=== PATIENT | male | born 1950 | race American Indian/Alaskan Native ===

== ENCOUNTER 2016-05-23 21:15 | Inpatient (IN) | payer MEDICARE ==
[2016-05-23] MEDS ORDERED: CARDIZEM IV ONE ×3 (22:00→23:15)
[2016-05-23] MEDS ORDERED: CARDIZEM ONE (22:37)
[2016-05-23] MEDS ORDERED: NACL 0.9% 1000 ML 1,000 ML IV ONE (22:42)
--- NOTE | 2016-05-23 22:45 | Emergency Department Report ---
ED General Adult HPI - General Chief complaint: Weakness Stated complaint: HIGH BLOOD SUGAR Time Seen by Provider: 05/23/16 22:39 Source: patient, EMS Mode of arrival: Stretcher Limitations: No Limitations - History of Present Illness Initial comments: 66-year-old male with history of hypertension, diabetes presented today because generalized weakness. Patient states that he has been having cold-like symptoms with some congestion and cough for the last 3 days. He has been very sleepy all day and has not been taking his medications since he got sick. Patient had an EKG here which was concerning for A. fib with RVR which appears to be of new onset this patient does not have any known history of it. - Related Data Allergies Allergy/AdvReac Type Severity Reaction Status Date / Time No Known Allergies Allergy Verified 05/23/16 22:42 ED Review of Systems ROS: Stated complaint: HIGH BLOOD SUGAR Other details as noted in HPI Comment: All other systems reviewed and negative Constitutional: denies: chills, fever Respiratory: cough Cardiovascular: denies: chest pain Gastrointestinal: denies: abdominal pain, vomiting Genitourinary: denies: dysuria Skin: denies: rash Psychiatric: denies: anxiety ED Past Medical Hx - Past Medical History Hx Hypertension: Yes Hx Diabetes: Yes - Social History Smoking Status: Never Smoker Substance Use Type: None ED Physical Exam - General Limitations: No Limitations General appearance: alert, other (appears confused, is answering questions slowly) - Head Head exam: Present: atraumatic - Eye Eye exam: Present: normal appearance - ENT ENT exam: Present: normal exam - Neck Neck exam: Present: normal inspection - Respiratory Respiratory exam: Present: normal lung sounds bilaterally. Absent: respiratory distress - Cardiovascular Cardiovascular Exam: Present: tachycardia, irregular rhythm - GI/Abdominal GI/Abdominal exam: Present: soft. Absent: distended, tenderness, guarding - Neurological Exam Neurological exam: Present: other (also commands but appears confused) - Psychiatric Psychiatric exam: Present: normal affect ED Course Vital Signs 05/23/16 05/23/16 05/23/16 22:17 22:46 22:47 Temperature 97.5 F L Pulse Rate 148 H 145 H 162 H Respiratory 22 14 Rate Blood Pressure 192/141 192/112 O2 Sat by Pulse 99 99 Oximetry 05/23/16 05/23/16 05/23/16 23:00 23:15 23:16 Temperature Pulse Rate 116 H 164 H 107 H Respiratory 10 L 15 Rate Blood Pressure 167/102 211/113 O2 Sat by Pulse 98 100 Oximetry 05/23/16 05/23/16 05/24/16 23:30 23:46 00:00 Temperature Pulse Rate 146 H 133 H 148 H Respiratory 13 19 Rate Blood Pressure 211/113 161/92 167/62 O2 Sat by Pulse 99 100 Oximetry 05/24/16 05/24/16 00:52 00:53 Temperature Pulse Rate 138 H Respiratory 24 Rate Blood Pressure O2 Sat by Pulse 99 Oximetry - Reevaluation(s) Reevaluation #1: 05/23/16 23:03 Reassessed at this time, patient had significant improvement in heart rate, now down to 100-110. Has nearly finished the first liter bolus of normal saline. Given that he has no prior CHF and that he also severely hyperglycemic will give him another liter normal saline. Reevaluation #2: 05/24/16 00:00 Patient received 3 boluses of 10 mg of IV Cardizem and is still in the 150s heart rate. Second liter of normal saline is continuing. Awaiting lab results. Due to the patient being resistant to the Cardizem. We will start a drip. Get the patient started coughing and family. Will treat the patient empirically for community acquired pneumonia given that his white count has come back elevated and he would meet surge criteria with a source, lactate is also ordered. 05/24/16 00:03 Reevaluation #3: 05/24/16 01:11 Labs show hyperglycemia, elevated anion gap, elevated ketones suggesting that the patient is in DKA. Insulin drip ordered. Labs also show a elevated troponin, this may be just due to stress/atrial fibrillation with RVR, however did order a dose of aspirin for the patient. Reevaluation #4: 05/24/16 01:59 His heart rate appears to be stabilizing at this time, is at a rate of around 110 ED Medical Decision Making - Lab Data Result diagrams: 05/23/16 23:10 05/24/16 01:28 - Medical Decision Making IV, labs, cxr, ekg ekg shows a fib with rvr Patient has new onset A. fib with RVR. He was also hyperglycemic to the 500s at home. We will look for signs of DKA. IV fluids including a 1 L normal saline bolus started, patient placed on the monitor, ordering 10 mg of IV Cardizem given that the patient may be very sensitive to it since he has not used calcium channel blockers in the past. CXR unremarkable for acute disease process Critical Care Time: Yes Critical care time in (mins) excluding proc time.: 30 Critical care attestation.: If time is entered above; I have spent that time in minutes in the direct care of this critically ill patient, excluding procedure time. ED Disposition Clinical Impression: Atrial fibrillation with rapid ventricular response DKA (diabetic ketoacidoses) Qualifiers: Diabetes mellitus type: other specified (including CAITLIN) Diabetes mellitus complication detail: without coma Qualified Code(s): E13.10 - Other specified diabetes mellitus with ketoacidosis without coma Disposition: OP ADMITTED IP TO THIS HOSP Is pt being admited?: Yes Condition: Critical Instructions: Diabetic Ketoacidosis (ED) Referrals: PRIMARY CARE, [Primary Care Provider] - 3-5 Days Time of Disposition: 02:04 (transitioned care to the hospitalist)
[2016-05-23] MEDS ORDERED: CARDIZEM/D5W 100MG/100ML 100 ML IV ONE (23:11)
[2016-05-23 23:39] LABS: Basophils % (Auto) 0.2 % (0.0-1.8); Eosinophils % (Auto) 0.2 % (0.0-4.3); Hematocrit 44.3 % (35.5-45.6); Hemoglobin 14.4 gm/dl (11.8-15.2); Mean Corpuscular HGB Conc 33 % (32-34); Mean Corpuscular Hemoglobin 29 pg (28-32); Mean Corpuscular Volume 90 fl (84-94); Platelet Count 372 K/mm3 (140-440); Red Cell Distribution Width 12.2 % (13.2-15.2); White Blood Count 12.4 K/mm3 (4.5-11.0)
[2016-05-24] MEDS ORDERED: ROCEPHIN/NS 1 GM/50 ML 50 ML IV ONE (00:01)
[2016-05-24] MEDS ORDERED: ZITHROMAX 500 MG in NACL 0.9% 250ML 250 ML IV ONE (00:01)
[2016-05-24 00:11] LABS: Bilirubin,Urine NEG (Negative); Blood,Urine MOD (Negative); Ketones,Urine 20 mg/dL (Negative); Leukocyte Esterase,Urine NEG (Negative); Nitrite,Urine NEG (Negative); RBC,Urine < 1.0 /HPF (0.0-6.0); Urobilinogen,Urine < 2.0 mg/dL (<2.0)
[2016-05-24 00:48] LABS: B-Hydroxybutyrate 42.4 mg/dL (0.2-2.8); BUN/Creatinine Ratio 24.44; Calcium 8.4 mg/dL (8.4-10.2); Chloride 85.7 mmol/L (98-107); Potassium 5.1 mmol/L (3.6-5.0)
[2016-05-24] MEDS ORDERED: NACL 0.9% 1000 ML 1,000 ML IV ONE ×2 (00:55→01:07)
[2016-05-24] MEDS ORDERED: D50W (25GM) IV PRN ×2 (00:58→04:33)
[2016-05-24] MEDS ORDERED: BABY ASPIRIN PO ONE (01:01)
[2016-05-24 01:47] LABS: Magnesium 2.7 mg/dL (1.7-2.3); Phosphorous 3.6 mg/dL (2.5-4.5)
[2016-05-24 01:48] LABS: BUN/Creatinine Ratio 24.44; Calcium 7.8 mg/dL (8.4-10.2); Chloride 84.9 mmol/L (98-107); Potassium 5.3 mmol/L (3.6-5.0)
[2016-05-24 01:48] LABS: ISTAT Base Excess -9; ISTAT HCO3 15.1; ISTAT PCO2 21.1 (35-45); ISTAT PH 7.464 (7.35-7.45); ISTAT PO2 90 (80-105); ISTAT SO2 98; ISTAT TCO2 16
[2016-05-24] MEDS: NovoLIN R 100 UNITS in NACL 0.9% 99 ML IV SCH ×5 (01:49→22:05)
--- NOTE | 2016-05-24 03:05 | History and Physical Report ---
[id number] of hypertension, diabetes was brought to the emergency room because his blood sugar has been elevated at home. Patient lives state that she had the flu, a few days later the patient started having flulike symptoms, body aches, feeling ill. He has not eaten in 2 days, did not take any medications. Today was lethargic so he came to the emergency room for further evaluation. The emergency room he was found to be in A. fib new onset. History is per the , review of system is very difficult to obtain PAST SURGICAL HISTORY: None SOCIAL HISTORY: Denies alcohol, tobacco, drugs FAMILY HISTORY: Diabetes Medications and Allergies Allergies Allergy/AdvReac Type Severity Reaction Status Date / Time No Known Allergies Allergy Verified 05/23/16 22:42 Active Meds: Active Medications Dextrose (D50w (25gm)) 0 ml IV ONCE PRN PRN Reason: Hypoglycemia Diltiazem HCl (Cardizem/D5w 100mg/100ml) 100 mls @ 5 mls/hr IV TITR RASHEEDA; 5 MG/ HR PRN Reason: Protocol Last Titration: 05/24/16 02:34 Dose: 25 mg/hr Insulin Human Regular 100 (units/ Sodium Chloride) 100 mls @ 1 mls/hr IV TITR RASHEEDA; 1 UNITS/HR PRN Reason: Protocol Last Titration: 05/24/16 02:32 Dose: 7 units/hr Exam - Physical Exam Narrative exam: Gen. appearance: Patient lying in bed, no apparent distress HEENT: Normocephalic, atraumatic, pupils equally round and reactive to light, extraocular movement intact, and no sclericterus,. No JVD or thyromegaly or nodule,neck supple, no carotid bruit ,mucous membranes dry, no exudate or erythema Heart: S1, S2, regular rate and rhythm Lungs: Clear to auscultation bilaterally, breathing comfortable Abdomen: Positive bowel sounds, nontender, nondistended, no organomegaly Extremity: No edema, cyanosis, clubbing Skin: No rash, nodules, warm, dry Neuro: Lethargic - Constitutional Vitals: Temp Pulse Resp BP Pulse Ox 97.5 F L 111 H 15 155/92 100 05/23/16 22:17 05/24/16 02:30 05/24/16 02:30 05/24/16 02:30 05/24/16 02:30 Results - Labs CBC & Chem 7: 05/23/16 23:10 05/24/16 19:49 Labs: Abnormal lab results 05/23/16 05/23/16 05/23/16 Range/Units 22:46 23:10 23:10 WBC 12.4 H (4.5-11.0) K/mm3 RDW 12.2 L (13.2-15.2) % Lymph % (Auto) 10.9 L (13.4-35.0) % [place] % (Auto) 7.7 H (0.0-7.3) % [place] # 1.0 H (0.0-0.8) K/mm3 Seg Neutrophils % 81.0 H (40.0-70.0) % Seg Neutrophils # 10.0 H (1.8-7.7) K/mm3 POC ABG pH (7.35-7.45) POC ABG pCO2 (35-45) Sodium 129 L (137-145) mmol/L Potassium 5.1 H (3.6-5.0) mmol/L Chloride 85.7 L (98-107) mmol/L Carbon Dioxide 16 L (22-30) mmol/L BUN 66 H (9-20) mg/dL Creatinine 2.7 H (0.8-1.5) mg/dL Glucose 569 H* (75-100) mg/dL POC Glucose 494 H (70-105) Lactic Acid (0.7-2.0) mmol/L Calcium (8.4-10.2) mg/dL Magnesium (1.7-2.3) mg/dL Troponin T 0.105 H* (0.00-0.029) ng/mL Triglycerides 236 H (2-149) mg/dL HDL Cholesterol 26 L (40-59) mg/dL Ketones 42.4 H (0.2-2.8) mg/dL 05/24/16 05/24/16 05/24/16 Range/Units 01:28 01:28 01:32 WBC (4.5-11.0) K/mm3 RDW (13.2-15.2) % Lymph % (Auto) (13.4-35.0) % [place] % (Auto) (0.0-7.3) % [place] # (0.0-0.8) K/mm3 Seg Neutrophils % (40.0-70.0) % Seg Neutrophils # (1.8-7.7) K/mm3 POC ABG pH 7.464 H (7.35-7.45) POC ABG pCO2 21.1 L (35-45) Sodium 129 L (137-145) mmol/L Potassium 5.3 H (3.6-5.0) mmol/L Chloride 84.9 L (98-107) mmol/L Carbon Dioxide 18 L (22-30) mmol/L BUN 66 H (9-20) mg/dL Creatinine 2.7 H (0.8-1.5) mg/dL Glucose 554 H* (75-100) mg/dL POC Glucose (70-105) Lactic Acid (0.7-2.0) mmol/L Calcium 7.8 L (8.4-10.2) mg/dL Magnesium 2.7 H (1.7-2.3) mg/dL Troponin T (0.00-0.029) ng/mL Triglycerides (2-149) mg/dL HDL Cholesterol (40-59) mg/dL Ketones (0.2-2.8) mg/dL 05/24/16 05/24/16 Range/Units Unknown Unknown WBC (4.5-11.0) K/mm3 RDW (13.2-15.2) % Lymph % (Auto) (13.4-35.0) % [place] % (Auto) (0.0-7.3) % [place] # (0.0-0.8) K/mm3 Seg Neutrophils % (40.0-70.0) % Seg Neutrophils # (1.8-7.7) K/mm3 POC ABG pH (7.35-7.45) POC ABG pCO2 (35-45) Sodium (137-145) mmol/L Potassium (3.6-5.0) mmol/L Chloride (98-107) mmol/L Carbon Dioxide (22-30) mmol/L BUN (9-20) mg/dL Creatinine (0.8-1.5) mg/dL Glucose (75-100) mg/dL POC Glucose (70-105) Lactic Acid 3.1 H* (0.7-2.0) mmol/L Calcium (8.4-10.2) mg/dL Magnesium (1.7-2.3) mg/dL Troponin T 0.096 H (0.00-0.029) ng/mL Triglycerides (2-149) mg/dL HDL Cholesterol (40-59) mg/dL Ketones (0.2-2.8) mg/dL - Imaging and Cardiology EKG: image reviewed (afib, 120) Chest x-ray: image reviewed Assessment and Plan DKA New-onset A. fib RVR Low-grade temperature epistaxis secondary to flulike symptoms Acute renal failure Hypertension Admits medicine Start IV fluids, insulin drip, monitor fingersticks and serial chemistry Continue Cardizem drip, check cardiac enzymes, TSH, consult cardiology Consult critical care, monitor kidney function Start aspirin, full dose Lovenox Start emperic antibiotics, blood cultures
[2016-05-24] MEDS ORDERED: NACL 0.9% 1000 ML 500 ML IV ONE (04:14)
[2016-05-24] MEDS ORDERED: CARDIZEM/D5W 100MG/100ML 100 ML IV ONE (04:17)
[2016-05-24] MEDS ORDERED: TYLENOL ONE (04:19)
[2016-05-24] MEDS ORDERED: TYLENOL PO ONE (04:29)
[2016-05-24] MEDS ORDERED: DULCOLAX PR PRN (04:33)
[2016-05-24] MEDS ORDERED: MILK OF MAGNESIA PO PRN (04:33)
[2016-05-24] MEDS ORDERED: ALUM-MAG HYDROX-SIMETH 200-200-20MG/5ML PO PRN (04:33)
[2016-05-24] MEDS ORDERED: TYLENOL PO PRN (04:33)
[2016-05-24] MEDS ORDERED: CARDIZEM IV ONE (04:58)
[2016-05-24] MEDS ORDERED: NACL 0.9% 1000 ML 1,000 ML IV SCH (05:00)
[2016-05-24 05:13] LABS: BUN/Creatinine Ratio 22.3; Calcium 7.9 mg/dL (8.4-10.2); Chloride 93.4 mmol/L (98-107)
[2016-05-24] MEDS: CARDIZEM/D5W 100MG/100ML 100 ML IV SCH ×7 (05:14→21:05)
[2016-05-24] MEDS: D5W/0.45% NACL/KCL 20 MEQ 1,000 ML IV SCH ×3 (05:24→18:54)
[2016-05-24 06:44] LABS: BUN/Creatinine Ratio 23.2; Calcium 8.2 mg/dL (8.4-10.2); Chloride 98.7 mmol/L (98-107); Magnesium 2.5 mg/dL (1.7-2.3); Phosphorous 1.6 mg/dL (2.5-4.5); Potassium 3.4 mmol/L (3.6-5.0)
[2016-05-24] MEDS: LOVENOX SUB-Q SCH ×2 (07:14→17:29)
[2016-05-24 08:41] LABS: BUN/Creatinine Ratio 23.33; Calcium 8.3 mg/dL (8.4-10.2); Chloride 95.6 mmol/L (98-107); Potassium 4.1 mmol/L (3.6-5.0)
--- NOTE | 2016-05-24 09:24 | XRay Report ---
Single view chest: History: Cough. Findings: Normal cardiomediastinal silhouette. Trachea is midline. No consolidation, pneumothorax or pleural effusion. Impression: No acute lung changes.
--- NOTE | 2016-05-24 09:24 | Consultation ---
History of Present Illness - Reason for Consult Consult date: 05/24/16 DKA, ICU care, Afib with RVR Requesting physician: SIVA LATIF - History of Present Illness 66 y/o male with known diabetes presents with elevated blood sugar and found to be in DKA. Also during that time was found to be in afib with RVR which this is a new diagnosis for him. Was started on a dilt drip as well as insulin drip and transferred to the ICU. Patient is awake and alert. No complaints. REmains in afib with uncontrolled rate. Last AG was 20 when calculated. Past History Past Medical History: diabetes, hypertension Medications and Allergies Allergies Allergy/AdvReac Type Severity Reaction Status Date / Time No Known Allergies Allergy Verified 05/23/16 22:42 Active Meds: Active Medications Acetaminophen (Tylenol) 650 mg PO Q6H PRN PRN Reason: Pain Al Hydrox/Mg Hydrox/Simethicone (Alum-Mag Hydrox-Simeth [id number]/5ml) 30 ml PO Q4H PRN PRN Reason: Indigestion Aspirin (Aspirin) 325 mg PO QDAY RASHEEDA Bisacodyl (Dulcolax) 10 mg RI QDAY PRN PRN Reason: constipation unrelieved by MOM Dextrose (D50w (25gm)) 0 ml IV ONCE PRN PRN Reason: Hypoglycemia Enoxaparin Sodium (Lovenox) 100 mg SUB-Q Q12H RASHEEDA Last Admin: 05/24/16 07:14 Dose: 100 mg Diltiazem HCl (Cardizem/D5w 100mg/100ml) 100 mls @ 5 mls/hr IV TITR RASHEEDA; 5 MG/ HR PRN Reason: Protocol Last Admin: 05/24/16 08:51 Dose: 20 mls/hr Sodium Chloride (Nacl 0.9% 1000 Ml) 1,000 mls @ 150 mls/hr IV DIRECT RASHEEDA Insulin Human Regular 100 (units/ Sodium Chloride) 100 mls @ 1 mls/hr IV TITR RASHEEDA; 1 UNITS/HR PRN Reason: Protocol Last Admin: 05/24/16 09:15 Dose: 2 mls/hr Potassium Chloride/Dextrose/Sod Cl (D5w/0.45% Nacl/Kcl 20 Meq) 1,000 mls @ 125 mls/hr IV DIRECT RASHEEDA Last Admin: 05/24/16 05:24 Dose: 125 mls/hr Ceftriaxone Sodium (Rocephin/Ns 1 Gm/50 Ml) 50 mls @ 100 mls/hr IV Q24H [facility] Influenza Virus Vaccine Quadrival (Fluarix Quad [id number](36 Mos+)) 60 mcg IM .ONCE ONE Stop: 05/24/16 12:01 Magnesium Hydroxide (Milk Of Magnesia) 30 ml PO Q4H PRN PRN Reason: Constipation Review of Systems All systems: negative Exam - Constitutional Vitals: Temp Pulse Resp BP Pulse Ox 97.8 F 112 H 11 L 148/94 99 05/24/16 08:00 05/24/16 09:00 05/24/16 09:00 05/24/16 09:00 05/24/16 09:00 General appearance: Present: no acute distress, well-nourished - EENT Eyes: Present: PERRL, EOM intact ENT: hearing intact, clear oral mucosa - Neck Neck: Present: supple, normal ROM - Respiratory Respiratory effort: normal Respiratory: bilateral: CTA - Cardiovascular Rhythm: irregularly irregular (and tachycardic) - Extremities Extremities: no ischemia, pulses intact, No edema - Abdominal General gastrointestinal: Present: soft, non-tender, normal bowel sounds Male genitourinary: Present: deferred - Rectal Rectal Exam: deferred Results - Labs CBC & Chem 7: 05/23/16 23:10 05/24/16 07:58 Labs: Abnormal lab results 05/24/16 05/24/16 05/24/16 Range/Units 03:49 03:49 04:56 Sodium 135 L (137-145) mmol/L Potassium (3.6-5.0) mmol/L Chloride 93.4 L (98-107) mmol/L Carbon Dioxide 20 L (22-30) mmol/L BUN 58 H (9-20) mg/dL Creatinine 2.6 H (0.8-1.5) mg/dL Glucose 348 H (75-100) mg/dL POC Glucose 206 H (70-105) Lactic Acid (0.7-2.0) mmol/L Calcium 7.9 L (8.4-10.2) mg/dL Phosphorus (2.5-4.5) mg/dL Magnesium (1.7-2.3) mg/dL Total Creatine Kinase (55-170) units/L CK-MB (CK-2) (0.0-4.0) ng/mL Troponin T 0.107 H* (0.00-0.029) ng/mL 05/24/16 05/24/16 05/24/16 Range/Units 05:48 06:05 07:38 Sodium (137-145) mmol/L Potassium 3.4 L (3.6-5.0) mmol/L Chloride (98-107) mmol/L Carbon Dioxide 20 L (22-30) mmol/L BUN 58 H (9-20) mg/dL Creatinine 2.5 H (0.8-1.5) mg/dL Glucose 151 H (75-100) mg/dL POC Glucose 151 H 120 H (70-105) Lactic Acid (0.7-2.0) mmol/L Calcium 8.2 L (8.4-10.2) mg/dL Phosphorus 1.6 L D (2.5-4.5) mg/dL Magnesium 2.5 H (1.7-2.3) mg/dL Total Creatine Kinase 664 H (55-170) units/L CK-MB (CK-2) 5.0 H (0.0-4.0) ng/mL Troponin T 0.122 H* (0.00-0.029) ng/mL 05/24/16 05/24/16 05/24/16 Range/Units 07:58 08:07 08:55 Sodium 135 L (137-145) mmol/L Potassium (3.6-5.0) mmol/L Chloride 95.6 L (98-107) mmol/L Carbon Dioxide 20 L (22-30) mmol/L BUN 56 H (9-20) mg/dL Creatinine 2.4 H (0.8-1.5) mg/dL Glucose 106 H (75-100) mg/dL POC Glucose 118 H 142 H (70-105) Lactic Acid (0.7-2.0) mmol/L Calcium 8.3 L (8.4-10.2) mg/dL Phosphorus (2.5-4.5) mg/dL Magnesium (1.7-2.3) mg/dL Total Creatine Kinase (55-170) units/L CK-MB (CK-2) (0.0-4.0) ng/mL Troponin T (0.00-0.029) ng/mL 05/24/16 05/24/16 Range/Units Unknown Unknown Sodium (137-145) mmol/L Potassium (3.6-5.0) mmol/L Chloride (98-107) mmol/L Carbon Dioxide (22-30) mmol/L BUN (9-20) mg/dL Creatinine (0.8-1.5) mg/dL Glucose (75-100) mg/dL POC Glucose (70-105) Lactic Acid 3.1 H* (0.7-2.0) mmol/L Calcium (8.4-10.2) mg/dL Phosphorus (2.5-4.5) mg/dL Magnesium (1.7-2.3) mg/dL Total Creatine Kinase (55-170) units/L CK-MB (CK-2) (0.0-4.0) ng/mL Troponin T 0.096 H (0.00-0.029) ng/mL Assessment and Plan 66 y/o male with afib with RVR, DKA and uncontrolled hypertension 1. Titrate dilt drip to control heart rate and BP, goal HR should be less than 100 2. Continue insulin drip until anion gap closes. When blood sugar is less than 250 change to D5 and replace K as needed 3. Continue q6hour BMP's 4. Follow up cardiology recs, especially in regards to anticoagulation CCT 31 minutes.
[2016-05-24] MEDS: ASPIRIN PO SCH (09:30)
[2016-05-24] MEDS ORDERED: FLUARIX QUAD 2016-2017(36 MOS+) IM ONE (12:00)
[2016-05-24 12:54] LABS: Creatine Kinase MB 5.3 ng/mL (0.0-4.0)
--- NOTE | 2016-05-24 13:22 | Event Note ---
Date: 05/24/16 Afib with rapid ventricular response Diabetes HTN will follow note dictated Thank you Dr CHICO Rothman
[2016-05-24 20:24] LABS: Calcium 7.9 mg/dL (8.4-10.2); Chloride 98.6 mmol/L (98-107); Potassium 3.8 mmol/L (3.6-5.0)
[2016-05-24] MEDS ORDERED: ROCEPHIN/NS 1 GM/50 ML 50 ML IV SCH (22:00)
--- NOTE | 2016-05-24 23:10 | Consultation ---
REASON FOR EVALUATION: Atrial fibrillation. HISTORY OF PRESENT ILLNESS: This 66-year-old gentleman is known to have a longstanding history of hypertension, diabetes, and hyperlipidemia. The patient was brought to the Emergency Room because of elevated blood sugar, which was noted at home. The patient did not have any chest pain. No significant difficulty in breathing or palpitation. However, he was noted to have atrial fibrillation with rapid ventricular response. According to the family, it is not clear how long he had atrial fibrillation. The patient has no previous myocardial infarction or congestive heart failure. He had cholecystectomy done in the past. SOCIAL HISTORY: The patient is a nonsmoker and nonalcoholic. REVIEW OF SYSTEMS: GASTROINTESTINAL: No abdominal pain, nausea, or vomiting. HEAD, EYES, EARS, NOSE, AND THROAT: No symptoms. ENDOCRINE: Known to have diabetes. GENITOURINARY: No symptoms. CENTRAL NERVOUS SYSTEM: No symptoms. The patient claims he had cholecystectomy in the past. PHYSICAL EXAMINATION: GENERAL: Adult male, well built, well nourished, in no acute distress. HEAD, EARS, EARS, NOSE, AND THROAT: Unremarkable. NECK: Supple. No thyromegaly. Both carotids are palpable and equal. Neck veins are flat. CHEST: Symmetrical. LUNGS: Clear. HEART: S1, S2 are heard well. Rhythm is irregular. ABDOMEN: Soft. EXTREMITIES: No calf tenderness. No significant edema is present. DIAGNOSTIC STUDIES: EKG: Atrial fibrillation with rapid ventricular response, nonspecific ST-T changes. LABORATORY DATA: WBC 12.4, hemoglobin 14.4, and hematocrit 44.3. Blood gases, pH 7.464, pO2 of 90, pCO2 of 21. Total cholesterol 193, LDL 120, HDL 26. IMPRESSION: 1. Atrial fibrillation with rapid ventricular response. 2. Hypertension. 3. Diabetes. 4. Hyperlipidemia. The patient is seen for cardiac evaluation. Current medications are reviewed. He is currently on Cardizem drip. We will obtain echocardiogram for further cardiac evaluation. He may need an ischemic workup also in the near future once the diabetes has improved. The patient will be followed closely along with you. Thank you for allowing me to participate in the care of this pleasant gentleman. JOB# [id number] KB/NTS
[2016-05-25 01:44] LABS: BUN/Creatinine Ratio 17.5; Calcium 7.7 mg/dL (8.4-10.2); Chloride 97.9 mmol/L (98-107); Potassium 3.5 mmol/L (3.6-5.0)
[2016-05-25 04:22] LABS: Basophils % (Auto) 0.4 % (0.0-1.8); Eosinophils % (Auto) 2.2 % (0.0-4.3); Hematocrit 37.4 % (35.5-45.6); Hemoglobin 12.6 gm/dl (11.8-15.2); Mean Corpuscular HGB Conc 34 % (32-34); Mean Corpuscular Hemoglobin 30 pg (28-32); Mean Corpuscular Volume 87 fl (84-94); Platelet Count 349 K/mm3 (140-440); Red Blood Count 4.27 M/mm3 (3.65-5.03); Red Cell Distribution Width 12.2 % (13.2-15.2)
[2016-05-25 04:39] LABS: BUN/Creatinine Ratio 16.5; Calcium 7.6 mg/dL (8.4-10.2); Chloride 98.8 mmol/L (98-107); Potassium 3.4 mmol/L (3.6-5.0)
--- NOTE | 2016-05-25 08:57 | Progress Note ---
Assessment and Plan Afib with rapid ventricular response initiate PO cardizem 60mg Q6H and wean cardizem gtt to maintain HR < 100 d/c lovenox and initiate eliquis Echo 05/2016: EF 60-65% NSTEMI type II troponin elevation likely due to renal failure consider ischemic evaluation once stable-->may be done as an OP DKA Acute renal failure Hypertension Hyperlipidemia Will initiate PO cardizem and wean cardizem gtt to maintain HR < 100. D/c lovenox and initiate Eliquis. The patient has been seen in conjunction with Dr. Rothman who agrees with the assessment and plan of care. Subjective Date of service: 05/25/16 Principal diagnosis: afib with RVR Interval history: The patient is resting comfortably in bed. No new complaints. Fluctuating between SR with PACs and atrial fibrillation on the monitor. Objective Last Vital Signs Temp 97.7 F 05/25/16 08:00 Pulse 82 05/25/16 00:00 Resp 16 05/25/16 00:00 BP 174/83 05/25/16 00:00 Pulse Ox 97 05/25/16 07:46 - Physical Examination General: No Apparent Distress HEENT: Positive: Normocephaly, Mucus Membranes Moist Neck: Positive: neck supple, trachea midline Cardiac: Positive: Reg Rate and Rhythm, S1/S2 Lungs: Positive: clear to auscultation Neuro: Positive: Grossly Intact Abdomen: Positive: Soft, Active Bowel Sounds. Negative: Tender Skin: Positive: Clear. Negative: Rash Musculoskeletal: Normal Range of Motion Extremities: Present: normal. Absent: edema - Labs and Meds Cardiac Enzymes 05/24/16 Range/Units 12:00 CK-MB (CK-2) 5.3 H (0.0-4.0) ng/mL CBC 05/25/16 Range/Units 03:53 WBC 9.0 (4.5-11.0) K/mm3 RBC 4.27 (3.65-5.03) M/mm3 Hgb 12.6 (11.8-15.2) gm/dl Hct 37.4 D (35.5-45.6) % Plt Count 349 (140-440) K/mm3 Lymph # 2.1 (1.2-5.4) K/mm3 [place] # 0.8 (0.0-0.8) K/mm3 Eos # 0.2 (0.0-0.4) K/mm3 Baso # 0.0 (0.0-0.1) K/mm3 Comprehensive Metabolic Panel 05/24/16 05/25/16 05/25/16 Range/Units 19:49 01:08 03:53 Sodium 134 L 135 L 134 L (137-145) mmol/L Potassium 3.8 3.5 L 3.4 L (3.6-5.0) mmol/L Chloride 98.6 97.9 L 98.8 (98-107) mmol/L Carbon Dioxide 23 22 22 (22-30) mmol/L BUN 42 H 35 H 33 H (9-20) mg/dL Creatinine 2.1 H 2.0 H 2.0 H (0.8-1.5) mg/dL Glucose 134 H 198 H 140 H (75-100) mg/dL Calcium 7.9 L 7.7 L 7.6 L (8.4-10.2) mg/dL - Imaging and Cardiology EKG: image reviewed (afib, 120) Echo: report reviewed (05/2016: EF 60-65%, abnormal diastolic function) - Telemetry EKG Rhythm: Atrial Fibrillation
--- NOTE | 2016-05-25 09:44 | Echocardiography Report ---
Transthoracic Echocardiogram Indication: NEW A FIB BP: 159/74 Conclusions *Global left ventriclar systolic function appears hyperdynamic. *The estimated ejection fraction is 60-65%. *Abnormal left ventricular diastolic function is observed. *The left atrium is normal in size with no visual thrombus identified. *The aortic valve is trileaflet. The leaflets are thin with normal excursion. There is no aortic stenosis or regurgitation present. *There is trace of mitral regurgitation. *There is mild tricuspid regurgitation. *The right ventricular systolic pressure is estimated to be 15-20 mmHg. *There is mild pulmonic regurgitation. Findings Procedure Info: The study quality is fair. Left Ventricle: The left ventricular chamber size is normal. Mild concentric left ventricular hypertrophy is observed. Global left ventriclar systolic function appears hyperdynamic. The estimated ejection fraction is 60-65%. Abnormal left ventricular diastolic function is observed. The left ventricular diastolic filling pattern is consistent with pseudonormalization. Left Atrium: The left atrium is normal in size with no visual thrombus identified. The left atrial chamber size is normal. Right Ventricle: The right ventricular chamber size and systolic function are within normal limits. No ventricular septal defect is visualized. Right Atrium: The right atrium appears normal. No atrial septal defect is visualized. Aortic Valve: The aortic valve is trileaflet. The leaflets are thin with normal excursion. There is no aortic stenosis or regurgitation present. The aortic valve is trileaflet. Mitral Valve: The mitral valve leaflets appear normal. There is trace of mitral regurgitation. Tricuspid Valve: There is mild tricuspid regurgitation. The right ventricular systolic pressure is estimated to be 15-20 mmHg. Pulmonic Valve: The pulmonic valve appears normal in structure and function. There is mild pulmonic regurgitation. Pericardium: There is no pericardial effusion. Venous: The inferior vena cava appears normal. Measurements Chambers MM Name Value Normal Range Ao root diameter (MM) 3.6 cm (2 - 3.7) LA dimension (AP) MM 2.9 cm (1.9 - 4) LA:Ao ratio (MM) 0.81 ratio - AV cusp separation (MM) 2 cm (1.5 - 2.6) Chambers 2D Name Value Normal Range RVIDd (AP) 2D 3.54 cm (0.9 - 2.6) IVSd (2D) 0.84 cm (0.6 - 1.1) LVPWd (2D) 0.88 cm (0.6 - 1.1) IVS:LVPW ratio (2D) 0.96 ratio - LVIDd (2D) 4.13 cm (3.7 - 5.6) LVIDs (2D) 2.23 cm (2 - 3.8) LV FS (Teichholz) (2D) 46 % - LV FS (cube) (2D) 46 % - EF Teichholz (2D) 77.7 % - Ao root diameter (2D) 2.1 cm (2 - 3.7) LA dimension (AP) 2D 3.6 cm (1.9 - 4) LA:Ao ratio (2D) 1.71 ratio - Volumes/Mass Name Value Normal Range LA ESV SP 4CH (MOD) 58 ml - LA ESV SP 2CH (MOD) 84 ml - LA ESV BP (MOD) 72 ml - LA ESV BP (MOD) index 32.6 ml/m2 - Diastolic/Systolic Function Name Value Normal Range MV E-wave Vmax 0.81 m/sec - MV deceleration time 209 msec - MV A-wave Vmax 0.89 m/sec - MV E:A ratio 0.9 ratio - LV septal e' Vmax 0.05 m/sec - LV lateral e' Vmax 0.1 m/sec - LV E:e' septal ratio 16.9 ratio - LV E:e' lateral ratio 8.5 ratio - Aortic Valve Name Value Normal Range AV Vmax 1.18 m/sec - AV peak gradient 6 mmHg - LVOT diameter 2.2 cm - LVOT Vmax 1.27 m/sec - LVOT peak gradient 6 mmHg - SOL (continuity Vmax) 4.09 cm2 - Tricuspid Valve Name Value Normal Range TV E-wave Vmax 0.34 m/sec - TR Vmax 1.95 m/sec - TR peak gradient 15 mmHg - Pulmonic Valve/Qp:Qs Name Value Normal Range PV Vmax 1.67 m/sec - PV peak gradient 11 mmHg - DE end-diastolic Vmax 0.92 m/sec - PV acceleration time 117 msec -
[2016-05-25] MEDS ORDERED: LOVENOX SUB-Q SCH (10:00)
[2016-05-25] MEDS: ASPIRIN PO SCH (10:56)
--- NOTE | 2016-05-25 11:08 | Progress Note ---
Assessment and Plan Atrial fib with fast ventricular response. Currently improved. Non STEMI DKA Hypertension Recommendations Follow cardiovascular recommendations and if okay to switch over to by mouth Cardizem. Code initiated on oral feeding but her nurse is my he still has some choking problems. I recommended therapy evaluation before progress in diet. Will need to hold on long-acting insulin due to the above and continue sliding scale. I'm initiated on long-acting insulin once oral feeding is back to normal Critical care time was 31 minutes Subjective Date of service: 05/25/16 Principal diagnosis: afib with RVR Interval history: No chest pain or respiratory complaints noted Objective Vital Signs - 12hr 05/24/16 05/25/16 05/25/16 23:30 00:00 05:10 Temperature 98.2 F Pulse Rate 79 82 Respiratory 16 16 Rate Blood Pressure 147/83 174/83 O2 Sat by Pulse 98 99 Oximetry 05/25/16 05/25/16 07:46 08:00 Temperature 97.7 F Pulse Rate Respiratory Rate Blood Pressure O2 Sat by Pulse 97 Oximetry Constitutional: no acute distress Eyes: non-icteric ENT: oropharynx moist Neck: supple Ascultation: Bilateral: clear Cardiovascular: irregular rhythm, other (NO murmur) Integumentary: normal Extremities: no cyanosis, no cyanosis, no cyanosis Neurologic: normal mental status, non-focal exam CBC and BMP: 05/25/16 03:53 05/25/16 03:53 ABG, PT/INR, D-dimer: ABG POC ABG pH 7.464 (7.35-7.45) H 05/24/16 01:32 POC ABG pCO2 21.1 (35-45) L 05/24/16 01:32 POC ABG pO2 90 (80-105) 05/24/16 01:32 POC ABG HCO3 15.1 05/24/16 01:32 POC ABG Total CO2 16 05/24/16 01:32 POC ABG O2 Sat 98 05/24/16 01:32 Abnormal lab findings: Abnormal Labs 05/24/16 05/24/16 05/24/16 03:42 03:49 03:49 RDW S[place] % (Auto) Sodium 135 L Potassium Chloride 93.4 L Carbon Dioxide 20 L BUN 58 H Creatinine 2.6 H Glucose 348 H POC Glucose 389 H Lactic Acid Calcium 7.9 L Phosphorus Magnesium Total Creatine Kinase CK-MB (CK-2) Troponin T 0.107 H* 05/24/16 05/24/16 05/24/16 04:56 05:48 06:05 RDW [place] % (Auto) Sodium Potassium 3.4 L Chloride Carbon Dioxide 20 L BUN 58 H Creatinine 2.5 H Glucose 151 H POC Glucose 206 H 151 H Lactic Acid Calcium 8.2 L Phosphorus 1.6 L D Magnesium 2.5 H Total Creatine Kinase 664 H CK-MB (CK-2) 5.0 H Troponin T 0.122 H* 05/24/16 05/24/16 05/24/16 07:38 07:58 08:07 RDW [place] % (Auto) Sodium 135 L Potassium Chloride 95.6 L Carbon Dioxide 20 L BUN 56 H Creatinine 2.4 H Glucose 106 H POC Glucose 120 H 118 H Lactic Acid Calcium 8.3 L Phosphorus Magnesium Total Creatine Kinase CK-MB (CK-2) Troponin T 05/24/16 05/24/16 05/24/16 08:55 10:11 11:07 RDW [place] % (Auto) Sodium Potassium Chloride Carbon Dioxide BUN Creatinine Glucose POC Glucose 142 H 168 H 168 H Lactic Acid Calcium Phosphorus Magnesium Total Creatine Kinase CK-MB (CK-2) Troponin T 05/24/16 05/24/16 05/24/16 11:46 12:00 13:10 RDW [place] % (Auto) Sodium Potassium Chloride Carbon Dioxide BUN Creatinine Glucose POC Glucose 153 H 145 H Lactic Acid Calcium Phosphorus Magnesium Total Creatine Kinase 589 H CK-MB (CK-2) 5.3 H Troponin T 0.124 H* 05/24/16 05/24/16 05/24/16 14:16 15:04 15:53 RDW [place] % (Auto) Sodium Potassium Chloride Carbon Dioxide BUN Creatinine Glucose POC Glucose 162 H 156 H 164 H Lactic Acid Calcium Phosphorus Magnesium Total Creatine Kinase CK-MB (CK-2) Troponin T 05/24/16 05/24/16 05/24/16 17:10 17:57 19:47 RDW [place] % (Auto) Sodium Potassium Chloride Carbon Dioxide BUN Creatinine Glucose POC Glucose 160 H 147 H 145 H Lactic Acid Calcium Phosphorus Magnesium Total Creatine Kinase CK-MB (CK-2) Troponin T 05/24/16 05/24/16 05/24/16 19:49 21:03 21:52 RDW [place] % (Auto) Sodium 134 L Potassium Chloride Carbon Dioxide BUN 42 H Creatinine 2.1 H Glucose 134 H POC Glucose 139 H 130 H Lactic Acid Calcium 7.9 L Phosphorus Magnesium Total Creatine Kinase CK-MB (CK-2) Troponin T 05/24/16 05/24/16 05/25/16 Unknown Unknown 00:52 RDW [place] % (Auto) Sodium Potassium Chloride Carbon Dioxide BUN Creatinine Glucose POC Glucose 179 H Lactic Acid 3.1 H* Calcium Phosphorus Magnesium Total Creatine Kinase CK-MB (CK-2) Troponin T 0.096 H 05/25/16 05/25/16 05/25/16 01:08 01:14 03:14 RDW [place] % (Auto) Sodium 135 L Potassium 3.5 L Chloride 97.9 L Carbon Dioxide BUN 35 H Creatinine 2.0 H Glucose 198 H POC Glucose 176 H 163 H Lactic Acid Calcium 7.7 L Phosphorus Magnesium Total Creatine Kinase CK-MB (CK-2) Troponin T 05/25/16 05/25/16 03:53 03:53 RDW 12.2 L [place] % (Auto) 9.1 H Sodium 134 L Potassium 3.4 L Chloride Carbon Dioxide BUN 33 H Creatinine 2.0 H Glucose 140 H POC Glucose Lactic Acid Calcium 7.6 L Phosphorus Magnesium Total Creatine Kinase CK-MB (CK-2) Troponin T
--- NOTE | 2016-05-25 11:13 | Admit Criteria Form ---
Admission Criteria Documentation: DIABETES Clinical Indications for Admission to Inpatient Care (Place 'X' for any and all applicable criteria): Admission is indicated by presence of ALL (if I & II) or ANY ONE (if III or IV) of the following (1)(2)(3)(4): [X]I. Diabetes is uncontrolled as indicated by ANY ONE of the following: [X ]a) Diabetic ketoacidosis as indicated by ALL of the following (8): [X)i) Hyperglycemia (eg, plasma glucose greater than 200 mg/ dL (11.1 mmol/L)) [ ]ii) Acidosis (eg, arterial pH less than 7.30, serum bicarbonate level less than 15 mEq/L (mmol/L)) [X]iii) Moderate ketonuria or ketonemia [ ]b) Hyperglycemic hyperosmolar state as indicated by ALL of the following(9)(10): [ ]i) Neurologic dysfunction (eg, stupor, coma, hemiparesis , seizure)(13) [ ]ii) Plasma glucose greater than 600 mg/dL (33.3 mmol/L) [ ]iii) Serum osmolality greater than 320 mOsm/kg (mmol/kg) [X]c) Severe signs or symptoms secondary to hyperglycemia indicated by ANY ONE of the following: [ ]i) Altered mental status(10) [ ]ii) Significant hypovolemia or dehydration [ ]iii) Intractable nausea or vomiting [ ]iv) Unexplained fever or severe infection [X]v) Severe electrolyte abnormality (eg, hypokalemia, hyperkalemia, hypernatremia) []II. Management at other levels of care (Also use Diabetes: Observation Care as appropriate) is not feasible because of ANY ONE of the following: []a) Condition was not adequately corrected with treatment at other levels of care. [ ]b) Treatment at other levels of care is not appropriate because of condition severity (eg, hyperosmolar coma). [X]III. Contraindications and/or Inappropriate clinical situations for Observational Care in patients with Diabetes, when ANY ONE of the following is required: [X]a) Patient require specific diagnostic workup or therapeutic intervention 22 [ ]b) Patient with abnormal vital signs or altered mental status 23 [ ]IV. General contraindications and/or Inappropriate clinical situations for Observational Care in patients with Diabetes, when ANY ONE of the following is required: [ ]a) Prediction of prolongation of LOS based on ANY ONE of the following may be considered as a contraindication for observational care 2, 3, 4, 5, 6, 7, 8, 9, 10, 11 [ ]i) Age > 65 yrs. [ ]ii) Patient arriving by ambulance [ ]iii) Patient with high acuity [ ]iv) Patient requiring vital sign monitoring [ ]v) Patient on IV medication [ ]b) Systolic blood pressures 180mmHg 3,12 [ ]c) Patient with altered mental status including delirium and other alteration of consciousness, (3) [ ]d) Patient whose discharge disposition will be to a halfway home or rehabilitation home should not be managed in Emergency Department Observation Unit. CMS rule requires 3 days hospital stay before such placement.3,13 [ ]e) Patient with failure to thrive due to broad array of etiologies 3,16,17 [ ]f) Inability to ambulate 3,14 Extended stay beyond goal length of stay may be needed for(3)(20): [ ]a) Treatment of precipitating causes [ ]b) Development of hypoglycemia [ ]c) Complications of treatment [ ]d) Complications of decompensated diabetes (eg, acute gastric dilatation, persistent metabolic or neurologic derangement) [ ]e) Active Comorbidities [ ]f) Older patients( 65 years or older) The original [employer] content created by [employer] has been revised. The portions of the content which have been revised are identified through the use of italic text or in bold,and [facility] has neither reviewed nor approved the modified material. All other unmodified content is copyright [employer]. Please see references footnoted in the original [employer] edition 2016 Admission Criteria Met: Yes
--- NOTE | 2016-05-25 11:30 | Progress Note ---
Assessment and Plan Assessment and plan: 1. DKA - on insulin drip, IV fluids and electrolytes placement protocol; this morning amnion gap closed; will transition to subcutaneous insulin, sliding scale for now; hold them acting insulin as he is NPO, pending swallow evaluation 2. A. fib with RVR - on Cardizem drip and anticoagulated with Lovenox treatment dose; cardiology plans to switch him to a Cardizem po; switched anticoagulation to Eliquis. ECHO showing LV function hyperdynamic, EF 60-65%, abnormal diastolic function. TSH within normal limits 3. NSTEMI - will need ischemic evaluation; cardiology will decide if it will be performed while hospitalized or in outpatient 4. SIRS - no evidence of infection; will discontinue antibiotics 5. Hypertension - NPO now, so will give hydralazine IV when necessary 6. Hyperlipidemia - check lipid profile and start statin when able to take by mouth 7. DVT prophylaxis - anticoagulated with Lovenox treatment dose, switch to Eliquis today History Interval history: feeling better this morning, mental status improved, no specific complaints awainting swallow evsc Hospitalist Physical - Constitutional Vitals: Temp Pulse Resp BP Pulse Ox 97.7 F 82 16 174/83 97 05/25/16 08:00 05/25/16 00:00 05/25/16 00:00 05/25/16 00:00 05/25/16 07:46 General appearance: Present: no acute distress, well-nourished - EENT Eyes: Present: PERRL, EOM intact. Absent: scleral icterus, conjunctival injection - Neck Neck: Present: supple, normal ROM. Absent: masses or JVD - Respiratory Respiratory effort: normal Respiratory: bilateral: diminished, negative: rales, rhonchi, wheezing - Cardiovascular Rhythm: irregularly irregular Heart Sounds: Present: S1 & S2. Absent: systolic murmur - Extremities Extremities: no ischemia - Abdominal General gastrointestinal: soft, non-tender, non-distended, normal bowel sounds - Integumentary Integumentary: Present: warm, dry. Absent: jaundice, rash - Psychiatric Psychiatric: cooperative, other (slightly confused) - Neurologic Neurologic: CNII-XII intact, no focal deficits Results - Labs CBC & Chem 7: 05/25/16 03:53 05/25/16 03:53 Labs: Laboratory Last Values WBC 9.0 K/mm3 (4.5-11.0) 05/25/16 03:53 RBC 4.27 M/mm3 (3.65-5.03) 05/25/16 03:53 Hgb 12.6 gm/dl (11.8-15.2) 05/25/16 03:53 Hct 37.4 % (35.5-45.6) D 05/25/16 03:53 MCV 87 fl (84-94) D 05/25/16 03:53 MCH 30 pg (28-32) 05/25/16 03:53 MCHC 34 % (32-34) 05/25/16 03:53 RDW 12.2 % (13.2-15.2) L 05/25/16 03:53 Plt Count 349 K/mm3 (140-440) 05/25/16 03:53 Lymph % (Auto) 23.4 % (13.4-35.0) 05/25/16 03:53 Hubbard % (Auto) 9.1 % (0.0-7.3) H 05/25/16 03:53 Eos % (Auto) 2.2 % (0.0-4.3) 05/25/16 03:53 Baso % (Auto) 0.4 % (0.0-1.8) 05/25/16 03:53 Lymph # 2.1 K/mm3 (1.2-5.4) 05/25/16 03:53 Hubbard # 0.8 K/mm3 (0.0-0.8) 05/25/16 03:53 Eos # 0.2 K/mm3 (0.0-0.4) 05/25/16 03:53 Baso # 0.0 K/mm3 (0.0-0.1) 05/25/16 03:53 Seg Neutrophils % 64.9 % (40.0-70.0) 05/25/16 03:53 Seg Neutrophils # 5.8 K/mm3 (1.8-7.7) 05/25/16 03:53 POC ABG pH 7.464 (7.35-7.45) H 05/24/16 01:32 POC ABG pCO2 21.1 (35-45) L 05/24/16 01:32 POC ABG pO2 90 (80-105) 05/24/16 01:32 POC ABG HCO3 15.1 05/24/16 01:32 POC ABG Total CO2 16 05/24/16 01:32 POC ABG O2 Sat 98 05/24/16 01:32 POC ABG Base Excess -9 05/24/16 01:32 VBG pH 7.347 (7.320-7.420) 05/23/16 23:10 FiO2 21 % 05/24/16 01:32 Sodium 134 mmol/L (137-145) L 05/25/16 03:53 Potassium 3.4 mmol/L (3.6-5.0) L 05/25/16 03:53 Chloride 98.8 mmol/L (98-107) 05/25/16 03:53 Carbon Dioxide 22 mmol/L (22-30) 05/25/16 03:53 Anion Gap 17 mmol/L 05/25/16 03:53 BUN 33 mg/dL (9-20) H 05/25/16 03:53 Creatinine 2.0 mg/dL (0.8-1.5) H 05/25/16 03:53 Estimated GFR 40 ml/min 05/25/16 03:53 BUN/Creatinine Ratio 16.50 % 05/25/16 03:53 Glucose 140 mg/dL (75-100) H 05/25/16 03:53 POC Glucose 163 (70-105) H 05/25/16 03:14 Lactic Acid 3.1 mmol/L (0.7-2.0) H* 05/24/16 Unknown Calcium 7.6 mg/dL (8.4-10.2) L 05/25/16 03:53 Phosphorus 1.6 mg/dL (2.5-4.5) L D 05/24/16 05:48 Magnesium 2.5 mg/dL (1.7-2.3) H 05/24/16 05:48 Total Creatine Kinase 589 units/L (55-170) H 05/24/16 12:00 CK-MB (CK-2) 5.3 ng/mL (0.0-4.0) H 05/24/16 12:00 CK-MB (CK-2) Rel Index 0.8 (0-4) 05/24/16 12:00 Troponin T 0.096 ng/mL (0.00-0.029) H 05/24/16 Unknown Triglycerides 236 mg/dL (2-149) H 05/23/16 23:10 Cholesterol 193 mg/dL (50-199) 05/23/16 23:10 LDL Cholesterol Direct 120 mg/dL (50-130) 05/23/16 23:10 HDL Cholesterol 26 mg/dL (40-59) L 05/23/16 23:10 Cholesterol/HDL Ratio 7.42 % 05/23/16 23:10 TSH 0.505 mlU/mL (0.270-4.200) 05/24/16 05:48 Urine Color Yellow (Yellow) 05/23/16 Unknown Urine Turbidity Clear (Clear) 05/23/16 Unknown Urine pH 5.0 (5.0-7.0) 05/23/16 Unknown Ur Specific [place] 1.020 (1.003-1.030) 05/23/16 Unknown Urine Protein 100 mg/dl mg/dL (Negative) 05/23/16 Unknown Urine Glucose (UA) >=500 mg/dL (Negative) 05/23/16 Unknown Urine Ketones 20 mg/dL (Negative) 05/23/16 Unknown Urine Blood Mod (Negative) 05/23/16 Unknown Urine Nitrite Neg (Negative) 05/23/16 Unknown Urine Bilirubin Neg (Negative) 05/23/16 Unknown Urine Urobilinogen < 2.0 mg/dL (<2.0) 05/23/16 Unknown Ur Leukocyte Esterase Neg (Negative) 05/23/16 Unknown Urine WBC (Auto) 1.0 /HPF (0.0-6.0) 05/23/16 Unknown Urine RBC (Auto) < 1.0 /HPF (0.0-6.0) 05/23/16 Unknown U Epithel Cells (Auto) < 1.0 /HPF (0-13.0) 05/23/16 Unknown Ketones 42.4 mg/dL (0.2-2.8) H 05/23/16 23:10 - Imaging and Cardiology Chest x-ray: image reviewed (no acute process) Imaging and Cardiology: ECHO - EF 60-65; abnormal diast function
[2016-05-25] MEDS: CARDIZEM PO SCH ×3 (12:56→23:26)
[2016-05-25] MEDS ORDERED: NOVOLOG SUB-Q SCH (13:00)
[2016-05-25] MEDS: CARDIZEM/D5W 100MG/100ML 100 ML IV SCH (14:01)
[2016-05-25] MEDS: ELIQUIS PO SCH ×2 (14:16→22:35)
[2016-05-25] MEDS ORDERED: K-DUR PO ONE (15:00)
[2016-05-25] MEDS: NOVOLOG SUB-Q SCH ×2 (18:26→22:34)
[2016-05-26] MEDS: APRESOLINE IV PRN (04:02)
[2016-05-26] MEDS: CARDIZEM PO SCH ×3 (06:10→17:40)
[2016-05-26 06:19] LABS: BUN/Creatinine Ratio 14.7; Calcium 8.2 mg/dL (8.4-10.2); Chloride 100.4 mmol/L (98-107)
[2016-05-26] MEDS ORDERED: CARDIZEM/D5W 100MG/100ML 100 ML IV SCH (08:00)
[2016-05-26] MEDS: NOVOLOG SUB-Q SCH ×4 (08:00→21:34)
--- NOTE | 2016-05-26 09:23 | Progress Note ---
Assessment and Plan Afib with rapid ventricular response continue PO cardizem continue Eliquis 5mg BID add metoprolol 50mg BID for better rate control Echo 05/2016: EF 60-65% NSTEMI type II troponin elevation likely due to renal failure consider ischemic evaluation once stable-->may be done as an OP DKA-->resolved Acute renal failure Hypertension Hyperlipidemia Will add metoprolol 50mg BID for better rate control. Continue close monitoring of HR and BP. The patient has been seen in conjunction with Dr. Rothman who agrees with the assessment and plan of care. Subjective Date of service: 05/26/16 Principal diagnosis: afib with RVR Interval history: The patient is resting comfortably in bed. No new complaints. Fluctuating between atrial fibrillation and NSR on the monitor. Objective Last Vital Signs Temp 98 F 05/26/16 08:00 Pulse 130 H 05/26/16 08:00 Resp 10 L 05/26/16 08:00 BP 159/88 05/26/16 08:00 Pulse Ox 98 05/26/16 08:00 - Physical Examination General: No Apparent Distress HEENT: Positive: Normocephaly, Mucus Membranes Moist Neck: Positive: neck supple, trachea midline Cardiac: Positive: irregularly irregular, S1/S2 Lungs: Positive: clear to auscultation Neuro: Positive: Grossly Intact Abdomen: Positive: Soft, Active Bowel Sounds. Negative: Tender Skin: Positive: Clear. Negative: Rash Musculoskeletal: Normal Range of Motion Extremities: Present: normal. Absent: edema - Labs and Meds Comprehensive Metabolic Panel 05/26/16 Range/Units 05:53 Sodium 134 L (137-145) mmol/L Potassium 4.0 (3.6-5.0) mmol/L Chloride 100.4 (98-107) mmol/L Carbon Dioxide 20 L (22-30) mmol/L BUN 25 H (9-20) mg/dL Creatinine 1.7 H (0.8-1.5) mg/dL Glucose 222 H (75-100) mg/dL Calcium 8.2 L (8.4-10.2) mg/dL - Imaging and Cardiology EKG: image reviewed (afib, 120) Echo: report reviewed (05/2016: EF 60-65%, abnormal diastolic function) - Telemetry EKG Rhythm: Atrial Fibrillation
--- NOTE | 2016-05-26 09:40 | Progress Note ---
Assessment and Plan Atrial fib with fast ventricular response. Non STEMI DKA. Eating. Still some BS adjustment Hypertension Recommendations Cardio f/u Monitor BS, continue diet,long acting insulin switch Could be transferred out, once all the above is done Critical care time was 31 minutes Subjective Date of service: 05/26/16 Principal diagnosis: afib with RVR Interval history: Again no chest pain or respiratory complaints noted. AF/FVR again noted, started on Cardizem last night Objective Vital Signs - 12hr 05/25/16 05/25/16 05/25/16 21:48 21:52 21:56 Temperature Pulse Rate Pulse Rate [ From Monitor] Pulse Rate [ Left Dorsalis Pedis] Pulse Rate [ Left Radial] Pulse Rate [ Right Dorsalis Pedis] Pulse Rate [ Right Radial] Respiratory Rate Blood Pressure 134/92 134/92 134/92 O2 Sat by Pulse 100 100 98 Oximetry 05/25/16 05/25/16 05/25/16 22:00 23:00 23:06 Temperature Pulse Rate 101 H 103 H Pulse Rate [ From Monitor] Pulse Rate [ Left Dorsalis Pedis] Pulse Rate [ Left Radial] Pulse Rate [ Right Dorsalis Pedis] Pulse Rate [ Right Radial] Respiratory 24 18 Rate Blood Pressure 134/92 149/92 147/82 O2 Sat by Pulse 99 96 98 Oximetry 05/25/16 05/25/16 05/26/16 23:26 23:38 00:00 Temperature Pulse Rate 87 101 H 100 H Pulse Rate [ From Monitor] Pulse Rate [ 89 Left Dorsalis Pedis] Pulse Rate [ Left Radial] Pulse Rate [ 89 Right Dorsalis Pedis] Pulse Rate [ 89 Right Radial] Respiratory 17 18 Rate Blood Pressure 145/76 152/90 152/90 O2 Sat by Pulse 99 98 Oximetry 05/26/16 05/26/16 05/26/16 00:28 00:30 00:32 Temperature Pulse Rate 113 H 105 H 111 H Pulse Rate [ From Monitor] Pulse Rate [ Left Dorsalis Pedis] Pulse Rate [ Left Radial] Pulse Rate [ Right Dorsalis Pedis] Pulse Rate [ Right Radial] Respiratory 17 16 15 Rate Blood Pressure 148/99 148/99 148/99 O2 Sat by Pulse 96 98 Oximetry 05/26/16 05/26/16 05/26/16 00:57 01:00 01:14 Temperature 98.8 F Pulse Rate 89 124 H Pulse Rate [ From Monitor] Pulse Rate [ Left Dorsalis Pedis] Pulse Rate [ Left Radial] Pulse Rate [ Right Dorsalis Pedis] Pulse Rate [ Right Radial] Respiratory 20 19 Rate Blood Pressure 148/99 147/105 O2 Sat by Pulse 97 99 Oximetry 05/26/16 05/26/16 05/26/16 02:00 02:34 03:00 Temperature Pulse Rate 102 H 113 H 110 H Pulse Rate [ 89 From Monitor] Pulse Rate [ 89 Left Dorsalis Pedis] Pulse Rate [ 89 Left Radial] Pulse Rate [ 89 Right Dorsalis Pedis] Pulse Rate [ 89 Right Radial] Respiratory 18 21 18 Rate Blood Pressure 158/114 150/132 150/132 O2 Sat by Pulse 98 97 96 Oximetry 05/26/16 05/26/16 05/26/16 03:06 03:08 04:00 Temperature Pulse Rate 92 H 99 H 125 H Pulse Rate [ 123 H From Monitor] Pulse Rate [ 123 H Left Dorsalis Pedis] Pulse Rate [ 123 H Left Radial] Pulse Rate [ 123 H Right Dorsalis Pedis] Pulse Rate [ 123 H Right Radial] Respiratory 20 22 23 Rate Blood Pressure 150/132 150/132 184/92 O2 Sat by Pulse 98 98 97 Oximetry 05/26/16 05/26/16 05/26/16 04:02 04:16 04:38 Temperature 98.8 F Pulse Rate 126 H 140 H Pulse Rate [ From Monitor] Pulse Rate [ Left Dorsalis Pedis] Pulse Rate [ Left Radial] Pulse Rate [ Right Dorsalis Pedis] Pulse Rate [ Right Radial] Respiratory 20 Rate Blood Pressure 184/92 146/104 O2 Sat by Pulse 96 Oximetry 05/26/16 05/26/16 05/26/16 04:46 05:00 05:35 Temperature Pulse Rate 141 H 179 H 124 H Pulse Rate [ From Monitor] Pulse Rate [ Left Dorsalis Pedis] Pulse Rate [ Left Radial] Pulse Rate [ Right Dorsalis Pedis] Pulse Rate [ Right Radial] Respiratory 19 16 14 Rate Blood Pressure 146/104 146/104 141/96 O2 Sat by Pulse 98 97 98 Oximetry 05/26/16 05/26/16 05/26/16 05:52 05:58 06:00 Temperature Pulse Rate 149 H 121 H Pulse Rate [ From Monitor] Pulse Rate [ 134 H Left Dorsalis Pedis] Pulse Rate [ 132 H Left Radial] Pulse Rate [ 134 H Right Dorsalis Pedis] Pulse Rate [ Right Radial] Respiratory 26 H 19 Rate Blood Pressure 140/102 140/102 O2 Sat by Pulse 96 100 98 Oximetry 05/26/16 05/26/16 05/26/16 06:02 06:10 07:00 Temperature Pulse Rate 156 H 89 121 H Pulse Rate [ From Monitor] Pulse Rate [ Left Dorsalis Pedis] Pulse Rate [ Left Radial] Pulse Rate [ Right Dorsalis Pedis] Pulse Rate [ Right Radial] Respiratory 17 16 Rate Blood Pressure 141/96 159/86 130/71 O2 Sat by Pulse 98 97 Oximetry 05/26/16 05/26/16 07:51 08:00 Temperature 98 F Pulse Rate 130 H Pulse Rate [ From Monitor] Pulse Rate [ Left Dorsalis Pedis] Pulse Rate [ Left Radial] Pulse Rate [ Right Dorsalis Pedis] Pulse Rate [ Right Radial] Respiratory 10 L Rate Blood Pressure 159/88 O2 Sat by Pulse 95 98 Oximetry Constitutional: no acute distress, alert, other (mildly confused) Eyes: non-icteric ENT: oropharynx moist Neck: supple Ascultation: Bilateral: clear Cardiovascular: irregular rhythm, other (NO murmur) Integumentary: normal Extremities: no cyanosis, no cyanosis, no cyanosis Neurologic: normal mental status, non-focal exam, pupils equal and round, CN II- XII normal CBC and BMP: 05/25/16 03:53 05/26/16 05:53 ABG, PT/INR, D-dimer: ABG POC ABG pH 7.464 (7.35-7.45) H 05/24/16 01:32 POC ABG pCO2 21.1 (35-45) L 05/24/16 01:32 POC ABG pO2 90 (80-105) 05/24/16 01:32 POC ABG HCO3 15.1 05/24/16 01:32 POC ABG Total CO2 16 05/24/16 01:32 POC ABG O2 Sat 98 05/24/16 01:32 Abnormal lab findings: Abnormal Labs 05/24/16 05/24/16 05/24/16 03:42 03:49 03:49 RDW [place] % (Auto) Sodium 135 L Potassium Chloride 93.4 L Carbon Dioxide 20 L BUN 58 H Creatinine 2.6 H Glucose 348 H POC Glucose 389 H Lactic Acid Calcium 7.9 L Phosphorus Magnesium Total Creatine Kinase CK-MB (CK-2) Troponin T 0.107 H* 05/24/16 05/24/16 05/24/16 04:56 05:48 06:05 RDW [place] % (Auto) Sodium Potassium 3.4 L Chloride Carbon Dioxide 20 L BUN 58 H Creatinine 2.5 H Glucose 151 H POC Glucose 206 H 151 H Lactic Acid Calcium 8.2 L Phosphorus 1.6 L D Magnesium 2.5 H Total Creatine Kinase 664 H CK-MB (CK-2) 5.0 H Troponin T 0.122 H* 05/24/16 05/24/16 05/24/16 07:38 07:58 08:07 RDW [place] % (Auto) Sodium 135 L Potassium Chloride 95.6 L Carbon Dioxide 20 L BUN 56 H Creatinine 2.4 H Glucose 106 H POC Glucose 120 H 118 H Lactic Acid Calcium 8.3 L Phosphorus Magnesium Total Creatine Kinase CK-MB (CK-2) Troponin T 05/24/16 05/24/16 05/24/16 08:55 10:11 11:07 RDW [place] % (Auto) Sodium Potassium Chloride Carbon Dioxide BUN Creatinine Glucose POC Glucose 142 H 168 H 168 H Lactic Acid Calcium Phosphorus Magnesium Total Creatine Kinase CK-MB (CK-2) Troponin T 05/24/16 05/24/16 05/24/16 11:46 12:00 13:10 RDW [place] % (Auto) Sodium Potassium Chloride Carbon Dioxide BUN Creatinine Glucose POC Glucose 153 H 145 H Lactic Acid Calcium Phosphorus Magnesium Total Creatine Kinase 589 H CK-MB (CK-2) 5.3 H Troponin T 0.124 H* 05/24/16 05/24/16 05/24/16 14:16 15:04 15:53 RDW [place] % (Auto) Sodium Potassium Chloride Carbon Dioxide BUN Creatinine Glucose POC Glucose 162 H 156 H 164 H Lactic Acid Calcium Phosphorus Magnesium Total Creatine Kinase CK-MB (CK-2) Troponin T 05/24/16 05/24/16 05/24/16 17:10 17:57 19:47 RDW [place] % (Auto) Sodium Potassium Chloride Carbon Dioxide BUN Creatinine Glucose POC Glucose 160 H 147 H 145 H Lactic Acid Calcium Phosphorus Magnesium Total Creatine Kinase CK-MB (CK-2) Troponin T 05/24/16 05/24/16 05/24/16 19:49 21:03 21:52 RDW [place] % (Auto) Sodium 134 L Potassium Chloride Carbon Dioxide BUN 42 H Creatinine 2.1 H Glucose 134 H POC Glucose 139 H 130 H Lactic Acid Calcium 7.9 L Phosphorus Magnesium Total Creatine Kinase CK-MB (CK-2) Troponin T 05/24/16 05/24/16 05/25/16 Unknown Unknown 00:52 RDW [place] % (Auto) Sodium Potassium Chloride Carbon Dioxide BUN Creatinine Glucose POC Glucose 179 H Lactic Acid 3.1 H* Calcium Phosphorus Magnesium Total Creatine Kinase CK-MB (CK-2) Troponin T 0.096 H 05/25/16 05/25/16 05/25/16 01:08 01:14 03:14 RDW [place] % (Auto) Sodium 135 L Potassium 3.5 L Chloride 97.9 L Carbon Dioxide BUN 35 H Creatinine 2.0 H Glucose 198 H POC Glucose 176 H 163 H Lactic Acid Calcium 7.7 L Phosphorus Magnesium Total Creatine Kinase CK-MB (CK-2) Troponin T 05/25/16 05/25/16 05/25/16 03:53 03:53 08:14 RDW 12.2 L [place] % (Auto) 9.1 H Sodium 134 L Potassium 3.4 L Chloride Carbon Dioxide BUN 33 H Creatinine 2.0 H Glucose 140 H POC Glucose 49 L Lactic Acid Calcium 7.6 L Phosphorus Magnesium Total Creatine Kinase CK-MB (CK-2) Troponin T 05/25/16 05/25/16 05/25/16 09:57 11:37 15:42 RDW [place] % (Auto) Sodium Potassium Chloride Carbon Dioxide BUN Creatinine Glucose POC Glucose 149 H 196 H 242 H Lactic Acid Calcium Phosphorus Magnesium Total Creatine Kinase CK-MB (CK-2) Troponin T 05/25/16 05/26/16 21:48 05:53 RDW [place] % (Auto) Sodium 134 L Potassium Chloride Carbon Dioxide 20 L BUN 25 H Creatinine 1.7 H Glucose 222 H POC Glucose 339 H Lactic Acid Calcium 8.2 L Phosphorus Magnesium Total Creatine Kinase CK-MB (CK-2) Troponin T
[2016-05-26] MEDS: ASPIRIN PO SCH (10:36)
[2016-05-26] MEDS: ELIQUIS PO SCH ×2 (10:37→21:36)
[2016-05-26] MEDS: LOPRESSOR PO SCH ×2 (12:04→21:36)
--- NOTE | 2016-05-26 17:57 | Progress Note ---
[id number] gap closed; transitioned to subcutaneous insulin, sliding scale for now - started on diet, also placed on 70/30 A. fib with RVR - off Cardizem drip and anticoagulated with eliquis treatment dose; - cardiology started on Cardizem po and metoprolol - ECHO showing LV function hyperdynamic, EF 60-65%, abnormal diastolic function. - TSH within normal limits NSTEMI - will need ischemic evaluation; - cardiology will decide if it will be performed while hospitalized or in outpatient SIRS - no evidence of infection; off antibiotics Hypertension -hydralazine IV when necessary - well controlled with cardizem and metoprolol Hyperlipidemia - start on statin DVT prophylaxis - anticoagulated with Eliquis History Interval history: Patient seen and examined. Medical records and medication list reviewed. No acute event overnight noted by the RN. Patient denies any chest pain or difficulty breathing. c/o generalized weakness. Patient is tolerating diet. HR better controlled after starting on metoprolol. transfer to floor today. Discussed plan of care at bedside with patient and family. Hospitalist Physical - Physical exam Narrative exam: GENERAL: elderly ill appearing AAM lying on bed appeared to be in no discomfort. HEENT: Normocephalic. Atraumatic. No conjunctival congestion or icterus. Patient has moist mucous membranes. NECK: Supple. Trachea midline. CHEST/LUNGS: Clear to auscultated bilaterally, breathing nonlabored. No wheezes crackles or rhonchi. HEART/CARDIOVASCULAR: irRegular in rate and rhythm. S1 and S2 positive. ABDOMEN: Abdomen is soft, nontender. Patient has normal bowel sounds. SKIN: There is no rash. Warm and dry. NEURO: No focal motor deficit. Follows command. MUSCULOSKELETAL: No joint effusion or tenderness. EXTRIMITY: No edema, no cyanosis or clubbing. PSYCH: Cooperative. - Constitutional Vitals: Temp Pulse Resp BP Pulse Ox 97.8 F 100 H 21 198/96 96 05/26/16 16:00 05/26/16 17:40 05/26/16 17:00 05/26/16 17:40 05/26/16 16:00 General appearance: Present: no acute distress, well-nourished Results - Labs CBC & Chem 7: 05/25/16 03:53 05/27/16 09:50 Labs: Laboratory Last Values WBC 9.0 K/mm3 (4.5-11.0) 05/25/16 03:53 RBC 4.27 M/mm3 (3.65-5.03) 05/25/16 03:53 Hgb 12.6 gm/dl (11.8-15.2) 05/25/16 03:53 Hct 37.4 % (35.5-45.6) D 05/25/16 03:53 MCV 87 fl (84-94) D 05/25/16 03:53 MCH 30 pg (28-32) 05/25/16 03:53 MCHC 34 % (32-34) 05/25/16 03:53 RDW 12.2 % (13.2-15.2) L 05/25/16 03:53 Plt Count 349 K/mm3 (140-440) 05/25/16 03:53 Lymph % (Auto) 23.4 % (13.4-35.0) 05/25/16 03:53 [place] % (Auto) 9.1 % (0.0-7.3) H 05/25/16 03:53 Eos % (Auto) 2.2 % (0.0-4.3) 05/25/16 03:53 Baso % (Auto) 0.4 % (0.0-1.8) 05/25/16 03:53 Lymph # 2.1 K/mm3 (1.2-5.4) 05/25/16 03:53 [place] # 0.8 K/mm3 (0.0-0.8) 05/25/16 03:53 Eos # 0.2 K/mm3 (0.0-0.4) 05/25/16 03:53 Baso # 0.0 K/mm3 (0.0-0.1) 05/25/16 03:53 Seg Neutrophils % 64.9 % (40.0-70.0) 05/25/16 03:53 Seg Neutrophils # 5.8 K/mm3 (1.8-7.7) 05/25/16 03:53 POC ABG pH 7.464 (7.35-7.45) H 05/24/16 01:32 POC ABG pCO2 21.1 (35-45) L 05/24/16 01:32 POC ABG pO2 90 (80-105) 05/24/16 01:32 POC ABG HCO3 15.1 05/24/16 01:32 POC ABG Total CO2 16 05/24/16 01:32 POC ABG O2 Sat 98 05/24/16 01:32 POC ABG Base Excess -9 05/24/16 01:32 VBG pH 7.347 (7.320-7.420) 05/23/16 23:10 FiO2 21 % 05/24/16 01:32 Sodium 134 mmol/L (137-145) L 05/26/16 05:53 Potassium 4.0 mmol/L (3.6-5.0) 05/26/16 05:53 Chloride 100.4 mmol/L (98-107) 05/26/16 05:53 Carbon Dioxide 20 mmol/L (22-30) L 05/26/16 05:53 Anion Gap 18 mmol/L 05/26/16 05:53 BUN 25 mg/dL (9-20) H 05/26/16 05:53 Creatinine 1.7 mg/dL (0.8-1.5) H 05/26/16 05:53 Estimated GFR 49 ml/min 05/26/16 05:53 BUN/Creatinine Ratio 14.70 % 05/26/16 05:53 Glucose 222 mg/dL (75-100) H 05/26/16 05:53 POC Glucose 339 (70-105) H 05/25/16 21:48 Lactic Acid 3.1 mmol/L (0.7-2.0) H* 05/24/16 Unknown Calcium 8.2 mg/dL (8.4-10.2) L 05/26/16 05:53 Phosphorus 1.6 mg/dL (2.5-4.5) L D 05/24/16 05:48 Magnesium 2.5 mg/dL (1.7-2.3) H 05/24/16 05:48 Total Creatine Kinase 589 units/L (55-170) H 05/24/16 12:00 CK-MB (CK-2) 5.3 ng/mL (0.0-4.0) H 05/24/16 12:00 CK-MB (CK-2) Rel Index 0.8 (0-4) 05/24/16 12:00 Troponin T 0.096 ng/mL (0.00-0.029) H 05/24/16 Unknown Triglycerides 236 mg/dL (2-149) H 05/23/16 23:10 Cholesterol 193 mg/dL (50-199) 05/23/16 23:10 LDL Cholesterol Direct 120 mg/dL (50-130) 05/23/16 23:10 HDL Cholesterol 26 mg/dL (40-59) L 05/23/16 23:10 Cholesterol/HDL Ratio 7.42 % 05/23/16 23:10 TSH 0.505 mlU/mL (0.270-4.200) 05/24/16 05:48 Urine Color Yellow (Yellow) 05/23/16 Unknown Urine Turbidity Clear (Clear) 05/23/16 Unknown Urine pH 5.0 (5.0-7.0) 05/23/16 Unknown Ur Specific [place] 1.020 (1.003-1.030) 05/23/16 Unknown Urine Protein 100 mg/dl mg/dL (Negative) 05/23/16 Unknown Urine Glucose (UA) >=500 mg/dL (Negative) 05/23/16 Unknown Urine Ketones 20 mg/dL (Negative) 05/23/16 Unknown Urine Blood Mod (Negative) 05/23/16 Unknown Urine Nitrite Neg (Negative) 05/23/16 Unknown Urine Bilirubin Neg (Negative) 05/23/16 Unknown Urine Urobilinogen < 2.0 mg/dL (<2.0) 05/23/16 Unknown Ur Leukocyte Esterase Neg (Negative) 05/23/16 Unknown Urine WBC (Auto) 1.0 /HPF (0.0-6.0) 05/23/16 Unknown Urine RBC (Auto) < 1.0 /HPF (0.0-6.0) 05/23/16 Unknown U Epithel Cells (Auto) < 1.0 /HPF (0-13.0) 05/23/16 Unknown Ketones 42.4 mg/dL (0.2-2.8) H 05/23/16 23:10
[2016-05-27] MEDS: CARDIZEM PO SCH ×3 (00:29→11:05)
[2016-05-27] MEDS: NOVOLOG SUB-Q SCH ×4 (08:00→23:12)
[2016-05-27 10:42] LABS: BUN/Creatinine Ratio 15.88; Calcium 8.3 mg/dL (8.4-10.2); Chloride 100.9 mmol/L (98-107); Potassium 4.5 mmol/L (3.6-5.0)
[2016-05-27] MEDS: ASPIRIN PO SCH (11:05)
[2016-05-27] MEDS ORDERED: LOPRESSOR PO SCH (11:07)
--- NOTE | 2016-05-27 11:07 | Progress Note ---
Assessment and Plan Atrial fib with fast ventricular response. Clinically controlled Non STEMI DKA. Eating. Blood sugar be monitored by IMS Hypertension Recommendations Cardio f/u Monitor BS, continue diet,long acting insulin switch Incentive spirometry and encouraged to be out of bed as tolerated We will sign off from follow-up as needed Subjective Date of service: 05/27/16 Principal diagnosis: afib with RVR non-STEMI: DKA Interval history: Reports no chest complaints at this time. No chest pain cough or shortness of breath reported. Had breakfast this morning Objective Vital Signs - 12hr 05/27/16 05/27/16 05/27/16 01:05 05:39 07:49 Temperature 97.8 F 98.4 F 97.7 F Pulse Rate Pulse Rate [ 74 75 Right Dorsalis Pedis] Pulse Rate [ 74 Right Radial] Respiratory 18 63 H 18 Rate Blood Pressure 136/78 142/99 [Left Arm] Blood Pressure 201/80 [Right Arm] O2 Sat by Pulse 100 97 99 Oximetry 05/27/16 05/27/16 08:50 10:00 Temperature Pulse Rate 79 Pulse Rate [ Right Dorsalis Pedis] Pulse Rate [ Right Radial] Respiratory Rate Blood Pressure [Left Arm] Blood Pressure [Right Arm] O2 Sat by Pulse 98 Oximetry Constitutional: no acute distress, alert, other (mildly confused) Eyes: non-icteric ENT: oropharynx moist Neck: supple Ascultation: Bilateral: clear Cardiovascular: irregular rhythm, other (NO murmur) Integumentary: normal Extremities: no cyanosis, no cyanosis, no cyanosis Neurologic: normal mental status, non-focal exam, pupils equal and round, CN II- XII normal CBC and BMP: 05/25/16 03:53 05/27/16 09:50 ABG, PT/INR, D-dimer: ABG POC ABG pH 7.464 (7.35-7.45) H 05/24/16 01:32 POC ABG pCO2 21.1 (35-45) L 05/24/16 01:32 POC ABG pO2 90 (80-105) 05/24/16 01:32 POC ABG HCO3 15.1 05/24/16 01:32 POC ABG Total CO2 16 05/24/16 01:32 POC ABG O2 Sat 98 05/24/16 01:32 Abnormal lab findings: Abnormal Labs 05/24/16 05/24/16 05/24/16 03:42 03:49 03:49 RDW [place] % (Auto) Sodium 135 L Potassium Chloride 93.4 L Carbon Dioxide 20 L BUN 58 H Creatinine 2.6 H Glucose 348 H POC Glucose 389 H Lactic Acid Calcium 7.9 L Phosphorus Magnesium Total Creatine Kinase CK-MB (CK-2) Troponin T 0.107 H* 05/24/16 05/24/16 05/24/16 04:56 05:48 06:05 RDW [place] % (Auto) Sodium Potassium 3.4 L Chloride Carbon Dioxide 20 L BUN 58 H Creatinine 2.5 H Glucose 151 H POC Glucose 206 H 151 H Lactic Acid Calcium 8.2 L Phosphorus 1.6 L D Magnesium 2.5 H Total Creatine Kinase 664 H CK-MB (CK-2) 5.0 H Troponin T 0.122 H* 05/24/16 05/24/16 05/24/16 07:38 07:58 08:07 RDW [place] % (Auto) Sodium 135 L Potassium Chloride 95.6 L Carbon Dioxide 20 L BUN 56 H Creatinine 2.4 H Glucose 106 H POC Glucose 120 H 118 H Lactic Acid Calcium 8.3 L Phosphorus Magnesium Total Creatine Kinase CK-MB (CK-2) Troponin T 05/24/16 05/24/16 05/24/16 08:55 10:11 11:07 RDW [place] % (Auto) Sodium Potassium Chloride Carbon Dioxide BUN Creatinine Glucose POC Glucose 142 H 168 H 168 H Lactic Acid Calcium Phosphorus Magnesium Total Creatine Kinase CK-MB (CK-2) Troponin T 05/24/16 05/24/16 05/24/16 11:46 12:00 13:10 RDW [place] % (Auto) Sodium Potassium Chloride Carbon Dioxide BUN Creatinine Glucose POC Glucose 153 H 145 H Lactic Acid Calcium Phosphorus Magnesium Total Creatine Kinase 589 H CK-MB (CK-2) 5.3 H Troponin T 0.124 H* 05/24/16 05/24/16 05/24/16 14:16 15:04 15:53 RDW [place] % (Auto) Sodium Potassium Chloride Carbon Dioxide BUN Creatinine Glucose POC Glucose 162 H 156 H 164 H Lactic Acid Calcium Phosphorus Magnesium Total Creatine Kinase CK-MB (CK-2) Troponin T 05/24/16 05/24/16 05/24/16 17:10 17:57 19:47 RDW [place] % (Auto) Sodium Potassium Chloride Carbon Dioxide BUN Creatinine Glucose POC Glucose 160 H 147 H 145 H Lactic Acid Calcium Phosphorus Magnesium Total Creatine Kinase CK-MB (CK-2) Troponin T 05/24/16 05/24/16 05/24/16 19:49 21:03 21:52 RDW [place] % (Auto) Sodium 134 L Potassium Chloride Carbon Dioxide BUN 42 H Creatinine 2.1 H Glucose 134 H POC Glucose 139 H 130 H Lactic Acid Calcium 7.9 L Phosphorus Magnesium Total Creatine Kinase CK-MB (CK-2) Troponin T 05/24/16 05/24/16 05/25/16 Unknown Unknown 00:52 RDW [place] % (Auto) Sodium Potassium Chloride Carbon Dioxide BUN Creatinine Glucose POC Glucose 179 H Lactic Acid 3.1 H* Calcium Phosphorus Magnesium Total Creatine Kinase CK-MB (CK-2) Troponin T 0.096 H 05/25/16 05/25/16 05/25/16 01:08 01:14 03:14 RDW [place] % (Auto) Sodium 135 L Potassium 3.5 L Chloride 97.9 L Carbon Dioxide BUN 35 H Creatinine 2.0 H Glucose 198 H POC Glucose 176 H 163 H Lactic Acid Calcium 7.7 L Phosphorus Magnesium Total Creatine Kinase CK-MB (CK-2) Troponin T 05/25/16 05/25/16 05/25/16 03:53 03:53 08:14 RDW 12.2 L [place] % (Auto) 9.1 H Sodium 134 L Potassium 3.4 L Chloride Carbon Dioxide BUN 33 H Creatinine 2.0 H Glucose 140 H POC Glucose 49 L Lactic Acid Calcium 7.6 L Phosphorus Magnesium Total Creatine Kinase CK-MB (CK-2) Troponin T 05/25/16 05/25/16 05/25/16 09:57 11:37 15:42 RDW [place] % (Auto) Sodium Potassium Chloride Carbon Dioxide BUN Creatinine Glucose POC Glucose 149 H 196 H 242 H Lactic Acid Calcium Phosphorus Magnesium Total Creatine Kinase CK-MB (CK-2) Troponin T 05/25/16 05/26/16 05/26/16 21:48 05:53 07:56 RDW [place] % (Auto) Sodium 134 L Potassium Chloride Carbon Dioxide 20 L BUN 25 H Creatinine 1.7 H Glucose 222 H POC Glucose 339 H 247 H Lactic Acid Calcium 8.2 L Phosphorus Magnesium Total Creatine Kinase CK-MB (CK-2) Troponin T 05/26/16 05/26/16 05/26/16 11:31 15:52 21:22 RDW [place] % (Auto) Sodium Potassium Chloride Carbon Dioxide BUN Creatinine Glucose POC Glucose 331 H 186 H 172 H Lactic Acid Calcium Phosphorus Magnesium Total Creatine Kinase CK-MB (CK-2) Troponin T 05/27/16 09:50 RDW [place] % (Auto) Sodium 133 L Potassium Chloride Carbon Dioxide 19 L BUN 27 H Creatinine 1.7 H Glucose 257 H POC Glucose Lactic Acid Calcium 8.3 L Phosphorus Magnesium Total Creatine Kinase CK-MB (CK-2) Troponin T
--- NOTE | 2016-05-27 11:08 | Progress Note ---
Assessment and Plan Afib with rapid ventricular response-->currently sinus rhythm continue PO cardizem-->will change to cardizem CD 240mg daily continue metoprolol, Eliquis 5mg BID Echo 05/2016: EF 60-65% NSTEMI type II troponin elevation likely due to renal failure consider ischemic evaluation once stable-->may be done as an OP DKA-->resolved Acute renal failure Hypertension BP elevated increase metoprolol to 100mg BID Hyperlipidemia The patient has been seen in conjunction with Dr. Rothman who agrees with the assessment and plan of care. Subjective Date of service: 05/27/16 Principal diagnosis: afib with RVR Interval history: The patient is resting comfortably in bed. No new complaints. Sinus rhythm with PACs on the monitor. Objective Last Vital Signs Temp 97.7 F 05/27/16 07:49 Pulse 79 05/27/16 08:50 Resp 18 05/27/16 07:49 BP 201/80 05/27/16 07:49 Pulse Ox 98 05/27/16 10:00 - Physical Examination General: No Apparent Distress HEENT: Positive: Normocephaly, Mucus Membranes Moist Neck: Positive: neck supple, trachea midline Cardiac: Positive: Reg Rate and Rhythm, S1/S2 Lungs: Positive: clear to auscultation Neuro: Positive: Grossly Intact Abdomen: Positive: Soft, Active Bowel Sounds. Negative: Tender Skin: Positive: Clear. Negative: Rash Musculoskeletal: Normal Range of Motion Extremities: Present: normal. Absent: edema - Labs and Meds Comprehensive Metabolic Panel 05/27/16 Range/Units 09:50 Sodium 133 L (137-145) mmol/L Potassium 4.5 (3.6-5.0) mmol/L Chloride 100.9 (98-107) mmol/L Carbon Dioxide 19 L (22-30) mmol/L BUN 27 H (9-20) mg/dL Creatinine 1.7 H (0.8-1.5) mg/dL Glucose 257 H (75-100) mg/dL Calcium 8.3 L (8.4-10.2) mg/dL - Imaging and Cardiology EKG: image reviewed (afib, 120) Echo: report reviewed (05/2016: EF 60-65%, abnormal diastolic function) - Telemetry EKG Rhythm: Sinus Rhythm
[2016-05-27] MEDS: LOPRESSOR PO SCH ×3 (11:14→23:12)
[2016-05-27] MEDS: APRESOLINE IV PRN (11:35)
[2016-05-27] MEDS: ELIQUIS PO SCH ×2 (12:33→23:11)
[2016-05-27] MEDS: CARDIZEM CD PO SCH (12:38)
--- NOTE | 2016-05-27 17:29 | Progress Note ---
Assessment and Plan Assessment and plan: DKA - off insulin drip, cont IV fluids and electrolytes placement protocol; - amnion gap closed; transitioned to subcutaneous insulin, - started on diet, cont on 70/30 and sliding scale insulin coverage A. fib with RVR - off Cardizem drip and anticoagulated with eliquis treatment dose; - cardiology started on Cardizem po and metoprolol - ECHO showing LV function hyperdynamic, EF 60-65%, abnormal diastolic function. - TSH within normal limits NSTEMI - will need ischemic evaluation out patient; SIRS - no evidence of infection; off antibiotics Hypertension -hydralazine IV when necessary - well controlled with cardizem and metoprolol Hyperlipidemia - started on statin DVT prophylaxis - anticoagulated with Eliquis disposition: home with likely HH when BG better controlled History Interval history: Patient seen and examined. Medical records and medication list reviewed. No acute event overnight noted by the RN. Patient denies any chest pain or difficulty breathing. c/o generalized weakness. Patient is tolerating diet. HR better controlled after starting on metoprolol. Waiting PT eval Discussed plan of care at bedside with patient and family. Hospitalist Physical - Physical exam Narrative exam: GENERAL: elderly ill appearing AAM lying on bed appeared to be in no discomfort. HEENT: Normocephalic. Atraumatic. No conjunctival congestion or icterus. Patient has moist mucous membranes. NECK: Supple. Trachea midline. CHEST/LUNGS: Clear to auscultated bilaterally, breathing nonlabored. No wheezes crackles or rhonchi. HEART/CARDIOVASCULAR: irRegular in rate and rhythm. S1 and S2 positive. ABDOMEN: Abdomen is soft, nontender. Patient has normal bowel sounds. SKIN: There is no rash. Warm and dry. NEURO: No focal motor deficit. Follows command. MUSCULOSKELETAL: No joint effusion or tenderness. EXTRIMITY: No edema, no cyanosis or clubbing. PSYCH: Cooperative. - Constitutional Vitals: Temp Pulse Resp BP Pulse Ox 98.0 F 69 18 118/64 100 05/27/16 15:39 05/27/16 15:39 05/27/16 15:39 05/27/16 15:39 05/27/16 15:39 General appearance: Present: no acute distress, well-nourished Results - Labs CBC & Chem 7: 05/25/16 03:53 05/27/16 09:50 Labs: Laboratory Last Values WBC 9.0 K/mm3 (4.5-11.0) 05/25/16 03:53 RBC 4.27 M/mm3 (3.65-5.03) 05/25/16 03:53 Hgb 12.6 gm/dl (11.8-15.2) 05/25/16 03:53 Hct 37.4 % (35.5-45.6) D 05/25/16 03:53 MCV 87 fl (84-94) D 05/25/16 03:53 MCH 30 pg (28-32) 05/25/16 03:53 MCHC 34 % (32-34) 05/25/16 03:53 RDW 12.2 % (13.2-15.2) L 05/25/16 03:53 Plt Count 349 K/mm3 (140-440) 05/25/16 03:53 Lymph % (Auto) 23.4 % (13.4-35.0) 05/25/16 03:53 [place] % (Auto) 9.1 % (0.0-7.3) H 05/25/16 03:53 Eos % (Auto) 2.2 % (0.0-4.3) 05/25/16 03:53 Baso % (Auto) 0.4 % (0.0-1.8) 05/25/16 03:53 Lymph # 2.1 K/mm3 (1.2-5.4) 05/25/16 03:53 [place] # 0.8 K/mm3 (0.0-0.8) 05/25/16 03:53 Eos # 0.2 K/mm3 (0.0-0.4) 05/25/16 03:53 Baso # 0.0 K/mm3 (0.0-0.1) 05/25/16 03:53 Seg Neutrophils % 64.9 % (40.0-70.0) 05/25/16 03:53 Seg Neutrophils # 5.8 K/mm3 (1.8-7.7) 05/25/16 03:53 POC ABG pH 7.464 (7.35-7.45) H 05/24/16 01:32 POC ABG pCO2 21.1 (35-45) L 05/24/16 01:32 POC ABG pO2 90 (80-105) 05/24/16 01:32 POC ABG HCO3 15.1 05/24/16 01:32 POC ABG Total CO2 16 05/24/16 01:32 POC ABG O2 Sat 98 05/24/16 01:32 POC ABG Base Excess -9 05/24/16 01:32 VBG pH 7.347 (7.320-7.420) 05/23/16 23:10 FiO2 21 % 05/24/16 01:32 Sodium 133 mmol/L (137-145) L 05/27/16 09:50 Potassium 4.5 mmol/L (3.6-5.0) 05/27/16 09:50 Chloride 100.9 mmol/L (98-107) 05/27/16 09:50 Carbon Dioxide 19 mmol/L (22-30) L 05/27/16 09:50 Anion Gap 18 mmol/L 05/27/16 09:50 BUN 27 mg/dL (9-20) H 05/27/16 09:50 Creatinine 1.7 mg/dL (0.8-1.5) H 05/27/16 09:50 Estimated GFR 49 ml/min 05/27/16 09:50 BUN/Creatinine Ratio 15.88 % 05/27/16 09:50 Glucose 257 mg/dL (75-100) H 05/27/16 09:50 POC Glucose 172 (70-105) H 05/26/16 21:22 Lactic Acid 3.1 mmol/L (0.7-2.0) H* 05/24/16 Unknown Calcium 8.3 mg/dL (8.4-10.2) L 05/27/16 09:50 Phosphorus 1.6 mg/dL (2.5-4.5) L D 05/24/16 05:48 Magnesium 2.5 mg/dL (1.7-2.3) H 05/24/16 05:48 Total Creatine Kinase 589 units/L (55-170) H 05/24/16 12:00 CK-MB (CK-2) 5.3 ng/mL (0.0-4.0) H 05/24/16 12:00 CK-MB (CK-2) Rel Index 0.8 (0-4) 05/24/16 12:00 Troponin T 0.096 ng/mL (0.00-0.029) H 05/24/16 Unknown Triglycerides 236 mg/dL (2-149) H 05/23/16 23:10 Cholesterol 193 mg/dL (50-199) 05/23/16 23:10 LDL Cholesterol Direct 120 mg/dL (50-130) 05/23/16 23:10 HDL Cholesterol 26 mg/dL (40-59) L 05/23/16 23:10 Cholesterol/HDL Ratio 7.42 % 05/23/16 23:10 TSH 0.505 mlU/mL (0.270-4.200) 05/24/16 05:48 Urine Color Yellow (Yellow) 05/23/16 Unknown Urine Turbidity Clear (Clear) 05/23/16 Unknown Urine pH 5.0 (5.0-7.0) 05/23/16 Unknown Ur Specific [place] 1.020 (1.003-1.030) 05/23/16 Unknown Urine Protein 100 mg/dl mg/dL (Negative) 05/23/16 Unknown Urine Glucose (UA) >=500 mg/dL (Negative) 05/23/16 Unknown Urine Ketones 20 mg/dL (Negative) 05/23/16 Unknown Urine Blood Mod (Negative) 05/23/16 Unknown Urine Nitrite Neg (Negative) 05/23/16 Unknown Urine Bilirubin Neg (Negative) 05/23/16 Unknown Urine Urobilinogen < 2.0 mg/dL (<2.0) 05/23/16 Unknown Ur Leukocyte Esterase Neg (Negative) 05/23/16 Unknown Urine WBC (Auto) 1.0 /HPF (0.0-6.0) 05/23/16 Unknown Urine RBC (Auto) < 1.0 /HPF (0.0-6.0) 05/23/16 Unknown U Epithel Cells (Auto) < 1.0 /HPF (0-13.0) 05/23/16 Unknown Ketones 42.4 mg/dL (0.2-2.8) H 05/23/16 23:10
[2016-05-28] MEDS: NOVOLOG SUB-Q SCH ×4 (09:17→21:12)
[2016-05-28] MEDS: ASPIRIN PO SCH (11:32)
[2016-05-28] MEDS: ELIQUIS PO SCH ×2 (11:32→21:11)
[2016-05-28] MEDS: CARDIZEM CD PO SCH (11:33)
[2016-05-28] MEDS: LOPRESSOR PO SCH ×2 (11:33→21:11)
--- NOTE | 2016-05-28 12:23 | Progress Note ---
Assessment and Plan Afib with rapid ventricular response-->currently sinus rhythm continue PO cardizem CD 240mg daily continue metoprolol, Eliquis 5mg BID Echo 05/2016: EF 60-65% NSTEMI type II troponin elevation likely due to renal failure consider stress test--> this may be done as an OP DKA-->resolved Acute renal failure Hypertension BP elevated increase metoprolol to 100mg BID Hyperlipidemia Stable cardiac status. Continue current management. Stress test may be performed as an outpatient. Follow up in the office with Dr. Rothman in 2 weeks. The patient has been seen in conjunction with Dr. Rothman who agrees with the assessment and plan of care. Subjective Date of service: 05/28/16 Principal diagnosis: afib with RVR Interval history: The patient is resting comfortably in bed. No new complaints. Sinus rhythm with PACs on the monitor. Objective Last Vital Signs Temp 98.2 F 05/28/16 11:42 Pulse 14 L 05/28/16 11:42 Resp 14 05/28/16 11:42 BP 138/74 05/28/16 11:42 Pulse Ox 99 05/28/16 11:42 - Physical Examination General: No Apparent Distress HEENT: Positive: Normocephaly, Mucus Membranes Moist Neck: Positive: neck supple, trachea midline Cardiac: Positive: Reg Rate and Rhythm, S1/S2 Lungs: Positive: clear to auscultation Neuro: Positive: Grossly Intact Abdomen: Positive: Soft, Active Bowel Sounds. Negative: Tender Skin: Positive: Clear. Negative: Rash Musculoskeletal: Normal Range of Motion Extremities: Present: normal. Absent: edema - Imaging and Cardiology EKG: image reviewed (afib, 120) Echo: report reviewed (05/2016: EF 60-65%, abnormal diastolic function) - Telemetry EKG Rhythm: Sinus Rhythm
--- NOTE | 2016-05-28 16:38 | Progress Note ---
Assessment and Plan Assessment and plan: DKA - off insulin drip, cont IV fluids and electrolytes placement protocol; - amnion gap closed; transitioned to subcutaneous insulin, - started on diet, cont on 70/30 and sliding scale insulin coverage - increase dose of insulin today A. fib with RVR - off Cardizem drip and anticoagulated with eliquis treatment dose; - cardiology started on Cardizem po and metoprolol - ECHO showing LV function hyperdynamic, EF 60-65%, abnormal diastolic function. - TSH within normal limits NSTEMI - will need ischemic evaluation out patient; SIRS - no evidence of infection; off antibiotics Hypertension -hydralazine IV when necessary - well controlled with cardizem and metoprolol Hyperlipidemia - started on statin BRIELLE - likely due to vasomotor nephropathy/ATN, - cont to monitor renal function, BMP today DVT prophylaxis - anticoagulated with Eliquis disposition: home with likely HH when BG better controlled and renal function improved History Interval history: Patient seen and examined. Medical records and medication list reviewed. No acute event overnight noted by the RN. Patient denies any chest pain or difficulty breathing. c/o generalized weakness. Patient is tolerating diet. HR better controlled after starting on metoprolol. tolerated PT, BG >350s today Discussed plan of care at bedside with patient and family. Hospitalist Physical - Physical exam Narrative exam: GENERAL: elderly ill appearing AAM lying on bed appeared to be in no discomfort. HEENT: Normocephalic. Atraumatic. No conjunctival congestion or icterus. Patient has moist mucous membranes. NECK: Supple. Trachea midline. CHEST/LUNGS: Clear to auscultated bilaterally, breathing nonlabored. No wheezes crackles or rhonchi. HEART/CARDIOVASCULAR: irRegular in rate and rhythm. S1 and S2 positive. ABDOMEN: Abdomen is soft, nontender. Patient has normal bowel sounds. SKIN: There is no rash. Warm and dry. NEURO: No focal motor deficit. Follows command. MUSCULOSKELETAL: No joint effusion or tenderness. EXTRIMITY: No edema, no cyanosis or clubbing. PSYCH: Cooperative. - Constitutional Vitals: Temp Pulse Resp BP Pulse Ox 98.2 F 14 L 14 138/74 99 05/28/16 11:42 05/28/16 11:42 05/28/16 11:42 05/28/16 11:42 05/28/16 11:42 General appearance: Present: no acute distress, well-nourished Results - Labs CBC & Chem 7: 05/25/16 03:53 05/28/16 21:29 Labs: Laboratory Last Values WBC 9.0 K/mm3 (4.5-11.0) 05/25/16 03:53 RBC 4.27 M/mm3 (3.65-5.03) 05/25/16 03:53 Hgb 12.6 gm/dl (11.8-15.2) 05/25/16 03:53 Hct 37.4 % (35.5-45.6) D 05/25/16 03:53 MCV 87 fl (84-94) D 05/25/16 03:53 MCH 30 pg (28-32) 05/25/16 03:53 MCHC 34 % (32-34) 05/25/16 03:53 RDW 12.2 % (13.2-15.2) L 05/25/16 03:53 Plt Count 349 K/mm3 (140-440) 05/25/16 03:53 Lymph % (Auto) 23.4 % (13.4-35.0) 05/25/16 03:53 [place] % (Auto) 9.1 % (0.0-7.3) H 05/25/16 03:53 Eos % (Auto) 2.2 % (0.0-4.3) 05/25/16 03:53 Baso % (Auto) 0.4 % (0.0-1.8) 05/25/16 03:53 Lymph # 2.1 K/mm3 (1.2-5.4) 05/25/16 03:53 [place] # 0.8 K/mm3 (0.0-0.8) 05/25/16 03:53 Eos # 0.2 K/mm3 (0.0-0.4) 05/25/16 03:53 Baso # 0.0 K/mm3 (0.0-0.1) 05/25/16 03:53 Seg Neutrophils % 64.9 % (40.0-70.0) 05/25/16 03:53 Seg Neutrophils # 5.8 K/mm3 (1.8-7.7) 05/25/16 03:53 POC ABG pH 7.464 (7.35-7.45) H 05/24/16 01:32 POC ABG pCO2 21.1 (35-45) L 05/24/16 01:32 POC ABG pO2 90 (80-105) 05/24/16 01:32 POC ABG HCO3 15.1 05/24/16 01:32 POC ABG Total CO2 16 05/24/16 01:32 POC ABG O2 Sat 98 05/24/16 01:32 POC ABG Base Excess -9 05/24/16 01:32 VBG pH 7.347 (7.320-7.420) 05/23/16 23:10 FiO2 21 % 05/24/16 01:32 Sodium 133 mmol/L (137-145) L 05/27/16 09:50 Potassium 4.5 mmol/L (3.6-5.0) 05/27/16 09:50 Chloride 100.9 mmol/L (98-107) 05/27/16 09:50 Carbon Dioxide 19 mmol/L (22-30) L 05/27/16 09:50 Anion Gap 18 mmol/L 05/27/16 09:50 BUN 27 mg/dL (9-20) H 05/27/16 09:50 Creatinine 1.7 mg/dL (0.8-1.5) H 05/27/16 09:50 Estimated GFR 49 ml/min 05/27/16 09:50 BUN/Creatinine Ratio 15.88 % 05/27/16 09:50 Glucose 257 mg/dL (75-100) H 05/27/16 09:50 POC Glucose 336 (70-105) H 05/28/16 11:45 Lactic Acid 3.1 mmol/L (0.7-2.0) H* 05/24/16 Unknown Calcium 8.3 mg/dL (8.4-10.2) L 05/27/16 09:50 Phosphorus 1.6 mg/dL (2.5-4.5) L D 05/24/16 05:48 Magnesium 2.5 mg/dL (1.7-2.3) H 05/24/16 05:48 Total Creatine Kinase 589 units/L (55-170) H 05/24/16 12:00 CK-MB (CK-2) 5.3 ng/mL (0.0-4.0) H 05/24/16 12:00 CK-MB (CK-2) Rel Index 0.8 (0-4) 05/24/16 12:00 Troponin T 0.096 ng/mL (0.00-0.029) H 05/24/16 Unknown Triglycerides 236 mg/dL (2-149) H 05/23/16 23:10 Cholesterol 193 mg/dL (50-199) 05/23/16 23:10 LDL Cholesterol Direct 120 mg/dL (50-130) 05/23/16 23:10 HDL Cholesterol 26 mg/dL (40-59) L 05/23/16 23:10 Cholesterol/HDL Ratio 7.42 % 05/23/16 23:10 TSH 0.505 mlU/mL (0.270-4.200) 05/24/16 05:48 Urine Color Yellow (Yellow) 05/23/16 Unknown Urine Turbidity Clear (Clear) 05/23/16 Unknown Urine pH 5.0 (5.0-7.0) 05/23/16 Unknown Ur Specific [place] 1.020 (1.003-1.030) 05/23/16 Unknown Urine Protein 100 mg/dl mg/dL (Negative) 05/23/16 Unknown Urine Glucose (UA) >=500 mg/dL (Negative) 05/23/16 Unknown Urine Ketones 20 mg/dL (Negative) 05/23/16 Unknown Urine Blood Mod (Negative) 05/23/16 Unknown Urine Nitrite Neg (Negative) 05/23/16 Unknown Urine Bilirubin Neg (Negative) 05/23/16 Unknown Urine Urobilinogen < 2.0 mg/dL (<2.0) 05/23/16 Unknown Ur Leukocyte Esterase Neg (Negative) 05/23/16 Unknown Urine WBC (Auto) 1.0 /HPF (0.0-6.0) 05/23/16 Unknown Urine RBC (Auto) < 1.0 /HPF (0.0-6.0) 05/23/16 Unknown U Epithel Cells (Auto) < 1.0 /HPF (0-13.0) 05/23/16 Unknown Ketones 42.4 mg/dL (0.2-2.8) H 05/23/16 23:10
[2016-05-28 22:08] LABS: BUN/Creatinine Ratio 16.47; Calcium 8.3 mg/dL (8.4-10.2); Chloride 100.7 mmol/L (98-107); Potassium 4.5 mmol/L (3.6-5.0)
[2016-05-29] MEDS: ASPIRIN PO SCH (09:39)
[2016-05-29] MEDS: CARDIZEM CD PO SCH (09:40)
[2016-05-29] MEDS: LOPRESSOR PO SCH (09:40)
[2016-05-29] MEDS: ELIQUIS PO SCH (09:40)
[2016-05-29] MEDS: NOVOLOG SUB-Q SCH ×2 (09:41→14:50)
--- NOTE | 2016-05-29 10:35 | Progress Note ---
Assessment and Plan Afib with rapid ventricular response-->currently sinus rhythm continue PO cardizem CD 240mg daily continue metoprolol, Eliquis 5mg BID Echo 05/2016: EF 60-65% NSTEMI type II troponin elevation likely due to renal failure consider stress test--> this may be done as an OP DKA-->resolved Acute renal failure Hypertension BP elevated, add norvasc 5mg daily continue cardizem, metoprolol Hyperlipidemia Will add norvasc 5mg daily for better BP control. Stable cardiac status. Stress test may be performed as an outpatient. Follow up in the office with Dr. Rothman in 2 weeks. The patient has been seen in conjunction with Dr. Rothman who agrees with the assessment and plan of care. Subjective Date of service: 05/29/16 Principal diagnosis: afib with RVR Interval history: The patient is resting comfortably in bed. No new complaints. Sinus rhythm with PACs on the monitor. Objective Last Vital Signs Temp 97.8 F 05/29/16 08:43 Pulse 67 05/29/16 08:43 Resp 20 05/29/16 08:43 BP 185/82 05/29/16 08:43 Pulse Ox 95 05/29/16 08:43 - Physical Examination General: No Apparent Distress HEENT: Positive: Normocephaly, Mucus Membranes Moist Neck: Positive: neck supple, trachea midline Cardiac: Positive: Reg Rate and Rhythm, S1/S2 Lungs: Positive: clear to auscultation Neuro: Positive: Grossly Intact Abdomen: Positive: Soft, Active Bowel Sounds. Negative: Tender Skin: Positive: Clear. Negative: Rash Musculoskeletal: Normal Range of Motion Extremities: Present: normal. Absent: edema - Labs and Meds Comprehensive Metabolic Panel 05/28/16 Range/Units 21:29 Sodium 135 L (137-145) mmol/L Potassium 4.5 (3.6-5.0) mmol/L Chloride 100.7 (98-107) mmol/L Carbon Dioxide 19 L (22-30) mmol/L BUN 28 H (9-20) mg/dL Creatinine 1.7 H (0.8-1.5) mg/dL Glucose 110 H (75-100) mg/dL Calcium 8.3 L (8.4-10.2) mg/dL - Imaging and Cardiology EKG: image reviewed (afib, 120) Echo: report reviewed (05/2016: EF 60-65%, abnormal diastolic function) - Telemetry EKG Rhythm: Sinus Rhythm
[2016-05-29] MEDS ORDERED: NORVASC PO SCH (11:00)
[2016-05-29 12:58] VITALS: BP 149/71
[2016-05-29 13:10] LABS: BUN/Creatinine Ratio 17.5; Calcium 8.4 mg/dL (8.4-10.2); Chloride 97.4 mmol/L (98-107); Potassium 4.9 mmol/L (3.6-5.0)
--- NOTE | 2016-05-29 13:51 | Discharge Summary ---
Providers - Providers Date of Admission: 05/24/16 02:56 Date of discharge: 05/29/16 Attending physician: ANA VEGA 05/24/16 05:30 Consult to Physician [CONS] Routine Consulting Provider: TANG HOUSTON Reason For Exam: new afib Notified:: audio visual secretary pl call 05/27/16 10:00 Physical Therapy Evaluation and Treat [CONS] Routine Comment: Reason For Exam: placement Primary care physician: CANDY POLISHER Hospitalization Condition: Critical Hospital course: HPI: 66-year-old man history of hypertension, diabetes was brought to the emergency room because his blood sugar has been elevated at home. Patient stated that she had the flu, a few days later the patient started having flulike symptoms, body aches, feeling ill. He was not eating for 2 days, did not take any medications. He progressively became lethargic so he came to the emergency room for further evaluation. In The emergency room he was found to be in A. fib new onset. His BG was 569, Na 129, K 5.1 and creatinine 2.7. Discharge Diagnosis and management per problem: DKA - was placed on ICU with insulin drip, IV fluids and electrolytes placement protocol; - amnion gap closed then transitioned to subcutaneous insulin, transferred to floor - started on ADA diet, cont on 70/30 insulin coverage A. fib with RVR - placed on Cardizem drip then weaned off and anticoagulated with eliquis treatment dose; - cardiology started on Cardizem po and metoprolol - ECHO showing LV function hyperdynamic, EF 60-65%, abnormal diastolic function. - TSH within normal limits Elevated troponine/NSTEMI type 2 - will need ischemic evaluation/Stress test out patient; - CE was elebated on admission likely due to BRIELLE and atrial fibrillation - CE remained stable, 2d echo showed preserved EF SIRS - no evidence of infection; rulled out - placed on antibiotics on admission then stopped Hypertension -was on hydralazine IV when necessary - well controlled with cardizem, norvasc and metoprolol now Hyperlipidemia - started on statin BRIELLE - likely due to vasomotor nephropathy/ATN, - Renal function improved with IV fluid - repeat BMP in one week Hyponatremia - likley due to hyperglycemia, improved with insulin and iv fluid Hyperkalemia - liklely due to DKA, resolved with hydration and insulin DVT prophylaxis - anticoagulated with Eliquis Disposition: DC/TX HOME UNDER HOME HEALTH Time spent for discharge: 39 minutes Core Measure Documentation - Palliative Care Palliative Care/ Comfort Measures: Not Applicable - Core Measures Any of the following diagnoses?: none Exam - Physical Exam Narrative exam: GENERAL: elderly ill appearing AAM lying on bed appeared to be in no discomfort. HEENT: Normocephalic. Atraumatic. No conjunctival congestion or icterus. Patient has moist mucous membranes. NECK: Supple. Trachea midline. CHEST/LUNGS: Clear to auscultated bilaterally, breathing nonlabored. No wheezes crackles or rhonchi. HEART/CARDIOVASCULAR: irRegular in rate and rhythm. S1 and S2 positive. ABDOMEN: Abdomen is soft, nontender. Patient has normal bowel sounds. SKIN: There is no rash. Warm and dry. NEURO: No focal motor deficit. Follows command. MUSCULOSKELETAL: No joint effusion or tenderness. EXTRIMITY: No edema, no cyanosis or clubbing. PSYCH: Cooperative. - Constitutional Vitals: Temp Pulse Resp BP Pulse Ox 97.3 F L 60 21 149/71 95 05/29/16 12:57 05/29/16 12:57 05/29/16 12:57 05/29/16 12:57 05/29/16 12:57 Plan Activity: advance as tolerated, fall precautions Weight Bearing Status: Weight Bear as Tolerated Diet: diabetic Follow up with: PRIMARY CARE, [Primary Care Provider] - 3-5 Days Prescriptions: AtorvaSTATin [Lipitor] 40 mg PO QHS #30 tablet Diltiazem Cd [Cardizem CD] 240 mg PO QDAY #30 capsule Apixaban [Eliquis] 5 mg PO Q12HR #60 tablet Metoprolol [Lopressor TAB] 100 mg PO BID #60 tablet amLODIPine [Norvasc] 5 mg PO QDAY #30 tablet Pending Studies f/u with Dr Rothman in two weeks, out patient stress test.
== END 2016-05-29 15:43 | disposition home health service (06) | DRG 280 ==
LOC: ED 21:15 → CC1 05-24 02:56 → 4A 05-26 22:42
PROVIDERS: ADMIT Internal Medicine; ATTEND Internal Medicine
DX: I21.4 Non-ST elevation (NSTEMI) myocardial infarction (principal); E13.10 Other specified diabetes mellitus with ketoacidosis without coma; N17.0 Acute kidney failure with tubular necrosis; R65.10 Systemic inflammatory response syndrome (SIRS) of non-infectious origin without acute organ dysfunction; E87.1 Hypo-osmolality and hyponatremia; I48.91 Unspecified atrial fibrillation; I10 Essential (primary) hypertension; R04.0 Epistaxis; E78.5 Hyperlipidemia, unspecified
CPT/HCPCS: 36415; 71010; 80048; 80061; 81001; 82010; 82140; 82550; 82553; 82803; 82805; 82962; 83735; 84100; 84443; 84484; 84600; 85025; 87040; 87400; 90471; 90686; 93005; 93010; 93306; 96365; 96367; 96375; 96376; G0008; G8978-GP; G8979-GP; G8980-GP; J0360; J0456; J0696; J1650; J1815; J7030; J7050

== ENCOUNTER 2016-07-17 08:06 | Outpatient (CLI) | payer MEDICARE ==
--- NOTE | 2016-07-20 07:39 | Vascular Lab Report ---
RENAL ARTERY DUPLEX EXAM: REASON FOR EXAM: Hypertension. NOTE: Visualization is technically limited due to bowel gas. COMMENTS ON THE AORTA: The aorta is patent. Normal flow velocities are observed. No aneurysmal dilatation is noted. Mild atherosclerotic change is identified. The celiac artery is patent with elevated flow velocity. The superior mesenteric artery is patent with elevated flow velocity. COMMENTS ON THE RIGHT KIDNEY: The kidney measures 12.19 centimeters in greatest dimension. No obvious parenchymal abnormalities are noted. The renal artery is patent. Maximum systolic velocity is 121 cm/sec. This finding is consistent with less than 60% diameter reduction. Renal aortic index is 1.8. This finding is consistent with less than 60% diameter reduction. Overall findings are consistent with less than 60% diameter reduction in the renal artery. COMMENTS ON THE LEFT KIDNEY: The kidney measures 12.93 centimeters in greatest dimension. No obvious parenchymal abnormalities are noted. The renal artery is patent. Maximum systolic velocity is 70 cm/sec. This finding is consistent with less than 60% diameter reduction. Renal aortic index is one. This finding is consistent with less than 60% diameter reduction. Overall findings are consistent with less than 60% diameter reduction in the renal artery. IMPRESSION: RIGHT KIDNEY: Less than 60% diameter reduction in the renal artery. LEFT KIDNEY: Less than 60% diameter reduction in the renal artery. 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 Clinical correlation recommended
== END 2016-07-17 08:07 | disposition home or self-care (01) ==
LOC: VAS 08:06
PROVIDERS: ATTEND Internal Medicine Cardiovascular Disease
DX: I10 Essential (primary) hypertension (principal)
CPT/HCPCS: 93975

== ENCOUNTER 2016-08-24 14:51 | Outpatient (CLI) | payer MEDICARE ==
[2016-08-24 15:19] LABS: Bilirubin,Urine NEG (Negative); Blood,Urine SM (Negative); Ketones,Urine NEG (Negative); Leukocyte Esterase,Urine NEG (Negative); Nitrite,Urine NEG (Negative); RBC,Urine < 1.0 /HPF (0.0-6.0); Urobilinogen,Urine < 2.0 mg/dL (<2.0)
[2016-08-24 15:29] LABS: BUN/Creatinine Ratio 13.15; Calcium 9.5 mg/dL (8.4-10.2); Chloride 102.1 mmol/L (98-107); Phosphorous 4.4 mg/dL (2.5-4.5); Potassium 5.3 mmol/L (3.6-5.0); Uric Acid 5.6 mg/dL (3.5-7.6)
== END 2016-08-24 14:52 | disposition home or self-care (01) ==
LOC: LAB 14:51
PROVIDERS: ATTEND Internal Medicine Nephrology
DX: I12.9 Hypertensive chronic kidney disease with stage 1 through stage 4 chronic kidney disease, or unspecified chronic kidney disease (principal); N18.2 Chronic kidney disease, stage 2 (mild); E08.29 Diabetes mellitus due to underlying condition with other diabetic kidney complication; D64.9 Anemia, unspecified; N13.30 Unspecified hydronephrosis; R80.9 Proteinuria, unspecified; R60.9 Edema, unspecified
CPT/HCPCS: 36415; 80048; 81001; 82040; 83930; 84100; 84550

== ENCOUNTER 2016-08-24 15:59 | Inpatient (IN) | payer MEDICARE ==
--- NOTE | 2016-08-24 16:37 | Emergency Department Report ---
Entered by CESAR MURO, acting as scribe for YANDEL MERIDA PA. Chief Complaint: Medical Clearance Stated Complaint: MD REFERRED/BLOOD Time Seen by Provider: 08/24/16 16:27 - HPI History of Present Illness: Patient presents to the ED c/o abnormal labs that began today. He went to outpatient labs, then was told to come here by his PCP. Denies swelling in extremities. Denies any pain. Denies SOB and chest pain. PMHx of diabetes and HTN. - ROS Review of Systems: All system are negative unless stated in HPI above. - Exam Vital Signs: Vital Signs 08/24/16 16:11 Temperature 97.4 F L Pulse Rate 59 L Respiratory 18 Rate Blood Pressure 165/82 O2 Sat by Pulse 100 Oximetry Physical Exam: General: well nourished, well developed, nontoxic in appearance, in no acute distress Respiratory: clear lung sounds bilaterally Cardiovascular: S1/S2 regular rate and rhythm. No murmur. MSE screening note: Focused history and physical exam performed. Due to findings the following was ordered: ED Medical Decision Making - Medical Decision Making Medical decision making: Patient seen by provider in triage area. Appropriate protocol activated and patient to main ED to be seen by physician. ED Disposition for MSE Condition: Stable This documentation as recorded by the scribe,CESAR MURO,accurately reflects the service I personally performed and the decisions made by me,YANDEL MERIDA PA.
[2016-08-24 17:31] LABS: Basophils % (Auto) 1.4 % (0.0-1.8); Hematocrit 29.9 % (35.5-45.6); Hemoglobin 10.1 gm/dl (11.8-15.2); Mean Corpuscular HGB Conc 34 % (32-34); Mean Corpuscular Hemoglobin 31 pg (28-32); Mean Corpuscular Volume 91 fl (84-94); Platelet Count 279 K/mm3 (140-440); Red Blood Count 3.29 M/mm3 (3.65-5.03); Red Cell Distribution Width 12.6 % (13.2-15.2); White Blood Count 5.6 K/mm3 (4.5-11.0)
--- NOTE | 2016-08-24 20:15 | Emergency Department Report ---
ED General Adult HPI - General Chief complaint: Medical Clearance Stated complaint: MD REFERRED/BLOOD Time Seen by Provider: 08/24/16 16:29 Source: patient, RN notes reviewed, old records reviewed Mode of arrival: Ambulatory Limitations: No Limitations - History of Present Illness Initial comments: This is a 66-year-old male. He is previously unknown to me. Past medical history includes diabetes, atrial fibrillation, echocardiogram recently demonstrated normal ejection fraction, currently on systemic anticoagulation ( eliquis), hypertension, high cholesterol, renal insufficiency Nephrology: Dr. Price The patient has no complaints at this time. He is sent to the ER by his coordinator of evaluation for abnormal laboratory studies. The patient specifically denies headache, neck pain, chest pain, abdominal pain and shortness of breath. He denies hematemesis and bright red blood per rectum. He denies irritative obstructive urinary symptoms. He reports that if he was instructed to return to the ER for further evaluation and management, he would not of present. -: unknown Improves with: none Worsens with: none Associated Symptoms: denies other symptoms - Related Data Home Medications Medication Instructions Recorded Confirmed Last Taken Allopurinol [Zyloprim] 100 mg PO QDAY 08/24/16 08/24/16 08/24/16 AtorvaSTATin [Lipitor] 20 mg PO QHS 08/24/16 08/24/16 08/24/16 Clonidine HCl [Catapres] 0.3 mg PO TID 08/24/16 08/24/16 08/24/16 Insulin NPL/Insulin Lispro 20 units SQ QAM 08/24/16 08/24/16 08/24/16 [HumaLOG Mix 75-25 Kwikpen] Insulin NPL/Insulin Lispro 20 units SQ QPM 08/24/16 08/24/16 Unknown [HumaLOG Mix 75-25 Kwikpen] Nebivolol HCl [Bystolic] 10 mg PO QDAY 08/24/16 08/24/16 08/24/16 amLODIPine [Norvasc] 10 mg PO QDAY 08/24/16 08/24/16 08/24/16 Previous Rx's Medication Instructions Recorded Last Taken Type Apixaban [Eliquis] 5 mg PO Q12HR #60 tablet 05/29/16 08/24/16 Rx Allergies Allergy/AdvReac Type Severity Reaction Status Date / Time No Known Allergies Allergy Verified 05/23/16 22:42 ED Review of Systems ROS: Stated complaint: MD REFERRED/BLOOD Other details as noted in HPI Comment: All other systems reviewed and negative Constitutional: denies: fever Eyes: denies: vision change Respiratory: denies: SOB with exertion Cardiovascular: denies: chest pain Gastrointestinal: denies: abdominal pain, nausea, diarrhea Genitourinary: denies: urgency, dysuria Musculoskeletal: denies: back pain, joint swelling, arthralgia Skin: denies: lesions Neurological: denies: weakness Psychiatric: denies: anxiety ED Past Medical Hx - Past Medical History Hx Hypertension: Yes Hx Diabetes: Yes Hx HIV: No - Social History Smoking Status: Never Smoker Substance Use Type: None - Medications Home Medications: Home Medications Medication Instructions Recorded Confirmed Last Taken Type Apixaban [Eliquis] 5 mg PO Q12HR #60 tablet 05/29/16 08/24/16 08/24/16 Rx Allopurinol [Zyloprim] 100 mg PO QDAY 08/24/16 08/24/16 08/24/16 History AtorvaSTATin [Lipitor] 20 mg PO QHS 08/24/16 08/24/16 08/24/16 History Clonidine HCl [Catapres] 0.3 mg PO TID 08/24/16 08/24/16 08/24/16 History Insulin NPL/Insulin Lispro 20 units SQ QAM 08/24/16 08/24/16 08/24/16 History [HumaLOG Mix 75-25 Kwikpen] Insulin NPL/Insulin Lispro 20 units SQ QPM 08/24/16 08/24/16 Unknown History [HumaLOG Mix 75-25 Kwikpen] Nebivolol HCl [Bystolic] 10 mg PO QDAY 08/24/16 08/24/16 08/24/16 History amLODIPine [Norvasc] 10 mg PO QDAY 08/24/16 08/24/16 08/24/16 History ED Physical Exam - General Limitations: No Limitations General appearance: alert, in no apparent distress - Head Head exam: Present: atraumatic, normocephalic - Eye Eye exam: Present: normal appearance, PERRL, EOMI. Absent: nystagmus - ENT ENT exam: Present: normal exam, normal orophraynx, mucous membranes moist, normal external ear exam - Neck Neck exam: Present: normal inspection, full ROM. Absent: tenderness, meningismus - Respiratory Respiratory exam: Present: normal lung sounds bilaterally. Absent: respiratory distress, wheezes, rales, rhonchi, stridor, chest wall tenderness, accessory muscle use, decreased breath sounds - Cardiovascular Cardiovascular Exam: Present: normal rhythm, bradycardia, normal heart sounds. Absent: systolic murmur, diastolic murmur, rubs, gallop - GI/Abdominal GI/Abdominal exam: Present: soft, normal bowel sounds. Absent: distended, tenderness, guarding, rebound, rigid, pulsatile mass - Rectal Rectal exam: Present: normal inspection, normal rectal tone, heme (-) stool - Extremities Exam Extremities exam: Present: normal inspection, full ROM, normal capillary refill. Absent: tenderness, pedal edema, joint swelling, calf tenderness - Back Exam Back exam: Present: normal inspection, full ROM. Absent: tenderness, CVA tenderness (R), CVA tenderness (L), muscle spasm, paraspinal tenderness, vertebral tenderness - Neurological Exam Neurological exam: Present: alert, oriented X3, normal gait, other (Extraocular movements intact. Tongue midline. No facial droop. Facial sensation intact to light touch in the V1, V2, V3 distribution bilaterally. 5 and 5 strength in 4 extremities.. Sensation is intact to light touch in 4 extremities.). Absent : motor sensory deficit - Psychiatric Psychiatric exam: Present: normal affect, normal mood - Skin Skin exam: Present: warm, dry, intact, normal color. Absent: rash ED Course Vital Signs 08/24/16 08/24/16 08/24/16 16:11 18:38 18:41 Temperature 97.4 F L Pulse Rate 59 L 58 L 85 Respiratory 18 14 22 Rate Blood Pressure 165/82 172/101 Blood Pressure [Left] O2 Sat by Pulse 100 100 100 Oximetry 08/24/16 08/24/16 08/24/16 18:44 18:51 19:00 Temperature Pulse Rate 62 115 H Respiratory 20 19 17 Rate Blood Pressure 172/80 164/78 Blood Pressure 172/101 [Left] O2 Sat by Pulse 100 100 99 Oximetry 08/24/16 08/24/16 08/24/16 19:11 19:21 19:31 Temperature Pulse Rate 63 58 L Respiratory 21 15 Rate Blood Pressure 164/78 163/76 159/71 Blood Pressure [Left] O2 Sat by Pulse 100 100 99 Oximetry 08/24/16 08/24/16 08/24/16 19:41 19:51 20:00 Temperature Pulse Rate 62 62 58 L Respiratory 19 21 25 H Rate Blood Pressure 159/71 163/74 163/74 Blood Pressure [Left] O2 Sat by Pulse 100 99 98 Oximetry 08/24/16 08/24/16 08/24/16 20:11 20:21 20:31 Temperature Pulse Rate 60 58 L 65 Respiratory 22 18 18 Rate Blood Pressure 163/74 163/74 158/73 Blood Pressure [Left] O2 Sat by Pulse 100 100 98 Oximetry 08/24/16 08/24/16 08/24/16 20:41 20:51 21:01 Temperature Pulse Rate 66 60 64 Respiratory 18 20 23 Rate Blood Pressure 158/73 163/74 163/74 Blood Pressure [Left] O2 Sat by Pulse 100 99 99 Oximetry 08/24/16 08/24/16 21:11 21:21 Temperature Pulse Rate 61 71 Respiratory 26 H 15 Rate Blood Pressure 163/74 163/74 Blood Pressure [Left] O2 Sat by Pulse 95 97 Oximetry - Reevaluation(s) Reevaluation #1: 08/24/16 21:34 Differential diagnosis: Subacute anemia, acute on chronic renal insufficiency, laboratory error, general medical evaluation, electrolyte derangement Assessment and plan: 66-year-old male with asymptomatic acute on chronic renal failure. Also has a symptomatic anemia. He is guaiac negative. He reports negative colonoscopy over 10 years ago, but admits that he does need another screening colonoscopy. Case is discussed with nephrology, Dr. Rodriguez. He will follow as a consult. Patient most likely has a component of vasomotor nephropathy, with possible superimposed medication induced renal insufficiency. We will withhold nephrotoxic agents in the ER. He will be given IV fluids. Recent echocardiogram is appreciated. He will be treated medically for hyperkalemia. The case is discussed with the Hospital physician, Dr. Leggett, who accepts the patient to her service. ED Medical Decision Making - Lab Data Result diagrams: 08/26/16 16:25 08/26/16 16:20 Vital Signs 08/24/16 08/24/16 08/24/16 16:11 18:38 18:41 Temperature 97.4 F L Pulse Rate 59 L 58 L 85 Respiratory 18 14 22 Rate Blood Pressure 165/82 172/101 Blood Pressure [Left] O2 Sat by Pulse 100 100 100 Oximetry 08/24/16 08/24/16 08/24/16 18:44 18:51 19:00 Temperature Pulse Rate 62 115 H Respiratory 20 19 17 Rate Blood Pressure 172/80 164/78 Blood Pressure 172/101 [Left] O2 Sat by Pulse 100 100 99 Oximetry 08/24/16 08/24/16 08/24/16 19:11 19:21 19:31 Temperature Pulse Rate 63 58 L Respiratory 21 15 Rate Blood Pressure 164/78 163/76 159/71 Blood Pressure [Left] O2 Sat by Pulse 100 100 99 Oximetry 08/24/16 08/24/16 08/24/16 19:41 19:51 20:00 Temperature Pulse Rate 62 62 58 L Respiratory 19 21 25 H Rate Blood Pressure 159/71 163/74 163/74 Blood Pressure [Left] O2 Sat by Pulse 100 99 98 Oximetry 08/24/16 08/24/16 08/24/16 20:11 20:21 20:31 Temperature Pulse Rate 60 58 L 65 Respiratory 22 18 18 Rate Blood Pressure 163/74 163/74 158/73 Blood Pressure [Left] O2 Sat by Pulse 100 100 98 Oximetry 08/24/16 08/24/16 08/24/16 20:41 20:51 21:01 Temperature Pulse Rate 66 60 64 Respiratory 18 20 23 Rate Blood Pressure 158/73 163/74 163/74 Blood Pressure [Left] O2 Sat by Pulse 100 99 99 Oximetry 08/24/16 08/24/16 21:11 21:21 Temperature Pulse Rate 61 71 Respiratory 26 H 15 Rate Blood Pressure 163/74 163/74 Blood Pressure [Left] O2 Sat by Pulse 95 97 Oximetry Labs 08/24/16 08/24/16 08/24/16 17:08 19:31 19:31 WBC 5.6 RBC 3.29 L Hgb 10.1 L Hct 29.9 L MCV 91 MCH 31 MCHC 34 RDW 12.6 L Plt Count 279 Lymph % (Auto) 25.6 Chase % (Auto) 11.5 H Eos % (Auto) 6.0 H Baso % (Auto) 1.4 Lymph # 1.4 Chase # 0.6 Eos # 0.3 Baso # 0.1 Seg Neutrophils % 55.5 Seg Neutrophils # 3.1 PT INR VBG pH 7.267 L Sodium 135 L Potassium 5.8 H Chloride 103.0 Carbon Dioxide 19 L Anion Gap 19 BUN 73 H Creatinine 5.4 H Estimated GFR 13 BUN/Creatinine Ratio 13.51 Glucose 188 H Calcium 9.2 Total Bilirubin 0.3 AST 24 ALT 15 Alkaline Phosphatase 74 Total Protein 7.5 Albumin 3.7 L Albumin/Globulin Ratio 1.0 08/24/16 20:59 WBC RBC Hgb Hct MCV MCH MCHC RDW Plt Count Lymph % (Auto) Chase % (Auto) Eos % (Auto) Baso % (Auto) Lymph # Chase # Eos # Baso # Seg Neutrophils % Seg Neutrophils # PT 14.8 INR 1.17 H VBG pH Sodium Potassium Chloride Carbon Dioxide Anion Gap BUN Creatinine Estimated GFR BUN/Creatinine Ratio Glucose Calcium Total Bilirubin AST ALT Alkaline Phosphatase Total Protein Albumin Albumin/Globulin Ratio - EKG Data 08/24/16 21:35 Sinus bradycardia, 57 beats per minute, normal intervals, normal axis, not consistent with STEMI, nonspecific changes have taken place with compared to prior EKG. Critical care attestation.: If time is entered above; I have spent that time in minutes in the direct care of this critically ill patient, excluding procedure time. ED Disposition Clinical Impression: Acute renal failure, Hyperkalemia, Anemia Disposition: OP ADMITTED IP TO THIS HOSP Is pt being admited?: Yes Condition: Good
[2016-08-24 20:30] LABS: Albumin 3.7 g/dL (3.9-5); BUN/Creatinine Ratio 13.51; Bilirubin,Total 0.3 mg/dL (0.1-1.2); Calcium 9.2 mg/dL (8.4-10.2); Potassium 5.8 mmol/L (3.6-5.0); Total Protein 7.5 g/dL (6.3-8.2)
[2016-08-24] MEDS ORDERED: PROVENTIL IH ONE (20:34)
[2016-08-24] MEDS ORDERED: NACL 0.9% 1000 ML 2,000 ML IV ONE (20:34)
[2016-08-24] MEDS ORDERED: KIONEX PO ONE (20:34)
[2016-08-24] MEDS ORDERED: SODIUM BICARBONATE IV ONE ×2 (20:34→21:00)
[2016-08-24] MEDS ORDERED: D50W (25GM) IV ONE (20:34)
--- NOTE | 2016-08-24 20:53 | Admit Criteria Form ---
Admission Criteria Documentation: RENAL FAILURE, ACUTE Clinical Indications for Admission to Inpatient Care ( Place 'X' for any and all applicable criteria): Admission is indicated for ALL (if I & II) or III of the following [A](2)(3)(4)( 5)(6)(7): [ ]I. Acute renal failure as indicated by ANY ONE of the following: [ ]a) A 3-fold rise in serum creatinine from baseline [ ]b) Serum creatinine greater than 4 mg/dL (354 micromoles/L) with an acute rise greater than 0.5 mg/dL (44.2 micromoles/L) [ ]c) Reduction of more than 75% in estimated glomerular filtration rate from baseline [ ]d) Estimated glomerular filtration rate less than 35 mL/min/1.73m2 (0.59mL/sec/1.73m2)in a child up to 18 years of age [ ]e) Anuria indicated by ALL of the following: [ ]i) Adequate volume status [ ]ii) Cessation of urine output indicated by ANY ONE of the following: [ ]1) Urine output less than 0.3 mL/kg/hr for 24 hours [ ]2) Anuria (urine output less than 0.1 mL/kg/ hr) for 12 hours [ ] II. Renal failure cannot be managed in an outpatient setting or observational care setting as indicating by ANY ONE of the following: [ ]a) Altered mental status that is severe or persistent [ ]b) Volume overload or Respiratory distress (eg, clinically significant pulmonary edema) that is severe or persistent [ ]c) Cardiac arrhythmias of immediate concern [ ]d) Hemodynamic instability [ ]e) Clinically significant electrolyte abnormality that requires inpatient care (eg, hyperkalemia with severe ECG findings)[B] [ ]f) Clinically significant metabolic abnormality (eg, acidosis) that is severe or persistent [ ]g) Acute treatment of renal failure (eg, renal replacement therapy) not feasible or appropriate in observational care setting [ ]h) Clinical situation too unstable or uncertain (eg, inadequate urine output, ongoing decline in renal function, etiology unclear) [ ]i) Necessary support and caregiver ability to comply with outpatient treatment cannot be arranged in observation care timeframe (eg, within 24 hours) [ ]j) Other significant finding or clinical condition judged not to be within scope of observation care [ X]III.General contraindications and/or Inappropriate clinical situations for Observational Care in patients with Acute Renal Failure, when ANY ONE of the following is required: [ X]a) Prediction of prolongation of LOS based on ANY ONE of the following may be considered as a contraindication for observational care 2, 3, 4, 5, 6, 7, 8 , 9, 10, 11 [X ]i) Age > 65 yrs. [ ]ii) Patient arriving by ambulance [ ]iii) Patient with high acuity [ ]iv) Patient requiring vital sign monitoring [ ]v) Patient on IV medication [ ]b) Systolic blood pressures 180mmHg 3,12 [ ]c) Patient with altered mental status including delirium and other alteration of consciousness, (3) [ ]d) Patient whose discharge disposition will be to a detention home or rehabilitation home should not be managed in Emergency Department Observation Unit. CMS rule requires 3 days hospital stay before such placement.3,13 [ ]e) Patient with failure to thrive due to broad array of etiologies 3, 16,17 [ ]f) Inability to ambulate 3,14 Extended stay beyond goal length of stay may be needed for(13) [ ]a) Continuing uremic complications [ ]b) Care for comorbidities [ ]c) acute renal failure [ ]d) Need for dialysis The original [employer] content created by [employer] has been revised. The portions of the content which have been revised are identified through the use of italic text or in bold, and [facility] [employer] has neither reviewed nor approved the modified material. All other unmodified content is copyright [facility] [employer]. Please see references footnoted in the original [employer] edition 2016 Admission Criteria Met: Yes
[2016-08-24 21:20] LABS: INR 1.17 (0.87-1.13)
[2016-08-24] MEDS ORDERED: ZOFRAN IV PRN (22:51)
[2016-08-24] MEDS ORDERED: D50W (25GM) IV PRN ×2 (22:51→22:54)
[2016-08-24] MEDS ORDERED: TYLENOL PO PRN (22:51)
[2016-08-24] MEDS ORDERED: DULCOLAX PR PRN (22:51)
--- NOTE | 2016-08-24 22:51 | History and Physical Report ---
History of Present Illness Date of examination: 08/24/16 Date of admission: 08/24/16 22:23 History of present illness: 66-year-old man history of hypertension, diabetes, A. fib, chronic kidney disease was sent to the emergency room by his radiology nurse for abnormal blood work. She denies any complaints, denies NSAID use Patient denies chest pain, palpitation, shortness of breath, cough, abdominal pain, hematochezia, dysuria, frequency, focal weakness, dysarthria, fever chills , polydipsia polyuria, hot or cold intolerance, easy bruisability, or rash or bleeding from mucosal membrane, rhinorrhea, epistaxis, earache, tinnitus, blurry vision, eye discharge, anxiety, depression. Other review of systems negative PAST SURGICAL HISTORY: None SOCIAL HISTORY: Denies alcohol, tobacco, drugs FAMILY HISTORY: Hypertension Medications and Allergies Allergies Allergy/AdvReac Type Severity Reaction Status Date / Time No Known Allergies Allergy Verified 05/23/16 22:42 Home Medications Medication Instructions Recorded Confirmed Last Taken Type Apixaban [Eliquis] 5 mg PO Q12HR #60 tablet 05/29/16 08/24/16 08/24/16 Rx Allopurinol [Zyloprim] 100 mg PO QDAY 08/24/16 08/24/16 08/24/16 History AtorvaSTATin [Lipitor] 20 mg PO QHS 08/24/16 08/24/16 08/24/16 History Clonidine HCl [Catapres] 0.3 mg PO TID 08/24/16 08/24/16 08/24/16 History Insulin NPL/Insulin Lispro 20 units SQ QAM 08/24/16 08/24/16 08/24/16 History [HumaLOG Mix 75-25 Kwikpen] Insulin NPL/Insulin Lispro 20 units SQ QPM 08/24/16 08/24/16 Unknown History [HumaLOG Mix 75-25 Kwikpen] Nebivolol HCl [Bystolic] 10 mg PO QDAY 08/24/16 08/24/16 08/24/16 History amLODIPine [Norvasc] 10 mg PO QDAY 08/24/16 08/24/16 08/24/16 History Active Meds: Active Medications Allopurinol (Zyloprim) 100 mg PO QDAY RASHEEDA Amlodipine Besylate (Norvasc) 10 mg PO QDAY RASHEEDA Apixaban (Eliquis) 5 mg PO Q12HR RASHEEDA PRN Reason: Protocol Atorvastatin Calcium (Lipitor) 20 mg PO QHS [facility] Exam - Physical Exam Narrative exam: Gen. appearance: Patient lying in bed, no apparent distress HEENT: Normocephalic, atraumatic, pupils equally round and reactive to light, extraocular movement intact, and no sclericterus,. No JVD or thyromegaly or nodule,neck supple, no carotid bruit ,mucous membranes moist, no exudate or erythema Heart: S1, S2, regular rate and rhythm Lungs: Clear to auscultation bilaterally, breathing comfortable Abdomen: Positive bowel sounds, nontender, nondistended, no organomegaly Extremity: No edema, cyanosis, clubbing Skin: No rash, nodules, warm, dry Neuro: Oriented 3, cranial nerves II-12 intact, speech is fluent, motor and sensory intact - Constitutional Vitals: Temp Pulse Resp BP Pulse Ox 97.4 F L 71 15 158/73 97 08/24/16 16:11 08/24/16 21:21 08/24/16 21:21 08/24/16 22:51 08/24/16 21:21 Results - Labs CBC & Chem 7: 08/24/16 17:08 08/24/16 19:31 Assessment and Plan Acute on CRF Hyperkalemia Hypertension Diabetes type 2 A. fib Admit to medicine Start IV fluid, status post cocktail for hyperkalemia Check ultrasound of the kidney, consult renal Check fingersticks initiate insulin sliding scale Continue appropriate outpatient medications, including eliquis
[2016-08-24] MEDS ORDERED: NACL 0.9% 1000 ML 1,000 ML IV SCH (23:00)
[2016-08-25 05:49] LABS: Basophils % (Auto) 0.9 % (0.0-1.8); Eosinophils % (Auto) 2.3 % (0.0-4.3); Hematocrit 25.9 % (35.5-45.6); Hemoglobin 8.8 gm/dl (11.8-15.2); Mean Corpuscular HGB Conc 34 % (32-34); Mean Corpuscular Hemoglobin 31 pg (28-32); Mean Corpuscular Volume 90 fl (84-94); Platelet Count 236 K/mm3 (140-440); Red Blood Count 2.87 M/mm3 (3.65-5.03); Red Cell Distribution Width 12.3 % (13.2-15.2)
[2016-08-25 06:01] LABS: BUN/Creatinine Ratio 12.35; Calcium 8.6 mg/dL (8.4-10.2); Chloride 106.4 mmol/L (98-107); Potassium 4.6 mmol/L (3.6-5.0)
[2016-08-25] MEDS: NOVOLOG SUB-Q SCH ×4 (07:00→21:24)
--- NOTE | 2016-08-25 08:41 | Ultrasound Report ---
ULTRASOUND RENAL BILATERAL HISTORY: Acute renal failure. TECHNIQUE: transabdominal ultrasound with color Doppler interrogation. FINDINGS: The right kidney measures 12.0 x 4.8 x 5.5cm. Right renal cortex: 1.8cm. The left kidney measures 11.2 x 5.3 x 6.4cm. Left renal cortex: 2.1cm. The kidneys are normal size, contour and position. There is marked increased renal parenchymal echotexture bilaterally. A 1.5 cm cyst is noted in the inferior left kidney. There is no evidence for nephrolithiasis, mass, hydronephrosis or perinephric fluid. Images through the bladder are within normal limits IMPRESSION: Echogenic kidneys consistent with severe renal parenchymal disease or acute renal failure. 1.5 cm left renal cyst.
--- NOTE | 2016-08-25 09:36 | Consultation ---
History of Present Illness - History of Present Illness Thank you for the consultation Acute kidney injury the patient does have history of underlying chronic kidney disease patient's baseline creatinine has been around 1.7 remotely his creatinine clearance is around 70-75 cc/m Etiology of his renal failure appears to be unclear at this time patient will benefit from IV hydration and correction of metabolic acidosis Patient claims that he has not taken any form of nonsteroidal drugs nor he has been exposed to any radiocontrast study he does not have any difficulty voiding and has been drinking sufficient amount of fluid. No history of any skin rash hematuria Metabolic acidosis requires correction follow-up to keep her bicarbonate from 20 -24 No acute or emergent indication for renal replacement therapy at this time monitor renal function will obtain labs Mild hyponatremia admission sodium 135 Mild hyperkalemia potassium 5.8 to follow Anemia and chronic kidney disease admission hemoglobin 10.1 Patient has been poorly compliant in the past however History of multiple comorbidities including diabetes, hypertension, atrial fibrillation, hyperlipidemia, gout hyperuricemia We'll continue to follow and make recommendations from renal standpoint Patient may require kidney biopsy Medications and Allergies Allergies Allergy/AdvReac Type Severity Reaction Status Date / Time No Known Allergies Allergy Verified 05/23/16 22:42 Home Medications Medication Instructions Recorded Confirmed Last Taken Type Apixaban [Eliquis] 5 mg PO Q12HR #60 tablet 05/29/16 08/24/16 08/24/16 Rx Allopurinol [Zyloprim] 100 mg PO QDAY 08/24/16 08/24/16 08/24/16 History AtorvaSTATin [Lipitor] 20 mg PO QHS 08/24/16 08/24/16 08/24/16 History Clonidine HCl [Catapres] 0.3 mg PO TID 08/24/16 08/24/16 08/24/16 History Insulin NPL/Insulin Lispro 20 units SQ QAM 08/24/16 08/24/16 08/24/16 History [HumaLOG Mix 75-25 Kwikpen] Insulin NPL/Insulin Lispro 20 units SQ QPM 08/24/16 08/24/16 Unknown History [HumaLOG Mix 75-25 Kwikpen] Nebivolol HCl [Bystolic] 10 mg PO QDAY 08/24/16 08/24/16 08/24/16 History amLODIPine [Norvasc] 10 mg PO QDAY 08/24/16 08/24/1608/24/17 History Active Meds: Active Medications Acetaminophen (Tylenol) 650 mg PO Q4H PRN PRN Reason: Pain MILD(1-3)/Fever >100.5/CHOU Allopurinol (Zyloprim) 100 mg PO QDAY RASHEEDA Amlodipine Besylate (Norvasc) 10 mg PO QDAY RASHEEDA Apixaban (Eliquis) 5 mg PO Q12HR RASHEEDA PRN Reason: Protocol Atorvastatin Calcium (Lipitor) 20 mg PO QHS RASHEEDA Bisacodyl (Dulcolax) 10 mg SC QDAY PRN PRN Reason: Constipation unrelieved by MOM Clonidine HCl (Catapres) 0.2 mg PO TID RASHEEDA Clonidine HCl (Catapres) 0.1 mg PO TID RASHEEDA Dextrose (D50w (25gm)) 50 ml IV PRN PRN PRN Reason: Hypoglycemia Sodium Chloride (Nacl 0.9% 1000 Ml) 1,000 mls @ 100 mls/hr IV DIRECT RASHEEDA Last Admin: 08/25/16 06:16 Dose: 100 mls/hr Insulin Aspart (Novolog) 0 units SUB-Q ACHS RASHEEDA PRN Reason: Protocol Insulin Human Isoph/Insulin Regular (Novolin 70/30) 20 unit SUB-Q QAM@0800 RASHEEDA Insulin Human Isoph/Insulin Regular (Novolin 70/30) 25 unit SUB-Q QPM RASHEEDA Ondansetron HCl (Zofran) 4 mg IV Q8H PRN PRN Reason: N/V unrelieved by Reglan Exam - Vital Signs Vital signs: Vital Signs Temp Pulse Resp BP Pulse Ox 97.4 F L 59 L 18 165/82 100 08/24/16 16:11 08/24/16 16:11 08/24/16 16:11 08/24/16 16:11 08/24/16 16:11 Results - Lab Results 08/25/16 04:47 08/25/16 04:47 Most recent lab results Calcium 8.6 mg/dL (8.4-10.2) 08/25/16 04:47
[2016-08-25] MEDS ORDERED: INSULIN LISPRO SQ SCH ×2 (10:00→18:00)
[2016-08-25] MEDS ORDERED: INSULIN NPL SQ SCH ×2 (10:00→18:00)
[2016-08-25] MEDS: NORVASC PO SCH (11:25)
[2016-08-25] MEDS: ZYLOPRIM PO SCH (11:26)
[2016-08-25] MEDS: ELIQUIS PO SCH ×2 (11:26→21:23)
[2016-08-25] MEDS: NACL 0.45% 1000 ML 1,000 ML with SODIUM BICARBONATE 75 MEQ IV SCH ×2 (11:49→21:21)
[2016-08-25] MEDS: CATAPRES PO SCH ×8 (13:48→21:23)
--- NOTE | 2016-08-25 23:15 | Progress Note ---
Assessment and Plan Assessment and plan: 1. Hyperkalemia Potassium 5.8 on admission Medically treated Resolved, 4.6 today Continue to monitor 2. Acute on chronic renal failure Followed by Dr. Price and baseline creatinine 1.7 On admission 5.1 Nephrology following and additional workup in progress On bicarbonate drip 3. Anemia Likely anemia of chronic kidney disease Monitor H&H 4. A fib Rate controlled on amlodipine and anticoagulated with ELIQUIS 5. HTN BP controlled on amlodipine and clonidine 6. DM On insulin 70/30 Accu-Cheks and SSI to adjust regimen if needed 7. Hyperlipidemia Lipitor 8. DVT prophylaxis Anticoagulated with Eliquis History Interval history: no specific complaints Hospitalist Physical - Constitutional Vitals: Temp Pulse Resp BP Pulse Ox 98.9 F 71 18 152/73 96 08/25/16 19:54 08/25/16 22:26 08/25/16 20:23 08/25/16 21:23 08/25/16 20:29 General appearance: Present: no acute distress, well-nourished - EENT Eyes: Present: PERRL, EOM intact. Absent: scleral icterus, conjunctival injection - Neck Neck: Present: supple, normal ROM. Absent: masses or JVD - Respiratory Respiratory: bilateral: CTA, negative: rhonchi, wheezing - Cardiovascular Rhythm: irregularly irregular Heart Sounds: Present: S1 & S2. Absent: systolic murmur - Extremities Extremities: no ischemia - Abdominal General gastrointestinal: soft, non-tender, non-distended, normal bowel sounds - Psychiatric Psychiatric: cooperative - Neurologic Neurologic: CNII-XII intact, no focal deficits Results - Labs CBC & Chem 7: 09/01/16 04:51 09/01/16 04:51 Labs: Laboratory Last Values WBC 7.0 K/mm3 (4.5-11.0) 08/25/16 04:47 RBC 2.87 M/mm3 (3.65-5.03) L 08/25/16 04:47 Hgb 8.8 gm/dl (11.8-15.2) L 08/25/16 04:47 Hct 25.9 % (35.5-45.6) L 08/25/16 04:47 MCV 90 fl (84-94) 08/25/16 04:47 MCH 31 pg (28-32) 08/25/16 04:47 MCHC 34 % (32-34) 08/25/16 04:47 RDW 12.3 % (13.2-15.2) L 08/25/16 04:47 Plt Count 236 K/mm3 (140-440) 08/25/16 04:47 Lymph % (Auto) 15.0 % (13.4-35.0) 08/25/16 04:47 [place] % (Auto) 7.4 % (0.0-7.3) H 08/25/16 04:47 Eos % (Auto) 2.3 % (0.0-4.3) 08/25/16 04:47 Baso % (Auto) 0.9 % (0.0-1.8) 08/25/16 04:47 Lymph # 1.1 K/mm3 (1.2-5.4) L 08/25/16 04:47 [place] # 0.5 K/mm3 (0.0-0.8) 08/25/16 04:47 Eos # 0.2 K/mm3 (0.0-0.4) 08/25/16 04:47 Baso # 0.1 K/mm3 (0.0-0.1) 08/25/16 04:47 Seg Neutrophils % 74.4 % (40.0-70.0) H 08/25/16 04:47 Seg Neutrophils # 5.2 K/mm3 (1.8-7.7) 08/25/16 04:47 PT 14.8 Sec. (12.2-14.9) 08/24/16 20:59 INR 1.17 (0.87-1.13) H 08/24/16 20:59 VBG pH 7.267 (7.320-7.420) L 08/24/16 19:31 Sodium 143 mmol/L (137-145) D 08/25/16 04:47 Potassium 4.6 mmol/L (3.6-5.0) D 08/25/16 04:47 Chloride 106.4 mmol/L (98-107) 08/25/16 04:47 Carbon Dioxide 20 mmol/L (22-30) L 08/25/16 04:47 Anion Gap 21 mmol/L 08/25/16 04:47 BUN 63 mg/dL (9-20) H 08/25/16 04:47 Creatinine 5.1 mg/dL (0.8-1.5) H 08/25/16 04:47 Estimated GFR 14 ml/min 08/25/16 04:47 BUN/Creatinine Ratio 12.35 % 08/25/16 04:47 Glucose 148 mg/dL (75-100) H 08/25/16 04:47 POC Glucose 189 (70-105) H 08/25/16 20:14 Osmolality 322 Mosm/kg 08/25/16 13:14 Uric Acid 5.2 mg/dL (3.5-7.6) 08/25/16 13:14 Calcium 8.6 mg/dL (8.4-10.2) 08/25/16 04:47 Total Bilirubin 0.3 mg/dL (0.1-1.2) 08/24/16 19:31 AST 24 units/L (5-40) 08/24/16 19:31 ALT 15 units/L (7-56) 08/24/16 19:31 Alkaline Phosphatase 74 units/L (35-129) 08/24/16 19:31 Total Protein 7.5 g/dL (6.3-8.2) 08/24/16 19:31 Albumin 3.7 g/dL (3.9-5) L 08/24/16 19:31 Albumin/Globulin Ratio 1.0 % 08/24/16 19:31
[2016-08-26] MEDS: NACL 0.45% 1000 ML 1,000 ML with SODIUM BICARBONATE 75 MEQ IV SCH (06:15)
[2016-08-26] MEDS: CATAPRES PO SCH ×6 (08:14→22:01)
[2016-08-26] MEDS: NORVASC PO SCH (10:32)
[2016-08-26] MEDS: ELIQUIS PO SCH ×2 (10:33→22:01)
[2016-08-26] MEDS: ZYLOPRIM PO SCH (10:33)
[2016-08-26] MEDS: NOVOLOG SUB-Q SCH ×4 (12:41→22:02)
--- NOTE | 2016-08-26 15:31 | Progress Note ---
Assessment and Plan Acute renal failure in a patient who, has been admitted with a significantly elevated creatinine, patient is clinically doing well denies any complaints of nausea vomiting or metallic taste No acute or emergent indication for renal replacement therapy Patient was advised to increase his oral intake of fluids Metabolic acidosis patient will need to continue the bicarbonate containing fluid Diabetes appears to be stable at this time Patient serum below 202 revealed the higher side Urinalysis obtained August 24 does not show any evidence of fall hematuria but he does have some proteinuria We'll continue to follow and make recommendation from renal standpoint maintain hydration needs daily labs Subjective Interval history: Patient was seen today for follow-up no labs have been done currently tolerating IV fluid well patient is making plenty of urine but intake output has not been monitored adequately Denies any complaints of chest pain pressure or shortness of breath no nausea vomiting diarrhea General appearance: appears stated age,Alert awake oriented EENT: mucous membranes moist Neck: no JVD Respiratory: Present: Clear to Ascultation Cardiology: regular, S1S2 normal no S3-S4 Gastrointestinal: normal nontender abdomen skin: dry no peripheral edema Neurologic: alert and awake follows commands Objective - Vital Signs Vital signs: Vital Signs - 12hr 08/26/16 08/26/16 08/26/16 05:49 07:50 08:14 Temperature 98.6 F 97.8 F Pulse Rate 66 Pulse Rate [ 74 66 Right Radial] Respiratory 20 18 Rate Blood Pressure 166/77 Blood Pressure 164/90 166/77 [Left Arm] O2 Sat by Pulse 93 96 Oximetry 08/26/16 08/26/16 08/26/16 08:15 08:28 10:32 Temperature Pulse Rate 66 78 Pulse Rate [ Right Radial] Respiratory Rate Blood Pressure 166/77 167/73 Blood Pressure [Left Arm] O2 Sat by Pulse 96 Oximetry 08/26/16 08/26/16 12:00 13:14 Temperature 97.8 F Pulse Rate 59 L Pulse Rate [ 59 L Right Radial] Respiratory 18 Rate Blood Pressure 172/81 Blood Pressure 172/81 [Left Arm] O2 Sat by Pulse 96 Oximetry - Lab 08/26/16 16:25 08/26/16 16:20 Most recent lab results Calcium 8.6 mg/dL (8.4-10.2) 08/25/16 04:47
[2016-08-26 16:51] LABS: Basophils % (Auto) 1.1 % (0.0-1.8); Eosinophils % (Auto) 6.3 % (0.0-4.3); Hematocrit 24.8 % (35.5-45.6); Hemoglobin 8.3 gm/dl (11.8-15.2); Mean Corpuscular HGB Conc 34 % (32-34); Mean Corpuscular Hemoglobin 30 pg (28-32); Mean Corpuscular Volume 91 fl (84-94); Platelet Count 205 K/mm3 (140-440); Red Blood Count 2.74 M/mm3 (3.65-5.03); Red Cell Distribution Width 12.5 % (13.2-15.2); White Blood Count 5.1 K/mm3 (4.5-11.0)
[2016-08-26 17:13] LABS: BUN/Creatinine Ratio 10.63; Chloride 102.9 mmol/L (98-107); Potassium 3.8 mmol/L (3.6-5.0)
--- NOTE | 2016-08-26 18:06 | Progress Note ---
Assessment and Plan Assessment and plan: 1. Hyperkalemia Due to acute renal failure Medically treated Resolved 2. Acute on chronic renal failure Followed by Dr. Price and baseline creatinine 1.7, on admission 5.1 Nephrology following and additional workup in progress Continue bicarbonate drip 3. Anemia Likely anemia of chronic kidney disease Monitor H&H 4. A fib Rate controlled on amlodipine and anticoagulated with ELIQUIS 5. HTN BP controlled on amlodipine and clonidine 6. DM On insulin 70/30 Accu-Cheks and SSI to adjust regimen if needed 7. Hyperlipidemia Lipitor 8. DVT prophylaxis Anticoagulated with Eliquis History Interval history: doing well, no complaints Hospitalist Physical - Constitutional Vitals: Temp Pulse Resp BP Pulse Ox 97.3 F L 64 18 163/72 98 08/26/16 16:00 08/26/16 16:00 08/26/16 16:00 08/26/16 16:00 08/26/16 16:00 General appearance: Present: no acute distress, well-nourished - EENT Eyes: Present: PERRL, EOM intact. Absent: scleral icterus, conjunctival injection - Neck Neck: Present: normal ROM. Absent: enlarged thyroid, masses or JVD - Respiratory Respiratory effort: normal Respiratory: bilateral: CTA, negative: rhonchi, wheezing - Cardiovascular Rhythm: irregularly irregular Heart Sounds: Present: S1 & S2. Absent: systolic murmur - Extremities Extremities: no ischemia - Abdominal General gastrointestinal: soft, non-tender, non-distended, normal bowel sounds - Neurologic Neurologic: CNII-XII intact, no focal deficits Results - Labs CBC & Chem 7: 09/01/16 04:51 09/01/16 04:51 Labs: Laboratory Last Values WBC 5.1 K/mm3 (4.5-11.0) 08/26/16 16:25 RBC 2.74 M/mm3 (3.65-5.03) L 08/26/16 16:25 Hgb 8.3 gm/dl (11.8-15.2) L 08/26/16 16:25 Hct 24.8 % (35.5-45.6) L 08/26/16 16:25 MCV 91 fl (84-94) 08/26/16 16:25 MCH 30 pg (28-32) 08/26/16 16:25 MCHC 34 % (32-34) 08/26/16 16:25 RDW 12.5 % (13.2-15.2) L 08/26/16 16:25 Plt Count 205 K/mm3 (140-440) 08/26/16 16:25 Lymph % (Auto) 25.1 % (13.4-35.0) 08/26/16 16:25 [place] % (Auto) 13.2 % (0.0-7.3) H 08/26/16 16:25 Eos % (Auto) 6.3 % (0.0-4.3) H 08/26/16 16:25 Baso % (Auto) 1.1 % (0.0-1.8) 08/26/16 16:25 Lymph # 1.3 K/mm3 (1.2-5.4) 08/26/16 16:25 [place] # 0.7 K/mm3 (0.0-0.8) 08/26/16 16:25 Eos # 0.3 K/mm3 (0.0-0.4) 08/26/16 16:25 Baso # 0.1 K/mm3 (0.0-0.1) 08/26/16 16:25 Seg Neutrophils % 54.3 % (40.0-70.0) 08/26/16 16:25 Seg Neutrophils # 2.8 K/mm3 (1.8-7.7) 08/26/16 16:25 PT 14.8 Sec. (12.2-14.9) 08/24/16 20:59 INR 1.17 (0.87-1.13) H 08/24/16 20:59 VBG pH 7.267 (7.320-7.420) L 08/24/16 19:31 Sodium 141 mmol/L (137-145) 08/26/16 16:20 Potassium 3.8 mmol/L (3.6-5.0) 08/26/16 16:20 Chloride 102.9 mmol/L (98-107) 08/26/16 16:20 Carbon Dioxide 24 mmol/L (22-30) 08/26/16 16:20 Anion Gap 18 mmol/L 08/26/16 16:20 BUN 50 mg/dL (9-20) H 08/26/16 16:20 Creatinine 4.7 mg/dL (0.8-1.5) H 08/26/16 16:20 Estimated GFR 15 ml/min 08/26/16 16:20 BUN/Creatinine Ratio 10.63 % 08/26/16 16:20 Glucose 66 mg/dL (75-100) L 08/26/16 16:20 POC Glucose 189 (70-105) H 08/25/16 20:14 Osmolality 322 Mosm/kg 08/25/16 13:14 Uric Acid 5.2 mg/dL (3.5-7.6) 08/25/16 13:14 Calcium 8.0 mg/dL (8.4-10.2) L 08/26/16 16:20 Total Bilirubin 0.3 mg/dL (0.1-1.2) 08/24/16 19:31 AST 24 units/L (5-40) 08/24/16 19:31 ALT 15 units/L (7-56) 08/24/16 19:31 Alkaline Phosphatase 74 units/L (35-129) 08/24/16 19:31 Total Protein 7.5 g/dL (6.3-8.2) 08/24/16 19:31 Albumin 3.7 g/dL (3.9-5) L 08/24/16 19:31 Albumin/Globulin Ratio 1.0 % 08/24/16 19:31
[2016-08-26] MEDS: SODIUM BICARBONATE 75 MEQ in NACL 0.45% 1000 ML 1,000 ML IV SCH (18:11)
[2016-08-27] MEDS: SODIUM BICARBONATE 75 MEQ in NACL 0.45% 1000 ML 1,000 ML IV SCH ×2 (06:12→21:37)
[2016-08-27] MEDS: NOVOLOG SUB-Q SCH ×4 (07:30→22:11)
--- NOTE | 2016-08-27 09:13 | Progress Note ---
Assessment and Plan Acute kidney injury, patient's renal function appears to be improving slowly Continue to maintain hydration he is making significant amount of urine His urinalysis was not exciting At this time since his kidney function is improving he does not require any biopsy He does not need any form of CLAUDETTE inhibitor as angiotensin receptor geovany or nonsteroidal drug Overall he seems to be improving slowly Continue to maintain hydration monitor renal function and follow up Subjective Interval history: Patient was seen today for follow-up Patient denies any complaints of chest pain pressure or shortness of breath No complaints of any nausea vomiting Events of 24 hours vitals labs intake output medications were reviewed Objective Vitals reviewed HEENT: No pallor or icterus Neck: Supple no thyromegaly nodular mass or JVD Chest: Clear to auscultation no crackles rales or wheezes Cardiovascular: Regular rate and rhythm S1 and S2 normal no S3-S4 Abdomen: Soft nontender no voluntary guarding rigidity rebound or renal bruit Extremity no edema dry skin. Pulses palpable Neurological: Alert awake follows commands Dermatologic; dry skin Psych: Alert awake appropriate Objective - Vital Signs Vital signs: Vital Signs - 12hr 08/26/16 08/27/16 08/27/16 22:01 00:20 00:54 Temperature 98.1 F Pulse Rate 65 61 Pulse Rate [ 62 Right Radial] Respiratory 20 Rate Blood Pressure 165/87 Blood Pressure [Left Arm] O2 Sat by Pulse 97 Oximetry 08/27/16 04:20 Temperature 98.4 F Pulse Rate Pulse Rate [ 68 Right Radial] Respiratory 18 Rate Blood Pressure Blood Pressure 179/84 [Left Arm] O2 Sat by Pulse 98 Oximetry - Lab 08/26/16 16:25 08/26/16 16:20 Most recent lab results Calcium 8.0 mg/dL (8.4-10.2) L 08/26/16 16:20
[2016-08-27] MEDS ORDERED: PROCRIT SUB-Q NR (09:39)
[2016-08-27] MEDS: NORVASC PO SCH (09:44)
[2016-08-27] MEDS: CATAPRES PO SCH ×6 (09:46→21:36)
[2016-08-27] MEDS: ZYLOPRIM PO SCH (09:46)
[2016-08-27] MEDS: ELIQUIS PO SCH ×2 (09:46→21:36)
--- NOTE | 2016-08-27 19:14 | Progress Note ---
Assessment and Plan Assessment and plan: 1. Hyperkalemia Due to acute renal failure Medically treated Resolved 2. Acute on chronic renal failure Followed by Dr. Price and baseline creatinine 1.7, on admission 5.1 Nephrology following and additional workup in progress Continue bicarbonate drip Cr slowly trending down 3. Anemia Likely anemia of chronic kidney disease Monitor H&H 4. A fib Rate controlled on amlodipine and anticoagulated with ELIQUIS 5. HTN BP controlled on amlodipine and clonidine 6. DM On insulin 70/30 Accu-Cheks and SSI to adjust regimen if needed 7. Hyperlipidemia Lipitor 8. DVT prophylaxis Anticoagulated with Eliquis History Interval history: doing well, no complaints Hospitalist Physical - Constitutional Vitals: Temp Pulse Resp BP Pulse Ox 97.3 F L 60 18 148/68 100 08/27/16 16:15 08/27/16 16:15 08/27/16 16:15 08/27/16 16:15 08/27/16 16:15 General appearance: Present: no acute distress - Neck Neck: Present: supple, normal ROM. Absent: enlarged thyroid, masses or JVD - Respiratory Respiratory effort: normal Respiratory: bilateral: CTA, negative: rhonchi, wheezing - Cardiovascular Rhythm: regular Heart Sounds: Present: S1 & S2. Absent: systolic murmur - Extremities Extremities: no ischemia - Abdominal General gastrointestinal: soft, non-tender, non-distended, normal bowel sounds - Psychiatric Psychiatric: appropriate mood/affect, intact judgment & insight, cooperative - Neurologic Neurologic: CNII-XII intact, no focal deficits Results - Labs CBC & Chem 7: 09/01/16 04:51 09/01/16 04:51 Labs: Laboratory Last Values WBC 5.1 K/mm3 (4.5-11.0) 08/26/16 16:25 RBC 2.74 M/mm3 (3.65-5.03) L 08/26/16 16:25 Hgb 8.3 gm/dl (11.8-15.2) L 08/26/16 16:25 Hct 24.8 % (35.5-45.6) L 08/26/16 16:25 MCV 91 fl (84-94) 08/26/16 16:25 MCH 30 pg (28-32) 08/26/16 16:25 MCHC 34 % (32-34) 08/26/16 16:25 RDW 12.5 % (13.2-15.2) L 08/26/16 16:25 Plt Count 205 K/mm3 (140-440) 08/26/16 16:25 Lymph % (Auto) 25.1 % (13.4-35.0) 08/26/16 16:25 [place] % (Auto) 13.2 % (0.0-7.3) H 08/26/16 16:25 Eos % (Auto) 6.3 % (0.0-4.3) H 08/26/16 16:25 Baso % (Auto) 1.1 % (0.0-1.8) 08/26/16 16:25 Lymph # 1.3 K/mm3 (1.2-5.4) 08/26/16 16:25 [place] # 0.7 K/mm3 (0.0-0.8) 08/26/16 16:25 Eos # 0.3 K/mm3 (0.0-0.4) 08/26/16 16:25 Baso # 0.1 K/mm3 (0.0-0.1) 08/26/16 16:25 Seg Neutrophils % 54.3 % (40.0-70.0) 08/26/16 16:25 Seg Neutrophils # 2.8 K/mm3 (1.8-7.7) 08/26/16 16:25 PT 14.8 Sec. (12.2-14.9) 08/24/16 20:59 INR 1.17 (0.87-1.13) H 08/24/16 20:59 VBG pH 7.267 (7.320-7.420) L 08/24/16 19:31 Sodium 141 mmol/L (137-145) 08/26/16 16:20 Potassium 3.8 mmol/L (3.6-5.0) 08/26/16 16:20 Chloride 102.9 mmol/L (98-107) 08/26/16 16:20 Carbon Dioxide 24 mmol/L (22-30) 08/26/16 16:20 Anion Gap 18 mmol/L 08/26/16 16:20 BUN 50 mg/dL (9-20) H 08/26/16 16:20 Creatinine 4.7 mg/dL (0.8-1.5) H 08/26/16 16:20 Estimated GFR 15 ml/min 08/26/16 16:20 BUN/Creatinine Ratio 10.63 % 08/26/16 16:20 Glucose 66 mg/dL (75-100) L 08/26/16 16:20 POC Glucose 132 (70-105) H 08/27/16 17:16 Osmolality 322 Mosm/kg 08/25/16 13:14 Uric Acid 5.2 mg/dL (3.5-7.6) 08/25/16 13:14 Calcium 8.0 mg/dL (8.4-10.2) L 08/26/16 16:20 Total Bilirubin 0.3 mg/dL (0.1-1.2) 08/24/16 19:31 AST 24 units/L (5-40) 08/24/16 19:31 ALT 15 units/L (7-56) 08/24/16 19:31 Alkaline Phosphatase 74 units/L (35-129) 08/24/16 19:31 Total Protein 7.5 g/dL (6.3-8.2) 08/24/16 19:31 Albumin 3.7 g/dL (3.9-5) L 08/24/16 19:31 Albumin/Globulin Ratio 1.0 % 08/24/16 19:31
[2016-08-28 06:27] LABS: BUN/Creatinine Ratio 10.68; Calcium 7.6 mg/dL (8.4-10.2); Chloride 99.4 mmol/L (98-107); Potassium 3.9 mmol/L (3.6-5.0)
--- NOTE | 2016-08-28 10:37 | Progress Note ---
Assessment and Plan Acute kidney injury, patient's renal function appears to be improving slowly creatinine trending down UA unremarkable , no biopsy needed out pt cr is 1.7 cr cl 75 in 2016 Follow up on pending labs D/C when creatinine is under 2.5 He does not need any form of CLAUDETTE inhibitor as angiotensin receptor geovany or nonsteroidal drug Overall he seems to be improving slowly Continue to maintain hydration monitor renal function and follow up Subjective Interval history: Patient was seen today , no acute complains no chest pain tolerating IVF , no SOB No nausea vomiting Events of 24 hour noted labs meds vitals reviewed OBJECTIVE : General : NAD alert awake follows comands HEENT: mucous membranes moist Neck: no JVD Respiratory: Present: Clear to Ascultation Cardiology: regular, S1S2 normal Gastrointestinal: normal (soft nontender abdomen) DERM: dry skin minimal edema Neurologic: alert and oriented x3 Objective - Vital Signs Vital signs: Vital Signs - 12hr 08/28/16 08/28/16 08/28/16 00:00 00:55 04:00 Temperature 98.4 F 98.2 F Pulse Rate 59 L Pulse Rate [ 61 101 H Right Radial] Respiratory 20 20 Rate Blood Pressure 156/71 122/60 [Left Arm] Blood Pressure [Right Arm] O2 Sat by Pulse 97 98 Oximetry 08/28/16 09:02 Temperature 98.1 F Pulse Rate Pulse Rate [ 65 Right Radial] Respiratory 18 Rate Blood Pressure [Left Arm] Blood Pressure 170/77 [Right Arm] O2 Sat by Pulse 97 Oximetry - Lab 08/26/16 16:25 08/28/16 04:35 Most recent lab results Calcium 7.6 mg/dL (8.4-10.2) L 08/28/16 04:35
[2016-08-28] MEDS: ZYLOPRIM PO SCH (11:11)
[2016-08-28] MEDS: CATAPRES PO SCH ×6 (11:11→22:41)
[2016-08-28] MEDS: NORVASC PO SCH (11:11)
[2016-08-28] MEDS: ELIQUIS PO SCH ×2 (11:12→22:41)
[2016-08-28] MEDS: NOVOLOG SUB-Q SCH ×4 (11:13→22:00)
[2016-08-28 12:45] LABS: Bilirubin,Urine NEG (Negative); Blood,Urine SM (Negative); Ketones,Urine NEG (Negative); Leukocyte Esterase,Urine NEG (Negative); Nitrite,Urine NEG (Negative); Urobilinogen,Urine < 2.0 mg/dL (<2.0)
[2016-08-28 12:50] LABS: WBC,Urine < 1.0 /HPF (0.0-6.0)
--- NOTE | 2016-08-28 17:35 | Progress Note ---
Assessment and Plan Assessment and plan: 1. Hyperkalemia Due to acute renal failure Medically treated Resolved 2. Acute on chronic renal failure Followed by Dr. Price and baseline creatinine 1.7, on admission 5.1 Nephrology following and additional workup in progress Continue bicarbonate drip Cr slowly trending down, in 4 range Nephrology recommended to be discharged when Cr<2.5 3. Anemia Likely anemia of chronic kidney disease Monitor H&H 4. A fib Rate controlled on amlodipine and anticoagulated with ELIQUIS 5. HTN BP controlled on amlodipine and clonidine 6. DM On insulin 70/30 Accu-Cheks and SSI to adjust regimen if needed 7. Hyperlipidemia Lipitor 8. DVT prophylaxis Anticoagulated with Eliquis History Interval history: doing well, no complaints Hospitalist Physical - Constitutional Vitals: Temp Pulse Resp BP Pulse Ox 98.2 F 72 18 161/72 99 08/28/16 16:29 08/28/16 16:29 08/28/16 16:29 08/28/16 16:29 08/28/16 16:29 General appearance: Present: no acute distress, well-nourished - EENT Eyes: Present: PERRL, EOM intact. Absent: scleral icterus, conjunctival injection - Neck Neck: Present: supple, normal ROM. Absent: masses or JVD - Respiratory Respiratory effort: normal Respiratory: bilateral: CTA, negative: rhonchi, wheezing - Cardiovascular Rhythm: irregularly irregular Heart Sounds: Present: S1 & S2. Absent: systolic murmur - Extremities Extremities: no ischemia - Abdominal General gastrointestinal: soft, non-tender, non-distended, normal bowel sounds - Psychiatric Psychiatric: cooperative - Neurologic Neurologic: CNII-XII intact, no focal deficits Results - Labs CBC & Chem 7: 09/01/16 04:51 09/01/16 04:51 Labs: Laboratory Last Values WBC 5.1 K/mm3 (4.5-11.0) 08/26/16 16:25 RBC 2.74 M/mm3 (3.65-5.03) L 08/26/16 16:25 Hgb 8.3 gm/dl (11.8-15.2) L 08/26/16 16:25 Hct 24.8 % (35.5-45.6) L 08/26/16 16:25 MCV 91 fl (84-94) 08/26/16 16:25 MCH 30 pg (28-32) 08/26/16 16:25 MCHC 34 % (32-34) 08/26/16 16:25 RDW 12.5 % (13.2-15.2) L 08/26/16 16:25 Plt Count 205 K/mm3 (140-440) 08/26/16 16:25 Lymph % (Auto) 25.1 % (13.4-35.0) 08/26/16 16:25 [place] % (Auto) 13.2 % (0.0-7.3) H 08/26/16 16:25 Eos % (Auto) 6.3 % (0.0-4.3) H 08/26/16 16:25 Baso % (Auto) 1.1 % (0.0-1.8) 08/26/16 16:25 Lymph # 1.3 K/mm3 (1.2-5.4) 08/26/16 16:25 [place] # 0.7 K/mm3 (0.0-0.8) 08/26/16 16:25 Eos # 0.3 K/mm3 (0.0-0.4) 08/26/16 16:25 Baso # 0.1 K/mm3 (0.0-0.1) 08/26/16 16:25 Seg Neutrophils % 54.3 % (40.0-70.0) 08/26/16 16:25 Seg Neutrophils # 2.8 K/mm3 (1.8-7.7) 08/26/16 16:25 PT 14.8 Sec. (12.2-14.9) 08/24/16 20:59 INR 1.17 (0.87-1.13) H 08/24/16 20:59 VBG pH 7.267 (7.320-7.420) L 08/24/16 19:31 Sodium 139 mmol/L (137-145) 08/28/16 04:35 Potassium 3.9 mmol/L (3.6-5.0) 08/28/16 04:35 Chloride 99.4 mmol/L (98-107) 08/28/16 04:35 Carbon Dioxide 27 mmol/L (22-30) 08/28/16 04:35 Anion Gap 17 mmol/L 08/28/16 04:35 BUN 47 mg/dL (9-20) H 08/28/16 04:35 Creatinine 4.4 mg/dL (0.8-1.5) H 08/28/16 04:35 Estimated GFR 16 ml/min 08/28/16 04:35 BUN/Creatinine Ratio 10.68 % 08/28/16 04:35 Glucose 47 mg/dL (75-100) L 08/28/16 04:35 POC Glucose 333 (70-105) H 08/28/16 15:25 Osmolality 322 Mosm/kg 08/25/16 13:14 Uric Acid 5.2 mg/dL (3.5-7.6) 08/25/16 13:14 Calcium 7.6 mg/dL (8.4-10.2) L 08/28/16 04:35 Total Bilirubin 0.3 mg/dL (0.1-1.2) 08/24/16 19:31 AST 24 units/L (5-40) 08/24/16 19:31 ALT 15 units/L (7-56) 08/24/16 19:31 Alkaline Phosphatase 74 units/L (35-129) 08/24/16 19:31 Total Protein 7.5 g/dL (6.3-8.2) 08/24/16 19:31 Albumin 3.7 g/dL (3.9-5) L 08/24/16 19:31 Albumin/Globulin Ratio 1.0 % 08/24/16 19:31 Urine Color Colorless (Yellow) 08/25/16 09:35 Urine Turbidity Clear (Clear) 08/25/16 09:35 Urine pH 8.0 (5.0-7.0) H 08/25/16 09:35 Ur Specific [place] 1.004 (1.003-1.030) 08/25/16 09:35 Urine Protein 30 mg/dl mg/dL (Negative) 08/25/16 09:35 Urine Glucose (UA) 50 mg/dL (Negative) 08/25/16 09:35 Urine Ketones Neg mg/dL (Negative) 08/25/16 09:35 Urine Blood Sm (Negative) 08/25/16 09:35 Urine Nitrite Neg (Negative) 08/25/16 09:35 Urine Bilirubin Neg (Negative) 08/25/16 09:35 Urine Urobilinogen < 2.0 mg/dL (<2.0) 08/25/16 09:35 Ur Leukocyte Esterase Neg (Negative) 08/25/16 09:35 Urine WBC (Auto) < 1.0 /HPF (0.0-6.0) 08/25/16 09:35 Urine RBC (Auto) 3.0 /HPF (0.0-6.0) 08/25/16 09:35 Urine Creatinine 22.9 mg/dL (0.1-20.0) H 08/25/16 09:35 Urine Sodium 66 mEq/L 08/25/16 09:35 Urine Total Protein 27 mg/dL (5-11.8) H 08/25/16 09:35
[2016-08-28] MEDS: SODIUM BICARBONATE 75 MEQ in NACL 0.45% 1000 ML 1,000 ML IV SCH (22:53)
[2016-08-28 23:33] LABS: B-Hydroxybutyrate 0.2 mmol/L (0.2 - 0.28)
[2016-08-29 04:16] LABS: Albumin 3.8 g/dL (3.8-4.8); Gamma Globulin 1.6 g/dL (0.8-1.7)
[2016-08-29 05:56] LABS: Basophils % (Auto) 0.6 % (0.0-1.8); Eosinophils % (Auto) 1.9 % (0.0-4.3); Hematocrit 27.7 % (35.5-45.6); Hemoglobin 9.5 gm/dl (11.8-15.2); Mean Corpuscular HGB Conc 34 % (32-34); Mean Corpuscular Hemoglobin 31 pg (28-32); Mean Corpuscular Volume 91 fl (84-94); Platelet Count 222 K/mm3 (140-440); Red Blood Count 3.03 M/mm3 (3.65-5.03); Red Cell Distribution Width 12.6 % (13.2-15.2); White Blood Count 6.8 K/mm3 (4.5-11.0)
[2016-08-29 06:08] LABS: BUN/Creatinine Ratio 9.76; Calcium 7.9 mg/dL (8.4-10.2)
[2016-08-29 06:09] LABS: Chloride 99.5 mmol/L (98-107); Potassium 4.6 mmol/L (3.6-5.0)
[2016-08-29] MEDS: NOVOLOG SUB-Q SCH ×4 (07:30→22:24)
[2016-08-29] MEDS: ZYLOPRIM PO SCH (09:32)
[2016-08-29] MEDS: CATAPRES PO SCH ×6 (09:32→22:11)
[2016-08-29] MEDS: ELIQUIS PO SCH ×2 (09:33→22:11)
[2016-08-29] MEDS: NORVASC PO SCH (09:33)
[2016-08-29] MEDS: SODIUM BICARBONATE 75 MEQ in NACL 0.45% 1000 ML 1,000 ML IV SCH (12:45)
--- NOTE | 2016-08-29 15:04 | Progress Note ---
Assessment and Plan Assessment: * Nonoliguric BRIELLE secondary to prerenal azotemia in setting of ARB on chronic kidney disease * Hyperkalemia - resolved * Hypertension * Type II DM * Atrial fibrillation Plan: * Renal function is gradually improving * Continue IVF for hydration - will change to NS and decrease rate to 75ml/hour - patient is eating/drinking well * Continue antiHTN medications * Tight glycemic control * Strict I/O * Avoid nephrotoxic agents * Check AM labs Subjective Date of service: 08/29/16 Interval history: Patient has no complaints. Denies nausea/vomiting/SOB. Objective - Vital Signs Vital signs: Vital Signs - 12hr 08/29/16 08/29/16 08/29/16 04:57 08:35 09:32 Temperature 98.9 F 98.5 F Pulse Rate 69 Pulse Rate [ 18 L 69 Right Radial] Respiratory 18 16 Rate Blood Pressure 177/97 Blood Pressure 80/54 177/97 [Right Arm] O2 Sat by Pulse 90 97 Oximetry 08/29/16 08/29/16 08/29/16 09:33 12:14 12:24 Temperature 98.3 F 98.2 F Pulse Rate 69 Pulse Rate [ 98 H 65 Right Radial] Respiratory 18 18 Rate Blood Pressure 177/97 Blood Pressure 141/73 169/80 [Right Arm] O2 Sat by Pulse 99 97 Oximetry 08/29/16 14:42 Temperature Pulse Rate 65 Pulse Rate [ Right Radial] Respiratory Rate Blood Pressure 169/80 Blood Pressure [Right Arm] O2 Sat by Pulse Oximetry - General Appearance General appearance: well-developed, well-nourished EENT: ATNC Respiratory: Present: Clear to Ascultation Cardiology: regular, S1S2 Gastrointestinal: normal Neurologic: no asterixis Musculoskeletal: other (no edema) Psychiatric: mood/affect appropriate, cooperative - Lab 08/29/16 04:00 08/29/16 04:00 Most recent lab results Calcium 7.9 mg/dL (8.4-10.2) L 08/29/16 04:00 Urine Creatinine 22.9 mg/dL (0.1-20.0) H 08/25/16 09:35 Urine Sodium 66 mEq/L 08/25/16 09:35 Urine Total Protein 27 mg/dL (5-11.8) H 08/25/16 09:35
--- NOTE | 2016-08-29 17:44 | Progress Note ---
Assessment and Plan Assessment and plan: 1. Hyperkalemia Due to acute renal failure Medically treated Resolved 2. Acute on chronic renal failure Followed by Dr. Price and baseline creatinine 1.7, on admission 5.1 Nephrology following and additional workup in progress Bicarbonate drip initially, now switched to NS Cr plateau at 4 3. Anemia Likely anemia of chronic kidney disease Monitor H&H 4. A fib Rate controlled on amlodipine and anticoagulated with ELIQUIS 5. HTN BP controlled on amlodipine and clonidine 6. DM On insulin 70/30 Accu-Cheks and SSI to adjust regimen if needed 7. Hyperlipidemia Lipitor 8. DVT prophylaxis Anticoagulated with Eliquis History Interval history: doing well, no complaints Hospitalist Physical - Constitutional Vitals: Temp Pulse Resp BP Pulse Ox 98.0 F 61 14 135/69 99 08/29/16 16:57 08/29/16 16:57 08/29/16 16:57 08/29/16 16:57 08/29/16 16:57 General appearance: Present: no acute distress, well-nourished - Neck Neck: Present: supple, normal ROM. Absent: masses or JVD - Respiratory Respiratory effort: normal Respiratory: bilateral: CTA, negative: rhonchi, wheezing - Cardiovascular Rhythm: irregularly irregular Heart Sounds: Present: S1 & S2. Absent: systolic murmur - Extremities Extremities: no ischemia - Abdominal General gastrointestinal: soft, non-tender, non-distended, normal bowel sounds - Neurologic Neurologic: CNII-XII intact, no focal deficits Results - Labs CBC & Chem 7: 09/01/16 04:51 09/01/16 04:51 Labs: Laboratory Last Values WBC 6.8 K/mm3 (4.5-11.0) 08/29/16 04:00 RBC 3.03 M/mm3 (3.65-5.03) L 08/29/16 04:00 Hgb 9.5 gm/dl (11.8-15.2) L 08/29/16 04:00 Hct 27.7 % (35.5-45.6) L 08/29/16 04:00 MCV 91 fl (84-94) 08/29/16 04:00 MCH 31 pg (28-32) 08/29/16 04:00 MCHC 34 % (32-34) 08/29/16 04:00 RDW 12.6 % (13.2-15.2) L 08/29/16 04:00 Plt Count 222 K/mm3 (140-440) 08/29/16 04:00 Lymph % (Auto) 12.0 % (13.4-35.0) L 08/29/16 04:00 [place] % (Auto) 8.9 % (0.0-7.3) H 08/29/16 04:00 Eos % (Auto) 1.9 % (0.0-4.3) 08/29/16 04:00 Baso % (Auto) 0.6 % (0.0-1.8) 08/29/16 04:00 Lymph # 0.8 K/mm3 (1.2-5.4) L 08/29/16 04:00 [place] # 0.6 K/mm3 (0.0-0.8) 08/29/16 04:00 Eos # 0.1 K/mm3 (0.0-0.4) 08/29/16 04:00 Baso # 0.0 K/mm3 (0.0-0.1) 08/29/16 04:00 Seg Neutrophils % 76.6 % (40.0-70.0) H 08/29/16 04:00 Seg Neutrophils # 5.2 K/mm3 (1.8-7.7) 08/29/16 04:00 PT 14.8 Sec. (12.2-14.9) 08/24/16 20:59 INR 1.17 (0.87-1.13) H 08/24/16 20:59 VBG pH 7.267 (7.320-7.420) L 08/24/16 19:31 Sodium 138 mmol/L (137-145) 08/29/16 04:00 Potassium 4.6 mmol/L (3.6-5.0) 08/29/16 04:00 Chloride 99.5 mmol/L (98-107) 08/29/16 04:00 Carbon Dioxide 25 mmol/L (22-30) 08/29/16 04:00 Anion Gap 18 mmol/L 08/29/16 04:00 BUN 41 mg/dL (9-20) H 08/29/16 04:00 Creatinine 4.2 mg/dL (0.8-1.5) H 08/29/16 04:00 Estimated GFR 17 ml/min 08/29/16 04:00 BUN/Creatinine Ratio 9.76 % 08/29/16 04:00 Glucose 67 mg/dL (75-100) L 08/29/16 04:00 POC Glucose 101 (70-105) 08/29/16 16:24 Osmolality 322 Mosm/kg 08/25/16 13:14 Uric Acid 5.2 mg/dL (3.5-7.6) 08/25/16 13:14 Calcium 7.9 mg/dL (8.4-10.2) L 08/29/16 04:00 Total Bilirubin 0.3 mg/dL (0.1-1.2) 08/24/16 19:31 AST 24 units/L (5-40) 08/24/16 19:31 ALT 15 units/L (7-56) 08/24/16 19:31 Alkaline Phosphatase 74 units/L (35-129) 08/24/16 19:31 Serum Total Protein 7.3 g/dL (6.1-8.1) 08/25/16 13:14 Total Protein 7.5 g/dL (6.3-8.2) 08/24/16 19:31 Albumin 3.8 g/dL (3.8-4.8) 08/25/16 13:14 Albumin/Globulin Ratio 1.0 % 08/24/16 19:31 Hfaft-4-Kqncjyeuf 0.3 g/dL (0.2-0.3) 08/25/16 13:14 [place]-4-Rmenjynie 0.7 g/dL (0.5-0.9) 08/25/16 13:14 Beta Globulins 0.4 g/dL (0.2-0.5) 08/25/16 13:14 Gamma Globulins 1.6 g/dL (0.8-1.7) 08/25/16 13:14 Abnorm Protein Band 1 see below 08/25/16 13:14 PEP Interpretation see below 08/25/16 13:14 Urine Color Colorless (Yellow) 08/25/16 09:35 Urine Turbidity Clear (Clear) 08/25/16 09:35 Urine pH 8.0 (5.0-7.0) H 08/25/16 09:35 Ur Specific [place] 1.004 (1.003-1.030) 08/25/16 09:35 Urine Protein 30 mg/dl mg/dL (Negative) 08/25/16 09:35 Urine Glucose (UA) 50 mg/dL (Negative) 08/25/16 09:35 Urine Ketones Neg mg/dL (Negative) 08/25/16 09:35 Urine Blood Sm (Negative) 08/25/16 09:35 Urine Nitrite Neg (Negative) 08/25/16 09:35 Urine Bilirubin Neg (Negative) 08/25/16 09:35 Urine Urobilinogen < 2.0 mg/dL (<2.0) 08/25/16 09:35 Ur Leukocyte Esterase Neg (Negative) 08/25/16 09:35 Urine WBC (Auto) < 1.0 /HPF (0.0-6.0) 08/25/16 09:35 Urine RBC (Auto) 3.0 /HPF (0.0-6.0) 08/25/16 09:35 Urine Creatinine 22.9 mg/dL (0.1-20.0) H 08/25/16 09:35 Urine Sodium 66 mEq/L 08/25/16 09:35 Urine Total Protein 27 mg/dL (5-11.8) H 08/25/16 09:35
[2016-08-30] MEDS: NACL 0.9% 1000 ML 1,000 ML IV SCH ×3 (00:16→22:36)
[2016-08-30] MEDS: NOVOLOG SUB-Q SCH ×4 (07:30→23:43)
[2016-08-30 07:56] LABS: Eosinophils % (Auto) 5.4 % (0.0-4.3); Hematocrit 27.3 % (35.5-45.6); Hemoglobin 9.4 gm/dl (11.8-15.2); Mean Corpuscular HGB Conc 34 % (32-34); Mean Corpuscular Hemoglobin 31 pg (28-32); Mean Corpuscular Volume 90 fl (84-94); Platelet Count 251 K/mm3 (140-440); Red Blood Count 3.04 M/mm3 (3.65-5.03); Red Cell Distribution Width 12.7 % (13.2-15.2); White Blood Count 6.3 K/mm3 (4.5-11.0)
[2016-08-30 07:58] LABS: BUN/Creatinine Ratio 9.76; Calcium 8.3 mg/dL (8.4-10.2); Chloride 99.7 mmol/L (98-107); Potassium 4.1 mmol/L (3.6-5.0)
[2016-08-30] MEDS: ZYLOPRIM PO SCH (11:20)
[2016-08-30] MEDS: ELIQUIS PO SCH ×2 (11:20→22:37)
[2016-08-30] MEDS: NORVASC PO SCH (11:20)
[2016-08-30] MEDS: CATAPRES PO SCH ×6 (11:20→22:36)
--- NOTE | 2016-08-30 13:52 | Progress Note ---
Assessment and Plan Assessment: * Nonoliguric BRIELLE secondary to prerenal azotemia in setting of ARB on chronic kidney disease * Hyperkalemia - resolved * Hypertension * Type II DM * Atrial fibrillation Plan: * Renal function is stable - SCr plateaued * Continue IVF for hydration -NS 75ml/hour - patient is eating/drinking well * Continue antiHTN medications * Tight glycemic control * Strict I/O * Avoid nephrotoxic agents * Check AM labs Subjective Date of service: 08/30/16 Interval history: Patient has no complaints. Objective - Vital Signs Vital signs: Vital Signs - 12hr 08/30/16 08/30/16 08/30/16 04:25 10:17 12:32 Temperature 98.6 F 98.2 F 98.0 F Pulse Rate [ 67 Left Radial] Pulse Rate [ 62 66 Right Radial] Respiratory 20 14 16 Rate Blood Pressure 185/86 [Left Arm] Blood Pressure 159/77 187/86 [Right Arm] O2 Sat by Pulse 98 98 97 Oximetry - General Appearance General appearance: well-developed, well-nourished EENT: ATNC Respiratory: Present: Clear to Ascultation Cardiology: regular, S1S2 Gastrointestinal: normal, no tenderness, no distended Integumentary: no rash Musculoskeletal: other (no edema) Psychiatric: mood/affect appropriate, cooperative - Lab 08/30/16 06:57 08/30/16 06:57 Most recent lab results Calcium 8.3 mg/dL (8.4-10.2) L 08/30/16 06:57 Urine Creatinine 22.9 mg/dL (0.1-20.0) H 08/25/16 09:35 Urine Sodium 66 mEq/L 08/25/16 09:35 Urine Total Protein 27 mg/dL (5-11.8) H 08/25/16 09:35
--- NOTE | 2016-08-30 18:51 | Progress Note ---
Assessment and Plan Assessment and plan: 1. Hyperkalemia Due to acute renal failure Medically treated Resolved 2. Acute on chronic renal failure Followed by Dr. Price and baseline creatinine 1.7, on admission 5.1 Nephrology following and additional workup in progress Bicarbonate drip initially, now switched to NS Cr plateau at 4 3. Anemia Likely anemia of chronic kidney disease Monitor H&H 4. A fib Rate controlled on amlodipine and anticoagulated with ELIQUIS 5. HTN BP controlled on amlodipine and clonidine 6. DM On insulin 70/30 Accu-Cheks and SSI to adjust regimen if needed 7. Hyperlipidemia Lipitor 8. DVT prophylaxis Anticoagulated with Eliquis History Interval history: doing well, no complaints Hospitalist Physical - Constitutional Vitals: Temp Pulse Resp BP Pulse Ox 98.3 F 65 16 174/78 97 08/30/16 17:18 08/30/16 17:18 08/30/16 17:18 08/30/16 17:18 08/30/16 17:18 General appearance: Present: no acute distress, well-nourished - Neck Neck: Present: supple. Absent: enlarged thyroid, masses or JVD - Respiratory Respiratory effort: normal Respiratory: bilateral: CTA, negative: rhonchi, wheezing - Cardiovascular Rhythm: irregularly irregular Heart Sounds: Present: S1 & S2. Absent: systolic murmur - Extremities Extremities: no ischemia - Abdominal General gastrointestinal: soft, non-tender, non-distended, normal bowel sounds - Psychiatric Psychiatric: cooperative - Neurologic Neurologic: CNII-XII intact, no focal deficits Results - Labs CBC & Chem 7: 09/01/16 04:51 09/01/16 04:51 Labs: Laboratory Last Values WBC 6.3 K/mm3 (4.5-11.0) 08/30/16 06:57 RBC 3.04 M/mm3 (3.65-5.03) L 08/30/16 06:57 Hgb 9.4 gm/dl (11.8-15.2) L 08/30/16 06:57 Hct 27.3 % (35.5-45.6) L 08/30/16 06:57 MCV 90 fl (84-94) 08/30/16 06:57 MCH 31 pg (28-32) 08/30/16 06:57 MCHC 34 % (32-34) 08/30/16 06:57 RDW 12.7 % (13.2-15.2) L 08/30/16 06:57 Plt Count 251 K/mm3 (140-440) 08/30/16 06:57 Lymph % (Auto) 26.2 % (13.4-35.0) 08/30/16 06:57 [place] % (Auto) 9.9 % (0.0-7.3) H 08/30/16 06:57 Eos % (Auto) 5.4 % (0.0-4.3) H 08/30/16 06:57 Baso % (Auto) 1.0 % (0.0-1.8) 08/30/16 06:57 Lymph # 1.7 K/mm3 (1.2-5.4) 08/30/16 06:57 [place] # 0.6 K/mm3 (0.0-0.8) 08/30/16 06:57 Eos # 0.3 K/mm3 (0.0-0.4) 08/30/16 06:57 Baso # 0.1 K/mm3 (0.0-0.1) 08/30/16 06:57 Seg Neutrophils % 57.5 % (40.0-70.0) 08/30/16 06:57 Seg Neutrophils # 3.6 K/mm3 (1.8-7.7) 08/30/16 06:57 PT 14.8 Sec. (12.2-14.9) 08/24/16 20:59 INR 1.17 (0.87-1.13) H 08/24/16 20:59 VBG pH 7.267 (7.320-7.420) L 08/24/16 19:31 Sodium 139 mmol/L (137-145) 08/30/16 06:57 Potassium 4.1 mmol/L (3.6-5.0) 08/30/16 06:57 Chloride 99.7 mmol/L (98-107) 08/30/16 06:57 Carbon Dioxide 26 mmol/L (22-30) 08/30/16 06:57 Anion Gap 17 mmol/L 08/30/16 06:57 BUN 42 mg/dL (9-20) H 08/30/16 06:57 Creatinine 4.3 mg/dL (0.8-1.5) H 08/30/16 06:57 Estimated GFR 17 ml/min 08/30/16 06:57 BUN/Creatinine Ratio 9.76 % 08/30/16 06:57 Glucose 52 mg/dL (75-100) L 08/30/16 06:57 POC Glucose 148 (70-105) H 08/30/16 15:37 Osmolality 322 Mosm/kg 08/25/16 13:14 Uric Acid 5.2 mg/dL (3.5-7.6) 08/25/16 13:14 Calcium 8.3 mg/dL (8.4-10.2) L 08/30/16 06:57 Total Bilirubin 0.3 mg/dL (0.1-1.2) 08/24/16 19:31 AST 24 units/L (5-40) 08/24/16 19:31 ALT 15 units/L (7-56) 08/24/16 19:31 Alkaline Phosphatase 74 units/L (35-129) 08/24/16 19:31 Serum Total Protein 7.3 g/dL (6.1-8.1) 08/25/16 13:14 Total Protein 7.5 g/dL (6.3-8.2) 08/24/16 19:31 Albumin 3.8 g/dL (3.8-4.8) 08/25/16 13:14 Albumin/Globulin Ratio 1.0 % 08/24/16 19:31 Mohzq-5-Kliulvzud 0.3 g/dL (0.2-0.3) 08/25/16 13:14 Tkqxh-6-Stgnvkxwo 0.7 g/dL (0.5-0.9) 08/25/16 13:14 Beta Globulins 0.4 g/dL (0.2-0.5) 08/25/16 13:14 Gamma Globulins 1.6 g/dL (0.8-1.7) 08/25/16 13:14 Abnorm Protein Band 1 see below 08/25/16 13:14 PEP Interpretation see below 08/25/16 13:14 Urine Color Colorless (Yellow) 08/25/16 09:35 Urine Turbidity Clear (Clear) 08/25/16 09:35 Urine pH 8.0 (5.0-7.0) H 08/25/16 09:35 Ur Specific [place] 1.004 (1.003-1.030) 08/25/16 09:35 Urine Protein 30 mg/dl mg/dL (Negative) 08/25/16 09:35 Urine Glucose (UA) 50 mg/dL (Negative) 08/25/16 09:35 Urine Ketones Neg mg/dL (Negative) 08/25/16 09:35 Urine Blood Sm (Negative) 08/25/16 09:35 Urine Nitrite Neg (Negative) 08/25/16 09:35 Urine Bilirubin Neg (Negative) 08/25/16 09:35 Urine Urobilinogen < 2.0 mg/dL (<2.0) 08/25/16 09:35 Ur Leukocyte Esterase Neg (Negative) 08/25/16 09:35 Urine WBC (Auto) < 1.0 /HPF (0.0-6.0) 08/25/16 09:35 Urine RBC (Auto) 3.0 /HPF (0.0-6.0) 08/25/16 09:35 Urine Creatinine 22.9 mg/dL (0.1-20.0) H 08/25/16 09:35 Urine Sodium 66 mEq/L 08/25/16 09:35 Urine Total Protein 27 mg/dL (5-11.8) H 08/25/16 09:35
[2016-08-31 06:31] LABS: Basophils % (Auto) 0.7 % (0.0-1.8); Hematocrit 27.8 % (35.5-45.6); Hemoglobin 9.3 gm/dl (11.8-15.2); Mean Corpuscular HGB Conc 33 % (32-34); Mean Corpuscular Hemoglobin 30 pg (28-32); Mean Corpuscular Volume 90 fl (84-94); Platelet Count 272 K/mm3 (140-440); Red Blood Count 3.08 M/mm3 (3.65-5.03); Red Cell Distribution Width 12.8 % (13.2-15.2); White Blood Count 6.6 K/mm3 (4.5-11.0)
[2016-08-31 06:51] LABS: BUN/Creatinine Ratio 9.28; Calcium 8.5 mg/dL (8.4-10.2); Chloride 102.9 mmol/L (98-107); Potassium 4.7 mmol/L (3.6-5.0)
--- NOTE | 2016-08-31 08:28 | Query- Renal Failure ---
Deamesha Fraser____Omid Date:___08/31/16 Low Voltage Electrician/CDS:___Ladarius Sarmiento Phone#:__[phone] Exercise your independent professional judgment when responding to query. Questions asked do not imply a particular answer is desired or expected. We greatly appreciate your clarification on this issue. Clinical Documentation States: 66 year old female was admitted on 08/24/16. The hospitalist progress note (08/30/16) states " Assessment and plan: Acute on chronic renal failure " The nephrology progress note states (08/30/16) states " Assessment: Nonoliguric BRIELLE secondary to prerenal azotemia in setting of ARB on chronic kidney disease, Hyperkalemia - resolved, Hypertension, Type II DM, Atrial fibrillation Plan: Renal function is stable - SCr plateaued, Continue IVF for hydration -NS 75ml/hour - patient is eating/drinking well, Continue antiHTN medications Tight glycemic control, Strict I/O, Avoid nephrotoxic agents, Check AM labs " Clinical Findings Show: 08/24/16 08/31/16 Creatinine: 5.4 4.2 Please clarify if you mean: Acute Renal Failure with or due to: [ ] Tubular Necrosis [ ] Medullary Necrosis [ ] Vasomotor Nephropathy [ ] Shock Kidney [ ] Tubular Nephrosis [ ] Renal Tubular Stasis [ ] Cortical Necrosis [x ] Acute Renal Failure (unspecified) [ ] Lower Tubular Nephrosis [ ] Other: [ ] Not Applicable Present on Admission: [ x] Yes (Y) [ ] Clinically undeterminable (W) [ ] No (N) Please also document response in your Progress Notes and/or Discharge Summary and indicate if the condition was present on admission. CATHERINE
--- NOTE | 2016-08-31 10:01 | Progress Note ---
Assessment and Plan Assessment: * Nonoliguric BRIELLE secondary to prerenal azotemia in setting of ARB on chronic kidney disease--bl cr 1.6 * Hyperkalemia - resolved * Hypertension * Type II DM * Atrial fibrillation Plan: * Renal function is stable - SCr plateaued * Continue IVF for hydration -NS 75ml/hour - patient is eating/drinking well * Continue antiHTN medications * Tight glycemic control * Strict I/O * Avoid nephrotoxic agents * Check AM labs Subjective Date of service: 08/31/16 Principal diagnosis: brielle Interval history: resting well in bed today Objective - Exam Narrative Exam: General appearance: well-developed, well-nourished EENT: ATNC Respiratory: Present: Clear to Ascultation Cardiology: regular, S1S2 Gastrointestinal: normal, no tenderness, no distended Integumentary: no rash Musculoskeletal: other (no edema) Psychiatric: mood/affect appropriate, cooperative - Vital Signs Vital signs: Vital Signs - 12hr 08/30/16 08/31/16 08/31/16 22:36 01:15 05:30 Temperature 97.9 F 97.7 F Pulse Rate [ 87 73 Right Radial] Respiratory 20 20 Rate Blood Pressure 150/72 Blood Pressure 150/67 168/75 [Right Arm] O2 Sat by Pulse 93 96 Oximetry 08/31/16 09:48 Temperature 98.4 F Pulse Rate [ 66 Right Radial] Respiratory 18 Rate Blood Pressure Blood Pressure 188/86 [Right Arm] O2 Sat by Pulse 99 Oximetry - Lab 08/31/16 04:58 08/31/16 04:58 Most recent lab results Calcium 8.5 mg/dL (8.4-10.2) 08/31/16 04:58 Urine Creatinine 22.9 mg/dL (0.1-20.0) H 08/25/16 09:35 Urine Sodium 66 mEq/L 08/25/16 09:35 Urine Total Protein 27 mg/dL (5-11.8) H 08/25/16 09:35
[2016-08-31] MEDS: CATAPRES PO SCH ×6 (11:01→22:58)
[2016-08-31] MEDS: ELIQUIS PO SCH ×2 (11:01→22:58)
[2016-08-31] MEDS: NORVASC PO SCH (11:02)
[2016-08-31] MEDS: ZYLOPRIM PO SCH (11:03)
[2016-08-31] MEDS: NOVOLOG SUB-Q SCH ×4 (11:03→22:59)
--- NOTE | 2016-08-31 19:34 | Progress Note ---
Assessment and Plan Assessment and plan: 1. Hyperkalemia Due to acute renal failure Medically treated Resolved 2. Acute on chronic renal failure Followed by Dr. Price and baseline creatinine 1.7, on admission 5.1 Nephrology following and additional workup in progress Bicarbonate drip initially, then switched to NS, now d/c Cr plateau at 4 3. Anemia Likely anemia of chronic kidney disease Monitor H&H 4. A fib Rate controlled on amlodipine and anticoagulated with ELIQUIS 5. HTN BP controlled on amlodipine and clonidine 6. DM On insulin 70/30 Accu-Cheks and SSI to adjust regimen if needed 7. Hyperlipidemia Lipitor 8. 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 Absent: enlarged thyroid, masses or JVD - Respiratory Respiratory effort: normal Respiratory: bilateral: CTA, negative: rhonchi, wheezing - Cardiovascular Rhythm: irregularly irregular Heart Sounds: Present: S1 & S2. Absent: systolic murmur - Extremities Extremities: no ischemia - Abdominal General gastrointestinal: soft, non-tender, non-distended, normal bowel sounds - Neurologic Neurologic: CNII-XII intact, no focal deficits Results - Labs CBC & Chem 7: 09/01/16 04:51 09/01/16 04:51 Labs: Laboratory Last Values WBC 6.6 K/mm3 (4.5-11.0) 08/31/16 04:58 RBC 3.08 M/mm3 (3.65-5.03) L 08/31/16 04:58 Hgb 9.3 gm/dl (11.8-15.2) L 08/31/16 04:58 Hct 27.8 % (35.5-45.6) L 08/31/16 04:58 MCV 90 fl (84-94) 08/31/16 04:58 MCH 30 pg (28-32) 08/31/16 04:58 MCHC 33 % (32-34) 08/31/16 04:58 RDW 12.8 % (13.2-15.2) L 08/31/16 04:58 Plt Count 272 K/mm3 (140-440) 08/31/16 04:58 Lymph % (Auto) 13.3 % (13.4-35.0) L 08/31/16 04:58 [place] % (Auto) 8.1 % (0.0-7.3) H 08/31/16 04:58 Eos % (Auto) 3.0 % (0.0-4.3) 08/31/16 04:58 Baso % (Auto) 0.7 % (0.0-1.8) 08/31/16 04:58 Lymph # 0.9 K/mm3 (1.2-5.4) L 08/31/16 04:58 [place] # 0.5 K/mm3 (0.0-0.8) 08/31/16 04:58 Eos # 0.2 K/mm3 (0.0-0.4) 08/31/16 04:58 Baso # 0.0 K/mm3 (0.0-0.1) 08/31/16 04:58 Seg Neutrophils % 74.9 % (40.0-70.0) H 08/31/16 04:58 Seg Neutrophils # 4.9 K/mm3 (1.8-7.7) 08/31/16 04:58 PT 14.8 Sec. (12.2-14.9) 08/24/16 20:59 INR 1.17 (0.87-1.13) H 08/24/16 20:59 VBG pH 7.267 (7.320-7.420) L 08/24/16 19:31 Sodium 142 mmol/L (137-145) 08/31/16 04:58 Potassium 4.7 mmol/L (3.6-5.0) 08/31/16 04:58 Chloride 102.9 mmol/L (98-107) 08/31/16 04:58 Carbon Dioxide 25 mmol/L (22-30) 08/31/16 04:58 Anion Gap 19 mmol/L 08/31/16 04:58 BUN 39 mg/dL (9-20) H 08/31/16 04:58 Creatinine 4.2 mg/dL (0.8-1.5) H 08/31/16 04:58 Estimated GFR 17 ml/min 08/31/16 04:58 BUN/Creatinine Ratio 9.28 % 08/31/16 04:58 Glucose 41 mg/dL (75-100) L 08/31/16 04:58 POC Glucose 194 (70-105) H 08/31/16 11:35 Osmolality 322 Mosm/kg 08/25/16 13:14 Uric Acid 5.2 mg/dL (3.5-7.6) 08/25/16 13:14 Calcium 8.5 mg/dL (8.4-10.2) 08/31/16 04:58 Total Bilirubin 0.3 mg/dL (0.1-1.2) 08/24/16 19:31 AST 24 units/L (5-40) 08/24/16 19:31 ALT 15 units/L (7-56) 08/24/16 19:31 Alkaline Phosphatase 74 units/L (35-129) 08/24/16 19:31 Serum Total Protein 7.3 g/dL (6.1-8.1) 08/25/16 13:14 Total Protein 7.5 g/dL (6.3-8.2) 08/24/16 19:31 Albumin 3.8 g/dL (3.8-4.8) 08/25/16 13:14 Albumin/Globulin Ratio 1.0 % 08/24/16 19:31 Iqigr-5-Godglylug 0.3 g/dL (0.2-0.3) 08/25/16 13:14 Qhuxc-0-Zhpobcces 0.7 g/dL (0.5-0.9) 08/25/16 13:14 Beta Globulins 0.4 g/dL (0.2-0.5) 08/25/16 13:14 Gamma Globulins 1.6 g/dL (0.8-1.7) 08/25/16 13:14 Abnorm Protein Band 1 see below 08/25/16 13:14 PEP Interpretation see below 08/25/16 13:14 Urine Color Colorless (Yellow) 08/25/16 09:35 Urine Turbidity Clear (Clear) 08/25/16 09:35 Urine pH 8.0 (5.0-7.0) H 08/25/16 09:35 Ur Specific [place] 1.004 (1.003-1.030) 08/25/16 09:35 Urine Protein 30 mg/dl mg/dL (Negative) 08/25/16 09:35 Urine Glucose (UA) 50 mg/dL (Negative) 08/25/16 09:35 Urine Ketones Neg mg/dL (Negative) 08/25/16 09:35 Urine Blood Sm (Negative) 08/25/16 09:35 Urine Nitrite Neg (Negative) 08/25/16 09:35 Urine Bilirubin Neg (Negative) 08/25/16 09:35 Urine Urobilinogen < 2.0 mg/dL (<2.0) 08/25/16 09:35 Ur Leukocyte Esterase Neg (Negative) 08/25/16 09:35 Urine WBC (Auto) < 1.0 /HPF (0.0-6.0) 08/25/16 09:35 Urine RBC (Auto) 3.0 /HPF (0.0-6.0) 08/25/16 09:35 Urine Creatinine 22.9 mg/dL (0.1-20.0) H 08/25/16 09:35 Urine Sodium 66 mEq/L 08/25/16 09:35 Urine Total Protein 27 mg/dL (5-11.8) H 08/25/16 09:35
[2016-09-01] MEDS: NACL 0.9% 1000 ML 1,000 ML IV SCH (02:07)
[2016-09-01 05:41] LABS: Eosinophils % (Auto) 4.9 % (0.0-4.3); Hematocrit 24.5 % (35.5-45.6); Hemoglobin 8.2 gm/dl (11.8-15.2); Mean Corpuscular HGB Conc 34 % (32-34); Mean Corpuscular Hemoglobin 31 pg (28-32); Mean Corpuscular Volume 91 fl (84-94); Platelet Count 256 K/mm3 (140-440); Red Cell Distribution Width 12.8 % (13.2-15.2)
[2016-09-01 05:59] LABS: BUN/Creatinine Ratio 10.24; Calcium 8.3 mg/dL (8.4-10.2); Chloride 104.3 mmol/L (98-107); Potassium 4.7 mmol/L (3.6-5.0)
[2016-09-01] MEDS: NOVOLOG SUB-Q SCH (07:47)
[2016-09-01 08:51] VITALS: BP 186/88
--- NOTE | 2016-09-01 09:15 | Progress Note ---
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 for 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 at 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 * Continue IVF for hydration -NS 75ml/hour - patient is eating/drinking well * Continue antiHTN medications * Tight glycemic control * Strict I/O * Avoid nephrotoxic agents * dc home off eliquis, taking for afib, folllow up office one week, will need renal biopsy once off eliquis at least 5 days, can arrange as outpatient Subjective Date of service: 09/01/16 Principal diagnosis: brielle Interval history: resting well in bed today Objective - Exam Narrative Exam: General appearance: well-developed, well-nourished EENT: ATNC Respiratory: Present: Clear to Ascultation Cardiology: regular, S1S2 Gastrointestinal: normal, no tenderness, no distended Integumentary: no rash Musculoskeletal: other (no edema) Psychiatric: mood/affect appropriate, cooperative - Vital Signs Vital signs: Vital Signs - 12hr 08/31/16 09/01/16 09/01/16 22:00 00:00 04:00 Temperature 97.9 F 98.3 F Pulse Rate 70 Pulse Rate [ 74 68 Right Radial] Respiratory 18 18 Rate Blood Pressure 170/75 167/79 [Right Arm] O2 Sat by Pulse 98 98 Oximetry 09/01/16 08:50 Temperature 98.7 F Pulse Rate Pulse Rate [ 65 Right Radial] Respiratory 20 Rate Blood Pressure 186/88 [Right Arm] O2 Sat by Pulse 97 Oximetry - Lab 09/01/16 04:51 09/01/16 04:51 Most recent lab results Calcium 8.3 mg/dL (8.4-10.2) L 09/01/16 04:51 Urine Creatinine 22.9 mg/dL (0.1-20.0) H 08/25/16 09:35 Urine Sodium 66 mEq/L 08/25/16 09:35 Urine Total Protein 27 mg/dL (5-11.8) H 08/25/16 09:35
[2016-09-01] MEDS: CATAPRES PO SCH ×2 (09:23)
[2016-09-01] MEDS: ZYLOPRIM PO SCH (09:23)
[2016-09-01] MEDS: NORVASC PO SCH (09:23)
[2016-09-01] MEDS: ELIQUIS PO SCH (09:24)
[2016-09-01] MEDS ORDERED: ELIQUIS PO SCH (10:00)
--- NOTE | 2016-09-01 10:20 | Discharge Summary ---
Providers - Providers Date of Admission: 08/24/16 22:23 Date of discharge: 09/01/16 Attending physician: DANIKA SMITH Consults: Nephrology Primary care physician: BELLA PINEDA MD Hospitalization Reason for admission: abnormal labs Condition: Good Pertinent studies: Renal ultrasound Hospital course: Patient is a 66 years old -Citizen Of [place] male with A. fib anticoagulated with Eliquis, hypertension, diabetes, monitoring kidney disease with baseline creatinine 1.7 was sent to the hospital by his brilliandeer looper after found to have acute renal failure/hyperkalemia developed very quickly with no obvious cause. Additional workup did not reveal etiology. Creatinine plateaued at 4. 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 Discharge diagnoses: 1. Hyperkalemia 2. Acute on chronic renal failure 3. Anemia 4. A fib 5. HTN 6. DM 7. Hyperlipidemia Disposition: DISCHARGED TO HOME OR SELFCARE Time spent for discharge: 35 minutes Core Measure Documentation - Palliative Care Palliative Care/ Comfort Measures: Not Applicable - Core Measures Any of the following diagnoses?: none Exam - Physical Exam Narrative exam: Patient seen and examined: - Constitutional Vitals: Temp Pulse Resp BP Pulse Ox 98.7 F 65 20 186/88 97 09/01/16 08:50 09/01/16 08:50 09/01/16 08:50 09/01/16 08:50 09/01/16 08:50 General appearance: Present: no acute distress, well-nourished - EENT Eyes: Present: PERRL, EOM intact. Absent: scleral icterus, conjunctival injection - Neck Neck: Present: supple, normal ROM. Absent: masses or JVD - Respiratory Respiratory effort: normal Respiratory: bilateral: CTA, negative: rales, rhonchi - Cardiovascular Rhythm: regular Heart Sounds: Present: S1 & S2. Absent: systolic murmur - Extremities Extremities: no ischemia - Abdominal General gastrointestinal: Present: soft, non-tender, non-distended, normal bowel sounds - Integumentary Integumentary: Present: warm, dry. Absent: jaundice, rash - Psychiatric Psychiatric: cooperative - Neurologic Neurologic: CNII-XII intact, no focal deficits Plan Activity: advance as tolerated Diet: low cholesterol, low salt, renal Follow up with: PRIMARY CARE, [Primary Care Provider] - 3-5 Days YOMI YE MD [Staff Physician] - 7 Days Prescriptions: AtorvaSTATin [Lipitor] 20 mg PO QHS #30 tablet Allopurinol [Zyloprim] 100 mg PO QDAY #30 tablet amLODIPine [Norvasc] 10 mg PO QDAY #60 tablet Apixaban [Eliquis] 2.5 mg PO Q12HR #60 tablet Clonidine HCl [Catapres] 0.3 mg PO TID #90 tablet
--- NOTE | 2016-09-01 23:41 | Consultation ---
TIME OF SERVICE: 9:30 in the morning. REQUESTING PHYSICIAN: Ce Anne MD REASON FOR CONSULTATION: Management of acute renal failure in the patient with known history of chronic kidney disease. HISTORY OF PRESENT ILLNESS: The patient is a pleasant 66-year-old [place] Citizen male who is currently established in our clinic for his chronic kidney disease. The patient's baseline creatinine is normally is around 1.7. Recently, the patient has labs done, where creatinine was noted to be around in mid 5 range. The patient denies having any history of nausea, vomiting, diarrhea, not taking any form of nonsteroidal drugs. He is currently taking all his medicines as prescribed, along with Eliquis. No recent history of having any back pain, hematuria, fever or chills, otherwise. He has no difficulty voiding. He does make urine. PAST MEDICAL HISTORY: Significant for multiple medical problems including, 1. Borderline hypertension. 2. Diabetes. 3. Atrial fibrillation. 4. Gout. 5. Hyperuricemia. CURRENT ALLERGIES: None. HOME MEDICATIONS: Eliquis, Relafen, Lipitor, Catapres, lispro, Bystolic, and Norvasc. SOCIAL HISTORY: The patient denies any history of alcohol, drug or tobacco use. FAMILY HISTORY: Positive for hypertension. REVIEW OF SYSTEMS: Positive for nausea, vomiting, diarrhea, no skin rash. No back pain or bone pain. No difficulty voiding. Complete review of systems are obtained, pertinent positives mentioned above. Other review of systems negative. PHYSICAL EXAMINATION: GENERAL: The patient is a pleasant 66-year-old -[place] Citizen male, who is lying comfortably in bed, does not appear in acute distress. VITALS: Reviewed from this admission. HEENT: Normocephalic and atraumatic skull. Extraocular movements intact. Oral mucosa appears to be moist. NECK: Supple without thyroid enlargement or JVD. CHEST: Essentially clear to auscultation anteriorly and posteriorly. HEART: Regular rate. S1, S2 heard. No S3, S4. ABDOMEN: Soft, nontender. No voluntary guarding, rebound, organomegaly or no masses. EXTREMITIES: The patient does not have any edema. Dry skin. Peripheral pulses palpable. LABS AND X-RAYS: Today shows BUN 63, creatinine 5.1, sodium 143, potassium 4.6, chloride 103, bicarbonate 30. White cell count 7.0, hemoglobin 8.8, hematocrit 25.9, platelet count 236,000. ASSESSMENT AND PLAN: 1. Acute kidney injury in the patient with underlying history of chronic kidney disease with a baseline creatinine of 1.7. BUN is around 70-75. . 2. We will need lab work as well as ultrasonogram. If renal function fails to respond, then he will possibly need a kidney biopsy. At this time, there is no indication for renal replacement therapy. 3. Metabolic acidosis we will follow, requires correction. 4. Mild hyponatremia to follow. 5. Mild hyperkalemia, currently better. 6. Anemia of chronic kidney disease upon admission hemoglobin of 10.1, to be monitored, erythropoietin. Plan of care discussed with the patient. All questions were answered. At this time, the patient will require a comprehensive lab testing. No acute indication for renal replacement therapy, possibly biopsy if the renal function does not improve. If does, we will continue the conservative care, avoid any form of nonsteroidal drugs and anti-inflammatory medications as well as angiotensin-converting enzyme, angiotensin receptor geovany, and diuretics. Remotely possibility of atheroembolic disease given the patient on Eliquis, there is a possibility too, rule out other causes such as paraproteinemia, though unlikely. We will continue to follow and make recommendations from renal standpoint. JOB# [id number] NATALIE/LATISHA
[2016-09-02 18:13] LABS: Myeloperoxidase Antibody <1.0 AI (<1.0)
== END 2016-09-01 12:37 | disposition home or self-care (01) | DRG 683 ==
LOC: ED 15:59 → 4A 22:23
PROVIDERS: ADMIT Internal Medicine; ATTEND Internal Medicine
DX: N17.9 Acute kidney failure, unspecified (principal); E87.2 Acidosis; E87.1 Hypo-osmolality and hyponatremia; E87.5 Hyperkalemia; I12.9 Hypertensive chronic kidney disease with stage 1 through stage 4 chronic kidney disease, or unspecified chronic kidney disease; E11.22 Type 2 diabetes mellitus with diabetic chronic kidney disease; N18.9 Chronic kidney disease, unspecified; I48.91 Unspecified atrial fibrillation; D64.9 Anemia, unspecified; E78.5 Hyperlipidemia, unspecified; Z79.4 Long term (current) use of insulin; Z82.49 Family history of ischemic heart disease and other diseases of the circulatory system
CPT/HCPCS: 36415; 76770; 80048; 80053; 81001; 82010; 82040; 82271; 82570; 82805; 82962; 83930; 84100; 84156; 84165; 84166; 84300; 84550; 85025; 85610; 86021; 86038; 86160; 93005; 93010; 96374; 96375; A9270-GY; J0885; J1815; J7030

== ENCOUNTER 2016-09-03 09:54 | Outpatient (CLI) | payer MEDICARE ==
[2016-09-03 10:34] LABS: Albumin 3.8 g/dL (3.9-5); BUN/Creatinine Ratio 10.21; Calcium 9.2 mg/dL (8.4-10.2); Chloride 100.2 mmol/L (98-107); Phosphorous 4.2 mg/dL (2.5-4.5); Potassium 4.7 mmol/L (3.6-5.0)
== END 2016-09-03 09:55 | disposition home or self-care (01) ==
LOC: LAB 09:54
PROVIDERS: ATTEND Internal Medicine Nephrology
DX: I12.9 Hypertensive chronic kidney disease with stage 1 through stage 4 chronic kidney disease, or unspecified chronic kidney disease (principal); N18.2 Chronic kidney disease, stage 2 (mild); R94.4 Abnormal results of kidney function studies; R60.9 Edema, unspecified; R80.9 Proteinuria, unspecified
CPT/HCPCS: 36415; 80048; 82040; 84100

== ENCOUNTER 2016-09-07 07:27 | Inpatient (IN) | payer MEDICARE ==
[2016-09-07 08:44] LABS: Hematocrit 28.5 % (35.5-45.6); Hemoglobin 9.7 gm/dl (11.8-15.2); Mean Corpuscular HGB Conc 34 % (32-34); Mean Corpuscular Hemoglobin 31 pg (28-32); Mean Corpuscular Volume 91 fl (84-94); Platelet Count 301 K/mm3 (140-440); Red Blood Count 3.13 M/mm3 (3.65-5.03); Red Cell Distribution Width 14.2 % (13.2-15.2); White Blood Count 5.5 K/mm3 (4.5-11.0)
[2016-09-07 09:11] LABS: INR 1.06 (0.87-1.13)
[2016-09-07 09:12] LABS: Partial Thromboplastin Time 35.6 Sec. (24.2-36.6)
[2016-09-07] MEDS ORDERED: VERSED IV ONE ×2 (10:48→11:04)
[2016-09-07] MEDS ORDERED: SUBLIMAZE ONE (10:49)
[2016-09-07] MEDS ORDERED: SUBLIMAZE IV ONE (11:04)
--- NOTE | 2016-09-07 12:04 | Cat Scan Report ---
CT BIOPSY RENAL RIGHT HISTORY: Abnormal kidney function DESCRIPTION OF PROCEDURE: Informed consent was obtained. Sterile technique was utilized. Conscious sedation was accomplished with Versed and fentanyl. The patient was sedated for 20 minutes. Intraobserver time of 20 minutes. Independent cardiorespiratory monitoring by RN. Using CT guidance, a 17-gauge introducer needle was advanced to the inferior pole of the right kidney. 2 separate 18-gauge core biopsies were obtained. No complications. IMPRESSION: Successful CT-guided biopsy of the inferior pole of the right kidney.
[2016-09-07] MEDS ORDERED: ZOFRAN IV PRN (15:06)
[2016-09-07] MEDS ORDERED: TYLENOL PO PRN (15:06)
[2016-09-07] MEDS ORDERED: D50W (25GM) IV PRN (15:08)
--- NOTE | 2016-09-07 15:28 | History and Physical Report ---
History of Present Illness Date of admission: 09/07/16 15:01 Chief complaint: my kidneys are messed up History of present illness: 66 YO Male with HTN, DM, Acute on Chronic Renal Failure presents for renal biopsy. Pt directly admitted aat the request of Dr. Zapien. Pt denies fever, chills, CP, Palpitations, NVD, productive cough, recent ill contacts. Pt denies pain. Pt resting comfortably in bed. Past History Past Medical History: diabetes, hypertension Past Surgical History: Other (renal biopsy) Social history: . denies: smoking, alcohol abuse, prescription drug abuse Family history: diabetes, hypertension Medications and Allergies Allergies Allergy/AdvReac Type Severity Reaction Status Date / Time No Known Allergies Allergy Verified 05/23/16 22:42 Home Medications Medication Instructions Recorded Confirmed Last Taken Type Insulin NPL/Insulin Lispro 20 units SQ QAM 08/24/16 09/07/16 09/06/16 History [HumaLOG Mix 75-25 Kwikpen] Insulin NPL/Insulin Lispro 20 units SQ QPM 08/24/16 09/07/16 09/06/16 History [HumaLOG Mix 75-25 Kwikpen] Allopurinol [Zyloprim] 100 mg PO QDAY #30 tablet 09/01/16 09/07/16 09/06/16 Rx Apixaban [Eliquis] 2.5 mg PO Q12HR #60 tablet 09/01/16 09/07/16 09/01/16 Rx AtorvaSTATin [Lipitor] 20 mg PO QHS #30 tablet 09/01/16 09/07/16 09/06/16 Rx Clonidine HCl [Catapres] 0.3 mg PO TID #90 tablet 09/01/16 09/07/16 09/06/16 Rx Nebivolol HCl [Bystolic] 10 mg PO QDAY 09/07/16 09/07/16 09/06/16 History amLODIPine [Norvasc] 10 mg PO BID 09/07/16 09/07/16 09/06/16 History Active Meds: Active Medications Acetaminophen (Tylenol) 650 mg PO Q4H PRN PRN Reason: Pain MILD(1-3)/Fever >100.5/CHOU Albuterol/Ipratropium (Duoneb 0.5 Mg-3 Mg/3 Ml Soln) 1 ampul IH Q6HRT [facility] Allopurinol (Zyloprim) 100 mg PO QDAY [facility] Amlodipine Besylate (Norvasc) 10 mg PO BID [facility] Atorvastatin Calcium (Lipitor) 20 mg PO QHS [facility] Clonidine HCl (Catapres) 0.3 mg PO TID [facility] Dextrose (D50w (25gm)) 50 ml IV PRN PRN PRN Reason: Hypoglycemia Sodium Chloride (Nacl 0.45% 1000 Ml) 1,000 mls @ 42 mls/hr IV DIRECT [facility] Insulin Aspart (Novolog) 0 units SUB-Q ACHS [facility] PRN Reason: Protocol Metoprolol Succinate (Toprol Xl) 100 mg PO QDAY [facility] Miscellaneous Medication (Clonidine Hcl [Catapres]) 0.3 mg PO TID [facility] Miscellaneous Medication (Insulin Npl/Insulin Lispro [Humalog Mix 75-25 Kwikpen] ) 20 units SQ QAM [facility] Miscellaneous Medication (Insulin Npl/Insulin Lispro [Humalog Mix 75-25 Kwikpen] ) 20 units SQ QPM [facility] Miscellaneous Medication (Nebivolol Hcl [Bystolic]) 10 mg PO QDAY [facility] Ondansetron HCl (Zofran) 4 mg IV Q8H PRN PRN Reason: N/V unrelieved by Berenice Review of Systems All systems: negative Constitutional: other (biopsy) Exam - Constitutional Vitals: Temp Pulse Resp BP Pulse Ox 98.2 F 71 16 164/68 99 09/07/16 11:42 09/07/16 15:00 09/07/16 15:00 09/07/16 15:00 09/07/16 15:00 General appearance: Present: no acute distress, well-nourished - EENT Eyes: Present: PERRL ENT: hearing intact, clear oral mucosa - Neck Neck: Present: supple, normal ROM - Respiratory Respiratory effort: normal Respiratory: bilateral: CTA - Cardiovascular Heart Sounds: Present: S1 & S2. Absent: rub, click - Extremities Extremities: pulses symmetrical, No edema Peripheral Pulses: within normal limits - Abdominal General gastrointestinal: Present: soft, non-tender, non-distended, normal bowel sounds Male genitourinary: Present: normal - Integumentary Integumentary: Present: clear, warm, dry - Musculoskeletal Musculoskeletal: gait normal, strength equal bilaterally - Psychiatric Psychiatric: appropriate mood/affect, intact judgment & insight - Neurologic Neurologic: CNII-XII intact, moves all extremities Results - Labs CBC & Chem 7: 09/07/16 08:30 Labs: Abnormal lab results 09/07/16 Range/Units 08:30 RBC 3.13 L (3.65-5.03) M/mm3 Hgb 9.7 L (11.8-15.2) gm/dl Hct 28.5 L (35.5-45.6) % Assessment and Plan - Patient Problems (1) Diabetes Current Visit: Yes Status: Acute Qualifiers: Diabetes mellitus type: type 1 Diabetes mellitus complication status: with hyperglycemia Diabetes mellitus complication detail: D Diabetic retinopathy severity: D Proliferative retinopathy type: P Diabetes mellitus macular edema: D Diabetes mellitus usp insulin use: D Laterality: L Chronic kidney disease stage: C Qualified Code(s): E10.65 - Type 1 diabetes mellitus with hyperglycemia Plan to address problem: ADA diet, insulin, accu check (2) Acute renal failure Current Visit: No Status: Acute Qualifiers: Acute renal failure type: A Plan to address problem: IVF, supportive care, monitor uop q shift (3) Anemia Current Visit: No Status: Acute Qualifiers: Anemia type: A Iron deficiency anemia type: I Vitamin B12 deficiency anemia type: V Folate deficiency anemia type: F Bone marrow failure anemia type: B Hemolytic anemia type: H Other causes of anemia: O Plan to address problem: supportive care, CBC in am, no transfusion at this time. (4) Hyperkalemia Current Visit: No Status: Acute Plan to address problem: Nephrology consulted, calcium gluconate, insulin, D50 given in OPPU (5) DVT prophylaxis Current Visit: Yes Status: Acute
[2016-09-07] MEDS ORDERED: NACL 0.45% 1000 ML 1,000 ML IV SCH (16:00)
[2016-09-07] MEDS: NOVOLOG SUB-Q SCH ×2 (16:40→22:57)
[2016-09-07] MEDS ORDERED: INSULIN LISPRO SQ SCH (18:00)
[2016-09-07] MEDS ORDERED: INSULIN NPL SQ SCH (18:00)
[2016-09-07] MEDS ORDERED: NON-FORMULARY (Clonidine Hcl [Catapres] 0.3 MG) PO SCH (20:00)
[2016-09-07] MEDS ORDERED: DUONEB 0.5 MG-3 MG/3 ML SOLN IH SCH (20:00)
[2016-09-07] MEDS: NORVASC PO SCH (22:56)
[2016-09-07] MEDS: CATAPRES PO SCH (22:56)
[2016-09-08 05:01] LABS: Basophils % (Auto) 0.8 % (0.0-1.8); Hematocrit 26.6 % (35.5-45.6); Hemoglobin 9.2 gm/dl (11.8-15.2); Mean Corpuscular HGB Conc 34 % (32-34); Mean Corpuscular Hemoglobin 31 pg (28-32); Mean Corpuscular Volume 90 fl (84-94); Platelet Count 299 K/mm3 (140-440); Red Blood Count 2.96 M/mm3 (3.65-5.03); Red Cell Distribution Width 13.8 % (13.2-15.2); White Blood Count 7.5 K/mm3 (4.5-11.0)
[2016-09-08] MEDS ORDERED: DUONEB 0.5 MG-3 MG/3 ML SOLN IH SCH (08:00)
[2016-09-08] MEDS: CATAPRES PO SCH ×2 (09:56→14:14)
[2016-09-08] MEDS: NOVOLOG SUB-Q SCH ×2 (09:57→12:08)
[2016-09-08] MEDS: NORVASC PO SCH (09:58)
[2016-09-08] MEDS ORDERED: TOPROL XL PO SCH (10:00)
[2016-09-08] MEDS ORDERED: INSULIN NPL SQ SCH (10:00)
[2016-09-08] MEDS ORDERED: INSULIN LISPRO SQ SCH (10:00)
[2016-09-08] MEDS ORDERED: ZYLOPRIM PO SCH (10:00)
[2016-09-08] MEDS ORDERED: NON-FORMULARY (Nebivolol Hcl [Bystolic] 10 MG) PO SCH (10:00)
--- NOTE | 2016-09-08 12:32 | Admit Criteria Form ---
Admission Criteria Documentation: RENAL FAILURE, ACUTE Clinical Indications for Admission to Inpatient Care ( Place 'X' for any and all applicable criteria): Admission is indicated for ALL (if I & II) or III of the following [A](2)(3)(4)( 5)(6)(7): [ ]I. Acute renal failure as indicated by ANY ONE of the following: [ ]a) A 3-fold rise in serum creatinine from baseline [ ]b) Serum creatinine greater than 4 mg/dL (354 micromoles/L) with an acute rise greater than 0.5 mg/dL (44.2 micromoles/L) [ ]c) Reduction of more than 75% in estimated glomerular filtration rate from baseline [ ]d) Estimated glomerular filtration rate less than 35 mL/min/1.73m2 (0.59mL/sec/1.73m2)in a child up to 18 years of age [ ]e) Anuria indicated by ALL of the following: [ ]i) Adequate volume status [ ]ii) Cessation of urine output indicated by ANY ONE of the following: [ ]1) Urine output less than 0.3 mL/kg/hr for 24 hours [ ]2) Anuria (urine output less than 0.1 mL/kg/ hr) for 12 hours [ ] II. Renal failure cannot be managed in an outpatient setting or observational care setting as indicating by ANY ONE of the following: [ ]a) Altered mental status that is severe or persistent [ ]b) Volume overload or Respiratory distress (eg, clinically significant pulmonary edema) that is severe or persistent [ ]c) Cardiac arrhythmias of immediate concern [ ]d) Hemodynamic instability [ ]e) Clinically significant electrolyte abnormality that requires inpatient care (eg, hyperkalemia with severe ECG findings)[B] [ ]f) Clinically significant metabolic abnormality (eg, acidosis) that is severe or persistent [ ]g) Acute treatment of renal failure (eg, renal replacement therapy) not feasible or appropriate in observational care setting [ ]h) Clinical situation too unstable or uncertain (eg, inadequate urine output, ongoing decline in renal function, etiology unclear) [ ]i) Necessary support and caregiver ability to comply with outpatient treatment cannot be arranged in observation care timeframe (eg, within 24 hours) [ ]j) Other significant finding or clinical condition judged not to be within scope of observation care [XIII.General contraindications and/or Inappropriate clinical situations for Observational Care in patients with Acute Renal Failure, when ANY ONE of the following is required: [X]a) Prediction of prolongation of LOS based on ANY ONE of the following may be considered as a contraindication for observational care 2, 3, 4, 5, 6, 7, 8 , 9, 10, 11 [X]i) Age > 65 yrs. [ ]ii) Patient arriving by ambulance [ ]iii) Patient with high acuity [ ]iv) Patient requiring vital sign monitoring [ ]v) Patient on IV medication [ ]b) Systolic blood pressures 180mmHg 3,12 [ ]c) Patient with altered mental status including delirium and other alteration of consciousness, (3) [ ]d) Patient whose discharge disposition will be to a penitentiary home or rehabilitation home should not be managed in Emergency Department Observation Unit. CMS rule requires 3 days hospital stay before such placement.3,13 [ ]e) Patient with failure to thrive due to broad array of etiologies 3, 16,17 [ ]f) Inability to ambulate 3,14 Extended stay beyond goal length of stay may be needed for(13) [ ]a) Continuing uremic complications [ ]b) Care for comorbidities [ ]c) acute renal failure [ ]d) Need for dialysis The original [email or web address] content created by [email or web address] has been revised. The portions of the content which have been revised are identified through the use of italic text or in bold, and [facility] has neither reviewed nor approved the modified material. All other unmodified content is copyright [email or web address]. Please see references footnoted in the original [email or web address] edition 2016 Admission Criteria Met: Yes
[2016-09-08 14:15] VITALS: BP 142/70
--- NOTE | 2016-09-08 14:35 | Progress Note ---
Assessment and Plan - Patient Problems (1) Diabetes Current Visit: Yes Status: Acute Qualifiers: Diabetes mellitus type: type 1 Diabetes mellitus complication status: with hyperglycemia Diabetes mellitus complication detail: D Diabetic retinopathy severity: D Proliferative retinopathy type: P Diabetes mellitus macular edema: D Diabetes mellitus fdc insulin use: D Laterality: L Chronic kidney disease stage: C Qualified Code(s): E10.65 - Type 1 diabetes mellitus with hyperglycemia Plan to address problem: ADA diet, insulin, accu check (2) Acute renal failure Current Visit: No Status: Acute Qualifiers: Acute renal failure type: A Plan to address problem: IVF, supportive care, monitor uop q shift (3) Anemia Current Visit: No Status: Acute Qualifiers: Anemia type: A Iron deficiency anemia type: I Vitamin B12 deficiency anemia type: V Folate deficiency anemia type: F Bone marrow failure anemia type: B Hemolytic anemia type: H Other causes of anemia: O Plan to address problem: supportive care, CBC in am, no transfusion at this time. (4) Hyperkalemia Current Visit: No Status: Acute Plan to address problem: Nephrology consulted, calcium gluconate, insulin, D50 given in OPPU (5) DVT prophylaxis Current Visit: Yes Status: Acute History Interval history: Pt resting comfortably in bed, Pt denies pain, no reported nursing events. D/C planning in AM if hgb stable and no further renal workup. Hospitalist Physical - Constitutional Vitals: Temp Pulse Resp BP Pulse Ox 99.6 F 64 16 142/70 93 09/08/16 08:10 09/08/16 14:23 09/08/16 14:23 09/08/16 14:14 09/07/16 19:42 General appearance: Present: no acute distress, well-nourished - EENT Eyes: Present: PERRL, EOM intact ENT: hearing intact - Neck Neck: Present: supple - Respiratory Respiratory: bilateral: CTA - Cardiovascular Rhythm: regular Heart Sounds: Present: S1 & S2 - Extremities Extremities: no ischemia Peripheral Pulses: within normal limits - Abdominal General gastrointestinal: soft, non-tender, non-distended - Integumentary Integumentary: Present: clear, dry - Psychiatric Psychiatric: appropriate mood/affect - Neurologic Neurologic: CNII-XII intact Results - Labs CBC & Chem 7: 09/08/16 04:08 Labs: Laboratory Last Values WBC 7.5 K/mm3 (4.5-11.0) 09/08/16 04:08 RBC 2.96 M/mm3 (3.65-5.03) L 09/08/16 04:08 Hgb 9.2 gm/dl (11.8-15.2) L 09/08/16 04:08 Hct 26.6 % (35.5-45.6) L 09/08/16 04:08 MCV 90 fl (84-94) 09/08/16 04:08 MCH 31 pg (28-32) 09/08/16 04:08 MCHC 34 % (32-34) 09/08/16 04:08 RDW 13.8 % (13.2-15.2) 09/08/16 04:08 Plt Count 299 K/mm3 (140-440) 09/08/16 04:08 Lymph % (Auto) 12.6 % (13.4-35.0) L 09/08/16 04:08 [place] % (Auto) 9.5 % (0.0-7.3) H 09/08/16 04:08 Eos % (Auto) 1.0 % (0.0-4.3) 09/08/16 04:08 Baso % (Auto) 0.8 % (0.0-1.8) 09/08/16 04:08 Lymph # 0.9 K/mm3 (1.2-5.4) L 09/08/16 04:08 [place] # 0.7 K/mm3 (0.0-0.8) 09/08/16 04:08 Eos # 0.1 K/mm3 (0.0-0.4) 09/08/16 04:08 Baso # 0.1 K/mm3 (0.0-0.1) 09/08/16 04:08 Seg Neutrophils % 76.1 % (40.0-70.0) H 09/08/16 04:08 Seg Neutrophils # 5.7 K/mm3 (1.8-7.7) 09/08/16 04:08 PT 13.7 Sec. (12.2-14.9) 09/07/16 08:30 INR 1.06 (0.87-1.13) 09/07/16 08:30 APTT 35.6 Sec. (24.2-36.6) 09/07/16 08:30 POC Glucose 209 (70-105) H 09/08/16 11:43
--- NOTE | 2016-09-08 15:47 | Discharge Summary ---
Providers - Providers Date of Admission: 09/07/16 15:01 Attending physician: HERNAN WATT 09/08/16 11:10 Consult to Physician [CONS] Routine Consulting Provider: OSMAN WILLSON Reason For Exam: renal failure Place consult to:: nephrology Notified:: Phone number called:: [phone] Was contact made?: Yes If yes, spoke with:: LENORA Time called:: 11:45 Primary care physician: CLINICAL RN Hospitalization Hospital course: 66 YO Male admitted for renal biopsy and ARF. Pt convalesced well during hospital course. Pt medically optimized and back to usual state of health. Pt seen and evaluated prior to discharge but no significant new physical exam findings. Pt cleared for discharge after Nephrology evaluation. Pt discharged home and instructed to F/U pcp 1wk, and Nephrology as directed. 32 minutes dedicated to patient discharge and education. Disposition: DISCHARGED TO HOME OR SELFCARE - Discharge Diagnoses (1) Diabetes Status: Acute Qualifiers: Diabetes mellitus type: type 1 Diabetes mellitus complication status: with hyperglycemia Diabetes mellitus complication detail: D Diabetic retinopathy severity: D Proliferative retinopathy type: P Diabetes mellitus macular edema: D Diabetes mellitus group home insulin use: D Laterality: L Chronic kidney disease stage: C Qualified Code(s): E10.65 - Type 1 diabetes mellitus with hyperglycemia (2) Acute renal failure Status: Acute Qualifiers: Acute renal failure type: A (3) Anemia Status: Acute Qualifiers: Anemia type: A Iron deficiency anemia type: I Vitamin B12 deficiency anemia type: V Folate deficiency anemia type: F Bone marrow failure anemia type: B Hemolytic anemia type: H Other causes of anemia: O (4) Hyperkalemia Status: Acute (5) DVT prophylaxis Status: Acute Core Measure Documentation - Palliative Care Palliative Care/ Comfort Measures: Not Applicable - Core Measures Any of the following diagnoses?: none Exam - Constitutional Vitals: Temp Pulse Resp BP Pulse Ox 99.6 F 64 16 142/70 93 09/08/16 08:10 09/08/16 14:23 09/08/16 14:23 09/08/16 14:14 09/07/16 19:42 General appearance: Present: no acute distress, well-nourished - EENT Eyes: Present: PERRL ENT: hearing intact, clear oral mucosa - Neck Neck: Present: supple, normal ROM - Respiratory Respiratory effort: normal Respiratory: bilateral: CTA - Cardiovascular Heart Sounds: Present: S1 & S2. Absent: rub, click - Extremities Extremities: pulses symmetrical, No edema Peripheral Pulses: within normal limits - Abdominal General gastrointestinal: Present: soft, non-tender, non-distended, normal bowel sounds Male genitourinary: Present: normal - Integumentary Integumentary: Present: clear, warm, dry - Musculoskeletal Musculoskeletal: gait normal, strength equal bilaterally - Psychiatric Psychiatric: appropriate mood/affect, intact judgment & insight - Neurologic Neurologic: CNII-XII intact, moves all extremities Plan Activity: advance as tolerated Diet: renal Follow up with: PRIMARY CARE, [Primary Care Provider] - 7 Days
--- NOTE | 2016-09-08 15:52 | Consultation ---
History of Present Illness - Reason for Consult Consult date: 09/08/16 acute renal failure - History of Present Illness Mr. Hatfield is a 66yo with BRIELLE on CKD admitted for [place] kidney biopsy. He is s/p bx yesterday. He has no complaints. He denies hematuria, flank pain, difficulty passing urine. Past History Past Medical History: diabetes, hypertension Past Surgical History: Other (renal biopsy) Social history: . denies: smoking, alcohol abuse, prescription drug abuse Family history: diabetes, hypertension Medications and Allergies Allergies Allergy/AdvReac Type Severity Reaction Status Date / Time No Known Allergies Allergy Verified 05/23/16 22:42 Home Medications Medication Instructions Recorded Confirmed Last Taken Type Insulin NPL/Insulin Lispro 20 units SQ QAM 08/24/16 09/07/16 09/06/16 History [HumaLOG Mix 75-25 Kwikpen] Insulin NPL/Insulin Lispro 20 units SQ QPM 08/24/16 09/07/16 09/06/16 History [HumaLOG Mix 75-25 Kwikpen] Allopurinol [Zyloprim] 100 mg PO QDAY #30 tablet 09/01/16 09/07/16 09/06/16 Rx Apixaban [Eliquis] 2.5 mg PO Q12HR #60 tablet 09/01/16 09/07/16 09/01/16 Rx AtorvaSTATin [Lipitor] 20 mg PO QHS #30 tablet 09/01/16 09/07/16 09/06/16 Rx Clonidine HCl [Catapres] 0.3 mg PO TID #90 tablet 09/01/16 09/07/16 09/06/16 Rx Nebivolol HCl [Bystolic] 10 mg PO QDAY 09/07/16 09/07/16 09/06/16 History amLODIPine [Norvasc] 10 mg PO BID 09/07/16 09/07/16 09/06/16 History Active Meds: Active Medications Acetaminophen (Tylenol) 650 mg PO Q4H PRN PRN Reason: Pain MILD(1-3)/Fever >100.5/CHOU Albuterol/Ipratropium (Duoneb 0.5 Mg-3 Mg/3 Ml Soln) 1 ampul IH BIDRT [facility] Last Admin: 09/08/16 14:14 Dose: 1 ampul Allopurinol (Zyloprim) 100 mg PO QDAY [facility] Last Admin: 09/08/16 10:00 Dose: 100 mg Amlodipine Besylate (Norvasc) 10 mg PO BID [facility] Last Admin: 09/08/16 09:58 Dose: 10 mg Atorvastatin Calcium (Lipitor) 20 mg PO QHS [facility] Last Admin: 09/07/16 22:56 Dose: 20 mg Clonidine HCl (Catapres) 0.3 mg PO TID [facility] Last Admin: 09/08/16 14:14 Dose: 0.3 mg Dextrose (D50w (25gm)) 50 ml IV PRN PRN PRN Reason: Hypoglycemia Sodium Chloride (Nacl 0.45% 1000 Ml) 1,000 mls @ 42 mls/hr IV DIRECT [facility] Last Admin: 09/07/16 17:23 Dose: 42 mls/hr Insulin Aspart (Novolog) 0 units SUB-Q ACHS [facility] PRN Reason: Protocol Last Admin: 09/08/16 12:08 Dose: 4 units Insulin Human Isoph/Insulin Regular (Novolin 70/30) 20 unit SUB-Q QAM [facility] Last Admin: 09/08/16 10:01 Dose: 20 unit Insulin Human Isoph/Insulin Regular (Novolin 70/30) 20 unit SUB-Q QPM [facility] Last Admin: 09/07/16 18:01 Dose: 20 unit Metoprolol Succinate (Toprol Xl) 100 mg PO QDAY [facility] Last Admin: 09/08/16 10:00 Dose: 100 mg Ondansetron HCl (Zofran) 4 mg IV Q8H PRN PRN Reason: N/V unrelieved by Reglan Review of Systems Constitutional: no fever, no chills, no sweats Cardiovascular: no chest pain, no shortness of breath Respiratory: no cough Gastrointestinal: no abdominal pain, no nausea, no vomiting, no diarrhea Genitourinary Male: no hematuria, no flank pain, no urinary hesitancy Integumentary: no rash Exam - Vital Signs Vital signs: Vital Signs Temp Pulse Resp BP Pulse Ox 98.4 F 70 16 176/81 98 09/07/16 08:33 09/07/16 08:33 09/07/16 08:33 09/07/16 08:33 09/07/16 08:33 - General Appearance General appearance: well-developed, well-nourished EENT: ATNC Respiratory: Clear to Ascultation Heart: regular, S1S2 Gastrointestinal: Present: normal. Absent: tenderness, distended, costovertebral Integumentary: no rash Neurologic: no focal deficit Psychiatric: mood/affect appropriate, cooperative Results - Lab Results 09/08/16 04:08 09/08/16 15:20 Assessment and Plan Impression: * BRIELLE on CKD --s/p [place] kidney biopsy * Hypertension * Anemia - stable Plan: * Patient is stable for d/c from a renal standpoint * Advised to avoid use of ASA/NSAIDs; avoid lifting/pushing/pulling objects greater than 10lbs * ED instructions reviewed * Continue antiHTN medications - BP at time of visit 140s/70s * Follow up with [facility] as previously scheduled
[2016-09-08 16:17] LABS: BUN/Creatinine Ratio 9.76; Calcium 8.3 mg/dL (8.4-10.2); Chloride 103.6 mmol/L (98-107)
== END 2016-09-08 16:45 | disposition home or self-care (01) | DRG 684 ==
LOC: OPU 07:27 → EDSTATUS 07:30 → 3A 15:01 → CC2 15:07
PROVIDERS: ADMIT Internal Medicine; ATTEND Internal Medicine
PROC: 0TB03ZX Excision of Right Kidney, Percutaneous Approach, Diagnostic (ICD-10-PCS; principal; 2016-09-07)
DX: N17.9 Acute kidney failure, unspecified (principal); D64.9 Anemia, unspecified; E87.5 Hyperkalemia; I12.9 Hypertensive chronic kidney disease with stage 1 through stage 4 chronic kidney disease, or unspecified chronic kidney disease; N18.9 Chronic kidney disease, unspecified; E10.65 Type 1 diabetes mellitus with hyperglycemia; E10.22 Type 1 diabetes mellitus with diabetic chronic kidney disease; Z83.3 Family history of diabetes mellitus; Z82.49 Family history of ischemic heart disease and other diseases of the circulatory system
CPT/HCPCS: 36415; 77012; 80048; 82962; 85025; 85027; 85610; 85730; 88313; 88346; 88348; 94640; A9270-GY; J1815; J2250; J3010

== ENCOUNTER 2016-09-23 10:47 | Outpatient (CLI) | payer MEDICARE ==
[2016-09-23 11:30] LABS: Albumin 3.4 g/dL (3.9-5); BUN/Creatinine Ratio 11.84; Calcium 8.8 mg/dL (8.4-10.2); Chloride 102.8 mmol/L (98-107); Phosphorous 3.1 mg/dL (2.5-4.5); Potassium 4.3 mmol/L (3.6-5.0)
== END 2016-09-23 10:48 | disposition home or self-care (01) ==
LOC: LAB 10:47
PROVIDERS: ATTEND Internal Medicine Nephrology
DX: N17.9 Acute kidney failure, unspecified (principal); I10 Essential (primary) hypertension; D64.9 Anemia, unspecified; E08.29 Diabetes mellitus due to underlying condition with other diabetic kidney complication; R94.4 Abnormal results of kidney function studies
CPT/HCPCS: 36415; 80048; 82040; 84100

== ENCOUNTER 2016-09-29 12:19 | Outpatient (CLI) | payer MEDICARE ==
[2016-09-29 12:44] LABS: Basophils % (Auto) 1.3 % (0.0-1.8); Eosinophils % (Auto) 4.5 % (0.0-4.3); Hemoglobin 9.4 gm/dl (11.8-15.2); Mean Corpuscular HGB Conc 34 % (32-34); Mean Corpuscular Hemoglobin 30 pg (28-32); Mean Corpuscular Volume 90 fl (84-94); Platelet Count 276 K/mm3 (140-440); Red Cell Distribution Width 13.1 % (13.2-15.2); White Blood Count 4.3 K/mm3 (4.5-11.0)
[2016-09-29 13:08] LABS: Albumin 3.6 g/dL (3.9-5); BUN/Creatinine Ratio 10.54; Calcium 8.8 mg/dL (8.4-10.2); Chloride 101.8 mmol/L (98-107); Phosphorous 2.6 mg/dL (2.5-4.5); Potassium 3.9 mmol/L (3.6-5.0)
== END 2016-09-29 12:20 | disposition home or self-care (01) ==
LOC: LAB 12:19
PROVIDERS: ATTEND Internal Medicine Nephrology
DX: N17.9 Acute kidney failure, unspecified (principal)
CPT/HCPCS: 36415; 80048; 82040; 84100; 85025

== ENCOUNTER 2016-12-04 09:10 | Outpatient (CLI) | payer MEDICARE ==
[2016-12-04 09:28] LABS: Bilirubin,Urine NEG (Negative); Blood,Urine SM (Negative); Ketones,Urine NEG (Negative); Leukocyte Esterase,Urine NEG (Negative); Nitrite,Urine NEG (Negative); Urobilinogen,Urine < 2.0 mg/dL (<2.0)
[2016-12-04 09:30] LABS: Hematocrit 30.2 % (35.5-45.6); Hemoglobin 10.2 gm/dl (11.8-15.2); Mean Corpuscular HGB Conc 34 % (32-34); Mean Corpuscular Hemoglobin 30 pg (28-32); Mean Corpuscular Volume 90 fl (84-94); Platelet Count 258 K/mm3 (140-440); Red Blood Count 3.37 M/mm3 (3.65-5.03); Red Cell Distribution Width 12.4 % (13.2-15.2); White Blood Count 4.8 K/mm3 (4.5-11.0)
[2016-12-04 09:49] LABS: Albumin 3.6 g/dL (3.9-5); BUN/Creatinine Ratio 16.76; Calcium 8.8 mg/dL (8.4-10.2); Chloride 102.8 mmol/L (98-107); Phosphorous 3.4 mg/dL (2.5-4.5); Potassium 4.4 mmol/L (3.6-5.0)
== END 2016-12-04 09:11 | disposition home or self-care (01) ==
LOC: LAB 09:10
PROVIDERS: ATTEND Internal Medicine Nephrology
DX: N17.9 Acute kidney failure, unspecified (principal); E08.29 Diabetes mellitus due to underlying condition with other diabetic kidney complication; I10 Essential (primary) hypertension; D64.9 Anemia, unspecified; R94.4 Abnormal results of kidney function studies; E78.00 Pure hypercholesterolemia, unspecified; I48.91 Unspecified atrial fibrillation; Z87.891 Personal history of nicotine dependence
CPT/HCPCS: 36415; 80048; 81001; 82040; 82570; 84100; 84156; 85027

== ENCOUNTER 2017-07-01 10:01 | Outpatient (CLI) | payer MEDICARE ==
[2017-07-01 10:36] LABS: Hematocrit 33.8 % (35.5-45.6); Hemoglobin 11.5 gm/dl (11.8-15.2); Mean Corpuscular HGB Conc 34 % (32-34); Mean Corpuscular Hemoglobin 29 pg (28-32); Mean Corpuscular Volume 86 fl (84-94); Platelet Count 263 K/mm3 (140-440); Red Blood Count 3.92 M/mm3 (3.65-5.03); Red Cell Distribution Width 12.2 % (13.2-15.2)
[2017-07-01 10:44] LABS: Albumin 3.8 g/dL (3.9-5); Calcium 8.7 mg/dL (8.4-10.2); Chol/HDL Ratio 4.09 %
== END 2017-07-01 10:02 | disposition home or self-care (01) ==
LOC: LAB 10:01
PROVIDERS: ATTEND Family Medicine
DX: I12.9 Hypertensive chronic kidney disease with stage 1 through stage 4 chronic kidney disease, or unspecified chronic kidney disease (principal); N18.9 Chronic kidney disease, unspecified; E11.22 Type 2 diabetes mellitus with diabetic chronic kidney disease; E78.5 Hyperlipidemia, unspecified; I48.91 Unspecified atrial fibrillation
CPT/HCPCS: 36415; 80053; 80061; 83036; 84443; 85027

== ENCOUNTER 2017-11-15 08:55 | Outpatient (CLI) | payer MEDICARE ==
[2017-11-15 12:54] LABS: Creatinine,Urine 43.4 mg/dL (0.1-20.0)
== END 2017-11-15 08:56 | disposition home or self-care (01) ==
LOC: LAB 08:55
PROVIDERS: ATTEND Internal Medicine Nephrology
DX: R94.4 Abnormal results of kidney function studies (principal); I12.9 Hypertensive chronic kidney disease with stage 1 through stage 4 chronic kidney disease, or unspecified chronic kidney disease; E08.29 Diabetes mellitus due to underlying condition with other diabetic kidney complication; N18.9 Chronic kidney disease, unspecified; E78.00 Pure hypercholesterolemia, unspecified; D64.9 Anemia, unspecified; Z87.891 Personal history of nicotine dependence
CPT/HCPCS: 82565; 82570; 82575

== ENCOUNTER 2018-06-02 09:34 | Outpatient (CLI) | payer MEDICARE ==
[2018-06-02 10:08] LABS: Bilirubin,Urine NEG (Negative); Blood,Urine SM (Negative); Color,Urine Straw (Yellow); Mucus,Urine FEW /HPF; Urobilinogen,Urine < 2.0 mg/dL (<2.0)
[2018-06-02 10:08] LABS: Hematocrit 32.1 % (35.5-45.6); Hemoglobin 10.5 gm/dl (11.8-15.2); Mean Corpuscular HGB Conc 33 % (32-34); Mean Corpuscular Volume 88 fl (84-94); Platelet Count 325 K/mm3 (140-440); Red Blood Count 3.65 M/mm3 (3.65-5.03); Red Cell Distribution Width 12.4 % (13.2-15.2)
[2018-06-02 10:31] LABS: Albumin 3.3 g/dL (3.9-5); Calcium 8.4 mg/dL (8.4-10.2)
[2018-06-02 13:57] LABS: Creatinine,Urine 76.6 mg/dL (0.1-20.0)
[2018-06-02 14:09] LABS: Protein/Creatinine Ratio,Urine 2.79
== END 2018-06-02 09:35 | disposition home or self-care (01) ==
LOC: LAB 09:34
PROVIDERS: ATTEND Internal Medicine Nephrology
DX: I12.9 Hypertensive chronic kidney disease with stage 1 through stage 4 chronic kidney disease, or unspecified chronic kidney disease (principal); E11.22 Type 2 diabetes mellitus with diabetic chronic kidney disease; N18.4 Chronic kidney disease, stage 4 (severe); R80.9 Proteinuria, unspecified; E55.9 Vitamin D deficiency, unspecified; N25.81 Secondary hyperparathyroidism of renal origin; D64.9 Anemia, unspecified; E78.00 Pure hypercholesterolemia, unspecified; Z87.891 Personal history of nicotine dependence
CPT/HCPCS: 36415; 80048; 81001; 82040; 82306; 82570; 83970; 84100; 84156; 85027

== ENCOUNTER 2018-10-03 09:22 | Outpatient (CLI) | payer MEDICARE ==
[2018-10-03 11:55] LABS: Creatinine,Urine 48.3 mg/dL (0.1-20.0)
[2018-10-03 13:58] LABS: Creatinine 24 Hour,Urine 1.3 (0.8-2.8)
== END 2018-10-03 09:23 | disposition home or self-care (01) ==
LOC: LAB 09:22
PROVIDERS: ATTEND Internal Medicine Nephrology
DX: I12.9 Hypertensive chronic kidney disease with stage 1 through stage 4 chronic kidney disease, or unspecified chronic kidney disease (principal); E11.22 Type 2 diabetes mellitus with diabetic chronic kidney disease; N18.4 Chronic kidney disease, stage 4 (severe); E78.00 Pure hypercholesterolemia, unspecified
CPT/HCPCS: 82565; 82570; 82575; 84156

== ENCOUNTER 2018-10-05 07:11 | Outpatient (CLI) | payer MEDICARE ==
[2018-10-05 07:48] LABS: Albumin 3.5 g/dL (3.9-5); Calcium 8.7 mg/dL (8.4-10.2)
== END 2018-10-05 07:12 | disposition home or self-care (01) ==
LOC: LAB 07:11
PROVIDERS: ATTEND Internal Medicine Nephrology
DX: R94.4 Abnormal results of kidney function studies (principal); E11.9 Type 2 diabetes mellitus without complications; E78.00 Pure hypercholesterolemia, unspecified; I10 Essential (primary) hypertension
CPT/HCPCS: 36415; 80048; 82040; 84100

== ENCOUNTER 2018-10-27 08:44 | Outpatient (CLI) | payer MEDICARE ==
[2018-10-27 09:38] LABS: Creatinine,Urine 67.3 mg/dL (0.1-20.0); Protein/Creatinine Ratio,Urine 0.7
[2018-10-27 09:46] LABS: Albumin 3.5 g/dL (3.9-5); Calcium 8.4 mg/dL (8.4-10.2)
[2018-10-27 09:54] LABS: Bilirubin,Urine NEG (Negative); Blood,Urine SM (Negative); Color,Urine Straw (Yellow); Urobilinogen,Urine < 2.0 mg/dL (<2.0)
[2018-10-29 15:47] LABS: Vitamin D, 25-OH, D2 17 ng/mL
== END 2018-10-27 08:45 | disposition home or self-care (01) ==
LOC: LAB 08:44
PROVIDERS: ATTEND Internal Medicine Nephrology
DX: I12.9 Hypertensive chronic kidney disease with stage 1 through stage 4 chronic kidney disease, or unspecified chronic kidney disease (principal); N18.4 Chronic kidney disease, stage 4 (severe); N25.81 Secondary hyperparathyroidism of renal origin; E55.9 Vitamin D deficiency, unspecified; D64.9 Anemia, unspecified; R80.9 Proteinuria, unspecified; K59.00 Constipation, unspecified; E87.2 Acidosis
CPT/HCPCS: 36415; 80048; 81001; 82040; 82306; 82570; 83970; 84100; 84156

== ENCOUNTER 2018-11-24 09:34 | Outpatient (CLI) | payer MEDICARE ==
[2018-11-24 10:02] LABS: Hematocrit 29.6 % (35.5-45.6); Hemoglobin 10.2 gm/dl (11.8-15.2); Mean Corpuscular HGB Conc 34 % (32-34); Mean Corpuscular Volume 91 fl (84-94); Platelet Count 260 K/mm3 (140-440); Red Blood Count 3.26 M/mm3 (3.65-5.03); Red Cell Distribution Width 13.1 % (13.2-15.2)
[2018-11-24 10:06] LABS: Bilirubin,Urine NEG (Negative); Blood,Urine SM (Negative); Color,Urine Straw (Yellow); Urobilinogen,Urine < 2.0 mg/dL (<2.0)
[2018-11-24 10:29] LABS: Albumin 3.8 g/dL (3.9-5); Calcium 8.8 mg/dL (8.4-10.2)
[2018-11-24 13:02] LABS: Creatinine,Urine 57.5 mg/dL (0.1-20.0); Protein/Creatinine Ratio,Urine 0.5
== END 2018-11-24 09:35 | disposition home or self-care (01) ==
LOC: LAB 09:34
PROVIDERS: ATTEND Internal Medicine Nephrology
DX: I12.9 Hypertensive chronic kidney disease with stage 1 through stage 4 chronic kidney disease, or unspecified chronic kidney disease (principal); N18.4 Chronic kidney disease, stage 4 (severe); E08.29 Diabetes mellitus due to underlying condition with other diabetic kidney complication; D64.9 Anemia, unspecified; R80.9 Proteinuria, unspecified; N25.81 Secondary hyperparathyroidism of renal origin; K59.00 Constipation, unspecified; E55.9 Vitamin D deficiency, unspecified
CPT/HCPCS: 36415; 80048; 81001; 82040; 82570; 84100; 84156; 85027

== ENCOUNTER 2018-12-07 10:32 | Outpatient (CLI) | payer MEDICARE ==
--- NOTE | 2018-12-07 11:16 | XRay Report ---
CHEST 2 VIEWS INDICATION: N16.5, CHRONIC KIDNEY DISEASE,STAGE 5. COMPARISON: Chest x-ray from 05/24/2016 FINDINGS: Support devices: None. Heart: Within normal limits. Lungs/pleura: No acute air space or interstitial disease. No pneumothorax. Additional findings: None. IMPRESSION: 1. No acute findings. Signer Name: Meir Moctezuma MD Signed: 12/07/2018 11:11 AM Workstation Name: [id number]
[2018-12-07 15:39] LABS: Hepatitis B Surface Antigen Non-Reactive (Negative); Hepatitis C Virus Antibody Non-Reactive (NonReactive)
== END 2018-12-07 10:33 | disposition home or self-care (01) ==
LOC: XRAY 10:32
PROVIDERS: ATTEND Internal Medicine Nephrology
DX: I12.0 Hypertensive chronic kidney disease with stage 5 chronic kidney disease or end stage renal disease (principal); E11.22 Type 2 diabetes mellitus with diabetic chronic kidney disease; N18.5 Chronic kidney disease, stage 5; E78.00 Pure hypercholesterolemia, unspecified; R60.9 Edema, unspecified; K21.9 Gastro-esophageal reflux disease without esophagitis; I45.6 Pre-excitation syndrome; R80.9 Proteinuria, unspecified; I48.91 Unspecified atrial fibrillation
CPT/HCPCS: 36415; 71046; 80074

== ENCOUNTER 2019-01-11 16:22 | Emergency (ER) | payer MEDICARE ==
[2019-01-11 17:07] LABS: Basophils # (Auto) 0.1 K/mm3 (0.0-0.1); Basophils % (Auto) 1.3 % (0.0-1.8); Eosinophils # (Auto) 0.4 K/mm3 (0.0-0.4); Eosinophils % (Auto) 7.7 % (0.0-4.3); Hematocrit 29.4 % (35.5-45.6); Hemoglobin 9.9 gm/dl (11.8-15.2); Lymphocytes # (Auto) 1.2 K/mm3 (1.2-5.4); Lymphocytes % (Auto) 23.8 % (13.4-35.0); Mean Corpuscular HGB Conc 34 % (32-34); Mean Corpuscular Volume 91 fl (84-94); Monocytes # (Auto) 0.4 K/mm3 (0.0-0.8); Monocytes % (Auto) 7.5 % (0.0-7.3); Platelet Count 298 K/mm3 (140-440); Red Blood Count 3.23 M/mm3 (3.65-5.03); Red Cell Distribution Width 14.4 % (13.2-15.2)
--- NOTE | 2019-01-11 19:19 | Emergency Department Report ---
HPI - General Chief Complaint: High BP Time Seen by Provider: 01/11/19 19:15 - HPI HPI: Patient is a pleasant 68-year-old comes to the ER because his blood pressure was elevated when he checked it at home today. He states that he is in training for peritoneal dialysis and they checked his blood pressure at the training center several times this week and it has been somewhat labile. When it was elevated today he called his doctor's office and they told him to come to the ER. By the time he got to the ER his blood pressure was normal. Patient denies chest pain denies shortness of breath patient denies headache. He has no swelling. Patient has been compliant with his medications. ED Past Medical Hx - Past Medical History Previous Medical History?: Yes Hx Hypertension: Yes Hx Diabetes: Yes Hx HIV: No - Surgical History Past Surgical History?: No - Family History Family history: no significant - Social History Smoking Status: Never Smoker Substance Use Type: None - Medications Home Medications: Home Medications Medication Instructions Recorded Confirmed Last Taken Type Insulin Lispro Protamin/Lispro 20 units SQ QAM 08/24/16 09/07/16 09/06/16 History [HumaLOG Mix 75-25 Kwikpen] Insulin Lispro Protamin/Lispro 20 units SQ QPM 08/24/16 09/07/16 09/06/16 History [HumaLOG Mix 75-25 Kwikpen] Allopurinol [Zyloprim] 100 mg PO QDAY #30 tablet 09/01/16 09/07/16 09/06/16 Rx Apixaban [Eliquis] 2.5 mg PO Q12HR #60 tablet 09/01/16 09/07/16 09/01/16 Rx AtorvaSTATin [Lipitor] 20 mg PO QHS #30 tablet 09/01/16 09/07/16 09/06/16 Rx Clonidine HCl [Catapres] 0.3 mg PO TID #90 tablet 09/01/16 09/07/16 09/06/16 Rx Nebivolol HCl [Bystolic] 10 mg PO QDAY 09/07/16 09/07/16 09/06/16 History amLODIPine [Norvasc] 10 mg PO BID 09/07/16 09/07/16 09/06/16 History ED Review of Systems ROS: Stated complaint: HBP Other details as noted in HPI Comment: All other systems reviewed and negative Physical Exam - Physical Exam Vital Signs: Vital Signs 01/11/19 16:43 Temperature 97.6 F Pulse Rate 61 Respiratory 15 Rate Blood Pressure 154/73 [Left] O2 Sat by Pulse 99 Oximetry Physical Exam: alert oriented s1s2 lungs clear abd round tenkoff in place no edema no jvd ambulatory wo sob ED Course Vital Signs 01/11/19 16:43 Temperature 97.6 F Pulse Rate 61 Respiratory 15 Rate Blood Pressure 154/73 [Left] O2 Sat by Pulse 99 Oximetry ED Medical Decision Making - Lab Data Result diagrams: 01/11/19 16:49 01/11/19 19:18 - Radiology Data Radiology results: report reviewed, image reviewed - Medical Decision Making Labs 01/11/19 01/11/19 01/11/19 16:49 19:18 19:18 WBC 4.9 RBC 3.23 L Hgb 9.9 L Hct 29.4 L MCV 91 MCH 31 MCHC 34 RDW 14.4 Plt Count 298 Lymph % (Auto) 23.8 [place] % (Auto) 7.5 H Eos % (Auto) 7.7 H Baso % (Auto) 1.3 Lymph # 1.2 [place] # 0.4 Eos # 0.4 Baso # 0.1 Seg Neutrophils % 59.7 Seg Neutrophils # 2.9 Sodium 141 Potassium 4.1 Chloride 104.2 Carbon Dioxide 23 Anion Gap 18 BUN 43 H Creatinine 4.7 H Estimated GFR 15 BUN/Creatinine Ratio 9 Glucose 106 H Calcium 8.6 Phosphorus 3.40 Total Bilirubin 0.50 AST 18 ALT 8 Alkaline Phosphatase 82 NT-Pro-B Natriuret Pep 2577 H Total Protein 7.7 Albumin 3.9 Albumin/Globulin Ratio 1.0 Vital Signs 01/11/19 16:43 Temperature 97.6 F Pulse Rate 61 Respiratory 15 Rate Blood Pressure 154/73 [Left] O2 Sat by Pulse 99 Oximetry Discussed with patient his labs and blood pressure today. Patient is completely asymptomatic. Patient being discharged home with follow-up with his primary care/[employer] urologist in the morning. Critical care attestation.: If time is entered above; I have spent that time in minutes in the direct care of this critically ill patient, excluding procedure time. ED Disposition Clinical Impression: Hypertension Disposition: DC-01 TO HOME OR SELFCARE Is pt being admited?: No Does the pt Need Aspirin: No Condition: Stable Instructions: DASH Eating Plan (ED), Low Sodium Diet (ED) Additional Instructions: CALL YOUR PCP/KIDNEY MD IN AM BP 154/73 ON ARRIVAL TO ER Referrals: PRIMARY CARE, [Primary Care Provider] - 3-5 Days Time of Disposition: 20:45
--- NOTE | 2019-01-11 19:45 | XRay Report ---
CHEST 2 VIEWS INDICATION / CLINICAL INFORMATION: Shortness of breath. COMPARISON: Chest x-ray on 12/07/2018. FINDINGS: SUPPORT DEVICES: None. HEART / MEDIASTINUM: No significant abnormality. LUNGS / PLEURA: No significant pulmonary or pleural abnormality. No pneumothorax. ADDITIONAL FINDINGS: No significant additional findings. IMPRESSION: 1. No acute findings. No significant change from the prior study. Signer Name: Tab Juan MD Signed: 01/11/2019 7:40 PM Workstation Name: [email or web address]
[2019-01-11 20:17] LABS: Albumin 3.9 g/dL (3.9-5); Calcium 8.6 mg/dL (8.4-10.2)
[2019-01-11 21:05] VITALS: BP 189/75
== END 2019-01-11 21:04 | disposition home or self-care (01) ==
LOC: ED 16:22
DX: I10 Essential (primary) hypertension (principal); E11.9 Type 2 diabetes mellitus without complications; Z79.899 Other long term (current) drug therapy; Z79.4 Long term (current) use of insulin
CPT/HCPCS: 36415; 71046; 80053; 83880; 84100; 85025; 99283

== ENCOUNTER 2019-03-12 12:33 | Inpatient (IN) | payer MEDICARE ==
[2019-03-12] MEDS ORDERED: SODIUM CHLORIDE 0.9% 500 ML 500 ML IV ONE ×2 (13:06→15:34)
[2019-03-12] MEDS ORDERED: ONDANSETRON 4 MG/2 ML INJ IV ONE ×2 (13:06→15:35)
--- NOTE | 2019-03-12 13:11 | Emergency Department Report ---
ED N/V/D HPI - General Chief complaint: Nausea/Vomiting/Diarrhea Stated complaint: NAUSEA/VOMITING X 3 DAYS Time Seen by Provider: 03/12/19 13:04 Source: patient Mode of arrival: Stretcher Limitations: No Limitations - History of Present Illness Initial comments: Mr. Hatfield is a 69-year-old male history of diabetes mellitus, end-stage renal disease on dialysis Wednesday, atrial fibrillation on Eliquis presents with 4 episodes of vomiting with nausea this morning. He ate [employer] fast food last night. He woke up this morning with the symptoms. He denies any pain or fever. His significant other/girlfriend of 14 years at the bedside is concerned for complications of a peritoneal dialysis catheter. He recently started dialysis 2 months ago. Managing peritoneal dialysis was too complicated for both the girlfriend and the patient. Consequently they have elected to undergo hemodialysis. Patient is planning to have the PD catheter removed. has right chest dialysis port PCP Dr. Cantu [place], Dr. Choi director of research center. Last HD session on Wednesday MD complaint: nausea, vomiting -: Gradual, This morning Description of Vomiting: food contents Description of Diarrhea: other (no diarrhea) Associated Abdominal Pain: No Severity: mild Pain Scale: 0 Consistency: now resolved Improves with: none Worsens with: none Context: possible food poisoning - Related Data Home Medications Medication Instructions Recorded Confirmed Last Taken Insulin Lispro Protamin/Lispro 20 units SQ QAM 08/24/16 09/07/16 09/06/16 [HumaLOG Mix 75-25 Kwikpen] Insulin Lispro Protamin/Lispro 20 units SQ QPM 08/24/16 09/07/16 09/06/16 [HumaLOG Mix 75-25 Kwikpen] Nebivolol HCl [Bystolic] 10 mg PO QDAY 09/07/16 09/07/16 09/06/16 amLODIPine 10 mg PO BID 09/07/16 09/07/16 09/06/16 Previous Rx's Medication Instructions Recorded Last Taken Type Allopurinol [Zyloprim] 100 mg PO QDAY #30 tablet 09/01/16 09/06/16 Rx Apixaban [Eliquis] 2.5 mg PO Q12HR #60 tablet 09/01/16 09/01/16 Rx AtorvaSTATin [Lipitor] 20 mg PO QHS #30 tablet 09/01/16 09/06/16 Rx Clonidine HCl [Catapres] 0.3 mg PO TID #90 tablet 09/01/16 09/06/16 Rx Allergies Allergy/AdvReac Type Severity Reaction Status Date / Time No Known Allergies Allergy Verified 05/23/16 22:42 ED Review of Systems ROS: Stated complaint: NAUSEA/VOMITING X 3 DAYS Other details as noted in HPI Comment: All other systems reviewed and negative Constitutional: malaise Gastrointestinal: nausea. denies: abdominal pain, diarrhea ED Past Medical Hx - Past Medical History Previous Medical History?: Yes Hx Hypertension: Yes Hx Diabetes: Yes Hx HIV: No - Social History Smoking Status: Never Smoker Substance Use Type: None - Medications Home Medications: Home Medications Medication Instructions Recorded Confirmed Last Taken Type Insulin Lispro Protamin/Lispro 20 units SQ QAM 08/24/16 09/07/16 09/06/16 History [HumaLOG Mix 75-25 Kwikpen] Insulin Lispro Protamin/Lispro 20 units SQ QPM 08/24/16 09/07/16 09/06/16 History [HumaLOG Mix 75-25 Kwikpen] Allopurinol [Zyloprim] 100 mg PO QDAY #30 tablet 09/01/16 09/07/16 09/06/16 Rx Apixaban [Eliquis] 2.5 mg PO Q12HR #60 tablet 09/01/16 09/07/16 09/01/16 Rx AtorvaSTATin [Lipitor] 20 mg PO QHS #30 tablet 09/01/16 09/07/16 09/06/16 Rx Clonidine HCl [Catapres] 0.3 mg PO TID #90 tablet 09/01/16 09/07/16 09/06/16 Rx Nebivolol HCl [Bystolic] 10 mg PO QDAY 09/07/16 09/07/16 09/06/16 History amLODIPine 10 mg PO BID 09/07/16 09/07/16 09/06/16 History ED Physical Exam - General Limitations: No Limitations General appearance: alert, in no apparent distress - Head Head exam: Present: atraumatic, normocephalic - Eye Eye exam: Present: normal appearance - ENT ENT exam: Present: mucous membranes moist - Neck Neck exam: Present: normal inspection, full ROM. Absent: tenderness, meningismus - Respiratory Respiratory exam: Present: normal lung sounds bilaterally. Absent: respiratory distress, wheezes, rales, rhonchi - Cardiovascular Cardiovascular Exam: Present: regular rate, irregular rhythm. Absent: systolic murmur, diastolic murmur, rubs, gallop - GI/Abdominal GI/Abdominal exam: Present: soft, normal bowel sounds. Absent: distended, tenderness, guarding, rebound - Rectal Rectal exam: Present: deferred - Extremities Exam Extremities exam: Present: normal inspection - Back Exam Back exam: Present: normal inspection - Neurological Exam Neurological exam: Present: alert, oriented X3 - Psychiatric Psychiatric exam: Present: normal affect, normal mood - Skin Skin exam: Present: warm, dry, intact, normal color. Absent: rash ED Course Vital Signs 03/12/19 03/12/19 03/12/19 12:43 12:45 12:47 Temperature 98.1 F Pulse Rate 98 H 97 H 100 H Respiratory 14 16 17 Rate Blood Pressure 197/86 Blood Pressure 197/86 [Left] O2 Sat by Pulse 98 99 98 Oximetry 03/12/19 03/12/19 03/12/19 13:00 13:16 13:30 Temperature Pulse Rate 100 H 109 H 97 H Respiratory 12 13 14 Rate Blood Pressure 197/86 197/86 197/86 Blood Pressure [Left] O2 Sat by Pulse 100 99 97 Oximetry 03/12/19 03/12/19 03/12/19 13:46 14:00 14:16 Temperature Pulse Rate 99 H 105 H 106 H Respiratory 13 14 11 L Rate Blood Pressure 127/88 Blood Pressure [Left] O2 Sat by Pulse 99 100 99 Oximetry 03/12/19 03/12/19 03/12/19 14:30 14:46 15:00 Temperature Pulse Rate 107 H 113 H 106 H Respiratory 13 18 13 Rate Blood Pressure Blood Pressure [Left] O2 Sat by Pulse 99 99 99 Oximetry ED Medical Decision Making - Lab Data Result diagrams: 03/12/19 13:41 03/12/19 13:41 - Radiology Data Radiology results: report reviewed - Medical Decision Making Mr. Hatfield presents with nausea/vomiting with hypertensive urgency. metabolic abnormalities seen with metabolic acidosis, hypokalemia, hypocalemia. Given IVF, IV antihypertensive, IV antiemetic in the ED. Admitted to the hospitalist service. I have consulted Dr. Keke director of research center Critical care attestation.: If time is entered above; I have spent that time in minutes in the direct care of this critically ill patient, excluding procedure time. ED Disposition Clinical Impression: Intractable nausea and vomiting, Metabolic acidosis due to diabetes mellitus, ESRD (end stage renal disease) on dialysis, Hypokalemia, Hypocalcemia Disposition: OP ADMIT IP TO THIS HOSP Is pt being admited?: Yes Does the pt Need Aspirin: No Condition: Stable
[2019-03-12 14:36] LABS: Albumin 2.4 g/dL (3.9-5)
[2019-03-12 14:45] LABS: Hematocrit 26.7 % (35.5-45.6); Hemoglobin 8.8 gm/dl (11.8-15.2); Mean Corpuscular HGB Conc 33 % (32-34); Mean Corpuscular Volume 90 fl (84-94); Platelet Count 178 K/mm3 (140-440); Red Blood Count 2.97 M/mm3 (3.65-5.03); Red Cell Distribution Width 14.5 % (13.2-15.2)
[2019-03-12 14:50] LABS: Calcium 5.7 mg/dL (8.4-10.2)
--- NOTE | 2019-03-12 16:01 | XRay Report ---
CHEST 1 VIEW 03/12/2019 3:37 PM INDICATION / CLINICAL INFORMATION: esrd vomiting HTN. COMPARISON: Chest x-ray 01/11/2019 FINDINGS: SUPPORT DEVICES: New right internal jugular dialysis catheter has tip in right atrium. HEART / MEDIASTINUM: No significant abnormality. LUNGS / PLEURA: No significant pulmonary or pleural abnormality. No pneumothorax. ADDITIONAL FINDINGS: No significant additional findings. IMPRESSION: 1. No pneumothorax status post right IJ dialysis catheter placement. Signer Name: Rohan Srivastava MD Signed: 03/12/2019 3:57 PM Workstation Name: [id number]
[2019-03-12 16:04] LABS: Eosinophils % (Manual) 0 % (0.0-4.3); Total Cells Counted 100
[2019-03-12 16:05] LABS: Platelet Estimate Consistent w Auto; RBC Morphology Normal
[2019-03-12] MEDS ORDERED: ONDANSETRON 4 MG/2 ML INJ ONE (16:31)
[2019-03-12] MEDS ORDERED: SODIUM CHLORIDE 0.9% 1000 ML 1,000 ML ONE (16:31)
--- NOTE | 2019-03-12 17:52 | Consultation ---
History of Present Illness - Reason for Consult Consult date: 03/12/19 end stage renal disease - History of Present Illness Mr. Hatfield is a 69yo with ESRD on HD MWF who presented to the ED with intractable nausea/vomiting. He denies sick contacts, reports onset of vomiting last night after eating at a fast food restaurant. He denies fever, chills, abdominal pain and diarrhea. He reports dizziness and weakness. He has a history of hypertension and has been unable to tolerate po antiHTN medications since onset of sx. His last dialysis treatment was on Wednesday. Of note, patient was initially started on PD but found it to be challenging, so he is now on HD. He is awaiting PD catheter removal. Past History Past Medical History: atrial fib (on chronic anticoagulation), anemia (secondary to ESRD), diabetes, ESRD, hypertension, hyperlipidemia Past Surgical History: Other (PD catheter insertion) Social history: no significant social history Family history: no significant family history Medications and Allergies Allergies Allergy/AdvReac Type Severity Reaction Status Date / Time No Known Allergies Allergy Verified 05/23/16 22:42 Home Medications Medication Instructions Recorded Confirmed Last Taken Type Insulin Lispro Protamin/Lispro 20 units SQ QAM 08/24/16 03/12/19 09/06/16 History [HumaLOG Mix 75-25 Kwikpen] Insulin Lispro Protamin/Lispro 20 units SQ QPM 08/24/16 03/12/19 09/06/16 History [HumaLOG Mix 75-25 Kwikpen] Allopurinol [Zyloprim] 100 mg PO QDAY #30 tablet 09/01/16 03/12/19 09/06/16 Rx Apixaban [Eliquis] 2.5 mg PO Q12HR #60 tablet 09/01/16 03/12/19 09/01/16 Rx AtorvaSTATin [Lipitor] 20 mg PO QHS #30 tablet 09/01/16 03/12/19 09/06/16 Rx Clonidine HCl [Catapres] 0.3 mg PO TID #90 tablet 09/01/16 03/12/19 09/06/16 Rx Nebivolol HCl [Bystolic] 10 mg PO QDAY 09/07/16 03/12/19 09/06/16 History amLODIPine 10 mg PO BID 09/07/16 03/12/19 09/06/16 History Review of Systems All systems: negative Exam - Vital Signs Vital signs: Vital Signs Pulse Resp Pulse Ox 98 H 14 98 03/12/19 12:43 03/12/19 12:43 03/12/19 12:43 - General Appearance General appearance: well-developed, well-nourished EENT: ATNC Respiratory: Clear to Ascultation Heart: regular, S1S2 Gastrointestinal: Present: normal. Absent: tenderness, distended Integumentary: no rash, cool/clammy Neurologic: no focal deficit, alert and oriented x3 Musculoskeletal: Present: other (no edema) Psychiatric: cooperative Results - Lab Results 03/12/19 13:41 03/12/19 13:41 Most recent lab results Calcium 5.7 mg/dL (8.4-10.2) L* 03/12/19 13:41 Assessment and Plan Impression: * End stage renal disease on HD MWF * Intractable nausea/vomiting * Accelerated hypertension * Atrial fibrillation on chronic anticoagulation * Type II DM * Anemia secondary to ESRD * Secondary hyperparathyroidism Plan: * No acute indication for hemodialysis today * Will start gentle IVF for hydration * Replete K - give 10meq IV x 2 doses * Will order clonidine patch and IV prn antiHTN medications * Doubt peritonitis as abdominal exam is benign but will check cell count and gram stain * Epogen TIW prn * Ideally, would like to have PD catheter removed this hospitalization if possible. Consider general surgery consult
[2019-03-12] MEDS ORDERED: hydrALAZINE 20 MG/1 ML INJ IV PRN ×2 (17:55→23:11)
[2019-03-12] MEDS: POTASSIUM CHLORIDE 10 MEQ 10 MEQ/100 ML BAG IV SCH ×2 (18:58→19:54)
[2019-03-12] MEDS ORDERED: cloNIDine TTS 0.3 MG/24 HR PATCH TD SCH (19:00)
[2019-03-12] MEDS: DIALYSATE PD2 1.5% SOLN 2000 ML IP ONE ×2 (22:00→22:14)
[2019-03-12] MEDS ORDERED: amLODIPine 5 MG TAB PO ONE (23:12)
[2019-03-12] MEDS: INSULIN LISPRO 100 UNIT/ML SUB-Q SCH (23:45)
[2019-03-12] MEDS: SODIUM CHLORIDE 0.9% 1000 ML 1,000 ML IV SCH (23:53)
[2019-03-13] MEDS ORDERED: ONDANSETRON 4 MG/2 ML INJ IV PRN ×2 (00:10→07:22)
--- NOTE | 2019-03-13 07:16 | History and Physical Report ---
History of Present Illness Date of examination: 03/12/19 Date of admission: 03/12/19 15:40 Chief complaint: N/V for 1 day History of present illness: Mr. Hatfield is a 69-year-old male history of diabetes mellitus, end-stage renal disease on dialysis Wednesday, atrial fibrillation on Eliquis presents with 4 episodes of vomiting with nausea this morning. He ate [employer] fast food last night. He woke up this morning with the symptoms. He denies any pain or fever. His significant other/girlfriend of 14 years at the bedside is concerned for complications of a peritoneal dialysis catheter. He recently started dialysis 2 months ago. Managing peritoneal dialysis was too complicated for both the girlfriend and the patient. Consequently they have elected to undergo hemodialysis. Patient is planning to have the PD catheter removed. has right chest dialysis port. PCP Dr. Cantu on [place], Dr. Choi farm general manager. Past Medical History Previous Medical History?: Yes Hypertension: Yes Diabetes: Yes Social History Smoking Status: Never Smoker Substance Use Type: None Family History Htn Medications Home Medications: Home Medications Medication Instructions Recorded Confirmed Last Taken Type Insulin Lispro Protamin/Lispro 20 units SQ QAM 08/24/16 09/07/16 09/06/16 History [HumaLOG Mix 75-25 Kwikpen] Insulin Lispro Protamin/Lispro 20 units SQ QPM 08/24/16 09/07/16 09/06/16 History [HumaLOG Mix 75-25 Kwikpen] Allopurinol [Zyloprim] 100 mg PO QDAY #30 tablet 09/01/16 09/07/16 09/06/16 Rx Apixaban [Eliquis] 2.5 mg PO Q12HR #60 tablet 09/01/16 09/07/16 09/01/16 Rx AtorvaSTATin [Lipitor] 20 mg PO QHS #30 tablet 09/01/16 09/07/16 09/06/16 Rx Clonidine HCl [Catapres] 0.3 mg PO TID #90 tablet 09/01/16 09/07/16 09/06/16 Rx Nebivolol HCl [Bystolic] 10 mg PO QDAY 09/07/16 09/07/16 09/06/16 History amLODIPine 10 mg PO BID 09/07/16 09/07/1617 History Review of Systems ROS: Stated complaint: NAUSEA/VOMITING X 3 DAYS Other details as noted in HPI Comment: All other systems reviewed and negative Constitutional: malaise Gastrointestinal: nausea. denies: abdominal pain, diarrhea Past History Past Medical History: atrial fib (on chronic anticoagulation), anemia (secondary to ESRD), diabetes, ESRD, hypertension, hyperlipidemia Past Surgical History: Other (PD catheter insertion) Social history: no significant social history Family history: no significant family history Medications and Allergies Allergies Allergy/AdvReac Type Severity Reaction Status Date / Time No Known Allergies Allergy Verified 05/23/16 22:42 Home Medications Medication Instructions Recorded Confirmed Last Taken Type Insulin Lispro Protamin/Lispro 20 units SQ QAM 08/24/16 03/12/19 09/06/16 History [HumaLOG Mix 75-25 Kwikpen] Insulin Lispro Protamin/Lispro 20 units SQ QPM 08/24/16 03/12/19 09/06/16 History [HumaLOG Mix 75-25 Kwikpen] Allopurinol [Zyloprim] 100 mg PO QDAY #30 tablet 09/01/16 03/12/19 09/06/16 Rx Apixaban [Eliquis] 2.5 mg PO Q12HR #60 tablet 09/01/16 03/12/19 09/01/16 Rx AtorvaSTATin [Lipitor] 20 mg PO QHS #30 tablet 09/01/16 03/12/19 09/06/16 Rx Clonidine HCl [Catapres] 0.3 mg PO TID #90 tablet 09/01/16 03/12/19 09/06/16 Rx Nebivolol HCl [Bystolic] 10 mg PO QDAY 09/07/16 03/12/19 09/06/16 History amLODIPine 10 mg PO BID 09/07/16 03/12/19 09/06/16 History Active Meds: Active Medications Allopurinol (Zyloprim) 100 mg PO QDAY RASHEEDA Amlodipine Besylate (Amlodipine) 10 mg PO DAILY RASHEEDA Apixaban (Eliquis) 2.5 mg PO Q12HR RASHEEDA; Protocol Atorvastatin Calcium (Lipitor) 20 mg PO QHS RASHEEDA Clonidine HCl (Catapres-Tts Patch) 0.3 mg TD Tucker RASHEEDA Last Admin: 03/12/19 19:01 Dose: 0.3 mg Documented by: Dextrose (D50w (25gm) Syringe) 50 ml IV Q30MIN PRN; Protocol PRN Reason: Hypoglycemia Hydralazine HCl (Apresoline) 10 mg IV Q4HR PRN PRN Reason: Blood Pressure Sodium Chloride (Nacl 0.9% 1000 Ml) 1,000 mls @ 60 mls/hr IV DIRECT RASHEEDA Last Admin: 03/12/19 23:53 Dose: 60 mls/hr Documented by: Insulin Human Lispro (Humalog) 0 unit SUB-Q ACHS RASHEEDA; Protocol Last Admin: 03/12/19 23:45 Dose: 6 unit Documented by: Metoprolol Succinate (Metoprolol Xl) 100 mg PO QDAY RASHEEDA Ondansetron HCl (Zofran) 4 mg IV Q8H PRN PRN Reason: Nausea And Vomiting Last Admin: 03/13/19 00:25 Dose: 4 mg Documented by: Exam - Constitutional Vitals: Temp Pulse Resp BP Pulse Ox 97.9 F 104 H 18 148/60 96 03/13/19 04:24 03/13/19 04:15 03/13/19 04:24 03/13/19 04:24 03/13/19 04:15 General appearance: Present: no acute distress, well-nourished - EENT Eyes: Present: PERRL ENT: hearing intact, clear oral mucosa - Neck Neck: Present: supple, normal ROM - Respiratory Respiratory effort: normal Respiratory: bilateral: CTA - Cardiovascular Heart rate: 78 Rhythm: regular Heart Sounds: Present: S1 & S2. Absent: rub, click - Extremities Extremities: no ischemia, pulses intact, pulses symmetrical, No edema Peripheral Pulses: within normal limits - Abdominal General gastrointestinal: Present: soft, non-tender, non-distended, normal bowel sounds Male genitourinary: Present: normal - Integumentary Integumentary: Present: clear, warm, dry - Musculoskeletal Musculoskeletal: gait normal, strength equal bilaterally - Psychiatric Psychiatric: appropriate mood/affect, intact judgment & insight - Neurologic Neurologic: CNII-XII intact, moves all extremities Results - Labs CBC & Chem 7: 03/12/19 13:41 03/12/19 13:41 Labs: Laboratory Last Values WBC 6.3 K/mm3 (4.5-11.0) 03/12/19 13:41 RBC 2.97 M/mm3 (3.65-5.03) L 03/12/19 13:41 Hgb 8.8 gm/dl (11.8-15.2) L 03/12/19 13:41 Hct 26.7 % (35.5-45.6) L 03/12/19 13:41 MCV 90 fl (84-94) 03/12/19 13:41 MCH 30 pg (28-32) 03/12/19 13:41 MCHC 33 % (32-34) 03/12/19 13:41 RDW 14.5 % (13.2-15.2) 03/12/19 13:41 Plt Count 178 K/mm3 (140-440) 03/12/19 13:41 Add Manual Diff Complete 03/12/19 13:41 Total Counted 100 03/12/19 13:41 Seg Neutrophils % Life Teacher 03/12/19 13:41 Seg Neuts % (Manual) 97.0 % (40.0-70.0) H 03/12/19 13:41 Band Neutrophils % 0 % 03/12/19 13:41 Lymphocytes % (Manual) 1.0 % (13.4-35.0) L 03/12/19 13:41 Reactive Lymphs % (Man) 0 % 03/12/19 13:41 Monocytes % (Manual) 1.0 % (0.0-7.3) 03/12/19 13:41 Eosinophils % (Manual) 0 % (0.0-4.3) 03/12/19 13:41 Basophils % (Manual) 1.0 % (0.0-1.8) 03/12/19 13:41 Metamyelocytes % 0 % 03/12/19 13:41 Myelocytes % 0 % 03/12/19 13:41 Promyelocytes % 0 % 03/12/19 13:41 Blast Cells % 0 % 03/12/19 13:41 Nucleated RBC % Not Reportable 03/12/19 13:41 Seg Neutrophils # Man 6.1 K/mm3 (1.8-7.7) 03/12/19 13:41 Band Neutrophils # 0.0 K/mm3 03/12/19 13:41 Lymphocytes # (Manual) 0.1 K/mm3 (1.2-5.4) L 03/12/19 13:41 Abs React Lymphs (Man) 0.0 K/mm3 03/12/19 13:41 Monocytes # (Manual) 0.1 K/mm3 (0.0-0.8) 03/12/19 13:41 Eosinophils # (Manual) 0.0 K/mm3 (0.0-0.4) 03/12/19 13:41 Basophils # (Manual) 0.1 K/mm3 (0.0-0.1) 03/12/19 13:41 Metamyelocytes # 0.0 K/mm3 03/12/19 13:41 Myelocytes # 0.0 K/mm3 03/12/19 13:41 Promyelocytes # 0.0 K/mm3 03/12/19 13:41 Blast Cells # 0.0 K/mm3 03/12/19 13:41 WBC Morphology Not Reportable 03/12/19 13:41 Hypersegmented Neuts Not Reportable 03/12/19 13:41 Hyposegmented Neuts Not Reportable 03/12/19 13:41 Hypogranular Neuts Not Reportable 03/12/19 13:41 Smudge Cells Not Reportable 03/12/19 13:41 Toxic Granulation Not Reportable 03/12/19 13:41 Toxic Vacuolation Not Reportable 03/12/19 13:41 Dohle Bodies Not Reportable 03/12/19 13:41 Pelger-Huet Anomaly Not Reportable 03/12/19 13:41 Ca Rods Not Reportable 03/12/19 13:41 Platelet Estimate Consistent w auto 03/12/19 13:41 Clumped Platelets Not Reportable 03/12/19 13:41 Plt Clumps, EDTA Not Reportable 03/12/19 13:41 Large Platelets Not Reportable 03/12/19 13:41 Giant Platelets Not Reportable 03/12/19 13:41 Platelet Satelliting Not Reportable 03/12/19 13:41 Plt Morphology Comment Not Reportable 03/12/19 13:41 RBC Morphology Normal 03/12/19 13:41 Dimorphic RBCs Not Reportable 03/12/19 13:41 Polychromasia Not Reportable 03/12/19 13:41 Hypochromasia Not Reportable 03/12/19 13:41 Poikilocytosis Not Reportable 03/12/19 13:41 Anisocytosis Not Reportable 03/12/19 13:41 Microcytosis Not Reportable 03/12/19 13:41 Macrocytosis Not Reportable 03/12/19 13:41 Spherocytes Not Reportable 03/12/19 13:41 Pappenheimer Bodies Not Reportable 03/12/19 13:41 Sickle Cells Not Reportable 03/12/19 13:41 Target Cells Not Reportable 03/12/19 13:41 Tear Drop Cells Not Reportable 03/12/19 13:41 Ovalocytes Not Reportable 03/12/19 13:41 Helmet Cells Not Reportable 03/12/19 13:41 [place] Bodies Not Reportable 03/12/19 13:41 [place] Rings Not Reportable 03/12/19 13:41 [place] Cells Not Reportable 03/12/19 13:41 Bite Cells Not Reportable 03/12/19 13:41 Crenated Cell Not Reportable 03/12/19 13:41 Elliptocytes Not Reportable 03/12/19 13:41 Acanthocytes (Spur) Not Reportable 03/12/19 13:41 Rouleaux Not Reportable 03/12/19 13:41 Hemoglobin C Crystals Not Reportable 03/12/19 13:41 Schistocytes Not Reportable 03/12/19 13:41 Malaria parasites Not Reportable 03/12/19 13:41 Mata Bodies Not Reportable 03/12/19 13:41 Hem Pathologist Commnt No 03/12/19 13:41 VBG pH 7.357 (7.320-7.420) 03/12/19 16:02 Sodium 143 mmol/L (137-145) 03/12/19 13:41 Potassium 2.7 mmol/L (3.6-5.0) L* 03/12/19 13:41 Chloride 114.3 mmol/L (98-107) H 03/12/19 13:41 Carbon Dioxide 13 mmol/L (22-30) L 03/12/19 13:41 Anion Gap 18 mmol/L 03/12/19 13:41 BUN 33 mg/dL (9-20) H 03/12/19 13:41 Creatinine 3.6 mg/dL (0.8-1.5) H 03/12/19 13:41 Estimated GFR 20 ml/min 03/12/19 13:41 BUN/Creatinine Ratio 9 % 03/12/19 13:41 Glucose 250 mg/dL (75-100) H 03/12/19 13:41 POC Glucose 320 (70-105) H 03/12/19 21:15 Hemoglobin A1c 5.5 % (4-6) 03/12/19 13:41 Calcium 5.7 mg/dL (8.4-10.2) L* 03/12/19 13:41 Total Bilirubin 0.30 mg/dL (0.1-1.2) 03/12/19 13:41 AST 12 units/L (5-40) 03/12/19 13:41 ALT 6 units/L (7-56) L 03/12/19 13:41 Alkaline Phosphatase 51 units/L (35-129) 03/12/19 13:41 Total Protein 4.9 g/dL (6.3-8.2) L 03/12/19 13:41 Albumin 2.4 g/dL (3.9-5) L 03/12/19 13:41 Albumin/Globulin Ratio 1.0 % 03/12/19 13:41 Lipase 7 units/L (13-60) L 03/12/19 13:41 Short CBC 03/12/19 Range/Units 13:41 WBC 6.3 (4.5-11.0) K/mm3 Hgb 8.8 L (11.8-15.2) gm/dl Hct 26.7 L (35.5-45.6) % Plt Count 178 (140-440) K/mm3 BMP 03/12/19 13:41 Sodium 143 Potassium 2.7 L* Chloride 114.3 H Carbon Dioxide 13 L BUN 33 H Creatinine 3.6 H Glucose 250 H Calcium 5.7 L* Liver Function 03/12/19 Range/Units 13:41 Total Bilirubin 0.30 (0.1-1.2) mg/dL AST 12 (5-40) units/L ALT 6 L (7-56) units/L Alkaline Phosphatase 51 (35-129) units/L Albumin 2.4 L (3.9-5) g/dL - Imaging and Cardiology Chest x-ray: report reviewed (NAF) Assessment and Plan Advance Directives: Yes (Full code) VTE prophylaxis?: Chemical Plan of care discussed with patient/family: Yes - Patient Problems (1) Acute gastritis Current Visit: Yes Status: Acute Qualifiers: Gastritis type: unspecified gastritis Gastritis bleeding: without bleeding Qualified Code(s): K29.00 - Acute gastritis without bleeding Plan to address problem: IV Zofran IV Protonix and Gentle Hydration (2) ESRD (end stage renal disease) on dialysis Current Visit: Yes Status: Chronic Plan to address problem: Cont Hemodialysis (3) Hypokalemia Current Visit: Yes Status: Acute Plan to address problem: Supplemented (4) IDDM (insulin dependent diabetes mellitus) Current Visit: Yes Status: Chronic Plan to address problem: COnt Coverage and Check A1c (5) HTN (hypertension) Current Visit: Yes Status: Chronic Qualifiers: Hypertension type: essential hypertension Qualified Code(s): I10 - Essential (primary) hypertension Plan to address problem: Cont Antihypertensives (6) DVT prophylaxis Current Visit: No Status: Acute Plan to address problem: ON Heparin
[2019-03-13 07:20] LABS: Calcium 9.2 mg/dL (8.4-10.2)
[2019-03-13] MEDS ORDERED: HYDROmorphone 1 MG/1 ML INJ IV PRN (07:22)
[2019-03-13] MEDS ORDERED: oxyCODONE /ACETAMINOPHEN 5-325MG TAB PO PRN (07:22)
[2019-03-13] MEDS ORDERED: ACETAMINOPHEN 325 MG TAB PO PRN (07:22)
[2019-03-13] MEDS ORDERED: NON-FORMULARY EACH (Clonidine Hcl [Catapres] 0.3 MG) PO SCH (08:00)
[2019-03-13] MEDS ORDERED: EPOETIN ALFA 10,000 UNIT/1 ML INJ IV PRN (08:39)
[2019-03-13] MEDS ORDERED: SODIUM CHLORIDE 0.9% 100 ML IV PRN (08:40)
--- NOTE | 2019-03-13 08:58 | Progress Note ---
Assessment and Plan Assessment and plan: 69yo male patient with stay off ESRD on HD MWF , diabetes mellitus , hypertension was admitted through emergency room with intractable nausea vomiting after eating at a restaurant. Patient feels slightly better today, uncontrolled blood sugars, end-stage renal disease on hemodialysis evaluated by nephrology, on HD per schedule MWF severe hypokalemia, replace per protocol. --Acute gastritis: Current Visit: Yes Status: Acute Protonix, antiemetics, IV fluids Supportive care, GI evaluation if no improvement -- Severe Hypokalemia: 2.7 Current Visit: Yes Status: Acute . Replenish per protocol monitor level -- IDDM (insulin dependent diabetes mellitus) Current Visit: Yes Status: Chronic Uncontrolled , Accu-Chek sliding scale coverage ADA diet NovoLog [id number], 10 units twice a day , increase the dose as needed Check A1c -- HTN (hypertension). Current Visit: Yes Status: Chronic Cont Antihypertensives,PRN meds. --Severe Malnutrition/Hypoalbuminemia Current Visit: Yes Status: Chronic Nutrition Supplements and supportive care --DVT prophylaxis Current Visit: No Status: Acute ON Heparin Monitor clinically and adjust the management as needed Disposition; possible discharge tomorrow if stable History Interval history: Patient seen and examined medical records reviewed Medical records reviewed, patient complains of nausea vomiting Generalized weakness Vital signs reviewed Hospitalist Physical - Constitutional Vitals: Temp Pulse Resp BP Pulse Ox 98.8 F 111 H 18 153/67 94 03/13/19 07:41 03/13/19 07:41 03/13/19 07:41 03/13/19 07:41 03/13/19 07:41 General appearance: Present: no acute distress, well-nourished - EENT Eyes: Present: PERRL, EOM intact - Neck Neck: Present: supple, normal ROM - Respiratory Respiratory effort: normal Respiratory: bilateral: diminished, negative: rales, rhonchi, wheezing - Cardiovascular Rhythm: regular Heart Sounds: Present: S1 & S2 - Extremities Extremities: no ischemia, No edema - Abdominal General gastrointestinal: soft, non-tender, non-distended, normal bowel sounds - Integumentary Integumentary: Present: clear, warm - Psychiatric Psychiatric: appropriate mood/affect, cooperative - Neurologic Neurologic: CNII-XII intact, moves all extremities Results - Labs CBC & Chem 7: 03/12/19 13:41 03/13/19 06:15 Labs: Laboratory Last Values WBC 6.3 K/mm3 (4.5-11.0) 03/12/19 13:41 RBC 2.97 M/mm3 (3.65-5.03) L 03/12/19 13:41 Hgb 8.8 gm/dl (11.8-15.2) L 03/12/19 13:41 Hct 26.7 % (35.5-45.6) L 03/12/19 13:41 MCV 90 fl (84-94) 03/12/19 13:41 MCH 30 pg (28-32) 03/12/19 13:41 MCHC 33 % (32-34) 03/12/19 13:41 RDW 14.5 % (13.2-15.2) 03/12/19 13:41 Plt Count 178 K/mm3 (140-440) 03/12/19 13:41 Add Manual Diff Complete 03/12/19 13:41 Total Counted 100 03/12/19 13:41 Seg Neutrophils % Imaging Engineer 03/12/19 13:41 Seg Neuts % (Manual) 97.0 % (40.0-70.0) H 03/12/19 13:41 Band Neutrophils % 0 % 03/12/19 13:41 Lymphocytes % (Manual) 1.0 % (13.4-35.0) L 03/12/19 13:41 Reactive Lymphs % (Man) 0 % 03/12/19 13:41 Monocytes % (Manual) 1.0 % (0.0-7.3) 03/12/19 13:41 Eosinophils % (Manual) 0 % (0.0-4.3) 03/12/19 13:41 Basophils % (Manual) 1.0 % (0.0-1.8) 03/12/19 13:41 Metamyelocytes % 0 % 03/12/19 13:41 Myelocytes % 0 % 03/12/19 13:41 Promyelocytes % 0 % 03/12/19 13:41 Blast Cells % 0 % 03/12/19 13:41 Nucleated RBC % Not Reportable 03/12/19 13:41 Seg Neutrophils # Man 6.1 K/mm3 (1.8-7.7) 03/12/19 13:41 Band Neutrophils # 0.0 K/mm3 03/12/19 13:41 Lymphocytes # (Manual) 0.1 K/mm3 (1.2-5.4) L 03/12/19 13:41 Abs React Lymphs (Man) 0.0 K/mm3 03/12/19 13:41 Monocytes # (Manual) 0.1 K/mm3 (0.0-0.8) 03/12/19 13:41 Eosinophils # (Manual) 0.0 K/mm3 (0.0-0.4) 03/12/19 13:41 Basophils # (Manual) 0.1 K/mm3 (0.0-0.1) 03/12/19 13:41 Metamyelocytes # 0.0 K/mm3 03/12/19 13:41 Myelocytes # 0.0 K/mm3 03/12/19 13:41 Promyelocytes # 0.0 K/mm3 03/12/19 13:41 Blast Cells # 0.0 K/mm3 03/12/19 13:41 WBC Morphology Not Reportable 03/12/19 13:41 Hypersegmented Neuts Not Reportable 03/12/19 13:41 Hyposegmented Neuts Not Reportable 03/12/19 13:41 Hypogranular Neuts Not Reportable 03/12/19 13:41 Smudge Cells Not Reportable 03/12/19 13:41 Toxic Granulation Not Reportable 03/12/19 13:41 Toxic Vacuolation Not Reportable 03/12/19 13:41 Dohle Bodies Not Reportable 03/12/19 13:41 Pelger-Huet Anomaly Not Reportable 03/12/19 13:41 Ca Rods Not Reportable 03/12/19 13:41 Platelet Estimate Consistent w auto 03/12/19 13:41 Clumped Platelets Not Reportable 03/12/19 13:41 Plt Clumps, EDTA Not Reportable 03/12/19 13:41 Large Platelets Not Reportable 03/12/19 13:41 Giant Platelets Not Reportable 03/12/19 13:41 Platelet Satelliting Not Reportable 03/12/19 13:41 Plt Morphology Comment Not Reportable 03/12/19 13:41 RBC Morphology Normal 03/12/19 13:41 Dimorphic RBCs Not Reportable 03/12/19 13:41 Polychromasia Not Reportable 03/12/19 13:41 Hypochromasia Not Reportable 03/12/19 13:41 Poikilocytosis Not Reportable 03/12/19 13:41 Anisocytosis Not Reportable 03/12/19 13:41 Microcytosis Not Reportable 03/12/19 13:41 Macrocytosis Not Reportable 03/12/19 13:41 Spherocytes Not Reportable 03/12/19 13:41 Pappenheimer Bodies Not Reportable 03/12/19 13:41 Sickle Cells Not Reportable 03/12/19 13:41 Target Cells Not Reportable 03/12/19 13:41 Tear Drop Cells Not Reportable 03/12/19 13:41 Ovalocytes Not Reportable 03/12/19 13:41 Helmet Cells Not Reportable 03/12/19 13:41 [place] Bodies Not Reportable 03/12/19 13:41 [place] Rings Not Reportable 03/12/19 13:41 [place] Cells Not Reportable 03/12/19 13:41 Bite Cells Not Reportable 03/12/19 13:41 Crenated Cell Not Reportable 03/12/19 13:41 Elliptocytes Not Reportable 03/12/19 13:41 Acanthocytes (Spur) Not Reportable 03/12/19 13:41 Rouleaux Not Reportable 03/12/19 13:41 Hemoglobin C Crystals Not Reportable 03/12/19 13:41 Schistocytes Not Reportable 03/12/19 13:41 Malaria parasites Not Reportable 03/12/19 13:41 Mata Bodies Not Reportable 03/12/19 13:41 Hem Pathologist Commnt No 03/12/19 13:41 VBG pH 7.357 (7.320-7.420) 03/12/19 16:02 Sodium 143 mmol/L (137-145) 03/13/19 06:15 Potassium 4.4 mmol/L (3.6-5.0) D 03/13/19 06:15 Chloride 106.0 mmol/L (98-107) 03/13/19 06:15 Carbon Dioxide 19 mmol/L (22-30) L 03/13/19 06:15 Anion Gap 22 mmol/L 03/13/19 06:15 BUN 55 mg/dL (9-20) H 03/13/19 06:15 Creatinine 5.6 mg/dL (0.8-1.5) H D 03/13/19 06:15 Estimated GFR 12 ml/min 03/13/19 06:15 BUN/Creatinine Ratio 10 % 03/13/19 06:15 Glucose 204 mg/dL (75-100) H 03/13/19 06:15 POC Glucose 227 (70-105) H 03/13/19 08:17 Hemoglobin A1c 5.5 % (4-6) 03/12/19 13:41 Calcium 9.2 mg/dL (8.4-10.2) D 03/13/19 06:15 Total Bilirubin 0.30 mg/dL (0.1-1.2) 03/12/19 13:41 AST 12 units/L (5-40) 03/12/19 13:41 ALT 6 units/L (7-56) L 03/12/19 13:41 Alkaline Phosphatase 51 units/L (35-129) 03/12/19 13:41 Total Protein 4.9 g/dL (6.3-8.2) L 03/12/19 13:41 Albumin 2.4 g/dL (3.9-5) L 03/12/19 13:41 Albumin/Globulin Ratio 1.0 % 03/12/19 13:41 Lipase 7 units/L (13-60) L 03/12/19 13:41 Active Medications - Current Medications Current Medications: Generic Name Dose Route Start Last Admin Trade Name Freq PRN Reason Stop Dose Admin Acetaminophen 650 mg 03/13/19 07:22 Tylenol PO Q4H PRN Pain MILD(1-3)/Fever >100.5/CHOU Allopurinol 100 mg 03/13/19 10:00 Zyloprim PO QDAY RASHEEDA Amlodipine Besylate 10 mg 03/13/19 10:00 Amlodipine PO DAILY RASHEEDA Apixaban 2.5 mg 03/13/19 10:00 Eliquis PO Q12HR RASHEEDA Protocol Atorvastatin Calcium 20 mg 03/13/19 22:00 Lipitor PO QHS RASHEEDA Clonidine HCl 0.3 mg 03/12/19 19:00 03/12/19 19:01 Catapres-Tts Patch TD 0.3 mg Tucker RASHEEDA Administration Dextrose 50 ml 03/12/19 23:06 D50w (25gm) Syringe IV Q30MIN PRN Hypoglycemia Protocol Epoetin David 600 unit 03/13/19 08:39 Procrit IV UMA PRN hemodialysis Heparin Sodium (Porcine) 5,000 unit 03/13/19 10:00 Heparin SUB-Q Q12HR [facility] Hydralazine HCl 10 mg 03/12/19 23:11 Apresoline IV Q4HR PRN Blood Pressure Hydromorphone HCl 0.5 mg 03/13/19 07:22 Dilaudid IV Q3H PRN Pain , Severe (7-10) Sodium Chloride 1,000 mls @ 60 mls/hr 03/12/19 18:00 03/12/19 23:53 Nacl 0.9% 1000 Ml IV 60 mls/hr DIRECT RASHEEDA Administration Sodium Chloride 100 mls @ 999 mls/hr 03/13/19 08:40 Nacl 0.9% IV UMA PRN Hypotension Insulin Human Lispro 0 unit 03/12/19 23:45 03/12/19 23:45 Humalog SUB-Q 6 unit ACHS [facility] Administration Protocol Metoprolol Succinate 100 mg 03/13/19 10:00 Metoprolol Xl PO QDAY [facility] Ondansetron HCl 4 mg 03/13/19 07:22 Zofran IV Q8H PRN Nausea And Vomiting Oxycodone/Acetaminophen 1 tab 03/13/19 07:22 Percocet 5/325 PO Q6H PRN Pain, Moderate (4-6) Sodium Chloride 10 ml 03/13/19 10:00 Sodium Chloride Flush Syringe 10 Ml IV BID RASHEEDA Sodium Chloride 10 ml 03/13/19 07:22 Sodium Chloride Flush Syringe 10 Ml IV PRN PRN LINE FLUSH
[2019-03-13] MEDS: INSULIN LISPRO 100 UNIT/ML SUB-Q SCH ×4 (09:00→22:29)
[2019-03-13] MEDS: amLODIPine 10 MG TAB PO SCH (09:03)
[2019-03-13] MEDS: APIXABAN 2.5 MG TAB PO SCH ×2 (09:03→22:29)
[2019-03-13] MEDS: allopurinoL 100 MG TAB PO SCH (09:03)
[2019-03-13] MEDS: METOPROLOL SUCCINATE XL 100 MG TAB PO SCH (09:04)
[2019-03-13] MEDS ORDERED: NEBIVOLOL HCL 10 MG PO SCH (10:00)
[2019-03-13] MEDS ORDERED: HEPARIN 5,000 UNIT/1 ML VIAL SUB-Q SCH (10:00)
[2019-03-13] MEDS ORDERED: amLODIPine 5 MG TAB PO SCH (10:00)
--- NOTE | 2019-03-13 10:13 | Progress Note ---
Assessment and Plan Impression: * End stage renal disease on HD MWF * Intractable nausea/vomiting, improved/resolved * Accelerated hypertension * Atrial fibrillation on chronic anticoagulation * Type II DM * Anemia secondary to ESRD * Secondary hyperparathyroidism Plan: * Resume HD MWF today, UF as tolerated * BP at goal, continue current regimen * No evidence of peritonitis; however, ideally would like to have PD catheter removed this hospitalization if possible. Consider general surgery consult if able * Epogen TIW prn * Avoidance of fast food seafood Thank you for this consult; we will continue to follow for renal-related issues. Subjective Date of service: 03/13/19 Principal diagnosis: GI distress Interval history: No acute events noted overnight. Vomiting has improved; states that he is unlikely to eat [employer] again. Tolerating breakfast this AM. Objective - Exam Narrative Exam: General appearance: well-developed, well-nourished EENT: ATNC Respiratory: Clear to Auscultation Heart: regular, S1S2 Gastrointestinal: Present: normal. No tenderness, distension Integumentary: no rash, cool/clammy Neurologic: no focal deficit, alert and oriented x3 Musculoskeletal: Present: other (no edema) Psychiatric: cooperative - Vital Signs Vital signs: Vital Signs - 12hr 03/12/19 03/13/19 03/13/19 23:58 00:15 04:15 Temperature Pulse Rate 99 H 104 H Pulse Rate [ 104 H Apical] Pulse Rate [ 104 H Left Radial] Pulse Rate [ 104 H Right Radial] Respiratory 18 Rate Blood Pressure 153/81 O2 Sat by Pulse 96 Oximetry 03/13/19 03/13/19 03/13/19 04:24 07:41 09:03 Temperature 97.9 F 98.8 F Pulse Rate 111 H 118 H Pulse Rate [ Apical] Pulse Rate [ Left Radial] Pulse Rate [ Right Radial] Respiratory 18 18 Rate Blood Pressure 148/60 153/67 153/67 O2 Sat by Pulse 94 Oximetry 03/13/19 09:04 Temperature Pulse Rate 118 H Pulse Rate [ Apical] Pulse Rate [ Left Radial] Pulse Rate [ Right Radial] Respiratory Rate Blood Pressure 153/67 O2 Sat by Pulse Oximetry - Lab 03/12/19 13:41 03/13/19 06:15 Most recent lab results Calcium 9.2 mg/dL (8.4-10.2) D 03/13/19 06:15 Medications & Allergies - Medications Allergies/Adverse Reactions: Allergies No Known Allergies Allergy (Verified 05/23/16 22:42) Home Medications: Home Medications Medication Instructions Recorded Confirmed Last Taken Type Insulin Lispro Protamin/Lispro 20 units SQ QAM 08/24/16 03/12/19 09/06/16 History [HumaLOG Mix 75-25 Kwikpen] Insulin Lispro Protamin/Lispro 20 units SQ QPM 08/24/16 03/12/19 09/06/16 History [HumaLOG Mix 75-25 Kwikpen] Allopurinol [Zyloprim] 100 mg PO QDAY #30 tablet 09/01/16 03/12/19 09/06/16 Rx Apixaban [Eliquis] 2.5 mg PO Q12HR #60 tablet 09/01/16 03/12/19 09/01/16 Rx AtorvaSTATin [Lipitor] 20 mg PO QHS #30 tablet 09/01/16 03/12/19 09/06/16 Rx Clonidine HCl [Catapres] 0.3 mg PO TID #90 tablet 09/01/16 03/12/19 09/06/16 Rx Nebivolol HCl [Bystolic] 10 mg PO QDAY 09/07/16 03/12/19 09/06/16 History amLODIPine 10 mg PO BID 09/07/16 03/12/19 09/06/16 History Active Medications: Generic Name Dose Route Start Last Admin Trade Name Freq PRN Reason Stop Dose Admin Acetaminophen 650 mg 03/13/19 07:22 Tylenol PO Q4H PRN Pain MILD(1-3)/Fever >100.5/CHOU Allopurinol 100 mg 03/13/19 10:00 03/13/19 09:03 Zyloprim PO 100 mg QDAY RASHEEDA Administration Amlodipine Besylate 10 mg 03/13/19 10:00 03/13/19 09:03 Amlodipine PO 10 mg DAILY RASHEEDA Administration Apixaban 2.5 mg 03/13/19 10:00 03/13/19 09:03 Eliquis PO 2.5 mg Q12HR RASHEEDA Administration Protocol Atorvastatin Calcium 20 mg 03/13/19 22:00 Lipitor PO QHS RASHEEDA Clonidine HCl 0.3 mg 03/12/19 19:00 03/12/19 19:01 Catapres-Tts Patch TD 0.3 mg Tucker RASHEEDA Administration Dextrose 50 ml 03/12/19 23:06 D50w (25gm) Syringe IV Q30MIN PRN Hypoglycemia Protocol Epoetin David 600 unit 03/13/19 08:39 Procrit IV UMA PRN hemodialysis Hydralazine HCl 10 mg 03/12/19 23:11 Apresoline IV Q4HR PRN Blood Pressure Hydromorphone HCl 0.5 mg 03/13/19 07:22 Dilaudid IV Q3H PRN Pain , Severe (7-10) Sodium Chloride 1,000 mls @ 60 mls/hr 03/12/19 18:00 03/12/19 23:53 Nacl 0.9% 1000 Ml IV 60 mls/hr DIRECT RASHEEDA Administration Sodium Chloride 100 mls @ 999 mls/hr 03/13/19 08:40 Nacl 0.9% IV UMA PRN Hypotension Insulin Human Lispro 0 unit 03/12/19 23:45 03/13/19 09:00 Humalog SUB-Q 3 unit ACHS RASHEEDA Administration Protocol Metoprolol Succinate 100 mg 03/13/19 10:00 03/13/19 09:04 Metoprolol Xl PO 100 mg QDAY RASHEEDA Administration Ondansetron HCl 4 mg 03/13/19 07:22 Zofran IV Q8H PRN Nausea And Vomiting Oxycodone/Acetaminophen 1 tab 03/13/19 07:22 Percocet 5/325 PO Q6H PRN Pain, Moderate (4-6) Sodium Chloride 10 ml 03/13/19 10:00 03/13/19 09:04 Sodium Chloride Flush Syringe 10 Ml IV 10 ml BID RASHEEDA Administration Sodium Chloride 10 ml 03/13/19 07:22 Sodium Chloride Flush Syringe 10 Ml IV PRN PRN LINE FLUSH
[2019-03-13 12:36] LABS: Hepatitis B Surface Antigen Non-Reactive (Negative); Hepatitis C Virus Antibody Non-Reactive (NonReactive)
[2019-03-13] MEDS ORDERED: INSULIN NPH/REGULAR 70/30 INJ SUB-Q ONE ×2 (13:30→18:44)
[2019-03-13] MEDS: EPOETIN ALFA 10,000 UNIT/1 ML INJ IV PRN (15:56)
[2019-03-13] MEDS ORDERED: SODIUM CHLORIDE*PRIMING MACHINE ONLY FOR DIALYSIS MC ONE (16:24)
[2019-03-13] MEDS ORDERED: INSULIN NPH/REGULAR 70/30 INJ SUB-Q SCH (17:00)
[2019-03-13] MEDS: SODIUM CHLORIDE 0.9% 1000 ML 1,000 ML IV SCH (22:34)
[2019-03-14 06:56] LABS: Basophils % (Auto) 0.3 % (0.0-1.8); Eosinophils % (Auto) 0.1 % (0.0-4.3); Hematocrit 38.2 % (35.5-45.6); Hemoglobin 12.2 gm/dl (11.8-15.2); Lymphocytes # (Auto) 1.2 K/mm3 (1.2-5.4); Lymphocytes % (Auto) 8.6 % (13.4-35.0); Mean Corpuscular HGB Conc 32 % (32-34); Mean Corpuscular Volume 91 fl (84-94); Monocytes # (Auto) 0.9 K/mm3 (0.0-0.8); Monocytes % (Auto) 6.3 % (0.0-7.3); Platelet Count 278 K/mm3 (140-440); Red Blood Count 4.21 M/mm3 (3.65-5.03); Red Cell Distribution Width 15.2 % (13.2-15.2)
[2019-03-14] MEDS: INSULIN LISPRO 100 UNIT/ML SUB-Q SCH ×4 (08:55→16:24)
[2019-03-14] MEDS: INSULIN NPH/REGULAR 70/30 INJ SUB-Q SCH ×2 (08:56→18:32)
[2019-03-14] MEDS: amLODIPine 10 MG TAB PO SCH (09:00)
[2019-03-14] MEDS: APIXABAN 2.5 MG TAB PO SCH (09:00)
[2019-03-14] MEDS: METOPROLOL SUCCINATE XL 100 MG TAB PO SCH (09:00)
[2019-03-14] MEDS: allopurinoL 100 MG TAB PO SCH (09:01)
--- NOTE | 2019-03-14 10:15 | Progress Note ---
Assessment and Plan Impression: * End stage renal disease on HD MWF * Intractable nausea/vomiting, improved/resolved * Accelerated hypertension * Atrial fibrillation on chronic anticoagulation * Type II DM * Anemia secondary to ESRD * Secondary hyperparathyroidism Plan: * Continue HD MWF, due tomorrow * UF as tolerated * BP at goal, continue current regimen * No evidence of peritonitis; however, ideally would like to have PD catheter removed this hospitalization if possible. Consider general surgery consult if able * Epogen TIW prn * Avoidance of fast food seafood Thank you for this consult; we will continue to follow for renal-related issues. Subjective Date of service: 03/14/19 Principal diagnosis: GI distress Interval history: No acute events noted overnight. Tolerating breakfast this AM. Notes improved GI symptoms but not back to normal yet. No dyspnea, no edema. Tolerated HD well yesterday without any issues. Objective - Exam Narrative Exam: General appearance: well-developed, well-nourished EENT: ATNC Respiratory: Clear to Auscultation Heart: regular, S1S2 Gastrointestinal: Present: normal. No tenderness, distension Integumentary: no rash Neurologic: no focal deficit, alert and oriented x3 Musculoskeletal: Present: other (no edema) Psychiatric: cooperative - Vital Signs Vital signs: Vital Signs - 12hr 03/13/19 03/14/19 03/14/19 22:22 00:07 04:56 Temperature 98.2 F 98.1 F Pulse Rate 118 H 129 H Respiratory 18 20 18 Rate Blood Pressure 147/82 152/76 O2 Sat by Pulse 96 95 93 Oximetry 03/14/19 03/14/19 03/14/19 05:01 05:03 07:15 Temperature 97.5 F L 97.5 F L 98.2 F Pulse Rate 86 Respiratory 18 20 18 Rate Blood Pressure 123/102 142/73 O2 Sat by Pulse 97 Oximetry 03/14/19 09:00 Temperature Pulse Rate 130 H Respiratory Rate Blood Pressure 142/73 O2 Sat by Pulse Oximetry - Lab 03/14/19 06:01 03/13/19 06:15 Most recent lab results Calcium 9.2 mg/dL (8.4-10.2) D 03/13/19 06:15 Magnesium 1.90 mg/dL (1.7-2.3) 03/13/19 09:16 Medications & Allergies - Medications Allergies/Adverse Reactions: Allergies No Known Allergies Allergy (Verified 05/23/16 22:42) Home Medications: Home Medications Medication Instructions Recorded Confirmed Last Taken Type Insulin Lispro Protamin/Lispro 20 units SQ QAM 08/24/16 03/12/19 09/06/16 History [HumaLOG Mix 75-25 Kwikpen] Insulin Lispro Protamin/Lispro 20 units SQ QPM 08/24/16 03/12/19 09/06/16 History [HumaLOG Mix 75-25 Kwikpen] Allopurinol [Zyloprim] 100 mg PO QDAY #30 tablet 09/01/16 03/12/19 09/06/16 Rx Apixaban [Eliquis] 2.5 mg PO Q12HR #60 tablet 09/01/16 03/12/19 09/01/16 Rx AtorvaSTATin [Lipitor] 20 mg PO QHS #30 tablet 09/01/16 03/12/19 09/06/16 Rx Clonidine HCl [Catapres] 0.3 mg PO TID #90 tablet 09/01/16 03/12/19 09/06/16 Rx Nebivolol HCl [Bystolic] 10 mg PO QDAY 09/07/16 03/12/19 09/06/16 History amLODIPine 10 mg PO BID 09/07/16 03/12/19 09/06/16 History Active Medications: Generic Name Dose Route Start Last Admin Trade Name Freq PRN Reason Stop Dose Admin Acetaminophen 650 mg 03/13/19 07:22 03/14/19 00:50 Tylenol PO 650 mg Q4H PRN Administration Pain MILD(1-3)/Fever >100.5/CHOU Allopurinol 100 mg 03/13/19 10:00 03/14/19 09:01 Zyloprim PO 100 mg QDAY RASHEEDA Administration Amlodipine Besylate 10 mg 03/13/19 10:00 03/14/19 09:00 Amlodipine PO 10 mg DAILY RASHEEDA Administration Apixaban 2.5 mg 03/13/19 10:00 03/14/19 09:00 Eliquis PO 2.5 mg Q12HR RASHEEDA Administration Protocol Atorvastatin Calcium 20 mg 03/13/19 22:00 03/13/19 22:29 Lipitor PO 20 mg QHS RASHEEDA Administration Clonidine HCl 0.3 mg 03/12/19 19:00 03/12/19 19:01 Catapres-Tts Patch TD 0.3 mg Tucker RASHEEDA Administration Dextrose 50 ml 03/12/19 23:06 D50w (25gm) Syringe IV Q30MIN PRN Hypoglycemia Protocol Epoetin David 6,000 unit 03/13/19 10:30 03/13/19 15:56 Procrit IV 6,000 unit UMA PRN Administration hemodialysis Hydralazine HCl 10 mg 03/12/19 23:11 Apresoline IV Q4HR PRN Blood Pressure Hydromorphone HCl 0.5 mg 03/13/19 07:22 Dilaudid IV Q3H PRN Pain , Severe (7-10) Sodium Chloride 1,000 mls @ 60 mls/hr 03/12/19 18:00 03/13/19 22:34 Nacl 0.9% 1000 Ml IV 60 mls/hr DIRECT RASHEEDA Administration Sodium Chloride 100 mls @ 999 mls/hr 03/13/19 08:40 Nacl 0.9% IV UMA PRN Hypotension Insulin Human Isoph/Insulin Regular 20 unit 03/14/19 08:00 03/14/19 08:56 Humulin 70/30 SUB-Q 20 unit BIDDIAB RASHEEDA Administration Insulin Human Lispro 0 unit 03/12/19 23:45 03/14/19 08:55 Humalog SUB-Q 2 unit ACHS RASHEEDA Administration Protocol Metoprolol Succinate 100 mg 03/13/19 10:00 03/14/19 09:00 Metoprolol Xl PO 100 mg QDAY RASHEEDA Administration Ondansetron HCl 4 mg 03/13/19 07:22 Zofran IV Q8H PRN Nausea And Vomiting Oxycodone/Acetaminophen 1 tab 03/13/19 07:22 Percocet 5/325 PO Q6H PRN Pain, Moderate (4-6) Sodium Chloride 10 ml 03/13/19 10:00 03/14/19 09:01 Sodium Chloride Flush Syringe 10 Ml IV 10 ml BID RASHEEDA Administration Sodium Chloride 10 ml 03/13/19 07:22 Sodium Chloride Flush Syringe 10 Ml IV PRN PRN LINE FLUSH
--- NOTE | 2019-03-14 13:24 | Progress Note ---
Assessment and Plan Assessment and plan: 69yo male patient with stay off ESRD on HD MWF , diabetes mellitus , hypertension was admitted through emergency room with intractable nausea vomiting after eating at a restaurant. Patient feels slightly better today, uncontrolled blood sugars, end-stage renal disease on hemodialysis evaluated by nephrology, on HD per schedule MWF severe hypokalemia, replace per protocol. --Acute gastritis: Current Visit: Yes Status: Acute Protonix, antiemetics, IV fluids Supportive care, GI evaluation if no improvement -- Severe Hypokalemia: 2.7 Current Visit: Yes Status: Acute . Replenish per protocol monitor level -- IDDM (insulin dependent diabetes mellitus) Current Visit: Yes Status: Chronic Uncontrolled , Accu-Chek sliding scale coverage ADA diet NovoLog 7030, 10 units twice a day , increase the dose as needed Check A1c -- HTN (hypertension). Current Visit: Yes Status: Chronic Cont Antihypertensives,PRN meds. --Severe Malnutrition/Hypoalbuminemia Current Visit: Yes Status: Chronic Nutrition Supplements and supportive care --Afib with RVR CARDIOLOGY CONSULTED CONTINUE METOPROLOL obtain echo if non done yet --PD catheter Patient is on Eliquis precluding removal, will start on heparin drip and stop Eliquis, and if ok can be removed on Wednesday DVT prophylaxis Current Visit: No Status: Acute ON Heparin Monitor clinically and adjust the management as needed Disposition; possible discharge tomorrow if stable History Interval history: Patient seen and examined, reports tremor and lethargic, but no further nausea or vomiting noted Hospitalist Physical - Physical exam Narrative exam: General appearance: Present: no acute distress, well-nourished - EENT Eyes: Present: PERRL, EOM intact - Neck Neck: Present: supple, normal ROM - Respiratory Respiratory effort: normal Respiratory: bilateral: diminished, negative: rales, rhonchi, wheezing - Cardiovascular Rhythm: irregularly irregular Heart Sounds: Present: S1 & S2 - Extremities Extremities: no ischemia, No edema - Abdominal General gastrointestinal: soft, non-tender, non-distended, normal bowel sounds - Integumentary Integumentary: Present: clear, warm - Psychiatric Psychiatric: appropriate mood/affect, cooperative - Neurologic Neurologic: CNII-XII intact, moves all extremities Results - Constitutional Vitals: Temp Pulse Resp BP Pulse Ox 98.2 F 130 H 18 142/73 97 03/14/19 07:15 03/14/19 09:00 03/14/19 07:15 03/14/19 09:00 03/14/19 05:01 General appearance: Present: no acute distress, well-nourished Results - Labs CBC & Chem 7: 03/14/19 13:40 03/13/19 06:15 Labs: Laboratory Last Values WBC 14.5 K/mm3 (4.5-11.0) H 03/14/19 06:01 RBC 4.21 M/mm3 (3.65-5.03) 03/14/19 06:01 Hgb 12.2 gm/dl (11.8-15.2) D 03/14/19 06:01 Hct 38.2 % (35.5-45.6) D 03/14/19 06:01 MCV 91 fl (84-94) 03/14/19 06:01 MCH 29 pg (28-32) 03/14/19 06:01 MCHC 32 % (32-34) 03/14/19 06:01 RDW 15.2 % (13.2-15.2) 03/14/19 06:01 Plt Count 278 K/mm3 (140-440) 03/14/19 06:01 Lymph % (Auto) 8.6 % (13.4-35.0) L 03/14/19 06:01 [place] % (Auto) 6.3 % (0.0-7.3) 03/14/19 06:01 Eos % (Auto) 0.1 % (0.0-4.3) 03/14/19 06:01 Baso % (Auto) 0.3 % (0.0-1.8) 03/14/19 06:01 Lymph # 1.2 K/mm3 (1.2-5.4) 03/14/19 06:01 [place] # 0.9 K/mm3 (0.0-0.8) H 03/14/19 06:01 Eos # 0.0 K/mm3 (0.0-0.4) 03/14/19 06:01 Baso # 0.0 K/mm3 (0.0-0.1) 03/14/19 06:01 Add Manual Diff Complete 03/12/19 13:41 Total Counted 100 03/12/19 13:41 Seg Neutrophils % 84.7 % (40.0-70.0) H 03/14/19 06:01 Seg Neuts % (Manual) 97.0 % (40.0-70.0) H 03/12/19 13:41 Band Neutrophils % 0 % 03/12/19 13:41 Lymphocytes % (Manual) 1.0 % (13.4-35.0) L 03/12/19 13:41 Reactive Lymphs % (Man) 0 % 03/12/19 13:41 Monocytes % (Manual) 1.0 % (0.0-7.3) 03/12/19 13:41 Eosinophils % (Manual) 0 % (0.0-4.3) 03/12/19 13:41 Basophils % (Manual) 1.0 % (0.0-1.8) 03/12/19 13:41 Metamyelocytes % 0 % 03/12/19 13:41 Myelocytes % 0 % 03/12/19 13:41 Promyelocytes % 0 % 03/12/19 13:41 Blast Cells % 0 % 03/12/19 13:41 Nucleated RBC % Not Reportable 03/12/19 13:41 Seg Neutrophils # 12.3 K/mm3 (1.8-7.7) H 03/14/19 06:01 Seg Neutrophils # Man 6.1 K/mm3 (1.8-7.7) 03/12/19 13:41 Band Neutrophils # 0.0 K/mm3 03/12/19 13:41 Lymphocytes # (Manual) 0.1 K/mm3 (1.2-5.4) L 03/12/19 13:41 Abs React Lymphs (Man) 0.0 K/mm3 03/12/19 13:41 Monocytes # (Manual) 0.1 K/mm3 (0.0-0.8) 03/12/19 13:41 Eosinophils # (Manual) 0.0 K/mm3 (0.0-0.4) 03/12/19 13:41 Basophils # (Manual) 0.1 K/mm3 (0.0-0.1) 03/12/19 13:41 Metamyelocytes # 0.0 K/mm3 03/12/19 13:41 Myelocytes # 0.0 K/mm3 03/12/19 13:41 Promyelocytes # 0.0 K/mm3 03/12/19 13:41 Blast Cells # 0.0 K/mm3 03/12/19 13:41 WBC Morphology Not Reportable 03/12/19 13:41 Hypersegmented Neuts Not Reportable 03/12/19 13:41 Hyposegmented Neuts Not Reportable 03/12/19 13:41 Hypogranular Neuts Not Reportable 03/12/19 13:41 Smudge Cells Not Reportable 03/12/19 13:41 Toxic Granulation Not Reportable 03/12/19 13:41 Toxic Vacuolation Not Reportable 03/12/19 13:41 Dohle Bodies Not Reportable 03/12/19 13:41 Pelger-Huet Anomaly Not Reportable 03/12/19 13:41 Ca Rods Not Reportable 03/12/19 13:41 Platelet Estimate Consistent w auto 03/12/19 13:41 Clumped Platelets Not Reportable 03/12/19 13:41 Plt Clumps, EDTA Not Reportable 03/12/19 13:41 Large Platelets Not Reportable 03/12/19 13:41 Giant Platelets Not Reportable 03/12/19 13:41 Platelet Satelliting Not Reportable 03/12/19 13:41 Plt Morphology Comment Not Reportable 03/12/19 13:41 RBC Morphology Normal 03/12/19 13:41 Dimorphic RBCs Not Reportable 03/12/19 13:41 Polychromasia Not Reportable 03/12/19 13:41 Hypochromasia Not Reportable 03/12/19 13:41 Poikilocytosis Not Reportable 03/12/19 13:41 Anisocytosis Not Reportable 03/12/19 13:41 Microcytosis Not Reportable 03/12/19 13:41 Macrocytosis Not Reportable 03/12/19 13:41 Spherocytes Not Reportable 03/12/19 13:41 Pappenheimer Bodies Not Reportable 03/12/19 13:41 Sickle Cells Not Reportable 03/12/19 13:41 Target Cells Not Reportable 03/12/19 13:41 Tear Drop Cells Not Reportable 03/12/19 13:41 Ovalocytes Not Reportable 03/12/19 13:41 Helmet Cells Not Reportable 03/12/19 13:41 [place] Bodies Not Reportable 03/12/19 13:41 [place] Rings Not Reportable 03/12/19 13:41 [place]ona Cells Not Reportable 03/12/19 13:41 Bite Cells Not Reportable 03/12/19 13:41 Crenated Cell Not Reportable 03/12/19 13:41 Elliptocytes Not Reportable 03/12/19 13:41 Acanthocytes (Spur) Not Reportable 03/12/19 13:41 Rouleaux Not Reportable 03/12/19 13:41 Hemoglobin C Crystals Not Reportable 03/12/19 13:41 Schistocytes Not Reportable 03/12/19 13:41 Malaria parasites Not Reportable 03/12/19 13:41 Mata Bodies Not Reportable 03/12/19 13:41 Hem Pathologist Commnt No 03/12/19 13:41 VBG pH 7.357 (7.320-7.420) 03/12/19 16:02 Sodium 143 mmol/L (137-145) 03/13/19 06:15 Potassium 4.4 mmol/L (3.6-5.0) D 03/13/19 06:15 Chloride 106.0 mmol/L (98-107) 03/13/19 06:15 Carbon Dioxide 19 mmol/L (22-30) L 03/13/19 06:15 Anion Gap 22 mmol/L 03/13/19 06:15 BUN 55 mg/dL (9-20) H 03/13/19 06:15 Creatinine 5.6 mg/dL (0.8-1.5) H D 03/13/19 06:15 Estimated GFR 12 ml/min 03/13/19 06:15 BUN/Creatinine Ratio 10 % 03/13/19 06:15 Glucose 204 mg/dL (75-100) H 03/13/19 06:15 POC Glucose 255 (70-105) H 03/14/19 11:15 Hemoglobin A1c 5.5 % (4-6) 03/12/19 13:41 Calcium 9.2 mg/dL (8.4-10.2) D 03/13/19 06:15 Magnesium 1.90 mg/dL (1.7-2.3) 03/13/19 09:16 Total Bilirubin 0.30 mg/dL (0.1-1.2) 03/12/19 13:41 AST 12 units/L (5-40) 03/12/19 13:41 ALT 6 units/L (7-56) L 03/12/19 13:41 Alkaline Phosphatase 51 units/L (35-129) 03/12/19 13:41 Total Protein 4.9 g/dL (6.3-8.2) L 03/12/19 13:41 Albumin 2.4 g/dL (3.9-5) L 03/12/19 13:41 Albumin/Globulin Ratio 1.0 % 03/12/19 13:41 Lipase 7 units/L (13-60) L 03/12/19 13:41 Hepatitis A IgM Ab Non-reactive (NonReactive) 03/13/19 09:12 Hep Bs Antigen Non-reactive (Negative) 03/13/19 09:12 Hep B Core IgM Ab Non-reactive (NonReactive) 03/13/19 09:12 Hepatitis C Antibody Non-reactive (NonReactive) 03/13/19 09:12 Active Medications - Current Medications Current Medications: Generic Name Dose Route Start Last Admin Trade Name Freq PRN Reason Stop Dose Admin Acetaminophen 650 mg 03/13/19 07:22 03/14/19 00:50 Tylenol PO 650 mg Q4H PRN Administration Pain MILD(1-3)/Fever >100.5/CHOU Allopurinol 100 mg 03/13/19 10:00 03/14/19 09:01 Zyloprim PO 100 mg QDAY RASHEEDA Administration Amlodipine Besylate 10 mg 03/13/19 10:00 03/14/19 09:00 Amlodipine PO 10 mg DAILY RASHEEDA Administration Apixaban 2.5 mg 03/13/19 10:00 03/14/19 09:00 Eliquis PO 2.5 mg Q12HR RASHEEDA Administration Protocol Atorvastatin Calcium 20 mg 03/13/19 22:00 03/13/19 22:29 Lipitor PO 20 mg QHS RASHEEDA Administration Carvedilol 6.25 mg 03/14/19 22:00 Coreg PO BID RASHEEDA Clonidine HCl 0.3 mg 03/12/19 19:00 03/12/19 19:01 Catapres-Tts Patch TD 0.3 mg Tucker RASHEEDA Administration Dextrose 50 ml 03/12/19 23:06 D50w (25gm) Syringe IV Q30MIN PRN Hypoglycemia Protocol Epoetin David 6,000 unit 03/13/19 10:30 03/13/19 15:56 Procrit IV 6,000 unit UMA PRN Administration hemodialysis Hydralazine HCl 10 mg 03/12/19 23:11 Apresoline IV Q4HR PRN Blood Pressure Hydromorphone HCl 0.5 mg 03/13/19 07:22 Dilaudid IV Q3H PRN Pain , Severe (7-10) Sodium Chloride 1,000 mls @ 60 mls/hr 03/12/19 18:00 03/13/19 22:34 Nacl 0.9% 1000 Ml IV 60 mls/hr DIRECT RASHEEDA Administration Sodium Chloride 100 mls @ 999 mls/hr 03/13/19 08:40 Nacl 0.9% IV UMA PRN Hypotension Insulin Human Isoph/Insulin Regular 20 unit 03/14/19 08:00 03/14/19 08:56 Humulin 70/30 SUB-Q 20 unit BIDDIAB RASHEEDA Administration Insulin Human Lispro 0 unit 03/12/19 23:45 03/14/19 13:06 Humalog SUB-Q 4 unit ACHS RASHEEDA Administration Protocol Metoprolol Succinate 100 mg 03/13/19 10:00 03/14/19 09:00 Metoprolol Xl PO 100 mg QDAY RASHEEDA Administration Ondansetron HCl 4 mg 03/13/19 07:22 Zofran IV Q8H PRN Nausea And Vomiting Oxycodone/Acetaminophen 1 tab 03/13/19 07:22 Percocet 5/325 PO Q6H PRN Pain, Moderate (4-6) Sodium Chloride 10 ml 03/13/19 10:00 03/14/19 09:01 Sodium Chloride Flush Syringe 10 Ml IV 10 ml BID RASHEEDA Administration Sodium Chloride 10 ml 03/13/19 07:22 Sodium Chloride Flush Syringe 10 Ml IV PRN PRN LINE FLUSH Nutrition/Malnutrition Assess - Dietary Evaluation Nutrition/Malnutrition Findings: Nutrition Notes Start: 03/13/19 16:37 Freq: Status: Active Protocol: Document 03/13/19 16:37 RM (Rec: 03/13/19 16:40 RM [id number]) Nutrition Notes 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 Pt stated that his appetite is good and that he eats all of his meals. Denied N/V. DM diet education not appropriate d/t A1c 5.5. Burn Absent Trauma Absent Minimum of two criteria No Nutrition Intervention Revisit per MD consult or patient Sign Off request:
--- NOTE | 2019-03-14 13:45 | Consultation ---
History of Present Illness Consult date: 03/14/19 Reason for consult: other (removal PD catheter) Chief complaint: abdominal pain - History of present illness History of present illness: 69 yo M with hx of ESRD now on HD, Afib on eliquis presented to hospital with c/o abdominal pain, n/v after eating food from a restaurant. He was previously on PD but elected to switch to HD. PD catheter was placed by Dr. Sutton in December 2018. He has not had the PD catheter removed. Surgery is consulted for removal of catheter. He is now tolerating a reg diet. NO f/c. No abdominal pain. Past History Past Medical History: atrial fib (on chronic anticoagulation), anemia (secondary to ESRD), diabetes, ESRD, hypertension, hyperlipidemia Past Surgical History: Other (PD catheter insertion) Social history: no significant social history Family history: no significant family history Medications and Allergies Allergies Allergy/AdvReac Type Severity Reaction Status Date / Time No Known Allergies Allergy Verified 05/23/16 22:42 Home Medications Medication Instructions Recorded Confirmed Last Taken Type Insulin Lispro Protamin/Lispro 20 units SQ QAM 08/24/16 03/12/19 09/06/16 History [HumaLOG Mix 75-25 Kwikpen] Insulin Lispro Protamin/Lispro 20 units SQ QPM 08/24/16 03/12/19 09/06/16 History [HumaLOG Mix 75-25 Kwikpen] Allopurinol [Zyloprim] 100 mg PO QDAY #30 tablet 09/01/16 03/12/19 09/06/16 Rx Apixaban [Eliquis] 2.5 mg PO Q12HR #60 tablet 09/01/16 03/12/19 09/01/16 Rx AtorvaSTATin [Lipitor] 20 mg PO QHS #30 tablet 09/01/16 03/12/19 09/06/16 Rx Clonidine HCl [Catapres] 0.3 mg PO TID #90 tablet 09/01/16 03/12/19 09/06/16 Rx Nebivolol HCl [Bystolic] 10 mg PO QDAY 09/07/16 03/12/19 09/06/16 History amLODIPine 10 mg PO BID 09/07/16 03/12/19 09/06/16 History Active Meds: Active Medications Acetaminophen (Tylenol) 650 mg PO Q4H PRN PRN Reason: Pain MILD(1-3)/Fever >100.5/CHOU Last Admin: 03/14/19 00:50 Dose: 650 mg Documented by: Allopurinol (Zyloprim) 100 mg PO QDAY [facility] Last Admin: 03/14/19 09:01 Dose: 100 mg Documented by: Amlodipine Besylate (Amlodipine) 10 mg PO DAILY [facility] Last Admin: 03/14/19 09:00 Dose: 10 mg Documented by: Atorvastatin Calcium (Lipitor) 20 mg PO QHS [facility] Last Admin: 03/13/19 22:29 Dose: 20 mg Documented by: Clonidine HCl (Catapres-Tts Patch) 0.3 mg TD Tucker [facility] Last Admin: 03/12/19 19:01 Dose: 0.3 mg Documented by: Dextrose (D50w (25gm) Syringe) 50 ml IV Q30MIN PRN; Protocol PRN Reason: Hypoglycemia Epoetin David (Procrit) 6,000 unit IV UMA PRN PRN Reason: hemodialysis Last Admin: 03/13/19 15:56 Dose: 6,000 unit Documented by: Hydralazine HCl (Apresoline) 10 mg IV Q4HR PRN PRN Reason: Blood Pressure Hydromorphone HCl (Dilaudid) 0.5 mg IV Q3H PRN PRN Reason: Pain , Severe (7-10) Sodium Chloride (Nacl 0.9% 1000 Ml) 1,000 mls @ 60 mls/hr IV DIRECT [facility] Last Admin: 03/13/19 22:34 Dose: 60 mls/hr Documented by: Sodium Chloride (Nacl 0.9%) 100 mls @ 999 mls/hr IV UMA PRN PRN Reason: Hypotension Heparin Sodium/Sodium Chloride (Heparin/ 0.45% Nacl-25,000 Unit/500 Ml) 25,000 unit in 500 mls @ 29 mls/hr IV TITR [facility]; Protocol Insulin Human Isoph/Insulin Regular (Humulin 70/30) 20 unit SUB-Q BIDDIAB [facility] Last Admin: 03/14/19 08:56 Dose: 20 unit Documented by: Insulin Human Lispro (Humalog) 0 unit SUB-Q ACHS [facility]; Protocol Last Admin: 03/14/19 13:06 Dose: 4 unit Documented by: Metoprolol Succinate (Metoprolol Xl) 100 mg PO QDAY [facility] Last Admin: 03/14/19 09:00 Dose: 100 mg Documented by: Ondansetron HCl (Zofran) 4 mg IV Q8H PRN PRN Reason: Nausea And Vomiting Oxycodone/Acetaminophen (Percocet 5/325) 1 tab PO Q6H PRN PRN Reason: Pain, Moderate (4-6) Sodium Chloride (Sodium Chloride Flush Syringe 10 Ml) 10 ml IV BID [facility] Last Admin: 03/14/19 09:01 Dose: 10 ml Documented by: Sodium Chloride (Sodium Chloride Flush Syringe 10 Ml) 10 ml IV PRN PRN PRN Reason: LINE FLUSH Review of Systems All systems: negative (10 pt ROS performed and negative except for that listed in HPI) Exam Vital Signs Pulse Resp Pulse Ox 98 H 14 98 03/12/19 12:43 03/12/19 12:43 03/12/19 12:43 Narrative exam: Gen: AAOx3. NAD ENT: NO scleral icterus or conjunctival pallor CV: s1, S2+ resp: even and unlabored Abd: soft, NT, ND. PD catheter Ext: no c/c/e Results - Labs 03/14/19 13:40 03/13/19 06:15 Abnormal lab results 03/13/19 03/13/19 03/14/19 Range/Units 18:03 21:47 06:01 WBC 14.5 H (4.5-11.0) K/mm3 Lymph % (Auto) 8.6 L (13.4-35.0) % [place] # 0.9 H (0.0-0.8) K/mm3 Seg Neutrophils % 84.7 H (40.0-70.0) % Seg Neutrophils # 12.3 H (1.8-7.7) K/mm3 POC Glucose 403 H 218 H (70-105) 03/14/19 03/14/19 Range/Units 07:23 11:15 WBC (4.5-11.0) K/mm3 Lymph % (Auto) (13.4-35.0) % [place] # (0.0-0.8) K/mm3 Seg Neutrophils % (40.0-70.0) % Seg Neutrophils # (1.8-7.7) K/mm3 POC Glucose 150 H 255 H (70-105) Assessment and Plan 69 yo M with ESRD on HD, previously on PD Plan: 1. Nephro notes reviewed and recommend removal of PD catheter prior to dc if possible. 2. Patient on eliquis for Afib, will need to be held for 48 hours prior to PD catheter removal 3. Recommend cardiology consult for preop risk assessment/general anesthesia 4. If patient remains in hospital and is cleared from cardiology standpoint, will schedule PD removal in OR. D/W Dr. Giron. Thank you, please call with questions.
[2019-03-14] MEDS ORDERED: HEPARIN/ 0.45% NACL DRIP 25,000 UNIT/500 ML BAG IV SCH (14:00)
[2019-03-14 14:09] LABS: Hematocrit 39.1 % (35.5-45.6)
[2019-03-14 14:11] LABS: INR 1.35 (0.87-1.13)
[2019-03-14 14:12] LABS: Partial Thromboplastin Time 34.6 Sec. (24.2-36.6)
--- NOTE | 2019-03-14 15:31 | Consultation ---
History of Present Illness Consult date: 03/14/19 Consult reason: atrial fibrillation History of present illness: This is a 69-year old male with a history of end stage renal disease. A month ago, patient was initially started on peritoneal dialysis but found it to be challenging so he has transitioned to hemodialysis using a right chest port. He is awaiting PD catheter removal. Patient also has chronic hypertension, difficult to control, Diabetes and paroxysmal atrial fibrillation. He is on Eliquis for oral anticoagulation and is follow by [facility] on a routine basis. Patient presented to this hospital 2 days ago with nausea vomiting, admitted with acute gastritis. His symptoms has since resolved and he is tolerating his diet. His presenting ECG is sinus rhythm with PACs. Review of telemetry strips shows rapid atrial fibrillation, rate ranging from 90-120's. Patient denies c hest pain, unusual shortness of breath and palpitations. A cardiac consultation has been requested for management of rapid atrial fibrillation. Past History Past Medical History: atrial fib (on chronic anticoagulation), diabetes, ESRD, hypertension, hyperlipidemia Past Surgical History: Other (PD catheter insertion) Social history: no significant social history Family history: no significant family history Medications and Allergies Allergies Allergy/AdvReac Type Severity Reaction Status Date / Time No Known Allergies Allergy Verified 05/23/16 22:42 Home Medications Medication Instructions Recorded Confirmed Last Taken Type Insulin Lispro Protamin/Lispro 20 units SQ QAM 08/24/16 03/12/19 09/06/16 History [HumaLOG Mix 75-25 Kwikpen] Insulin Lispro Protamin/Lispro 20 units SQ QPM 08/24/16 03/12/19 09/06/16 History [HumaLOG Mix 75-25 Kwikpen] Allopurinol [Zyloprim] 100 mg PO QDAY #30 tablet 09/01/16 03/12/19 09/06/16 Rx Apixaban [Eliquis] 2.5 mg PO Q12HR #60 tablet 09/01/16 03/12/19 09/01/16 Rx AtorvaSTATin [Lipitor] 20 mg PO QHS #30 tablet 09/01/16 03/12/19 09/06/16 Rx Clonidine HCl [Catapres] 0.3 mg PO TID #90 tablet 09/01/16 03/12/19 09/06/16 Rx Nebivolol HCl [Bystolic] 10 mg PO QDAY 09/07/16 03/12/19 09/06/16 History amLODIPine 10 mg PO BID 09/07/16 03/12/19 09/06/16 History Active Meds: Active Medications Acetaminophen (Tylenol) 650 mg PO Q4H PRN PRN Reason: Pain MILD(1-3)/Fever >100.5/CHOU Last Admin: 03/14/19 00:50 Dose: 650 mg Documented by: Allopurinol (Zyloprim) 100 mg PO QDAY [facility] Last Admin: 03/14/19 09:01 Dose: 100 mg Documented by: Amlodipine Besylate (Amlodipine) 10 mg PO DAILY [facility] Last Admin: 03/14/19 09:00 Dose: 10 mg Documented by: Atorvastatin Calcium (Lipitor) 20 mg PO QHS [facility] Last Admin: 03/13/19 22:29 Dose: 20 mg Documented by: Clonidine HCl (Catapres-Tts Patch) 0.3 mg TD Tucker [facility] Last Admin: 03/12/19 19:01 Dose: 0.3 mg Documented by: Dextrose (D50w (25gm) Syringe) 50 ml IV Q30MIN PRN; Protocol PRN Reason: Hypoglycemia Epoetin David (Procrit) 6,000 unit IV UMA PRN PRN Reason: hemodialysis Last Admin: 03/13/19 15:56 Dose: 6,000 unit Documented by: Hydralazine HCl (Apresoline) 10 mg IV Q4HR PRN PRN Reason: Blood Pressure Hydromorphone HCl (Dilaudid) 0.5 mg IV Q3H PRN PRN Reason: Pain , Severe (7-10) Sodium Chloride (Nacl 0.9% 1000 Ml) 1,000 mls @ 60 mls/hr IV DIRECT [facility] Last Admin: 03/13/19 22:34 Dose: 60 mls/hr Documented by: Sodium Chloride (Nacl 0.9%) 100 mls @ 999 mls/hr IV UMA PRN PRN Reason: Hypotension Heparin Sodium/Sodium Chloride (Heparin/ 0.45% Nacl-25,000 Unit/500 Ml) 25,000 unit in 500 mls @ 29 mls/hr IV TITR [facility]; Protocol Insulin Human Isoph/Insulin Regular (Humulin 70/30) 20 unit SUB-Q BIDDIAB [facility] Last Admin: 03/14/19 08:56 Dose: 20 unit Documented by: Insulin Human Lispro (Humalog) 0 unit SUB-Q ACHS [facility]; Protocol Last Admin: 03/14/19 13:06 Dose: 4 unit Documented by: Metoprolol Succinate (Metoprolol Xl) 100 mg PO QDAY [facility] Last Admin: 03/14/19 09:00 Dose: 100 mg Documented by: Ondansetron HCl (Zofran) 4 mg IV Q8H PRN PRN Reason: Nausea And Vomiting Oxycodone/Acetaminophen (Percocet 5/325) 1 tab PO Q6H PRN PRN Reason: Pain, Moderate (4-6) Sodium Chloride (Sodium Chloride Flush Syringe 10 Ml) 10 ml IV BID [facility] Last Admin: 03/14/19 09:01 Dose: 10 ml Documented by: Sodium Chloride (Sodium Chloride Flush Syringe 10 Ml) 10 ml IV PRN PRN PRN Reason: LINE FLUSH Physical Examination Vital Signs Pulse Resp Pulse Ox 98 H 14 98 03/12/19 12:43 03/12/19 12:43 03/12/19 12:43 General appearance: no acute distress HEENT: Positive: PERRL Neck: Positive: trachea midline Cardiac: Positive: irregularly irregular Lungs: Positive: Decreased Breath Sounds Neuro: Positive: Grossly Intact Extremities: Absent: edema Results 03/14/19 13:40 03/13/19 06:15 Coagulation 03/14/19 Range/Units 13:40 PT 16.5 H (12.2-14.9) Sec. INR 1.35 H (0.87-1.13) APTT 34.6 (24.2-36.6) Sec. CBC 03/14/19 03/14/19 Range/Units 06:01 13:40 WBC 14.5 H (4.5-11.0) K/mm3 RBC 4.21 (3.65-5.03) M/mm3 Hgb 12.2 D 12.0 (11.8-15.2) gm/dl Hct 38.2 D 39.1 (35.5-45.6) % Plt Count 278 283 (140-440) K/mm3 Lymph # 1.2 (1.2-5.4) K/mm3 [place] # 0.9 H (0.0-0.8) K/mm3 Eos # 0.0 (0.0-0.4) K/mm3 Baso # 0.0 (0.0-0.1) K/mm3 Assessment and Plan Acute gastritis ESRD on hemodialysis Hypertension Diabetes Paroxysmal atrial fibrillation currently rapid afib on telemetry on eliquis as an outpatient Recommendations: Beta blockers for optimal rate control of atrial fibrillation. We will obtain an echocardiogram for LVEF assessment.
[2019-03-14] MEDS ORDERED: AMIODARONE 300 MG in DEXTROSE 5% IN WATER 100 ML IV ONE (17:30)
[2019-03-14] MEDS: AMIODARONE 200 MG TAB PO SCH (18:34)
[2019-03-14] MEDS ORDERED: carvediloL 6.25 MG TAB PO SCH (22:00)
[2019-03-14] MEDS: HEPARIN 5,000 UNIT/1 ML VIAL SUB-Q SCH (22:09)
[2019-03-15 07:56] LABS: Hematocrit 37.5 % (35.5-45.6); Hemoglobin 12.1 gm/dl (11.8-15.2); Mean Corpuscular HGB Conc 32 % (32-34); Mean Corpuscular Volume 91 fl (84-94); Platelet Count 297 K/mm3 (140-440); Red Blood Count 4.13 M/mm3 (3.65-5.03); Red Cell Distribution Width 14.8 % (13.2-15.2)
[2019-03-15 08:19] LABS: Calcium 8.5 mg/dL (8.4-10.2)
[2019-03-15] MEDS: INSULIN NPH/REGULAR 70/30 INJ SUB-Q SCH ×2 (09:54→20:57)
[2019-03-15] MEDS: amLODIPine 10 MG TAB PO SCH (09:58)
[2019-03-15] MEDS: METOPROLOL SUCCINATE XL 100 MG TAB PO SCH (09:59)
[2019-03-15] MEDS: allopurinoL 100 MG TAB PO SCH (09:59)
[2019-03-15] MEDS: INSULIN LISPRO 100 UNIT/ML SUB-Q SCH ×4 (10:00→22:55)
[2019-03-15] MEDS: HEPARIN 5,000 UNIT/1 ML VIAL SUB-Q SCH ×2 (10:00→22:55)
[2019-03-15] MEDS: AMIODARONE 200 MG TAB PO SCH ×2 (10:01→22:55)
--- NOTE | 2019-03-15 11:02 | Progress Note ---
<DILLAN BOSS - Last Filed: 03/15/19 10:58> Assessment and Plan Acute gastritis ESRD on hemodialysis Hypertension Diabetes Paroxysmal atrial fibrillation [facility], currently on hold in anticipation of removal of an indwelling peritoneal dialysis catheter. Recommend: We will add intravenous amiodarone for suppression of atrial fibrillation. Subjective Date of service: 03/15/19 Principal diagnosis: GI distress Interval history: Patient has no complaints. Rapid atrial fibrillation on telemetry monitoring, rate ranging 120s. Objective Vital Signs Temp Pulse Resp Resp BP Pulse Ox 03/15/19 09:59 122 H 03/15/19 09:58 122 H 03/15/19 08:09 97.9 F 17 139/93 03/15/19 03:29 98.4 F 128 H 18 176/102 97 03/14/19 22:53 98.5 F 91 H 18 150/73 95 03/14/19 22:00 20 03/14/19 19:56 98.0 F 123 H 18 173/100 97 03/14/19 19:33 114 H 99 03/14/19 16:04 97.6 F 18 165/100 03/14/19 16:00 127 H 03/14/19 11:51 98.2 F 18 154/88 - Physical Examination HEENT: Positive: PERRL Neck: Positive: trachea midline Cardiac: Positive: irregularly irregular Lungs: Positive: Decreased Breath Sounds Neuro: Positive: Grossly Intact Extremities: Absent: edema - Labs and Meds Coagulation 03/14/19 Range/Units 13:40 PT 16.5 H (12.2-14.9) Sec. INR 1.35 H (0.87-1.13) APTT 34.6 (24.2-36.6) Sec. CBC 03/14/19 03/15/19 Range/Units 13:40 07:18 WBC 8.7 (4.5-11.0) K/mm3 RBC 4.13 (3.65-5.03) M/mm3 Hgb 12.0 12.1 (11.8-15.2) gm/dl Hct 39.1 37.5 (35.5-45.6) % Plt Count 283 297 (140-440) K/mm3 Comprehensive Metabolic Panel 03/15/19 Range/Units 07:18 Sodium 143 (137-145) mmol/L Potassium 3.7 (3.6-5.0) mmol/L Chloride 105.4 (98-107) mmol/L Carbon Dioxide 20 L (22-30) mmol/L BUN 51 H (9-20) mg/dL Creatinine 5.4 H (0.8-1.5) mg/dL Glucose 89 (75-100) mg/dL Calcium 8.5 (8.4-10.2) mg/dL <JOI LEONARD - Last Filed: 03/15/19 12:05> Assessment and Plan I've seen and evaluated the patient and agree with the assessment and plan. The patient is presenting with acute gastritis, end-stage renal disease on hemodialysis, hypertension, diabetes, paroxysmal atrial fibrillation. The patient is currently in rapid atrial fibrillation on telemetry. Will start patient on IV amiodarone with the intent to cardiovert the patient. The patient has been on anticoagulation for one month without break and is therefore eligible for cardioversion. Objective Vital Signs Temp Pulse Resp Resp BP Pulse Ox 03/15/19 09:59 122 H 03/15/19 09:58 122 H 03/15/19 08:09 97.9 F 17 139/93 03/15/19 03:29 98.4 F 128 H 18 176/102 97 03/14/19 22:53 98.5 F 91 H 18 150/73 95 03/14/19 22:00 20 03/14/19 19:56 98.0 F 123 H 18 173/100 97 03/14/19 19:33 114 H 99 03/14/19 16:04 97.6 F 18 165/100 03/14/19 16:00 127 H - Labs and Meds Coagulation 03/14/19 Range/Units 13:40 PT 16.5 H (12.2-14.9) Sec. INR 1.35 H (0.87-1.13) APTT 34.6 (24.2-36.6) Sec. CBC 03/14/19 03/15/19 Range/Units 13:40 07:18 WBC 8.7 (4.5-11.0) K/mm3 RBC 4.13 (3.65-5.03) M/mm3 Hgb 12.0 12.1 (11.8-15.2) gm/dl Hct 39.1 37.5 (35.5-45.6) % Plt Count 283 297 (140-440) K/mm3 Comprehensive Metabolic Panel 03/15/19 Range/Units 07:18 Sodium 143 (137-145) mmol/L Potassium 3.7 (3.6-5.0) mmol/L Chloride 105.4 (98-107) mmol/L Carbon Dioxide 20 L (22-30) mmol/L BUN 51 H (9-20) mg/dL Creatinine 5.4 H (0.8-1.5) mg/dL Glucose 89 (75-100) mg/dL Calcium 8.5 (8.4-10.2) mg/dL
[2019-03-15] MEDS ORDERED: AMIODARONE 900 MG in DEXTROSE 5% IN WATER 482 ML IV SCH (11:30)
--- NOTE | 2019-03-15 12:24 | Progress Note ---
Assessment and Plan Impression: * End stage renal disease on HD MWF * Intractable nausea/vomiting, improved/resolved * Accelerated hypertension * Atrial fibrillation on chronic anticoagulation * Type II DM * Anemia secondary to ESRD * Secondary hyperparathyroidism Plan: * Continue HD MWF, due today * UF as tolerated; will exercise caution given tachycardia (appreciate cardiology input) * BP at goal, continue current regimen * No evidence of peritonitis; however, ideally would like to have PD catheter removed this hospitalization if possible. Appreciate general surgery consult * Epogen TIW prn * Avoidance of fast food seafood Thank you for this consult; we will continue to follow for renal-related issues. Subjective Date of service: 03/15/19 Principal diagnosis: GI distress Interval history: No acute events noted overnight. Tolerating oral intake well. Noted to have atrial fibrillation with RVR, now on amiodarone. No dyspnea, no edema. Tolerated HD previously without any issues. Objective - Exam Narrative Exam: General appearance: well-developed, well-nourished EENT: ATNC Respiratory: Clear to Auscultation Heart: regular, S1S2 Gastrointestinal: Present: normal. No tenderness, distension Integumentary: no rash Neurologic: no focal deficit, alert and oriented x3 Musculoskeletal: Present: other (no edema) Psychiatric: cooperative - Vital Signs Vital signs: Vital Signs - 12hr 03/15/19 03/15/19 03/15/19 03:29 08:09 09:58 Temperature 98.4 F 97.9 F Pulse Rate 128 H 122 H Respiratory 18 17 Rate Blood Pressure 176/102 139/93 O2 Sat by Pulse 97 Oximetry 03/15/19 09:59 Temperature Pulse Rate 122 H Respiratory Rate Blood Pressure O2 Sat by Pulse Oximetry - Lab 03/15/19 07:18 03/15/19 07:18 Most recent lab results Calcium 8.5 mg/dL (8.4-10.2) 03/15/19 07:18 Magnesium 1.90 mg/dL (1.7-2.3) 03/13/19 09:16 Medications & Allergies - Medications Allergies/Adverse Reactions: Allergies No Known Allergies Allergy (Verified 05/23/16 22:42) Home Medications: Home Medications Medication Instructions Recorded Confirmed Last Taken Type Insulin Lispro Protamin/Lispro 20 units SQ QAM 08/24/16 03/12/19 09/06/16 History [HumaLOG Mix 75-25 Kwikpen] Insulin Lispro Protamin/Lispro 20 units SQ QPM 08/24/16 03/12/19 09/06/16 History [HumaLOG Mix 75-25 Kwikpen] Allopurinol [Zyloprim] 100 mg PO QDAY #30 tablet 09/01/16 03/12/19 09/06/16 Rx Apixaban [Eliquis] 2.5 mg PO Q12HR #60 tablet 09/01/16 03/12/19 09/01/16 Rx AtorvaSTATin [Lipitor] 20 mg PO QHS #30 tablet 09/01/16 03/12/19 09/06/16 Rx Clonidine HCl [Catapres] 0.3 mg PO TID #90 tablet 09/01/16 03/12/19 09/06/16 Rx Nebivolol HCl [Bystolic] 10 mg PO QDAY 09/07/16 03/12/19 09/06/16 History amLODIPine 10 mg PO BID 09/07/16 03/12/19 09/06/16 History Active Medications: Generic Name Dose Route Start Last Admin Trade Name Freq PRN Reason Stop Dose Admin Acetaminophen 650 mg 03/13/19 07:22 03/14/19 00:50 Tylenol PO 650 mg Q4H PRN Administration Pain MILD(1-3)/Fever >100.5/CHOU Allopurinol 100 mg 03/13/19 10:00 03/15/19 09:59 Zyloprim PO 100 mg QDAY [facility] Administration Amiodarone HCl 200 mg 03/14/19 18:00 03/15/19 10:01 Cordarone PO 200 mg QDAY [facility] Administration Amlodipine Besylate 10 mg 03/13/19 10:00 03/15/19 09:58 Amlodipine PO 10 mg DAILY [facility] Administration Atorvastatin Calcium 20 mg 03/13/19 22:00 03/14/19 22:09 Lipitor PO 20 mg QHS [facility] Administration Clonidine HCl 0.3 mg 03/12/19 19:00 03/12/19 19:01 Catapres-Tts Patch TD 0.3 mg Tucker [facility] Administration Dextrose 50 ml 03/12/19 23:06 D50w (25gm) Syringe IV Q30MIN PRN Hypoglycemia Protocol Epoetin David 6,000 unit 03/13/19 10:30 03/13/19 15:56 Procrit IV 6,000 unit UMA PRN Administration hemodialysis Heparin Sodium (Porcine) 5,000 unit 03/14/19 22:00 03/14/19 22:09 Heparin SUB-Q 5,000 unit Q12HR [facility] Administration Hydralazine HCl 10 mg 03/12/19 23:11 Apresoline IV Q4HR PRN Blood Pressure Hydromorphone HCl 0.5 mg 03/13/19 07:22 Dilaudid IV Q3H PRN Pain , Severe (7-10) Sodium Chloride 100 mls @ 999 mls/hr 03/13/19 08:40 Nacl 0.9% IV UMA PRN Hypotension Amiodarone HCl 900 mg/ 500 mls @ 33.333 mls/hr 03/15/19 11:30 Dextrose IV DIRECT [facility] Protocol 1 MG/MIN Insulin Human Isoph/Insulin Regular 20 unit 03/14/19 08:00 03/15/19 09:54 Humulin 70/30 SUB-Q 20 unit BIDDIAB [facility] Administration Insulin Human Lispro 0 unit 03/12/19 23:45 03/15/19 10:00 Humalog SUB-Q Not Given ACHS [facility] Protocol Metoprolol Succinate 100 mg 03/13/19 10:00 03/15/19 09:59 Metoprolol Xl PO 100 mg QDAY [facility] Administration Ondansetron HCl 4 mg 03/13/19 07:22 Zofran IV Q8H PRN Nausea And Vomiting Oxycodone/Acetaminophen 1 tab 03/13/19 07:22 Percocet 5/325 PO Q6H PRN Pain, Moderate (4-6) Sodium Chloride 10 ml 03/13/19 10:00 03/15/19 10:01 Sodium Chloride Flush Syringe 10 Ml IV 10 ml BID [facility] Administration Sodium Chloride 10 ml 03/13/19 07:22 Sodium Chloride Flush Syringe 10 Ml IV PRN PRN LINE FLUSH
--- NOTE | 2019-03-15 12:55 | Progress Note ---
Assessment and Plan Assessment and plan: 69yo male patient with stay off ESRD on HD MWF , diabetes mellitus , hypertension was admitted through emergency room with intractable nausea vomiting after eating at a restaurant. Patient feels slightly better today, uncontrolled blood sugars, end-stage renal disease on hemodialysis evaluated by nephrology, on HD per schedule MWF severe hypokalemia, replace per protocol. --Acute gastritis: Current Visit: Yes Status: Acute Protonix, antiemetics, IV fluids Supportive care, GI evaluation if no improvement -- Severe Hypokalemia: 2.7 Current Visit: Yes Status: Acute . Replenish per protocol monitor level -- IDDM (insulin dependent diabetes mellitus) Current Visit: Yes Status: Chronic Uncontrolled , Accu-Chek sliding scale coverage ADA diet NovoLog 7030, 10 units twice a day, increase the dose as needed Check A1c -- HTN (hypertension). Current Visit: Yes Status: Chronic Cont Antihypertensives,PRN meds. --Severe Malnutrition/Hypoalbuminemia Current Visit: Yes Status: Chronic Nutrition Supplements and supportive care --Afib with RVR CARDIOLOGY CONSULTED-amiodarone started following Bolus given yesterday CONTINUE METOPROLOL obtain echo if non done yet Discussed with cardiology will monitor. --PD catheter Patient is on Eliquis precluding removal, will start on heparin drip and stop Eliquis, and if ok can be removed on Wednesday DVT prophylaxis Current Visit: No Status: Acute ON Heparin Monitor clinically and adjust the management as needed Disposition; possible discharge tomorrow if stable Anticipated discharge in am if heart rate improve. History Interval history: Patient seen and examined, Reports improvement today with no further nausea or vomiting. Still with arrhythmia Hospitalist Physical - Physical exam Narrative exam: General appearance: Present: no acute distress, well-nourished - EENT Eyes: Present: PERRL, EOM intact - Neck Neck: Present: supple, normal ROM - Respiratory Respiratory effort: normal Respiratory: bilateral: diminished, negative: rales, rhonchi, wheezing - Cardiovascular Rhythm: irregularly irregular tachy Heart Sounds: Present: S1 & S2 - Extremities Extremities: no ischemia, No edema - Abdominal General gastrointestinal: soft, non-tender, non-distended, normal bowel sounds - Integumentary Integumentary: Present: clear, warm - Psychiatric Psychiatric: appropriate mood/affect, cooperative - Neurologic Neurologic: CNII-XII intact, moves all extremities Results - Constitutional Vitals: Temp Pulse Resp BP Pulse Ox 98.7 F 122 H 17 148/92 97 03/15/19 11:34 03/15/19 09:59 03/15/19 11:34 03/15/19 11:34 03/15/19 03:29 General appearance: Present: no acute distress, well-nourished Results - Labs CBC & Chem 7: 03/15/19 07:18 03/15/19 07:18 Labs: Laboratory Last Values WBC 8.7 K/mm3 (4.5-11.0) 03/15/19 07:18 RBC 4.13 M/mm3 (3.65-5.03) 03/15/19 07:18 Hgb 12.1 gm/dl (11.8-15.2) 03/15/19 07:18 Hct 37.5 % (35.5-45.6) 03/15/19 07:18 MCV 91 fl (84-94) 03/15/19 07:18 MCH 29 pg (28-32) 03/15/19 07:18 MCHC 32 % (32-34) 03/15/19 07:18 RDW 14.8 % (13.2-15.2) 03/15/19 07:18 Plt Count 297 K/mm3 (140-440) 03/15/19 07:18 Lymph % (Auto) 8.6 % (13.4-35.0) L 03/14/19 06:01 [place] % (Auto) 6.3 % (0.0-7.3) 03/14/19 06:01 Eos % (Auto) 0.1 % (0.0-4.3) 03/14/19 06:01 Baso % (Auto) 0.3 % (0.0-1.8) 03/14/19 06:01 Lymph # 1.2 K/mm3 (1.2-5.4) 03/14/19 06:01 [place] # 0.9 K/mm3 (0.0-0.8) H 03/14/19 06:01 Eos # 0.0 K/mm3 (0.0-0.4) 03/14/19 06:01 Baso # 0.0 K/mm3 (0.0-0.1) 03/14/19 06:01 Add Manual Diff Complete 03/12/19 13:41 Total Counted 100 03/12/19 13:41 Seg Neutrophils % 84.7 % (40.0-70.0) H 03/14/19 06:01 Seg Neuts % (Manual) 97.0 % (40.0-70.0) H 03/12/19 13:41 Band Neutrophils % 0 % 03/12/19 13:41 Lymphocytes % (Manual) 1.0 % (13.4-35.0) L 03/12/19 13:41 Reactive Lymphs % (Man) 0 % 03/12/19 13:41 Monocytes % (Manual) 1.0 % (0.0-7.3) 03/12/19 13:41 Eosinophils % (Manual) 0 % (0.0-4.3) 03/12/19 13:41 Basophils % (Manual) 1.0 % (0.0-1.8) 03/12/19 13:41 Metamyelocytes % 0 % 03/12/19 13:41 Myelocytes % 0 % 03/12/19 13:41 Promyelocytes % 0 % 03/12/19 13:41 Blast Cells % 0 % 03/12/19 13:41 Nucleated RBC % Not Reportable 03/12/19 13:41 Seg Neutrophils # 12.3 K/mm3 (1.8-7.7) H 03/14/19 06:01 Seg Neutrophils # Man 6.1 K/mm3 (1.8-7.7) 03/12/19 13:41 Band Neutrophils # 0.0 K/mm3 03/12/19 13:41 Lymphocytes # (Manual) 0.1 K/mm3 (1.2-5.4) L 03/12/19 13:41 Abs React Lymphs (Man) 0.0 K/mm3 03/12/19 13:41 Monocytes # (Manual) 0.1 K/mm3 (0.0-0.8) 03/12/19 13:41 Eosinophils # (Manual) 0.0 K/mm3 (0.0-0.4) 03/12/19 13:41 Basophils # (Manual) 0.1 K/mm3 (0.0-0.1) 03/12/19 13:41 Metamyelocytes # 0.0 K/mm3 03/12/19 13:41 Myelocytes # 0.0 K/mm3 03/12/19 13:41 Promyelocytes # 0.0 K/mm3 03/12/19 13:41 Blast Cells # 0.0 K/mm3 03/12/19 13:41 WBC Morphology Not Reportable 03/12/19 13:41 Hypersegmented Neuts Not Reportable 03/12/19 13:41 Hyposegmented Neuts Not Reportable 03/12/19 13:41 Hypogranular Neuts Not Reportable 03/12/19 13:41 Smudge Cells Not Reportable 03/12/19 13:41 Toxic Granulation Not Reportable 03/12/19 13:41 Toxic Vacuolation Not Reportable 03/12/19 13:41 Dohle Bodies Not Reportable 03/12/19 13:41 Pelger-Huet Anomaly Not Reportable 03/12/19 13:41 Ca Rods Not Reportable 03/12/19 13:41 Platelet Estimate Consistent w auto 03/12/19 13:41 Clumped Platelets Not Reportable 03/12/19 13:41 Plt Clumps, EDTA Not Reportable 03/12/19 13:41 Large Platelets Not Reportable 03/12/19 13:41 Giant Platelets Not Reportable 03/12/19 13:41 Platelet Satelliting Not Reportable 03/12/19 13:41 Plt Morphology Comment Not Reportable 03/12/19 13:41 RBC Morphology Normal 03/12/19 13:41 Dimorphic RBCs Not Reportable 03/12/19 13:41 Polychromasia Not Reportable 03/12/19 13:41 Hypochromasia Not Reportable 03/12/19 13:41 Poikilocytosis Not Reportable 03/12/19 13:41 Anisocytosis Not Reportable 03/12/19 13:41 Microcytosis Not Reportable 03/12/19 13:41 Macrocytosis Not Reportable 03/12/19 13:41 Spherocytes Not Reportable 03/12/19 13:41 Pappenheimer Bodies Not Reportable 03/12/19 13:41 Sickle Cells Not Reportable 03/12/19 13:41 Target Cells Not Reportable 03/12/19 13:41 Tear Drop Cells Not Reportable 03/12/19 13:41 Ovalocytes Not Reportable 03/12/19 13:41 Helmet Cells Not Reportable 03/12/19 13:41 [place] Bodies Not Reportable 03/12/19 13:41 [place] Rings Not Reportable 03/12/19 13:41 [place]ona Cells Not Reportable 03/12/19 13:41 Bite Cells Not Reportable 03/12/19 13:41 Crenated Cell Not Reportable 03/12/19 13:41 Elliptocytes Not Reportable 03/12/19 13:41 Acanthocytes (Spur) Not Reportable 03/12/19 13:41 Rouleaux Not Reportable 03/12/19 13:41 Hemoglobin C Crystals Not Reportable 03/12/19 13:41 Schistocytes Not Reportable 03/12/19 13:41 Malaria parasites Not Reportable 03/12/19 13:41 Mata Bodies Not Reportable 03/12/19 13:41 Hem Pathologist Commnt No 03/12/19 13:41 PT 16.5 Sec. (12.2-14.9) H 03/14/19 13:40 INR 1.35 (0.87-1.13) H 03/14/19 13:40 APTT 34.6 Sec. (24.2-36.6) 03/14/19 13:40 VBG pH 7.357 (7.320-7.420) 03/12/19 16:02 Sodium 143 mmol/L (137-145) 03/15/19 07:18 Potassium 3.7 mmol/L (3.6-5.0) 03/15/19 07:18 Chloride 105.4 mmol/L (98-107) 03/15/19 07:18 Carbon Dioxide 20 mmol/L (22-30) L 03/15/19 07:18 Anion Gap 21 mmol/L 03/15/19 07:18 BUN 51 mg/dL (9-20) H 03/15/19 07:18 Creatinine 5.4 mg/dL (0.8-1.5) H 03/15/19 07:18 Estimated GFR 13 ml/min 03/15/19 07:18 BUN/Creatinine Ratio 9 % 03/15/19 07:18 Glucose 89 mg/dL (75-100) 03/15/19 07:18 POC Glucose 259 (70-105) H 03/15/19 11:39 Hemoglobin A1c 5.5 % (4-6) 03/12/19 13:41 Calcium 8.5 mg/dL (8.4-10.2) 03/15/19 07:18 Magnesium 1.90 mg/dL (1.7-2.3) 03/13/19 09:16 Total Bilirubin 0.30 mg/dL (0.1-1.2) 03/12/19 13:41 AST 12 units/L (5-40) 03/12/19 13:41 ALT 6 units/L (7-56) L 03/12/19 13:41 Alkaline Phosphatase 51 units/L (35-129) 03/12/19 13:41 Total Protein 4.9 g/dL (6.3-8.2) L 03/12/19 13:41 Albumin 2.4 g/dL (3.9-5) L 03/12/19 13:41 Albumin/Globulin Ratio 1.0 % 03/12/19 13:41 Lipase 7 units/L (13-60) L 03/12/19 13:41 Hepatitis A IgM Ab Non-reactive (NonReactive) 03/13/19 09:12 Hep Bs Antigen Non-reactive (Negative) 03/13/19 09:12 Hep B Core IgM Ab Non-reactive (NonReactive) 03/13/19 09:12 Hepatitis C Antibody Non-reactive (NonReactive) 03/13/19 09:12 Active Medications - Current Medications Current Medications: Generic Name Dose Route Start Last Admin Trade Name Freq PRN Reason Stop Dose Admin Acetaminophen 650 mg 03/13/19 07:22 03/14/19 00:50 Tylenol PO 650 mg Q4H PRN Administration Pain MILD(1-3)/Fever >100.5/CHOU Allopurinol 100 mg 03/13/19 10:00 03/15/19 09:59 Zyloprim PO 100 mg QDAY RASHEEDA Administration Amiodarone HCl 200 mg 03/14/19 18:00 03/15/19 10:01 Cordarone PO 200 mg QDAY RASHEEDA Administration Amlodipine Besylate 10 mg 03/13/19 10:00 03/15/19 09:58 Amlodipine PO 10 mg DAILY RASHEEDA Administration Atorvastatin Calcium 20 mg 03/13/19 22:00 03/14/19 22:09 Lipitor PO 20 mg QHS RASHEEDA Administration Clonidine HCl 0.3 mg 03/12/19 19:00 03/12/19 19:01 Catapres-Tts Patch TD 0.3 mg Tucker RASHEEDA Administration Dextrose 50 ml 03/12/19 23:06 D50w (25gm) Syringe IV Q30MIN PRN Hypoglycemia Protocol Epoetin David 6,000 unit 03/13/19 10:30 03/13/19 15:56 Procrit IV 6,000 unit UMA PRN Administration hemodialysis Heparin Sodium (Porcine) 5,000 unit 03/14/19 22:00 03/15/19 10:00 Heparin SUB-Q 5,000 unit Q12HR RASHEEDA Administration Hydralazine HCl 10 mg 03/12/19 23:11 Apresoline IV Q4HR PRN Blood Pressure Hydromorphone HCl 0.5 mg 03/13/19 07:22 Dilaudid IV Q3H PRN Pain , Severe (7-10) Sodium Chloride 100 mls @ 999 mls/hr 03/13/19 08:40 Nacl 0.9% IV UMA PRN Hypotension Amiodarone HCl 900 mg/ 500 mls @ 33.333 mls/hr 03/15/19 11:30 03/15/19 12:22 Dextrose IV 1 mg/min DIRECT RASHEEDA 33.333 mls/hr Administration Protocol 1 MG/MIN Insulin Human Isoph/Insulin Regular 20 unit 03/14/19 08:00 03/15/19 09:54 Humulin 70/30 SUB-Q 20 unit BIDDIAB RASHEEDA Administration Insulin Human Lispro 0 unit 03/12/19 23:45 03/15/19 10:00 Humalog SUB-Q Not Given ACHS RASHEEDA Protocol Metoprolol Succinate 100 mg 03/13/19 10:00 03/15/19 09:59 Metoprolol Xl PO 100 mg QDAY RASHEEDA Administration Ondansetron HCl 4 mg 03/13/19 07:22 Zofran IV Q8H PRN Nausea And Vomiting Oxycodone/Acetaminophen 1 tab 03/13/19 07:22 Percocet 5/325 PO Q6H PRN Pain, Moderate (4-6) Sodium Chloride 10 ml 03/13/19 10:00 03/15/19 10:01 Sodium Chloride Flush Syringe 10 Ml IV 10 ml BID RASHEEDA Administration Sodium Chloride 10 ml 03/13/19 07:22 Sodium Chloride Flush Syringe 10 Ml IV PRN PRN LINE FLUSH Nutrition/Malnutrition Assess - Dietary Evaluation Nutrition/Malnutrition Findings: Nutrition Notes Start: 03/13/19 16:37 Freq: Status: Active Protocol: Document 03/13/19 16:37 RM (Rec: 03/13/19 16:40 RM [id number]) Nutrition Notes Need for Assessment generated from: 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 Pt stated that his appetite is good and that he eats all of his meals. Denied N/V. DM diet education not appropriate d/t A1c 5.5. Burn Absent Trauma Absent Minimum of two criteria No Nutrition Intervention Revisit per MD consult or patient Sign Off request: - Malnutrition Assessment Minimum of two criteria: No - Attestation Statement I have reviewed and agreed w/ Malnutrition eval & tx plan: Yes
--- NOTE | 2019-03-15 15:27 | Event Note ---
Date: 03/15/19 Pt chart reviewed. Currently being treated for Afib RVR, cardiology on board. Eliquis has been held. Patient is tentatively scheduled for removal of PD catheter this Wednesday03/17/19 (eliquis must be stopped for 48 hours) at 1230pm. All risks, benefits, alternatives to surgery discussed with patient and questions answered. Consent obtained. Will follow up on cardiology recommendations. If continues to be in Afib RVR or not cleared by cardiology, will postpone procedure as it is not urgent.
[2019-03-15] MEDS ORDERED: dilTIAZem/D5W 100 MG/100 ML BAG IV SCH (16:00)
[2019-03-15] MEDS ORDERED: dilTIAZem 25 MG/5 ML INJ IV ONE (16:01)
[2019-03-15] MEDS: METOPROLOL TARTRATE 5 MG/5 ML INJ IV SCH ×2 (20:53→23:00)
[2019-03-16] MEDS: METOPROLOL TARTRATE 5 MG/5 ML INJ IV SCH ×2 (02:00→06:00)
[2019-03-16 06:31] LABS: Hematocrit 37.9 % (35.5-45.6); Hemoglobin 12.5 gm/dl (11.8-15.2)
[2019-03-16] MEDS: INSULIN LISPRO 100 UNIT/ML SUB-Q SCH ×4 (08:07→22:30)
[2019-03-16] MEDS ORDERED: METOPROLOL TARTRATE 5 MG/5 ML INJ IV PRN (09:00)
--- NOTE | 2019-03-16 09:06 | Progress Note ---
Assessment and Plan Acute gastritis ESRD on hemodialysis Hypertension Diabetes Paroxysmal atrial fibrillation reverted to sinus rhythm; on amiodarone and metoprolol for suppression. on eliquis as an outpatient, currently on hold in anticipation of removal of an indwelling peritoneal dialysis catheter. Subjective Date of service: 03/16/19 Principal diagnosis: GI distress Interval history: Patient has no complaints. Patient spontaneously reverted to sinus rhythm overnight. Objective Vital Signs Temp Pulse Pulse Pulse Resp BP Pulse Ox 03/16/19 07:56 97.6 F 64 18 163/72 97 03/16/19 06:00 57 L 154/70 03/16/19 04:15 97.9 F 54 L 18 154/70 98 03/16/19 02:00 67 149/62 03/16/19 01:26 98.5 F 47 L 16 149/62 96 03/16/19 00:00 112 H 03/15/19 23:00 112 H 170/95 03/15/19 22:00 88 88 18 99 03/15/19 21:45 97.8 F 82 18 162/71 03/15/19 21:30 81 136/83 03/15/19 21:15 81 139/69 03/15/19 21:00 80 143/60 03/15/19 20:53 89 132/70 03/15/19 20:45 84 167/89 03/15/19 20:30 78 149/64 03/15/19 20:15 78 122/51 03/15/19 20:00 80 112/63 03/15/19 19:45 85 122/41 03/15/19 19:30 92 H 141/66 03/15/19 19:15 85 140/66 03/15/19 19:00 75 143/59 03/15/19 18:45 82 139/76 03/15/19 18:30 87 141/61 03/15/19 18:20 97.6 F 89 20 132/70 03/15/19 16:47 118 H 147/81 03/15/19 16:00 124 H 03/15/19 11:34 98.7 F 17 148/92 03/15/19 10:00 80 97 03/15/19 09:59 122 H 03/15/19 09:58 122 H - Physical Examination General: No Apparent Distress HEENT: Positive: PERRL Neck: Positive: trachea midline Cardiac: Positive: Reg Rate and Rhythm Lungs: Positive: Decreased Breath Sounds Neuro: Positive: Grossly Intact Extremities: Absent: edema - Labs and Meds CBC 03/16/19 Range/Units 06:01 Hgb 12.5 (11.8-15.2) gm/dl Hct 37.9 (35.5-45.6) % Plt Count 298 (140-440) K/mm3
[2019-03-16] MEDS: AMIODARONE 200 MG TAB PO SCH ×2 (11:12→23:01)
[2019-03-16] MEDS: METOPROLOL SUCCINATE XL 100 MG TAB PO SCH (11:12)
[2019-03-16] MEDS: amLODIPine 10 MG TAB PO SCH (11:14)
[2019-03-16] MEDS: HEPARIN 5,000 UNIT/1 ML VIAL SUB-Q SCH ×2 (11:14→23:01)
[2019-03-16] MEDS: allopurinoL 100 MG TAB PO SCH (11:15)
[2019-03-16] MEDS: INSULIN NPH/REGULAR 70/30 INJ SUB-Q SCH ×2 (11:29→18:08)
--- NOTE | 2019-03-16 11:36 | Progress Note ---
Assessment and Plan Impression: * End stage renal disease on HD MWF * Intractable nausea/vomiting, improved/resolved * Accelerated hypertension * Atrial fibrillation on chronic anticoagulation * Type II DM * Anemia secondary to ESRD * Secondary hyperparathyroidism Plan: * Continue HD MWF, due tomorrow * UF as tolerated; will exercise caution given tachycardia (appreciate cardiology input) * BP at goal, continue current regimen * No evidence of peritonitis; however, ideally would like to have PD catheter removed this hospitalization if possible. Appreciate general surgery consult, potential plan for tomorrow if stable cardiac-burns * Epogen TIW prn * Avoidance of fast food seafood Thank you for this consult; we will continue to follow for renal-related issues. Subjective Date of service: 03/16/19 Principal diagnosis: GI distress Interval history: No acute events noted overnight. Tolerating oral intake well. Noted to have atrial fibrillation with RVR, cardiology following. No dyspnea, no edema. Tolerated HD yesterday without any issues. Objective - Exam Narrative Exam: General appearance: well-developed, well-nourished EENT: ATNC Respiratory: Clear to Auscultation Heart: regular, S1S2 Gastrointestinal: Present: normal. No tenderness, distension Integumentary: no rash Neurologic: no focal deficit, alert and oriented x3 Musculoskeletal: Present: other (no edema) Psychiatric: cooperative - Vital Signs Vital signs: Vital Signs - 12hr 03/16/19 03/16/19 03/16/19 00:00 01:26 02:00 Temperature 98.5 F Pulse Rate 112 H 47 L 67 Respiratory 16 Rate Blood Pressure 149/62 149/62 O2 Sat by Pulse 96 Oximetry 03/16/19 03/16/19 03/16/19 04:15 06:00 07:56 Temperature 97.9 F 97.6 F Pulse Rate 54 L 57 L 64 Respiratory 18 18 Rate Blood Pressure 154/70 154/70 163/72 O2 Sat by Pulse 98 97 Oximetry 03/16/19 11:12 Temperature Pulse Rate 74 Respiratory Rate Blood Pressure O2 Sat by Pulse Oximetry - Lab 03/16/19 06:01 03/15/19 07:18 Most recent lab results Calcium 8.5 mg/dL (8.4-10.2) 03/15/19 07:18 Magnesium 1.90 mg/dL (1.7-2.3) 03/13/19 09:16 Medications & Allergies - Medications Allergies/Adverse Reactions: Allergies No Known Allergies Allergy (Verified 05/23/16 22:42) Home Medications: Home Medications Medication Instructions Recorded Confirmed Last Taken Type Insulin Lispro Protamin/Lispro 20 units SQ QAM 08/24/16 03/12/19 09/06/16 History [HumaLOG Mix 75-25 Kwikpen] Insulin Lispro Protamin/Lispro 20 units SQ QPM 08/24/16 03/12/19 09/06/16 History [HumaLOG Mix 75-25 Kwikpen] Allopurinol [Zyloprim] 100 mg PO QDAY #30 tablet 09/01/16 03/12/19 09/06/16 Rx Apixaban [Eliquis] 2.5 mg PO Q12HR #60 tablet 09/01/16 03/12/19 09/01/16 Rx AtorvaSTATin [Lipitor] 20 mg PO QHS #30 tablet 09/01/16 03/12/19 09/06/16 Rx Clonidine HCl [Catapres] 0.3 mg PO TID #90 tablet 09/01/16 03/12/19 09/06/16 Rx Nebivolol HCl [Bystolic] 10 mg PO QDAY 09/07/16 03/12/19 09/06/16 History amLODIPine 10 mg PO BID 09/07/16 03/12/19 09/06/16 History Active Medications: Generic Name Dose Route Start Last Admin Trade Name Freq PRN Reason Stop Dose Admin Acetaminophen 650 mg 03/13/19 07:22 03/14/19 00:50 Tylenol PO 650 mg Q4H PRN Administration Pain MILD(1-3)/Fever >100.5/CHOU Allopurinol 100 mg 03/13/19 10:00 03/16/19 11:15 Zyloprim PO 100 mg QDAY RASHEEDA Administration Amiodarone HCl 200 mg 03/15/19 22:00 03/16/19 11:12 Cordarone PO 200 mg BID RASHEEDA Administration Amlodipine Besylate 10 mg 03/13/19 10:00 03/16/19 11:14 Amlodipine PO 10 mg DAILY RASHEEDA Administration Atorvastatin Calcium 20 mg 03/13/19 22:00 03/15/19 23:39 Lipitor PO 20 mg QHS RASHEEDA Administration Clonidine HCl 0.3 mg 03/12/19 19:00 03/12/19 19:01 Catapres-Tts Patch TD 0.3 mg Tucker RASHEEDA Administration Dextrose 50 ml 03/12/19 23:06 D50w (25gm) Syringe IV Q30MIN PRN Hypoglycemia Protocol Epoetin David 6,000 unit 03/13/19 10:30 03/13/19 15:56 Procrit IV 6,000 unit UMA PRN Administration hemodialysis Heparin Sodium (Porcine) 5,000 unit 03/14/19 22:00 03/16/19 11:14 Heparin SUB-Q 5,000 unit Q12HR RASEHEDA Administration Hydralazine HCl 10 mg 03/12/19 23:11 Apresoline IV Q4HR PRN Blood Pressure Hydromorphone HCl 0.5 mg 03/13/19 07:22 03/15/19 16:25 Dilaudid IV 0.5 mg Q3H PRN Administration Pain , Severe (7-10) Sodium Chloride 100 mls @ 999 mls/hr 03/13/19 08:40 Nacl 0.9% IV UMA PRN Hypotension Amiodarone HCl 900 mg/ 500 mls @ 33.333 mls/hr 03/15/19 11:30 03/15/19 12:22 Dextrose IV 1 mg/min DIRECT RASHEEDA 33.333 mls/hr Administration Protocol 1 MG/MIN Diltiazem HCl 100 mg in 100 mls @ 5 mls/hr 03/15/19 16:00 Cardizem/D5w 100mg/100ml IV TITR RASHEEDA Protocol 5 MG/HR Insulin Human Isoph/Insulin Regular 20 unit 03/14/19 08:00 03/16/19 11:29 Humulin 70/30 SUB-Q 20 unit BIDDIAB RASHEEDA Administration Insulin Human Lispro 0 unit 03/12/19 23:45 03/15/19 22:55 Humalog SUB-Q 2 unit ACHS RASHEEDA Administration Protocol Metoprolol Succinate 100 mg 03/13/19 10:00 03/16/19 11:12 Metoprolol Xl PO 100 mg QDAY RASHEEDA Administration Metoprolol Tartrate 2.5 mg 03/16/19 09:00 Metoprolol IV Q4H PRN HR >120 Ondansetron HCl 4 mg 03/13/19 07:22 Zofran IV Q8H PRN Nausea And Vomiting Oxycodone/Acetaminophen 1 tab 03/13/19 07:22 Percocet 5/325 PO Q6H PRN Pain, Moderate (4-6) Sodium Chloride 10 ml 03/13/19 10:00 03/15/19 22:55 Sodium Chloride Flush Syringe 10 Ml IV 10 ml BID RASHEEDA Administration Sodium Chloride 10 ml 03/13/19 07:22 Sodium Chloride Flush Syringe 10 Ml IV PRN PRN LINE FLUSH
--- NOTE | 2019-03-16 13:47 | Anesthesia Consultation ---
Anesthesia Consult and Med Hx Date of service: 03/16/19 - Airway Anesthetic Teeth Evaluation: Partials (upper and lower) ROM Head & Neck: Adequate Mental/Hyoid Distance: Adequate Mallampati Class: Class III Intubation Access Assessment: Possibly Difficult - Pre-Operative Health Status ASA Pre-Surgery Classification: ASA3 Proposed Anesthetic Plan: General, MAC - Pulmonary Hx Smoking: Yes (30 year/pack, quit 1997) Hx Sleep Apnea: No - Cardiovascular System Hx Hypertension: Yes Hx Cardia Arrhythmia: Yes (recent spells of a-fib, on amiodarone) - Central Nervous System Hx Back Pain: Yes Hx Psychiatric Problems: No - Gastrointestinal Hx Gastroesophageal Reflux Disease: Yes - Endocrine Hx Renal Disease: Yes Hx End Stage Renal Disease: Yes Hx Insulin Dependent Diabetes: Yes - Other Systems Hx Cancer: No
--- NOTE | 2019-03-16 14:31 | Progress Note ---
Assessment and Plan Assessment and plan: 69 yo male patient with stay off ESRD on HD MWF, diabetes mellitus , hypertension was admitted through emergency room with intractable nausea vomiting after eating at a restaurant. Patient feels slightly better today, uncontrolled blood sugars, end-stage renal disease on hemodialysis evaluated by nephrology, on HD per schedule MWF, Severe hypokalemia, replace per protocol. --Acute gastritis: Current Visit: Yes Status: Acute Protonix, antiemetics, IV fluids Supportive care, GI evaluation if no improvement -- Severe Hypokalemia: 2.7 Current Visit: Yes Status: Acute . Replenish per protocol monitor level -- IDDM (insulin dependent diabetes mellitus) Current Visit: Yes Status: Chronic Uncontrolled, Accu-Chek sliding scale coverage ADA diet NovoLog 70/30, 20 units twice a day, increase the dose as needed Check A1c 5.5% -- HTN (hypertension). Current Visit: Yes Status: Chronic Cont Antihypertensives, PRN meds. --Severe Malnutrition/Hypoalbuminemia Current Visit: Yes Status: Chronic Nutrition Supplements and supportive care --Afib with RVR CARDIOLOGY CONSULTED-Amiodarone started following Bolus given yesterday CONTINUE METOPROLOL Obtain echo if non done yet Discussed with cardiology will monitor. --PD catheter Patient is on Eliquis precluding removal, will start on heparin drip and stop Eliquis, and if ok can be removed on Wednesday DVT prophylaxis Current Visit: No Status: Acute ON Heparin Monitor clinically and adjust the management as needed Disposition; Possible discharge tomorrow if stable Anticipated discharge in am if heart rate improve. History Interval history: Patient seen and examined, Reports improvement today with no further nausea or vomiting. Arrhythmia Hospitalist Physical - Physical exam Narrative exam: General appearance: Present: no acute distress, well-nourished - EENT Eyes: Present: PERRL, EOM intact - Neck Neck: Present: supple, normal ROM - Respiratory Respiratory effort: normal Respiratory: bilateral: diminished, negative: rales, rhonchi, wheezing - Cardiovascular Rhythm: irregularly irregular tachy Heart Sounds: Present: S1 & S2 - Extremities Extremities: no ischemia, No edema - Abdominal General gastrointestinal: soft, non-tender, non-distended, normal bowel sounds - Integumentary Integumentary: Present: clear, warm - Psychiatric Psychiatric: appropriate mood/affect, cooperative - Neurologic Neurologic: CNII-XII intact, moves all extremities Results - Constitutional Vitals: Temp Pulse Resp BP Pulse Ox 98.2 F 64 18 158/92 97 03/16/19 11:24 03/16/19 11:24 03/16/19 11:24 03/16/19 11:24 03/16/19 11:24 General appearance: Present: no acute distress, well-nourished Results - Labs CBC & Chem 7: 03/16/19 06:01 03/15/19 07:18 Labs: Laboratory Last Values WBC 8.7 K/mm3 (4.5-11.0) 03/15/19 07:18 RBC 4.13 M/mm3 (3.65-5.03) 03/15/19 07:18 Hgb 12.5 gm/dl (11.8-15.2) 03/16/19 06:01 Hct 37.9 % (35.5-45.6) 03/16/19 06:01 MCV 91 fl (84-94) 03/15/19 07:18 MCH 29 pg (28-32) 03/15/19 07:18 MCHC 32 % (32-34) 03/15/19 07:18 RDW 14.8 % (13.2-15.2) 03/15/19 07:18 Plt Count 298 K/mm3 (140-440) 03/16/19 06:01 Lymph % (Auto) 8.6 % (13.4-35.0) L 03/14/19 06:01 [place] % (Auto) 6.3 % (0.0-7.3) 03/14/19 06:01 Eos % (Auto) 0.1 % (0.0-4.3) 03/14/19 06:01 Baso % (Auto) 0.3 % (0.0-1.8) 03/14/19 06:01 Lymph # 1.2 K/mm3 (1.2-5.4) 03/14/19 06:01 Waller # 0.9 K/mm3 (0.0-0.8) H 03/14/19 06:01 Eos # 0.0 K/mm3 (0.0-0.4) 03/14/19 06:01 Baso # 0.0 K/mm3 (0.0-0.1) 03/14/19 06:01 Add Manual Diff Complete 03/12/19 13:41 Total Counted 100 03/12/19 13:41 Seg Neutrophils % 84.7 % (40.0-70.0) H 03/14/19 06:01 Seg Neuts % (Manual) 97.0 % (40.0-70.0) H 03/12/19 13:41 Band Neutrophils % 0 % 03/12/19 13:41 Lymphocytes % (Manual) 1.0 % (13.4-35.0) L 03/12/19 13:41 Reactive Lymphs % (Man) 0 % 03/12/19 13:41 Monocytes % (Manual) 1.0 % (0.0-7.3) 03/12/19 13:41 Eosinophils % (Manual) 0 % (0.0-4.3) 03/12/19 13:41 Basophils % (Manual) 1.0 % (0.0-1.8) 03/12/19 13:41 Metamyelocytes % 0 % 03/12/19 13:41 Myelocytes % 0 % 03/12/19 13:41 Promyelocytes % 0 % 03/12/19 13:41 Blast Cells % 0 % 03/12/19 13:41 Nucleated RBC % Not Reportable 03/12/19 13:41 Seg Neutrophils # 12.3 K/mm3 (1.8-7.7) H 03/14/19 06:01 Seg Neutrophils # Man 6.1 K/mm3 (1.8-7.7) 03/12/19 13:41 Band Neutrophils # 0.0 K/mm3 03/12/19 13:41 Lymphocytes # (Manual) 0.1 K/mm3 (1.2-5.4) L 03/12/19 13:41 Abs React Lymphs (Man) 0.0 K/mm3 03/12/19 13:41 Monocytes # (Manual) 0.1 K/mm3 (0.0-0.8) 03/12/19 13:41 Eosinophils # (Manual) 0.0 K/mm3 (0.0-0.4) 03/12/19 13:41 Basophils # (Manual) 0.1 K/mm3 (0.0-0.1) 03/12/19 13:41 Metamyelocytes # 0.0 K/mm3 03/12/19 13:41 Myelocytes # 0.0 K/mm3 03/12/19 13:41 Promyelocytes # 0.0 K/mm3 03/12/19 13:41 Blast Cells # 0.0 K/mm3 03/12/19 13:41 WBC Morphology Not Reportable 03/12/19 13:41 Hypersegmented Neuts Not Reportable 03/12/19 13:41 Hyposegmented Neuts Not Reportable 03/12/19 13:41 Hypogranular Neuts Not Reportable 03/12/19 13:41 Smudge Cells Not Reportable 03/12/19 13:41 Toxic Granulation Not Reportable 03/12/19 13:41 Toxic Vacuolation Not Reportable 03/12/19 13:41 Dohle Bodies Not Reportable 03/12/19 13:41 Pelger-Huet Anomaly Not Reportable 03/12/19 13:41 Ca Rods Not Reportable 03/12/19 13:41 Platelet Estimate Consistent w auto 03/12/19 13:41 Clumped Platelets Not Reportable 03/12/19 13:41 Plt Clumps, EDTA Not Reportable 03/12/19 13:41 Large Platelets Not Reportable 03/12/19 13:41 Giant Platelets Not Reportable 03/12/19 13:41 Platelet Satelliting Not Reportable 03/12/19 13:41 Plt Morphology Comment Not Reportable 03/12/19 13:41 RBC Morphology Normal 03/12/19 13:41 Dimorphic RBCs Not Reportable 03/12/19 13:41 Polychromasia Not Reportable 03/12/19 13:41 Hypochromasia Not Reportable 03/12/19 13:41 Poikilocytosis Not Reportable 03/12/19 13:41 Anisocytosis Not Reportable 03/12/19 13:41 Microcytosis Not Reportable 03/12/19 13:41 Macrocytosis Not Reportable 03/12/19 13:41 Spherocytes Not Reportable 03/12/19 13:41 Pappenheimer Bodies Not Reportable 03/12/19 13:41 Sickle Cells Not Reportable 03/12/19 13:41 Target Cells Not Reportable 03/12/19 13:41 Tear Drop Cells Not Reportable 03/12/19 13:41 Ovalocytes Not Reportable 03/12/19 13:41 Helmet Cells Not Reportable 03/12/19 13:41 [place] Bodies Not Reportable 03/12/19 13:41 [place] Rings Not Reportable 03/12/19 13:41 Nona Cells Not Reportable 03/12/19 13:41 Bite Cells Not Reportable 03/12/19 13:41 Crenated Cell Not Reportable 03/12/19 13:41 Elliptocytes Not Reportable 03/12/19 13:41 Acanthocytes (Spur) Not Reportable 03/12/19 13:41 Rouleaux Not Reportable 03/12/19 13:41 Hemoglobin C Crystals Not Reportable 03/12/19 13:41 Schistocytes Not Reportable 03/12/19 13:41 Malaria parasites Not Reportable 03/12/19 13:41 Mata Bodies Not Reportable 03/12/19 13:41 Hem Pathologist Commnt No 03/12/19 13:41 PT 16.5 Sec. (12.2-14.9) H 03/14/19 13:40 INR 1.35 (0.87-1.13) H 03/14/19 13:40 APTT 34.6 Sec. (24.2-36.6) 03/14/19 13:40 VBG pH 7.357 (7.320-7.420) 03/12/19 16:02 Sodium 143 mmol/L (137-145) 03/15/19 07:18 Potassium 3.7 mmol/L (3.6-5.0) 03/15/19 07:18 Chloride 105.4 mmol/L (98-107) 03/15/19 07:18 Carbon Dioxide 20 mmol/L (22-30) L 03/15/19 07:18 Anion Gap 21 mmol/L 03/15/19 07:18 BUN 51 mg/dL (9-20) H 03/15/19 07:18 Creatinine 5.4 mg/dL (0.8-1.5) H 03/15/19 07:18 Estimated GFR 13 ml/min 03/15/19 07:18 BUN/Creatinine Ratio 9 % 03/15/19 07:18 Glucose 89 mg/dL (75-100) 03/15/19 07:18 POC Glucose 202 (70-105) H 03/16/19 12:19 Hemoglobin A1c 5.5 % (4-6) 03/12/19 13:41 Calcium 8.5 mg/dL (8.4-10.2) 03/15/19 07:18 Magnesium 1.90 mg/dL (1.7-2.3) 03/13/19 09:16 Total Bilirubin 0.30 mg/dL (0.1-1.2) 03/12/19 13:41 AST 12 units/L (5-40) 03/12/19 13:41 ALT 6 units/L (7-56) L 03/12/19 13:41 Alkaline Phosphatase 51 units/L (35-129) 03/12/19 13:41 Total Protein 4.9 g/dL (6.3-8.2) L 03/12/19 13:41 Albumin 2.4 g/dL (3.9-5) L 03/12/19 13:41 Albumin/Globulin Ratio 1.0 % 03/12/19 13:41 Lipase 7 units/L (13-60) L 03/12/19 13:41 Hepatitis A IgM Ab Non-reactive (NonReactive) 03/13/19 09:12 Hep Bs Antigen Non-reactive (Negative) 03/13/19 09:12 Hep B Core IgM Ab Non-reactive (NonReactive) 03/13/19 09:12 Hepatitis C Antibody Non-reactive (NonReactive) 03/13/19 09:12 Active Medications - Current Medications Current Medications: Generic Name Dose Route Start Last Admin Trade Name Freq PRN Reason Stop Dose Admin Acetaminophen 650 mg 03/13/19 07:22 03/14/19 00:50 Tylenol PO 650 mg Q4H PRN Administration Pain MILD(1-3)/Fever >100.5/CHOU Allopurinol 100 mg 03/13/19 10:00 03/16/19 11:15 Zyloprim PO 100 mg QDAY RASHEEDA Administration Amiodarone HCl 200 mg 03/15/19 22:00 03/16/19 11:12 Cordarone PO 200 mg BID RASHEEDA Administration Amlodipine Besylate 10 mg 03/13/19 10:00 03/16/19 11:14 Amlodipine PO 10 mg DAILY RASHEEDA Administration Atorvastatin Calcium 20 mg 03/13/19 22:00 03/15/19 23:39 Lipitor PO 20 mg QHS RASHEEDA Administration Clonidine HCl 0.3 mg 03/12/19 19:00 03/12/19 19:01 Catapres-Tts Patch TD 0.3 mg Tucker RASHEEDA Administration Dextrose 50 ml 03/12/19 23:06 D50w (25gm) Syringe IV Q30MIN PRN Hypoglycemia Protocol Epoetin David 6,000 unit 03/13/19 10:30 03/13/19 15:56 Procrit IV 6,000 unit UMA PRN Administration hemodialysis Heparin Sodium (Porcine) 5,000 unit 03/14/19 22:00 03/16/19 11:14 Heparin SUB-Q 5,000 unit Q12HR RASHEEDA Administration Hydralazine HCl 10 mg 03/12/19 23:11 Apresoline IV Q4HR PRN Blood Pressure Hydromorphone HCl 0.5 mg 03/13/19 07:22 03/15/19 16:25 Dilaudid IV 0.5 mg Q3H PRN Administration Pain , Severe (7-10) Sodium Chloride 100 mls @ 999 mls/hr 03/13/19 08:40 Nacl 0.9% IV UMA PRN Hypotension Amiodarone HCl 900 mg/ 500 mls @ 33.333 mls/hr 03/15/19 11:30 03/15/19 12:22 Dextrose IV 1 mg/min DIRECT RASHEEDA 33.333 mls/hr Administration Protocol 1 MG/MIN Diltiazem HCl 100 mg in 100 mls @ 5 mls/hr 03/15/19 16:00 Cardizem/D5w 100mg/100ml IV TITR RASHEEDA Protocol 5 MG/HR Insulin Human Isoph/Insulin Regular 20 unit 03/14/19 08:00 03/16/19 11:29 Humulin 70/30 SUB-Q 20 unit BIDDIAB RASHEEDA Administration Insulin Human Lispro 0 unit 03/12/19 23:45 03/15/19 22:55 Humalog SUB-Q 2 unit ACHS RASHEEDA Administration Protocol Metoprolol Succinate 100 mg 03/13/19 10:00 03/16/19 11:12 Metoprolol Xl PO 100 mg QDAY RASHEEDA Administration Metoprolol Tartrate 2.5 mg 03/16/19 09:00 Metoprolol IV Q4H PRN HR >120 Ondansetron HCl 4 mg 03/13/19 07:22 Zofran IV Q8H PRN Nausea And Vomiting Oxycodone/Acetaminophen 1 tab 03/13/19 07:22 Percocet 5/325 PO Q6H PRN Pain, Moderate (4-6) Sodium Chloride 10 ml 03/13/19 10:00 03/15/19 22:55 Sodium Chloride Flush Syringe 10 Ml IV 10 ml BID RASHEEDA Administration Sodium Chloride 10 ml 03/13/19 07:22 Sodium Chloride Flush Syringe 10 Ml IV PRN PRN LINE FLUSH Nutrition/Malnutrition Assess - Dietary Evaluation Nutrition/Malnutrition Findings: Nutrition Notes Start: 03/13/19 16:37 Freq: Status: Active Protocol: Document 03/13/19 16:37 RM (Rec: 03/13/19 16:40 RM [id number]) Nutrition Notes 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 Pt stated that his appetite is good and that he eats all of his meals. Denied N/V. DM diet education not appropriate d/t A1c 5.5. Burn Absent Trauma Absent Minimum of two criteria No Nutrition Intervention Revisit per MD consult or patient Sign Off request: - Malnutrition Assessment Minimum of two criteria: Yes - Attestation Statement I have reviewed and agreed w/ Malnutrition eval & tx plan: Yes
[2019-03-17 04:24] LABS: Calcium 8.1 mg/dL (8.4-10.2)
[2019-03-17] MEDS: INSULIN LISPRO 100 UNIT/ML SUB-Q SCH ×5 (07:29→22:55)
[2019-03-17] MEDS: DEXTROSE 50% IN WATER (25GM) 50 ML SYRINGE IV PRN ×2 (07:47→11:35)
[2019-03-17] MEDS: INSULIN NPH/REGULAR 70/30 INJ SUB-Q SCH ×2 (08:13→18:39)
[2019-03-17] MEDS ORDERED: POTASSIUM CHLORIDE 10 MEQ 10 MEQ/100 ML BAG IV SCH (10:00)
[2019-03-17] MEDS: allopurinoL 100 MG TAB PO SCH (10:38)
--- NOTE | 2019-03-17 10:53 | Progress Note ---
Assessment and Plan Impression: * End stage renal disease on HD MWF * Intractable nausea/vomiting, improved/resolved * Accelerated hypertension * Atrial fibrillation on chronic anticoagulation * Type II DM * Anemia secondary to ESRD * Secondary hyperparathyroidism Plan: * Continue HD MWF, due today * UF as tolerated; will exercise caution given tachycardia (appreciate cardiology input) * BP has generally been at goal, continue current regimen * No evidence of peritonitis; appreciate surgical removal of PD catheter today * Epogen TIW prn Thank you for this consult; we will continue to follow for renal-related issues. Subjective Date of service: 03/17/19 Principal diagnosis: GI distress Interval history: No acute events noted overnight. Tolerating oral intake well. Noted to have atrial fibrillation with RVR, cardiology following,now improved. No dyspnea, no edema. Has been tolerating HD. Objective - Exam Narrative Exam: General appearance: well-developed, well-nourished EENT: ATNC Respiratory: Clear to Auscultation Heart: regular, S1S2 Gastrointestinal: Present: normal. No tenderness, distension; PD catheter present Integumentary: no rash Neurologic: no focal deficit, alert and oriented x3 Musculoskeletal: Present: other (no edema) Psychiatric: cooperative - Vital Signs Vital signs: Vital Signs - 12hr 03/16/19 03/17/19 03/17/19 23:53 00:00 04:36 Temperature 98.1 F 97.8 F Pulse Rate 57 L 70 63 Respiratory 20 20 Rate Blood Pressure 158/64 167/67 O2 Sat by Pulse 97 99 Oximetry 03/17/19 03/17/19 07:44 08:15 Temperature 98.6 F Pulse Rate 56 L 56 L Respiratory 18 Rate Blood Pressure 180/106 O2 Sat by Pulse 96 Oximetry - Lab 03/16/19 06:01 03/17/19 03:21 Most recent lab results Calcium 8.1 mg/dL (8.4-10.2) L 03/17/19 03:21 Magnesium 1.90 mg/dL (1.7-2.3) 03/13/19 09:16 Medications & Allergies - Medications Allergies/Adverse Reactions: Allergies No Known Allergies Allergy (Verified 05/23/16 22:42) Home Medications: Home Medications Medication Instructions Recorded Confirmed Last Taken Type Insulin Lispro Protamin/Lispro 20 units SQ QAM 08/24/16 03/12/19 09/06/16 History [HumaLOG Mix 75-25 Kwikpen] Insulin Lispro Protamin/Lispro 20 units SQ QPM 08/24/16 03/12/19 09/06/16 Hist ory [HumaLOG Mix 75-25 Kwikpen] Allopurinol [Zyloprim] 100 mg PO QDAY #30 tablet 09/01/16 03/12/19 09/06/16 Rx Apixaban [Eliquis] 2.5 mg PO Q12HR #60 tablet 09/01/16 03/12/19 09/01/16 Rx AtorvaSTATin [Lipitor] 20 mg PO QHS #30 tablet 09/01/16 03/12/19 09/06/16 Rx Clonidine HCl [Catapres] 0.3 mg PO TID #90 tablet 09/01/16 03/12/19 09/06/16 Rx Nebivolol HCl [Bystolic] 10 mg PO QDAY 09/07/16 03/12/19 09/06/16 History amLODIPine 10 mg PO BID 09/07/16 03/12/19 09/06/16 History Active Medications: Generic Name Dose Route Start Last Admin Trade Name Freq PRN Reason Stop Dose Admin Acetaminophen 650 mg 03/13/19 07:22 03/14/19 00:50 Tylenol PO 650 mg Q4H PRN Administration Pain MILD(1-3)/Fever >100.5/CHOU Allopurinol 100 mg 03/13/19 10:00 03/16/19 11:15 Zyloprim PO 100 mg QDAY RASHEEDA Administration Amiodarone HCl 200 mg 03/15/19 22:00 03/16/19 23:01 Cordarone PO 200 mg BID RASHEEDA Administration Amlodipine Besylate 10 mg 03/13/19 10:00 03/16/19 11:14 Amlodipine PO 10 mg DAILY RASHEEDA Administration Atorvastatin Calcium 20 mg 03/13/19 22:00 03/16/19 23:01 Lipitor PO 20 mg QHS RASHEEDA Administration Clonidine HCl 0.3 mg 03/12/19 19:00 03/12/19 19:01 Catapres-Tts Patch TD 0.3 mg Tucker RASHEEDA Administration Dextrose 50 ml 03/12/19 23:06 03/17/19 07:47 D50w (25gm) Syringe IV 50 ml Q30MIN PRN Administration Hypoglycemia Protocol Epoetin David 6,000 unit 03/13/19 10:30 03/13/19 15:56 Procrit IV 6,000 unit UMA PRN Administration hemodialysis Heparin Sodium (Porcine) 5,000 unit 03/14/19 22:00 03/16/19 23:01 Heparin SUB-Q Not Given Q12HR [facility] Hydralazine HCl 10 mg 03/12/19 23:11 Apresoline IV Q4HR PRN Blood Pressure Hydromorphone HCl 0.5 mg 03/13/19 07:22 03/15/19 16:25 Dilaudid IV 0.5 mg Q3H PRN Administration Pain , Severe (7-10) Sodium Chloride 100 mls @ 999 mls/hr 03/13/19 08:40 Nacl 0.9% IV UMA PRN Hypotension Amiodarone HCl 900 mg/ 500 mls @ 33.333 mls/hr 03/15/19 11:30 03/15/19 12:22 Dextrose IV 1 mg/min DIRECT RASHEEDA 33.333 mls/hr Administration Protocol 1 MG/MIN Diltiazem HCl 100 mg in 100 mls @ 5 mls/hr 03/15/19 16:00 Cardizem/D5w 100mg/100ml IV TITR RASHEEDA Protocol 5 MG/HR Potassium Chloride 10 meq in 100 mls @ 100 mls/hr 03/17/19 10:00 Kcl 10meq/100ml IV 03/17/19 13:59 Q1H [facility] Insulin Human Isoph/Insulin Regular 20 unit 03/14/19 08:00 03/17/19 08:13 Humulin 70/30 SUB-Q Not Given BIDDIAB [facility] Insulin Human Lispro 0 unit 03/12/19 23:45 03/17/19 08:12 Humalog SUB-Q Not Given ACHS [facility] Protocol Metoprolol Succinate 100 mg 03/13/19 10:00 03/16/19 11:12 Metoprolol Xl PO 100 mg QDAY [facility] Administration Metoprolol Tartrate 2.5 mg 03/16/19 09:00 Metoprolol IV Q4H PRN HR >120 Ondansetron HCl 4 mg 03/13/19 07:22 Zofran IV Q8H PRN Nausea And Vomiting Oxycodone/Acetaminophen 1 tab 03/13/19 07:22 Percocet 5/325 PO Q6H PRN Pain, Moderate (4-6) Sodium Chloride 10 ml 03/13/19 10:00 03/17/19 07:33 Sodium Chloride Flush Syringe 10 Ml IV 10 ml BID RASHEEDA Administration Sodium Chloride 10 ml 03/13/19 07:22 Sodium Chloride Flush Syringe 10 Ml IV PRN PRN LINE FLUSH
--- NOTE | 2019-03-17 11:34 | Progress Note ---
Assessment and Plan Acute gastritis ESRD on hemodialysis Hypertension Diabetes Paroxysmal atrial fibrillation reverted to sinus rhythm; on amiodarone and metoprolol for suppression. on eliquis as an outpatient, currently on hold in anticipation of removal of an indwelling peritoneal dialysis catheter. Continue amiodarone 200 for atrial fibrillation suppression. Otherwise, conservative cardiac management. Subjective Date of service: 03/17/19 Principal diagnosis: GI distress Interval history: Patient has no complaints. Awaits removal of PD catheter. Stable sinus rhythm on telemetry. Objective Vital Signs Temp Pulse Resp Resp BP Pulse Ox 03/17/19 08:15 56 L 03/17/19 07:44 98.6 F 56 L 18 180/106 96 03/17/19 04:36 97.8 F 63 20 167/67 99 03/17/19 00:00 70 03/16/19 23:53 98.1 F 57 L 20 158/64 97 03/16/19 22:00 20 03/16/19 19:53 99.1 F 56 L 18 158/65 99 03/16/19 16:00 79 03/16/19 15:26 98.6 F 79 20 127/63 96 - Physical Examination General: No Apparent Distress HEENT: Positive: PERRL Neck: Positive: trachea midline Cardiac: Positive: Reg Rate and Rhythm Lungs: Positive: Decreased Breath Sounds Neuro: Positive: Grossly Intact Extremities: Absent: edema - Labs and Meds Comprehensive Metabolic Panel 03/17/19 Range/Units 03:21 Sodium 138 (137-145) mmol/L Potassium 3.0 L (3.6-5.0) mmol/L Chloride 100.6 (98-107) mmol/L Carbon Dioxide 23 (22-30) mmol/L BUN 44 H (9-20) mg/dL Creatinine 5.4 H (0.8-1.5) mg/dL Glucose 41 L (75-100) mg/dL Calcium 8.1 L (8.4-10.2) mg/dL
[2019-03-17] MEDS ORDERED: fentaNYL 100 MCG/2 ML INJ IV PRN (11:38)
[2019-03-17] MEDS ORDERED: ONDANSETRON 4 MG/2 ML INJ IV PRN (11:38)
--- NOTE | 2019-03-17 11:44 | Anesthesia Day of Surgery ---
Anesthesia Day of Surgery - Day of Surgery Patient Examined: Yes Patient H&P Reviewed: Yes Patient is NPO: Yes Beta Blockers: Yes
[2019-03-17] MEDS ORDERED: LIDOCAINE 1%/EPINEPHRINE 1:100,000 VIAL (20 ML) INFILTRATI ONE ×3 (11:51→13:13)
[2019-03-17] MEDS ORDERED: BUPIVACAINE/PF (0.25%) 2.5 MG/ML 30 ML VIAL INFILTRATI ONE ×3 (11:51→13:12)
[2019-03-17] MEDS ORDERED: SODIUM CHLORIDE 0.9% 1000 ML 1,000 ML IV SCH (12:00)
[2019-03-17] MEDS ORDERED: AMIODARONE 200 MG TAB PO SCH (12:00)
[2019-03-17] MEDS: HEPARIN 5,000 UNIT/1 ML VIAL SUB-Q SCH ×2 (12:07→23:00)
[2019-03-17] MEDS: METOPROLOL SUCCINATE XL 100 MG TAB PO SCH (12:15)
[2019-03-17] MEDS: amLODIPine 10 MG TAB PO SCH (12:15)
[2019-03-17] MEDS ORDERED: POTASSIUM CHLORIDE ER 20 MEQ TAB PO ONE ×2 (12:23→22:30)
--- NOTE | 2019-03-17 12:26 | Discharge Summary ---
<JULIO CESAR TREJO - Last Filed: 03/17/19 13:38> Providers - Providers Date of Admission: 03/12/19 15:40 Attending physician: VLADIMIR NGUYEN MD 03/13/19 07:22 Consult to Physician [CONS] Routine Comment: Consulting Provider: GANGA COLEMAN Physician Instructions: Reason For Exam: ESRD 03/14/19 07:54 Consult to Physician [CONS] Routine Comment: Consulting Provider: BRANT LEVIN Physician Instructions: Reason For Exam: removal of PD catherter Per Nephrology 03/14/19 13:27 Consult to Physician [CONS] Routine Comment: Consulting Provider: RADHA OLIVER Physician Instructions: Reason For Exam: afib with RVR Primary care physician: LUMBER SCALER Hospitalization Condition: Good Disposition: DC-01 TO HOME OR SELFCARE Exam - Constitutional Vitals: Temp Pulse Resp BP Pulse Ox 98.1 F 73 20 170/89 99 03/17/19 11:35 03/17/19 11:35 03/17/19 11:35 03/17/19 11:35 03/17/19 11:35 Plan Wound: open to air, per your surgeon's advice (Remove outer dressing and gauze in 2 days. May shower tomorrow. Cleanse open wound with soap and water and keep covered with bandaid) Follow up with: RADHA OLIVER MD [Staff Physician] - 7 Days PRIMARY CAREMD [Primary Care Provider] - 3-5 Days FRANKIE ROBBINS MD [Staff Physician] - 7 Days JULIO CESAR TREJO DO [Staff Physician] - 14 Days <VLADIMIR NGUYEN - Last Filed: 04/12/19 12:51> Providers - Providers Date of Admission: 03/12/19 15:40 Attending physician: VLADIMIR NGUYEN MD 03/13/19 07:22 Consult to Physician [CONS] Routine Comment: Consulting Provider: GANGA COLEMAN Physician Instructions: Reason For Exam: ESRD 03/14/19 07:54 Consult to Physician [CONS] Routine Comment: Consulting Provider: BRANT LEVIN Physician Instructions: Reason For Exam: removal of PD catherter Per Nephrology 03/14/19 13:27 Consult to Physician [CONS] Routine Comment: Consulting Provider: RADHA OLIVER Physician Instructions: Reason For Exam: afib with RVR Primary care physician: LUMBER SCALER Hospitalization Hospital course: note is an error. Time spent for discharge: 35 mins Core Measure Documentation - Palliative Care Palliative Care/ Comfort Measures: Not Applicable - Core Measures Any of the following diagnoses?: none Exam - Constitutional Vitals: Temp Pulse Resp BP Pulse Ox 98.6 F 56 L 18 180/106 96 03/17/19 07:44 03/17/19 08:15 03/17/19 07:44 03/17/19 07:44 03/17/19 07:44 Plan Activity: advance as tolerated, fall precautions Diet: low fat, renal Special Instructions: record daily BP diary, record blood sugar diary
[2019-03-17] MEDS ORDERED: LIDOCAINE MPF (2%) 20 MG/1 ML VIAL 5 ML ONE (12:29)
[2019-03-17] MEDS ORDERED: ONDANSETRON 4 MG/2 ML INJ ONE (12:29)
[2019-03-17] MEDS ORDERED: dexAMETHasone 20 MG/5 ML VIAL ONE (12:29)
[2019-03-17] MEDS ORDERED: fentaNYL 100 MCG/2 ML INJ ONE (12:29)
[2019-03-17] MEDS ORDERED: PROPOFOL 200 MG/20 ML VIAL IV ONE (12:30)
[2019-03-17] MEDS ORDERED: ceFAZolin/Water 2 GM/20 ML 2 GM/20 ML SYRINGE IV NR (13:00)
--- NOTE | 2019-03-17 13:37 | Post Operative Note ---
Pre-op diagnosis: ESRD on HD Post-op diagnosis: same Findings: PD catheter removed in 2 piece Procedure: removal of peritoneal dialysis catheter Anesthesia: GETA, local Surgeon: JULIO CESAR TREJO Estimated blood loss: minimal Pathology: list (PD catheter for identification) Specimen disposition: to lab Condition: stable Disposition: PACU (Plan: Patient ok to resume eliquis tomorrow 03/18/19 and may be discharged to home from surgery standpoint.)
[2019-03-17] MEDS ORDERED: SODIUM CHLORIDE*PRIMING MACHINE ONLY FOR DIALYSIS MC ONE (17:31)
[2019-03-17] MEDS: EPOETIN ALFA 10,000 UNIT/1 ML INJ IV PRN (18:20)
--- NOTE | 2019-03-17 19:15 | Progress Note ---
Assessment and Plan Assessment and plan: 69 yo male patient with stay off ESRD on HD MWF, diabetes mellitus , hypertension was admitted through emergency room with intractable nausea vomiting after eating at a restaurant. Patient feels better today, uncontrolled blood sugars, end-stage renal disease on hemodialysis evaluated by nephrology, on HD per schedule MWF, Severe hypokalemia, replace per protocol. * Patient during admission went into Afib with RVR, was started on amiodarone drip and improved * The patient underwent PD catherter removal * Can be discharged on oral amiodarone per Cardiology --Acute gastritis: Current Visit: Yes Status: Acute Protonix, antiemetics, IV fluids Supportive care, GI evaluation if no improvement -- Severe Hypokalemia: resolved Current Visit: Yes Status: Acute . Replenish per protocol monitor level -- IDDM (insulin dependent diabetes mellitus) Current Visit: Yes Status: Chronic Uncontrolled, Accu-Chek sliding scale coverage ADA diet NovoLog 70/30, 20 units twice a day, increase the dose as needed Check A1c 5.5% -- HTN (hypertension). Current Visit: Yes Status: Chronic Cont Antihypertensives, PRN meds. --Severe Malnutrition/Hypoalbuminemia Current Visit: Yes Status: Chronic Nutrition Supplements and supportive care --Afib with RVR CARDIOLOGY CONSULTED-Amiodarone Converted to PO CONTINUE METOPROLOL If non done yet Discussed with cardiology will monitor. --PD catheter Resume Eliquis tomorrow on discharge DVT prophylaxis Current Visit: No Status: Acute ON Heparin Monitor clinically and adjust the management as needed Disposition; Possible discharge tomorrow if stable Anticipated discharge in am if heart rate improve. History Interval history: Patient seen and examined, Reports improvement today with no further nausea or vomiting. Arrhythmia , Planned for removal of PD catherter today Hospitalist Physical - Physical exam Narrative exam: General appearance: Present: no acute distress, well-nourished - EENT Eyes: Present: PERRL, EOM intact - Neck Neck: Present: supple, normal ROM - Respiratory Respiratory effort: normal Respiratory: bilateral: diminished, negative: rales, rhonchi, wheezing - Cardiovascular Rhythm: irregularly irregular tachy Heart Sounds: Present: S1 & S2 - Extremities Extremities: no ischemia, No edema - Abdominal General gastrointestinal: soft, non-tender, non-distended, normal bowel sounds - Integumentary Integumentary: Present: clear, warm - Psychiatric Psychiatric: appropriate mood/affect, cooperative - Neurologic Neurologic: CNII-XII intact, moves all extremities Results - Constitutional Vitals: Temp Pulse Resp BP Pulse Ox 98.0 F 74 18 128/66 99 03/17/19 18:45 03/17/19 18:45 03/17/19 18:45 03/17/19 18:45 03/17/19 15:00 General appearance: Present: no acute distress, well-nourished Results - Labs CBC & Chem 7: 03/16/19 06:01 03/17/19 03:21 Labs: Laboratory Last Values WBC 8.7 K/mm3 (4.5-11.0) 03/15/19 07:18 RBC 4.13 M/mm3 (3.65-5.03) 03/15/19 07:18 Hgb 12.5 gm/dl (11.8-15.2) 03/16/19 06:01 Hct 37.9 % (35.5-45.6) 03/16/19 06:01 MCV 91 fl (84-94) 03/15/19 07:18 MCH 29 pg (28-32) 03/15/19 07:18 MCHC 32 % (32-34) 03/15/19 07:18 RDW 14.8 % (13.2-15.2) 03/15/19 07:18 Plt Count 298 K/mm3 (140-440) 03/16/19 06:01 Lymph % (Auto) 8.6 % (13.4-35.0) L 03/14/19 06:01 Wirt % (Auto) 6.3 % (0.0-7.3) 03/14/19 06:01 Eos % (Auto) 0.1 % (0.0-4.3) 03/14/19 06:01 Baso % (Auto) 0.3 % (0.0-1.8) 03/14/19 06:01 Lymph # 1.2 K/mm3 (1.2-5.4) 03/14/19 06:01 Wirt # 0.9 K/mm3 (0.0-0.8) H 03/14/19 06:01 Eos # 0.0 K/mm3 (0.0-0.4) 03/14/19 06:01 Baso # 0.0 K/mm3 (0.0-0.1) 03/14/19 06:01 Add Manual Diff Complete 03/12/19 13:41 Total Counted 100 03/12/19 13:41 Seg Neutrophils % 84.7 % (40.0-70.0) H 03/14/19 06:01 Seg Neuts % (Manual) 97.0 % (40.0-70.0) H 03/12/19 13:41 Band Neutrophils % 0 % 03/12/19 13:41 Lymphocytes % (Manual) 1.0 % (13.4-35.0) L 03/12/19 13:41 Reactive Lymphs % (Man) 0 % 03/12/19 13:41 Monocytes % (Manual) 1.0 % (0.0-7.3) 03/12/19 13:41 Eosinophils % (Manual) 0 % (0.0-4.3) 03/12/19 13:41 Basophils % (Manual) 1.0 % (0.0-1.8) 03/12/19 13:41 Metamyelocytes % 0 % 03/12/19 13:41 Myelocytes % 0 % 03/12/19 13:41 Promyelocytes % 0 % 03/12/19 13:41 Blast Cells % 0 % 03/12/19 13:41 Nucleated RBC % Not Reportable 03/12/19 13:41 Seg Neutrophils # 12.3 K/mm3 (1.8-7.7) H 03/14/19 06:01 Seg Neutrophils # Man 6.1 K/mm3 (1.8-7.7) 03/12/19 13:41 Band Neutrophils # 0.0 K/mm3 03/12/19 13:41 Lymphocytes # (Manual) 0.1 K/mm3 (1.2-5.4) L 03/12/19 13:41 Abs React Lymphs (Man) 0.0 K/mm3 03/12/19 13:41 Monocytes # (Manual) 0.1 K/mm3 (0.0-0.8) 03/12/19 13:41 Eosinophils # (Manual) 0.0 K/mm3 (0.0-0.4) 03/12/19 13:41 Basophils # (Manual) 0.1 K/mm3 (0.0-0.1) 03/12/19 13:41 Metamyelocytes # 0.0 K/mm3 03/12/19 13:41 Myelocytes # 0.0 K/mm3 03/12/19 13:41 Promyelocytes # 0.0 K/mm3 03/12/19 13:41 Blast Cells # 0.0 K/mm3 03/12/19 13:41 WBC Morphology Not Reportable 03/12/19 13:41 Hypersegmented Neuts Not Reportable 03/12/19 13:41 Hyposegmented Neuts Not Reportable 03/12/19 13:41 Hypogranular Neuts Not Reportable 03/12/19 13:41 Smudge Cells Not Reportable 03/12/19 13:41 Toxic Granulation Not Reportable 03/12/19 13:41 Toxic Vacuolation Not Reportable 03/12/19 13:41 Dohle Bodies Not Reportable 03/12/19 13:41 Pelger-Huet Anomaly Not Reportable 03/12/19 13:41 Ca Rods Not Reportable 03/12/19 13:41 Platelet Estimate Consistent w auto 03/12/19 13:41 Clumped Platelets Not Reportable 03/12/19 13:41 Plt Clumps, EDTA Not Reportable 03/12/19 13:41 Large Platelets Not Reportable 03/12/19 13:41 Giant Platelets Not Reportable 03/12/19 13:41 Platelet Satelliting Not Reportable 03/12/19 13:41 Plt Morphology Comment Not Reportable 03/12/19 13:41 RBC Morphology Normal 03/12/19 13:41 Dimorphic RBCs Not Reportable 03/12/19 13:41 Polychromasia Not Reportable 03/12/19 13:41 Hypochromasia Not Reportable 03/12/19 13:41 Poikilocytosis Not Reportable 03/12/19 13:41 Anisocytosis Not Reportable 03/12/19 13:41 Microcytosis Not Reportable 03/12/19 13:41 Macrocytosis Not Reportable 03/12/19 13:41 Spherocytes Not Reportable 03/12/19 13:41 Pappenheimer Bodies Not Reportable 03/12/19 13:41 Sickle Cells Not Reportable 03/12/19 13:41 Target Cells Not Reportable 03/12/19 13:41 Tear Drop Cells Not Reportable 03/12/19 13:41 Ovalocytes Not Reportable 03/12/19 13:41 Helmet Cells Not Reportable 03/12/19 13:41 Hampton-Hendron Bodies Not Reportable 03/12/19 13:41 Mifflin Rings Not Reportable 03/12/19 13:41 Nona Cells Not Reportable 03/12/19 13:41 Bite Cells Not Reportable 03/12/19 13:41 Crenated Cell Not Reportable 03/12/19 13:41 Elliptocytes Not Reportable 03/12/19 13:41 Acanthocytes (Spur) Not Reportable 03/12/19 13:41 Rouleaux Not Reportable 03/12/19 13:41 Hemoglobin C Crystals Not Reportable 03/12/19 13:41 Schistocytes Not Reportable 03/12/19 13:41 Malaria parasites Not Reportable 03/12/19 13:41 Mata Bodies Not Reportable 03/12/19 13:41 Hem Pathologist Commnt No 03/12/19 13:41 PT 16.5 Sec. (12.2-14.9) H 03/14/19 13:40 INR 1.35 (0.87-1.13) H 03/14/19 13:40 APTT 34.6 Sec. (24.2-36.6) 03/14/19 13:40 VBG pH 7.357 (7.320-7.420) 03/12/19 16:02 Sodium 138 mmol/L (137-145) 03/17/19 03:21 Potassium 3.0 mmol/L (3.6-5.0) L 03/17/19 03:21 Chloride 100.6 mmol/L (98-107) 03/17/19 03:21 Carbon Dioxide 23 mmol/L (22-30) 03/17/19 03:21 Anion Gap 17 mmol/L 03/17/19 03:21 BUN 44 mg/dL (9-20) H 03/17/19 03:21 Creatinine 5.4 mg/dL (0.8-1.5) H 03/17/19 03:21 Estimated GFR 13 ml/min 03/17/19 03:21 BUN/Creatinine Ratio 8 % 03/17/19 03:21 Glucose 41 mg/dL (75-100) L 03/17/19 03:21 POC Glucose 155 (70-105) H 03/17/19 12:11 Hemoglobin A1c 5.5 % (4-6) 03/12/19 13:41 Calcium 8.1 mg/dL (8.4-10.2) L 03/17/19 03:21 Magnesium 1.90 mg/dL (1.7-2.3) 03/13/19 09:16 Total Bilirubin 0.30 mg/dL (0.1-1.2) 03/12/19 13:41 AST 12 units/L (5-40) 03/12/19 13:41 ALT 6 units/L (7-56) L 03/12/19 13:41 Alkaline Phosphatase 51 units/L (35-129) 03/12/19 13:41 Total Protein 4.9 g/dL (6.3-8.2) L 03/12/19 13:41 Albumin 2.4 g/dL (3.9-5) L 03/12/19 13:41 Albumin/Globulin Ratio 1.0 % 03/12/19 13:41 Lipase 7 units/L (13-60) L 03/12/19 13:41 Hepatitis A IgM Ab Non-reactive (NonReactive) 03/13/19 09:12 Hep Bs Antigen Non-reactive (Negative) 03/13/19 09:12 Hep B Core IgM Ab Non-reactive (NonReactive) 03/13/19 09:12 Hepatitis C Antibody Non-reactive (NonReactive) 03/13/19 09:12 Active Medications - Current Medications Current Medications: Generic Name Dose Route Start Last Admin Trade Name Freq PRN Reason Stop Dose Admin Acetaminophen 650 mg 03/13/19 07:22 03/14/19 00:50 Tylenol PO 650 mg Q4H PRN Administration Pain MILD(1-3)/Fever >100.5/CHOU Allopurinol 100 mg 03/13/19 10:00 03/17/19 10:38 Zyloprim PO Not Given QDAY RASHEEDA Amiodarone HCl 200 mg 03/17/19 12:00 03/17/19 12:15 Cordarone PO 200 mg QDAY RASHEEDA Administration Amlodipine Besylate 10 mg 03/13/19 10:00 03/17/19 12:15 Amlodipine PO 10 mg DAILY RASHEEDA Administration Atorvastatin Calcium 20 mg 03/13/19 22:00 03/16/19 23:01 Lipitor PO 20 mg QHS RASHEEDA Administration Clonidine HCl 0.3 mg 03/12/19 19:00 03/12/19 19:01 Catapres-Tts Patch TD 0.3 mg Tucker RASHEEDA Administration Dextrose 50 ml 03/12/19 23:06 03/17/19 11:35 D50w (25gm) Syringe IV 50 ml Q30MIN PRN Administration Hypoglycemia Protocol Epoetin David 6,000 unit 03/13/19 10:30 03/17/19 18:20 Procrit IV 6,000 unit UMA PRN Administration hemodialysis Fentanyl 50 mcg 03/17/19 11:38 Sublimaze IV Q5MIN PRN Pain , Severe (7-10) Heparin Sodium (Porcine) 5,000 unit 03/14/19 22:00 03/17/19 12:07 Heparin SUB-Q Not Given Q12HR RASHEEDA Hydralazine HCl 10 mg 03/12/19 23:11 03/17/19 14:13 Apresoline IV 10 mg Q4HR PRN Administration Blood Pressure Hydromorphone HCl 0.5 mg 03/13/19 07:22 03/15/19 16:25 Dilaudid IV 0.5 mg Q3H PRN Administration Pain , Severe (7-10) Sodium Chloride 100 mls @ 999 mls/hr 03/13/19 08:40 Nacl 0.9% IV UMA PRN Hypotension Amiodarone HCl 900 mg/ 500 mls @ 33.333 mls/hr 03/15/19 11:30 03/15/19 12:22 Dextrose IV 1 mg/min DIRECT RASHEEDA 33.333 mls/hr Administration Protocol 1 MG/MIN Diltiazem HCl 100 mg in 100 mls @ 5 mls/hr 03/15/19 16:00 Cardizem/D5w 100mg/100ml IV TITR RASHEEDA Protocol 5 MG/HR Sodium Chloride 1,000 mls @ 42 mls/hr 03/17/19 12:00 03/17/19 12:00 Nacl 0.9% 1000 Ml IV 42 mls/hr DIRECT RASHEEDA Administration Cefazolin Sodium 2 gm in 20 mls @ 80 mls/hr 03/17/19 13:00 Ancef/Sterile Water 2 Gm/20 Ml IV 03/17/19 23:59 PREOP NR Insulin Human Isoph/Insulin Regular 20 unit 03/14/19 08:00 03/17/19 18:39 Humulin 70/30 SUB-Q Not Given BIDDIAB RASHEEDA Insulin Human Lispro 0 unit 03/12/19 23:45 03/17/19 16:30 Humalog SUB-Q Not Given ACHS [facility] Protocol Metoprolol Succinate 100 mg 03/13/19 10:00 03/17/19 12:15 Metoprolol Xl PO 100 mg QDAY RASHEEDA Administration Metoprolol Tartrate 2.5 mg 03/16/19 09:00 Metoprolol IV Q4H PRN HR >120 Ondansetron HCl 4 mg 03/13/19 07:22 Zofran IV Q8H PRN Nausea And Vomiting Ondansetron HCl 4 mg 03/17/19 11:38 Zofran IV ONCE PRN Nausea And Vomiting Oxycodone/Acetaminophen 1 tab 03/13/19 07:22 Percocet 5/325 PO Q6H PRN Pain, Moderate (4-6) Sodium Chloride 10 ml 03/13/19 10:00 03/17/19 10:00 Sodium Chloride Flush Syringe 10 Ml IV 10 ml BID RASHEEDA Administration Sodium Chloride 10 ml 03/13/19 07:22 Sodium Chloride Flush Syringe 10 Ml IV PRN PRN LINE FLUSH Nutrition/Malnutrition Assess - Dietary Evaluation Nutrition/Malnutrition Findings: Nutrition Notes Start: 03/13/19 16:37 Freq: Status: Active Protocol: Document 03/17/19 10:30 CT (Rec: 03/17/19 10:41 CT [id number]) Co-Sign 03/17/19 10:30 LP Nutrition Notes Need for Assessment generated from: LOS Initial or Follow up Assessment Current Diagnosis Diabetes,Hypertension Other Pertinent Diagnosis ESRD on HD (M/W/F), N/V, Acute gastritis Current Diet Renal Labs/Tests POC Glu 60 Pertinent Medications Humalog Humulin Lipitor Height 6 ft 1 in Weight 94.3 kg Usual Body Weight 97.069 kg [place] Body Weight (kg) 83.63 BMI 27.4 Weight change and time frame weight change noted, d/t renal issues Subjective/Other Information Follow up for PO intakes and need for education on Renal/DM diet. Pt has been NPO since midnight d/t surgery to get PC cath removed. Pt has not had breakfast and is waiting for surgery after 12 pm. Pt receives dialysis at [facility] and has been given education by RD. 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 Pt was given Renal Diet and Carbohydrate Counting handout and accepted education . Percent of energy/protein needs met: 0% / 0% Burn Absent Trauma Absent GI Symptoms None Minimum of two criteria No physical signs of malnutrition #1 Nutrition Diagnosis Food and nutrition-related knowledge deficit Etiology limited knowledge on Renal and Diabetic Diet As Evidenced by Signs and Symptoms pt accepting education materials #2 Nutrition Diagnosis Predicted suboptimal energy intake Etiology NPO after midnight for surgery As Evidenced by Signs and Symptoms pt not receiving breakfast tray Is patient on ventilator? No Is Patient Ambulatory and/or Out of Bed Yes [facility]/OOB) [ [phone] [id number]] Calculation Used for Recommendations [facility] Additional Notes Protein needs: > 114 g/day (>1 .2 g/kg/day) Fluid needs: urine output + 1000 ml Nutrition Intervention Change Diet Order: Continue current until diet advancement Teaching Recipient Patient Learning Readiness Good Teaching Methods Discussion,Handout Response to Teaching Verbalize understanding Education Handouts Provided Renal Diet Carbohydrate Counting Barriers to Learning No Barriers RD phone number provided Yes Patient aware of follow up options Yes Goal #1 Diet advancement Goal #2 Meet >85% of energy and protein needs Anticipated Discharge Needs: Renal/Consistent CHO diet Follow-Up By: 03/21/19 Additional Comments Follow up for PO intake
[2019-03-18 03:44] VITALS: BP 142/83
--- NOTE | 2019-03-18 10:59 | Post Anesthesia Evaluation ---
- Post Anesthesia Evaluation Patient Participated: Yes Airway Patent: Yes Stable Respiratory Function: Yes Nausea/Vomiting: No Temp > 96.8F: Yes Pain Manageable: Yes Adequeate Hydration: Yes Anesthesia Complications: No Block Receding Appropriately: Not Applicable Patient on Ventilator: No
--- NOTE | 2019-03-18 12:27 | Operative Report ---
PREOPERATIVE DIAGNOSIS: End-stage renal disease, on hemodialysis. POSTOPERATIVE DIAGNOSIS: End-stage renal disease, on hemodialysis. FINDINGS: PD catheter removed in 2 pieces. PROCEDURE: Removal of peritoneal dialysis catheter. ANESTHESIA: LMA and local. SURGEON: Patricia Hightower DO ESTIMATED BLOOD LOSS: Minimal. PATHOLOGY: PD catheter for identification. SPECIMEN DISPOSITION: To lab. CONDITION ON DISCHARGE: The patient is stable to PACU. HISTORY OF PRESENT ILLNESS AND INDICATIONS: The patient is a 69-year-old male who has end-stage renal disease who was started on peritoneal dialysis back in December. PD catheter was placed laparoscopically. Shortly thereafter, the patient could not handle peritoneal dialysis and was converted to hemodialysis. The patient was admitted to the hospital with gastritis and seen by Nephrology. Nephrology recommended removal of the peritoneal dialysis catheter. All risks, benefits, and alternatives to surgery were discussed with the patient and questions answered. Consent was obtained. He was seen by Cardiology preoperatively and optimized for surgery. His Eliquis was held for 2 days. PROCEDURE IN DETAIL: The patient was identified in the preoperative area, taken back to the operating room and placed on the operating table in supine position. After anesthesia was induced, the abdomen and portion of the catheter were prepped and draped in the usual sterile fashion. Timeout performed. Local anesthetic was infiltrated into the intended incision site near the umbilicus. An incision was made at the old surgical scar to the left of the umbilicus at the site of the fascial cuff. Dissection was carried down through skin and subcutaneous tissue using combination of electrocautery and blunt dissection with a hemostat. The subcutaneous portion of the port was first dissected and freed from the surrounding tissue using electrocautery. The catheter was then grasped between 2 hemostats and cut. The subcutaneous portion of the catheter was removed and passed off the table as a specimen. The anterior fascia was then incised with electrocautery until the muscle was seen. The muscle was spread in the direction of its fibers until the preperitoneal cuff was identified. The preperitoneal cuff was then dissected free from the surrounding tissue using electrocautery. Once completely freed, the intraperitoneal portion of the catheter was also removed and passed off the table as a specimen. The wound was checked for hemostasis, which was carefully ensured. The fascia was closed with [id number] Vicryl sutures. The subcutaneous tissue was irrigated with saline and the deep dermal layer was closed with 3-0 Vicryl interrupted sutures. The skin was approximated using 4-0 Monocryl subcuticular stitches and skin glue. The skin opening at the catheter entry site in the left abdomen was also irrigated and cleansed. This was packed with the corner of a 4 x 4 gauze, covered with 2 x 2 gauze and Tegaderm. At the end of the case, all sponge, instrument, sharp counts were correct x 2. The patient was awoken from anesthesia and taken to PACU in stable condition. JOB# [id number] CHRISTIANO/LATISHA
--- NOTE | 2019-03-18 16:53 | Discharge Summary ---
Providers - Providers Date of Admission: 03/12/19 15:40 Date of discharge: 03/18/19 Attending physician: CARLOS GA 03/13/19 07:22 Consult to Physician [CONS] Routine Comment: Consulting Provider: GANGA COLEMAN Physician Instructions: Reason For Exam: ESRD 03/14/19 07:54 Consult to Physician [CONS] Routine Comment: Consulting Provider: BRANT LEVIN Physician Instructions: Reason For Exam: removal of PD catherter Per Nephrology 03/14/19 13:27 Consult to Physician [CONS] Routine Comment: Consulting Provider: RADHA OLIVER Physician Instructions: Reason For Exam: afib with RVR Primary care physician: CARTON FILLER Hospitalization Condition: Good Hospital course: A shunt presented after missing dialysis had nausea vomiting malaise 3 days. Patient felt bad unable to go to dialysis. Status post dialysis felt bad but much better and was discharged. Disposition: TO HOME OR SELFCARE - Discharge Diagnoses (1) Acute gastritis Status: Acute Qualifiers: Gastritis type: unspecified gastritis Gastritis bleeding: without bleeding Qualified Code(s): K29.00 - Acute gastritis without bleeding Comment: *Secondary to missing dialysis. Now stable. Eating well. Tolerated diet well and developed have dialysis as well. (2) ESRD (end stage renal disease) on dialysis Status: Chronic Comment: Stable after dialysis discharged home. (3) HTN (hypertension) Status: Chronic Qualifiers: Hypertension type: essential hypertension Qualified Code(s): I10 - Essential (primary) hypertension Comment: Continue to be very well controlled. Much better after receiving hemodialysis. Core Measure Documentation - Palliative Care Palliative Care/ Comfort Measures: Not Applicable - Core Measures Any of the following diagnoses?: none Exam - Constitutional Vitals: Temp Pulse Resp BP Pulse Ox 98.6 F 94 H 12 142/83 98 03/18/19 03:42 03/18/19 03:42 03/18/19 03:42 03/18/19 03:42 03/18/19 03:42 Plan Activity: no restrictions Weight Bearing Status: Full Weight Bearing Diet: renal Follow up with: RADHA OLIVER MD [Staff Physician] - 7 Days JULIO CESAR TREJO DO [Staff Physician] - 14 Days PRIMARY CAREMD [Primary Care Provider] - 3-5 Days FRANKIE ROBBINS MD [Staff Physician] - 7 Days Prescriptions: Amiodarone [Cordarone 200 MG TAB] 200 mg PO QDAY #30 tablet
== END 2019-03-18 08:00 | disposition home or self-care (01) | DRG 356 ==
LOC: ED 12:33 → 4A 15:40
PROVIDERS: ADMIT Internal Medicine; ATTEND Internal Medicine
PROC: 5A1D70Z Performance of Urinary Filtration, Intermittent, Less than 6 Hours Per Day (ICD-10-PCS; 2019-03-13)
PROC: 5A1D70Z Performance of Urinary Filtration, Intermittent, Less than 6 Hours Per Day (ICD-10-PCS; 2019-03-15)
PROC: 0WPG03Z Removal of Infusion Device from Peritoneal Cavity, Open Approach (ICD-10-PCS; principal; 2019-03-17)
PROC: 5A1D70Z Performance of Urinary Filtration, Intermittent, Less than 6 Hours Per Day (ICD-10-PCS; 2019-03-17)
DX: K29.00 Acute gastritis without bleeding (principal); N18.6 End stage renal disease; E43 Unspecified severe protein-calorie malnutrition; I12.0 Hypertensive chronic kidney disease with stage 5 chronic kidney disease or end stage renal disease; N25.81 Secondary hyperparathyroidism of renal origin; E87.6 Hypokalemia; K21.9 Gastro-esophageal reflux disease without esophagitis; E11.22 Type 2 diabetes mellitus with diabetic chronic kidney disease; I48.0 Paroxysmal atrial fibrillation; E83.51 Hypocalcemia; D63.1 Anemia in chronic kidney disease; Z82.49 Family history of ischemic heart disease and other diseases of the circulatory system; Z79.4 Long term (current) use of insulin; Z87.891 Personal history of nicotine dependence; Z68.27 Body mass index [BMI] 27.0-27.9, adult; Z79.01 Long term (current) use of anticoagulants; Z79.899 Other long term (current) drug therapy
CPT/HCPCS: 36415; 71045; 80048; 80053; 80074; 82805; 82962; 83036; 83690; 83735; 85007; 85014; 85018; 85025; 85027; 85049; 85610; 85730; 87116; 88300; 88302; 93005; 93010; 93306; 96360; G0378; A9270-GY; J0282; J0360; J0690; J0885; J1100; J1170; J1644; J1815; J2405; J2704; J3010; J3480; J7030; J7040; J7060

== ENCOUNTER 2019-03-20 11:09 | Inpatient (IN) | payer MEDICARE ==
[2019-03-20] MEDS ORDERED: ASPIRIN 325 MG TAB PO ONE (11:32)
--- NOTE | 2019-03-20 11:35 | Event Note ---
ED Screening Note Date of service: 03/20/19 Time: 11:30 ED Screening Note: This is a 69 y.o. M. that presents to the ER with SOB, chest pain, and nausea since yesterday. Patient was discharged from ER last Wednesday. PMH of DM2, ESRD dialysis MWF, Afib, HLD, GERD, and HTN Patient was in route to dialysis with worsening symptoms he decided to come to the ER. This initial assessment/diagnostic orders/clinical plan/treatment(s) is/are subject to change based on patients health status, clinical progression and re- assessment by fellow clinical providers in the ED. Further treatment and workup at subsequent clinical providers discretion. Patient/guardian urged not to elope from the ED as their condition may be serious if not clinically assessed and managed. Initial orders include: Labs, EKG, & CXR
[2019-03-20 12:08] LABS: Basophils % (Auto) 0.5 % (0.0-1.8); Eosinophils % (Auto) 0.4 % (0.0-4.3); Hematocrit 39.7 % (35.5-45.6); Hemoglobin 12.9 gm/dl (11.8-15.2); Lymphocytes # (Auto) 0.9 K/mm3 (1.2-5.4); Lymphocytes % (Auto) 10.3 % (13.4-35.0); Mean Corpuscular HGB Conc 32 % (32-34); Mean Corpuscular Volume 91 fl (84-94); Monocytes # (Auto) 0.5 K/mm3 (0.0-0.8); Monocytes % (Auto) 5.4 % (0.0-7.3); Platelet Count 387 K/mm3 (140-440); Red Blood Count 4.39 M/mm3 (3.65-5.03); Red Cell Distribution Width 14.5 % (13.2-15.2)
[2019-03-20 12:27] LABS: Calcium 8.6 mg/dL (8.4-10.2)
[2019-03-20] MEDS ORDERED: SODIUM CHLORIDE 0.9% 500 ML 500 ML IV ONE ×2 (12:27→13:38)
--- NOTE | 2019-03-20 12:45 | Emergency Department Report ---
HPI - General Chief Complaint: Dyspnea/Respdistress Time Seen by Provider: 03/20/19 11:30 - HPI HPI: Room 6 The patient is a 69-year-old male presenting with a chief complaint of weakness. The patient states he had a weakness which began last night and this morning the weakness worsened and was associated with some shortness of breath. Patient denied having chest pain at any time. Patient denies history of fever, bright red blood per rectum or melena. Patient missed an occasional cough this morning but states it is nonproductive. Patient presents to the ED hypotensive with systolic in the 70s. Patient states she was last dialyzed 03/17/2019 Location: [See above] Duration: [See above] Quality: [See above] Severity: [See above] Timing: [See above] Context: [See above] Modifying factors: [See above] Associated signs and symptoms: [see above] ED Past Medical Hx - Past Medical History Previous Medical History?: Yes Hx Hypertension: Yes Hx Diabetes: Yes Hx Renal Disease: Yes (HD MW) - Surgical History Additional Surgical History: Right subclavian Vas-Cath, PD cath placement and removal - Family History Family history: no significant - Social History Smoking Status: Former Smoker (none 1996) Substance Use Type: None (denies illicit drug use) - Medications Home Medications: Home Medications Medication Instructions Recorded Confirmed Last Taken Type Insulin Lispro Protamin/Lispro 20 units SQ QAM 08/24/16 03/12/19 09/06/16 History [HumaLOG Mix 75-25 Kwikpen] Insulin Lispro Protamin/Lispro 20 units SQ QPM 08/24/16 03/12/19 09/06/16 History [HumaLOG Mix 75-25 Kwikpen] Allopurinol [Zyloprim] 100 mg PO QDAY #30 tablet 09/01/16 03/12/19 09/06/16 Rx Apixaban [Eliquis] 2.5 mg PO Q12HR #60 tablet 09/01/16 03/12/19 09/01/16 Rx AtorvaSTATin [Lipitor] 20 mg PO QHS #30 tablet 09/01/16 03/12/19 09/06/16 Rx Clonidine HCl [Catapres] 0.3 mg PO TID #90 tablet 09/01/16 03/12/19 09/06/16 Rx Nebivolol HCl [Bystolic] 10 mg PO QDAY 09/07/16 03/12/19 09/06/16 History amLODIPine 10 mg PO BID 09/07/16 03/12/19 09/06/16 History Amiodarone [Cordarone 200 MG TAB] 200 mg PO QDAY #30 tablet 03/17/19 Unknown Rx ED Review of Systems ROS: Stated complaint: SOB/WEAKNESS Other details as noted in HPI Constitutional: weakness. denies: fever Eyes: denies: eye pain ENT: denies: throat pain Respiratory: cough, shortness of breath Cardiovascular: denies: chest pain Endocrine: no symptoms reported Gastrointestinal: denies: abdominal pain Genitourinary: denies: testicular pain Musculoskeletal: denies: back pain Neurological: denies: headache Physical Exam - Physical Exam Vital Signs: Vital Signs 03/20/19 03/20/19 03/20/19 11:31 12:18 12:22 Temperature 97.3 F L Pulse Rate 134 H 102 H Respiratory 18 22 Rate Blood Pressure 142/61 Blood Pressure 77/38 [Left] O2 Sat by Pulse 100 100 Oximetry 03/20/19 12:30 Temperature Pulse Rate 105 H Respiratory 19 Rate Blood Pressure 77/38 Blood Pressure [Left] O2 Sat by Pulse Oximetry Physical Exam: GENERAL: The patient is well-developed well-nourished male lying on stretcher not appearing to be in acute distress. [] HEENT: Normocephalic. Atraumatic. Extraocular motions are intact. Patient has moist mucous membranes. NECK: Supple. Trachea midline CHEST/LUNGS: Clear to auscultation. There is no respiratory distress noted. HEART/CARDIOVASCULAR: Irregularly irregular. There is no tachycardia. There is no gallop rub or murmur. ABDOMEN: Abdomen is soft, nontender. Patient has normal bowel sounds. There is no abdominal distention. SKIN: There is no rash. There is no diaphoresis. NEURO: The patient is awake, alert, and oriented. The patient is cooperative. The patient has normal speech MUSCULOSKELETAL: There is no evidence of acute injury. ED Course Vital Signs 03/20/19 03/20/19 03/20/19 11:31 12:18 12:22 Temperature 97.3 F L Pulse Rate 134 H 102 H Respiratory 18 22 Rate Blood Pressure 142/61 Blood Pressure 77/38 [Left] O2 Sat by Pulse 100 100 Oximetry 03/20/19 12:30 Temperature Pulse Rate 105 H Respiratory 19 Rate Blood Pressure 77/38 Blood Pressure [Left] O2 Sat by Pulse Oximetry - Central Line Placement Right Femoral Consent Obtained: verbal consent, written consent Time Out Performed: Yes Patient Placed on Monitor/Pulse Ox: Yes Prep: mask, gown, gloves Central Line Prep: Chlorhexidine scrub Local Anesthesia Used: Lidocaine 1% Amount of Anesthesia Used (mls): 5 Ultrasound Used for Placement: No Central Line Lumen Inserted: triple Bloods Obtained for Lab: No Central Line Position: good blood return, all ports aspirated, flus Dressing Applied: Tegaderm, sterile gauze/tape Patient Tolerated Procedure: well Complications: arterial puncture/cannula (first attempt resulted in arterial puncture. Needle was immediately removed and pressure held until hemostatic) Additional Comments: Right femoral site chosen secondary to patient being on anticoagulation and already has a right chest Vas-Cath present ED Medical Decision Making - Lab Data Result diagrams: 03/20/19 11:42 03/20/19 11:42 Laboratory Tests 03/20/19 03/20/19 03/20/19 11:42 11:42 12:31 WBC 8.9 RBC 4.39 Hgb 12.9 Hct 39.7 MCV 91 MCH 29 MCHC 32 RDW 14.5 Plt Count 387 Lymph % (Auto) 10.3 L Wirt % (Auto) 5.4 Eos % (Auto) 0.4 Baso % (Auto) 0.5 Lymph # 0.9 L Wirt # 0.5 Eos # 0.0 Baso # 0.0 Seg Neutrophils % 83.4 H Seg Neutrophils # 7.4 PT INR APTT POC ABG pH POC ABG pCO2 POC ABG pO2 POC ABG HCO3 POC ABG Total CO2 POC ABG O2 Sat POC ABG Base Excess FiO2 Sodium 134 L Potassium 3.7 D Chloride 93.5 L Carbon Dioxide 18 L Anion Gap 26 BUN 76 H Creatinine 7.2 H Estimated GFR 9 BUN/Creatinine Ratio 11 Glucose 397 H POC Glucose 451 H Calcium 8.6 Troponin T 0.045 H Triglycerides 147 Cholesterol 147 LDL Cholesterol Direct 93 HDL Cholesterol 43 Cholesterol/HDL Ratio 3.41 TSH Free T4 Blood Type Antibody Screen 03/20/19 03/20/19 03/20/19 12:42 12:42 12:42 WBC RBC Hgb Hct MCV MCH MCHC RDW Plt Count Lymph % (Auto) Wirt % (Auto) Eos % (Auto) Baso % (Auto) Lymph # Wirt # Eos # Baso # Seg Neutrophils % Seg Neutrophils # PT 16.7 H INR 1.37 H APTT 31.6 POC ABG pH POC ABG pCO2 POC ABG pO2 POC ABG HCO3 POC ABG Total CO2 POC ABG O2 Sat POC ABG Base Excess FiO2 Sodium Potassium Chloride Carbon Dioxide Anion Gap BUN Creatinine Estimated GFR BUN/Creatinine Ratio Glucose POC Glucose Calcium Troponin T 0.048 H Triglycerides Cholesterol LDL Cholesterol Direct HDL Cholesterol Cholesterol/HDL Ratio TSH 0.961 Free T4 1.93 H Blood Type Antibody Screen 03/20/19 03/20/19 12:42 14:11 WBC RBC Hgb Hct MCV MCH MCHC RDW Plt Count Lymph % (Auto) Wirt % (Auto) Eos % (Auto) Baso % (Auto) Lymph # Wirt # Eos # Baso # Seg Neutrophils % Seg Neutrophils # PT INR APTT POC ABG pH 7.511 H POC ABG pCO2 23.8 L POC ABG pO2 122 H POC ABG HCO3 19.0 POC ABG Total CO2 20 POC ABG O2 Sat 99 POC ABG Base Excess -4 FiO2 21 Sodium Potassium Chloride Carbon Dioxide Anion Gap BUN Creatinine Estimated GFR BUN/Creatinine Ratio Glucose POC Glucose Calcium Troponin T Triglycerides Cholesterol LDL Cholesterol Direct HDL Cholesterol Cholesterol/HDL Ratio TSH Free T4 Blood Type O POSITIVE Antibody Screen Negative - EKG Data -: EKG Interpreted by Me Rate: tachycardia (130 bpm) - EKG Data Interpretation: other (atrial fibrillation with rapid ventricular response) - Radiology Data Radiology results: report reviewed (chest x-ray), image reviewed (chest x-ray) interpreted by me: Chest x-ray-no focal infiltrates, no pneumothorax [address] [address] XRay Report Signed Patient: JESS CASTRO MR#: [id number] : 1950 Acct:[id number] Age/Sex: 69 / M ADM Date: 03/20/19 Loc: ED A ttending Dr: Ordering Physician: KAMLA TRAVIS Date of Service: 03/20/19 Procedure(s): XR chest 1V ap Accession Number(s): [id number] cc: KAMLA TRAVIS Fluoro Time In Minutes: CHEST 1 VIEW 03/20/2019 12:44 PM INDICATION / CLINICAL INFORMATION: Chest Pain. COMPARISON: One view of the chest from 03/12/2019. FINDINGS: SUPPORT DEVICES: Stable right internal jugular vein PermCath. HEART / MEDIASTINUM: No significant abnormality. LUNGS / PLEURA: No significant pulmonary or pleural abnormality. No pneumothorax. ADDITIONAL FINDINGS: No significant additional findings. IMPRESSION: 1. No acute abnormality of the chest. Signer Name: Derek Jarvis MD Signed: 03/20/2019 1:02 PM Workstation Name: [id number] Transcribed By: MN Dictated By: Derek Jarvis MD Electronically Authenticated By: Derek Jarvis MD Signed Date/Time: 03/20/19 1302 DD/ 1302 TD/TT: - Differential Diagnosis hypotension, sepsis, dehydration, DKA Critical care attestation.: If time is entered above; I have spent that time in minutes in the direct care of this critically ill patient, excluding procedure time. ED Disposition Clinical Impression: ESRD (end stage renal disease) on dialysis, Weakness, Hypotension, Hyperglycemia, Atrial fibrillation with rapid ventricular response Disposition: -09 OP ADMIT IP TO THIS HOSP Is pt being admited?: Yes Does the pt Need Aspirin: No Condition: Serious Time of Disposition: 14:54 (hospitalist paged (Dr Rueda))
[2019-03-20 12:51] LABS: Chol/HDL Ratio 3.41 %
--- NOTE | 2019-03-20 13:07 | XRay Report ---
CHEST 1 VIEW 03/20/2019 12:44 PM INDICATION / CLINICAL INFORMATION: Chest Pain. COMPARISON: One view of the chest from 03/12/2019. FINDINGS: SUPPORT DEVICES: Stable right internal jugular vein PermCath. HEART / MEDIASTINUM: No significant abnormality. LUNGS / PLEURA: No significant pulmonary or pleural abnormality. No pneumothorax. ADDITIONAL FINDINGS: No significant additional findings. IMPRESSION: 1. No acute abnormality of the chest. Signer Name: Derek Jarvis MD Signed: 03/20/2019 1:02 PM Workstation Name: [id number]
[2019-03-20 13:22] LABS: INR 1.37 (0.87-1.13); Partial Thromboplastin Time 31.6 Sec. (24.2-36.6)
[2019-03-20 13:44] LABS: Free T4 (Free Thyroxine) 1.93 ng/dL (0.76-1.46)
[2019-03-20] MEDS ORDERED: NORepinephrine/NS 4 MG-250 ML 4 MG/250 ML BAG IV ONE (14:32)
--- NOTE | 2019-03-20 14:56 | History and Physical Report ---
History of Present Illness Chief complaint: I feel weak, tired, and sick History of present illness: 69 YO Male with DM, ESRD on HD(M,W,F) last dialyzed on Wednesday, HTN, Atrial Fib on Therapeutic Anticoagulation presents to ED for evaluation. Pt states that he has experienced weakness, malaise and feeling short of breath over the past 1 day with worsening symptoms over the past 6 hours. Pt transported to [facility] via private vehicle. Pt seen and evaluated in ED and found to have hypotension with Systolic blood pressure in the 70's secondary to Sepsis. Pt initiated on Sepsis protocol and initiated on IV pressor support with Norepinephrine as well as IVF resuscitation, and IV antibiotic therapy. Pt admitted to [facility]. Pt denies fever, chills, CP, Palpitations, NVD, Trauma, skin rash, or recent ill contacts. Prior admission on 03/12/19 reviewed. All listed medication reconciled at time of admission. QSOFA:7. Past History Past Medical History: other (See HPI) Past Surgical History: Other (Dialysis access) Social history: . denies: smoking, alcohol abuse, prescription drug abuse Family history: hypertension Medications and Allergies Allergies Allergy/AdvReac Type Severity Reaction Status Date / Time No Known Allergies Allergy Verified 05/23/16 22:42 Home Medications Medication Instructions Recorded Confirmed Last Taken Type Insulin Lispro Protamin/Lispro 20 units SQ QAM 08/24/16 03/20/19 03/20/19 History [HumaLOG Mix 75-25 Kwikpen] Insulin Lispro Protamin/Lispro 20 units SQ QPM 08/24/16 03/20/19 03/19/19 History [HumaLOG Mix 75-25 Kwikpen] Allopurinol [Zyloprim] 100 mg PO QDAY #30 tablet 09/01/16 03/20/19 03/20/19 Rx AtorvaSTATin [Lipitor] 20 mg PO QHS #30 tablet 09/01/16 03/20/19 03/18/19 Rx Nebivolol HCl [Bystolic] 10 mg PO QDAY 09/07/16 03/20/19 03/20/19 History amLODIPine 10 mg PO BID 09/07/16 03/20/19 03/20/19 History Amiodarone [Cordarone 200 MG TAB] 200 mg PO QDAY #30 tablet 03/17/19 03/20/19 03/20/19 Rx Apixaban [Eliquis] 5 mg PO Q12HR 03/20/19 03/20/19 03/20/19 History Active Meds: Active Medications Norepinephrine (Levophed Drip 4 Mg/Ns 250 Ml) 4 mg in 250 mls @ 7.5 mls/hr IV TITR ONE; Protocol Stop: 03/21/19 23:51 Review of Systems Constitutional: fatigue, weakness, poor appetite, no weight loss, no weight gain, no fever, no chills Ears, nose, mouth and throat: no ear pain, no ear discharge, no tinnitis, no decreased hearing, no nose pain, no nasal discharge Cardiovascular: no chest pain, no orthopnea, no palpitations, no edema, no syncope Respiratory: cough, shortness of breath, no cough with sputum, no excessive sputum, no hemoptysis Gastrointestinal: no abdominal pain, no nausea, no vomiting, no diarrhea, no constipation Genitourinary Male: no hematuria, no flank pain, no discharge, no urinary frequency, no urinary hesitancy Rectal: no pain, no incontinence, no bleeding Musculoskeletal: no neck stiffness, no neck pain, no shooting arm pain, no arm numbness/tingling, no low back pain, no shooting leg pain, no leg numbness/tingling Integumentary: no rash, no pruritis, no redness, no sores, no wounds Neurological: no paralysis, no weakness, no parathesias, no numbness, no seizures, no syncope, no tremors Psychiatric: no anxiety, no memory loss, no change in sleep habits, no change in appetite, no change in libido, no suicidal ideation, no disorientation Endocrine: no cold intolerance, no heat intolerance, no polyphagia, no excessive thirst, no polydipsia, no polyuria, no nocturia Hematologic/Lymphatic: no easy bruising, no easy bleeding, no lymphedema Allergic/Immunologic: no urticaria, no allergic rhinitis, no persistent infections, no anaphylaxis Exam - Constitutional Vitals: Temp Pulse Resp BP Pulse Ox 97.7 F 84 16 74/50 100 03/20/19 14:48 03/20/19 14:48 03/20/19 14:48 03/20/19 14:48 03/20/19 14:48 General appearance: Present: mild distress - EENT Eyes: Present: PERRL ENT: hearing intact, clear oral mucosa - Neck Neck: Present: supple, normal ROM - Respiratory Respiratory effort: normal Respiratory: bilateral: CTA - Cardiovascular Rhythm: other (tachycardia) Heart Sounds: Present: S1 & S2. Absent: rub, click - Extremities Extremities: pulses symmetrical, No edema Peripheral Pulses: abnormal (capillary refill greater than 3.5 seconds) - Abdominal General gastrointestinal: Present: soft, non-tender, non-distended, normal bowel sounds Male genitourinary: Present: normal - Integumentary Integumentary: Present: clear, warm, dry - Musculoskeletal Musculoskeletal: generalized weakness - Psychiatric Psychiatric: appropriate mood/affect, intact judgment & insight - Neurologic Neurologic: CNII-XII intact, moves all extremities Results - Labs CBC & Chem 7: 03/20/19 11:42 03/20/19 11:42 Labs: Abnormal lab results 03/20/19 03/20/19 03/20/19 Range/Units 11:42 11:42 12:31 Lymph % (Auto) 10.3 L (13.4-35.0) % Lymph # 0.9 L (1.2-5.4) K/mm3 Seg Neutrophils % 83.4 H (40.0-70.0) % PT (12.2-14.9) Sec. INR (0.87-1.13) POC ABG pH (7.35-7.45) POC ABG pCO2 (35-45) POC ABG pO2 (80-105) Sodium 134 L (137-145) mmol/L Chloride 93.5 L (98-107) mmol/L Carbon Dioxide 18 L (22-30) mmol/L BUN 76 H (9-20) mg/dL Creatinine 7.2 H (0.8-1.5) mg/dL Glucose 397 H (75-100) mg/dL POC Glucose 451 H (70-105) Troponin T 0.045 H (0.00-0.029) ng/mL Free T4 (0.76-1.46) ng/dL 03/20/19 03/20/19 03/20/19 Range/Units 12:42 12:42 12:42 Lymph % (Auto) (13.4-35.0) % Lymph # (1.2-5.4) K/mm3 Seg Neutrophils % (40.0-70.0) % PT 16.7 H (12.2-14.9) Sec. INR 1.37 H (0.87-1.13) POC ABG pH (7.35-7.45) POC ABG pCO2 (35-45) POC ABG pO2 (80-105) Sodium (137-145) mmol/L Chloride (98-107) mmol/L Carbon Dioxide (22-30) mmol/L BUN (9-20) mg/dL Creatinine (0.8-1.5) mg/dL Glucose (75-100) mg/dL POC Glucose (70-105) Troponin T 0.048 H (0.00-0.029) ng/mL Free T4 1.93 H (0.76-1.46) ng/dL // Range/Units 14:11 Lymph % (Auto) (13.4-35.0) % Lymph # (1.2-5.4) K/mm3 Seg Neutrophils % (40.0-70.0) % PT (12.2-14.9) Sec. INR (0.87-1.13) POC ABG pH 7.511 H (7.35-7.45) POC ABG pCO2 23.8 L (35-45) POC ABG pO2 122 H (80-105) Sodium (137-145) mmol/L Chloride (98-107) mmol/L Carbon Dioxide (22-30) mmol/L BUN (9-20) mg/dL Creatinine (0.8-1.5) mg/dL Glucose (75-100) mg/dL POC Glucose (70-105) Troponin T (0.00-0.029) ng/mL Free T4 (0.76-1.46) ng/dL Assessment and Plan - Patient Problems (1) Sepsis Current Visit: Yes Status: Acute Qualifiers: Severe sepsis shock status: with septic shock Plan to address problem: Admit to ICU: Sepsis protocol, IV antibiotic therapy, IVF resuscitation therapy, supportive care, Levophed drip, titrate to MAP above 60, CBC, CMP, Chest x ray, Urinalysis, serial lactic acid. The high probability of a clinically significant, sudden or life threatening d eterioration of the [Cardiac, Renal,] system(s) required my full and direct attention, intervention and personal management. The aggregate critical care time was [65] minutes. This time is in addition to time spent performing reported procedures but includes the following: [x] Data Review and interpretation [x] Patient assessment and monitoring of vital signs [x] Documentation [x] Medication orders and management (2) Atrial fibrillation with rapid ventricular response Current Visit: Yes Status: Acute Plan to address problem: contiue therapeutic anticoatulation, cardiology consulted, supportive care (3) ESRD (end stage renal disease) on dialysis Current Visit: Yes Status: Chronic Plan to address problem: Nephrology consulted in ED, dialysis as per renal team when medically stable. (4) Diabetes Current Visit: No Status: Acute Qualifiers: Diabetes mellitus type: type 1 Diabetes mellitus complication status: with hyperglycemia Qualified Code(s): E10.65 - Type 1 diabetes mellitus with hyperglycemia Plan to address problem: ADA diet, insulin, accu check, hypoglycemia protocol (5) HTN (hypertension) Current Visit: No Status: Chronic Qualifiers: Hypertension type: essential hypertension Qualified Code(s): I10 - Essential (primary) hypertension (6) Symptomatic bradycardia Current Visit: Yes Status: Acute Plan to address problem: Enternal pacer pads in place, atropine at bedside (7) DVT prophylaxis Current Visit: No Status: Acute Plan to address problem: SCD to BLE while in bed, supportive care, continue therapeutic anticoagulation
[2019-03-20] MEDS ORDERED: INSULIN REGULAR, HUMAN 100 UNITS/1 ML IV ONE (15:05)
[2019-03-20] MEDS ORDERED: ALBUTEROL 2.5 MG/3 ML NEBU IH PRN (15:30)
[2019-03-20] MEDS ORDERED: SODIUM CHLORIDE 0.9% 1000 ML IV SOLN IV ONE (15:33)
[2019-03-20] MEDS ORDERED: DEXTROSE 50% IN WATER (25GM) 50 ML SYRINGE IV PRN (15:36)
[2019-03-20] MEDS ORDERED: VANCOMYCIN PHARMACY TO DOSE IV SCH (16:00)
[2019-03-20] MEDS ORDERED: VANCOMYCIN 2,000 MG in SODIUM CHLORIDE 0.9% 500 ML 500 ML IV ONE (16:15)
[2019-03-20] MEDS: cefTRIAXone/NS 2 GM/100 ML 2 GM/100 ML BAG IV SCH (17:02)
[2019-03-20] MEDS ORDERED: SODIUM CHLORIDE 0.9% 500 ML 500 ML ONE (17:20)
--- NOTE | 2019-03-20 17:24 | Consultation ---
History of Present Illness Consult date: 03/20/19 Consult reason: atrial fibrillation History of present illness: The patient is a 69-year-old man with end-stage renal disease on hemodialysis, and long history of paroxysmal atrial fibrillation, on oral anticoagulation with Eliquis. He was hospitalized here a week ago for acute gastroenteritis. During his course in the hospital, he developed a recurrence of rapid atrial fibrillation. There was spontaneous return to sinus rhythm, on amiodarone. He was discharged on amiodarone 200 mg daily. He returns to the hospital today, with complaints of weakness, not able to report for his routine dialysis. In the emergency room, he was found with a recurrence of atrial fibrillation with rapid ventricular rate. Further evaluation in the emergency room reported a suspicion for sepsis. During his course, there was a transient, near syncope associated with marked bradycardia. This prompted a cardiology consultation. Currently, the patient is in sinus rhythm, with frequent PACs. Prior cardiac workup includes an echocardiogram done on his admission just last week, a ejection fraction 50-55%. Past History Past Medical History: atrial fib, diabetes, renal failure, other (See HPI) Past Surgical History: Other (Dialysis access) Social history: . denies: smoking, alcohol abuse, prescription drug abuse Family history: hypertension Medications and Allergies Allergies Allergy/AdvReac Type Severity Reaction Status Date / Time No Known Allergies Allergy Verified 05/23/16 22:42 Home Medications Medication Instructions Recorded Confirmed Last Taken Type Insulin Lispro Protamin/Lispro 20 units SQ QAM 08/24/16 03/20/19 03/20/19 History [HumaLOG Mix 75-25 Kwikpen] Insulin Lispro Protamin/Lispro 20 units SQ QPM 08/24/16 03/20/19 03/19/19 History [HumaLOG Mix 75-25 Kwikpen] Allopurinol [Zyloprim] 100 mg PO QDAY #30 tablet 09/01/16 03/20/19 03/20/19 Rx AtorvaSTATin [Lipitor] 20 mg PO QHS #30 tablet 09/01/16 03/20/19 03/18/19 Rx Nebivolol HCl [Bystolic] 10 mg PO QDAY 09/07/16 03/20/19 03/20/19 History amLODIPine 10 mg PO BID 09/07/16 03/20/19 03/20/19 History Amiodarone [Cordarone 200 MG TAB] 200 mg PO QDAY #30 tablet 03/17/19 03/20/19 03/20/19 Rx Apixaban [Eliquis] 5 mg PO Q12HR 03/20/19 03/20/19 03/20/19 History Active Meds: Active Medications Albuterol (Proventil) 2.5 mg IH Q3HRT PRN PRN Reason: Shortness Of Breath Allopurinol (Zyloprim) 100 mg PO QDAY RASHEEDA Atorvastatin Calcium (Lipitor) 20 mg PO QHS RASHEEDA Dextrose (D50w (25gm) Syringe) 50 ml IV Q30MIN PRN; Protocol PRN Reason: Hypoglycemia Norepinephrine (Levophed Drip 4 Mg/Ns 250 Ml) 4 mg in 250 mls @ 7.5 mls/hr IV TITR ONE; Protocol Stop: 03/21/19 23:51 Last Titration: 03/20/19 16:53 Dose: 4 mcg/min, 15 mls/hr Documented by: Vancomycin HCl 2,000 mg/ (Sodium Chloride) 540 mls @ 270 mls/hr IV ONCE ONE; Protocol Stop: 03/20/19 18:14 Ceftriaxone Sodium (Rocephin/Ns 2 Gm/100 Ml) 2 gm in 100 mls @ 200 mls/hr IV Q12H RASHEEDA; Protocol Last Admin: 03/20/19 17:02 Dose: 200 mls/hr Documented by: Insulin Human Lispro (Humalog) 0 unit SUB-Q Q6HR RASHEEDA; Protocol Sodium Chloride (Sodium Chloride Flush Syringe 10 Ml) 10 ml IV BID RASHEEDA Sodium Chloride (Sodium Chloride Flush Syringe 10 Ml) 10 ml IV PRN PRN PRN Reason: LINE FLUSH Review of Systems Cardiovascular: palpitations, rapid/irregular heart beat, syncope, lightheadedn ess, no chest pain, no orthopnea, no edema, no shortness of breath Physical Examination Vital Signs Temp Pulse Resp BP Pulse Ox 97.3 F L 134 H 18 142/61 100 03/20/19 11:31 03/20/19 11:31 03/20/19 11:31 03/20/19 11:31 03/20/19 11:31 General appearance: mild distress HEENT: Positive: PERRL Neck: Positive: neck supple Cardiac: Positive: irregularly irregular Lungs: Positive: Decreased Breath Sounds Neuro: Positive: Grossly Intact Abdomen: Positive: Soft Male genitourinary: Positive: deferred Skin: Positive: Clear Extremities: Absent: edema Results 03/20/19 11:42 03/20/19 11:42 Coagulation 03/20/19 Range/Units 12:42 PT 16.7 H (12.2-14.9) Sec. INR 1.37 H (0.87-1.13) APTT 31.6 (24.2-36.6) Sec. Lipids 03/20/19 Range/Units 11:42 Triglycerides 147 (2-149) mg/dL Cholesterol 147 (50-199) mg/dL HDL Cholesterol 43 (40-59) mg/dL Cholesterol/HDL Ratio 3.41 % CBC 03/20/19 Range/Units 11:42 WBC 8.9 (4.5-11.0) K/mm3 RBC 4.39 (3.65-5.03) M/mm3 Hgb 12.9 (11.8-15.2) gm/dl Hct 39.7 (35.5-45.6) % Plt Count 387 (140-440) K/mm3 Lymph # 0.9 L (1.2-5.4) K/mm3 [place] # 0.5 (0.0-0.8) K/mm3 Eos # 0.0 (0.0-0.4) K/mm3 Baso # 0.0 (0.0-0.1) K/mm3 Comprehensive Metabolic Panel 03/20/19 Range/Units 11:42 Sodium 134 L (137-145) mmol/L Potassium 3.7 D (3.6-5.0) mmol/L Chloride 93.5 L (98-107) mmol/L Carbon Dioxide 18 L (22-30) mmol/L BUN 76 H (9-20) mg/dL Creatinine 7.2 H (0.8-1.5) mg/dL Glucose 397 H (75-100) mg/dL Calcium 8.6 (8.4-10.2) mg/dL EKG interpretations - Telemetry EKG Rhythm: Atrial Fibrillation Assessment and Plan - Patient Problems (1) Sick sinus syndrome Current Visit: Yes Status: Acute Plan to address problem: Patient's current presentation is suspicious for sinus node dysfunction. Stop amiodarone, and hold oral anticoagulation. Depending on his clinical course, he may likely need EP evaluation for pacemaker once his suspected sepsis is adequately treated. Patient is recommended for admission to the CCU for further evaluation.
[2019-03-20] MEDS: INSULIN LISPRO 100 UNIT/ML SUB-Q SCH (18:22)
[2019-03-20] MEDS ORDERED: APIXABAN 2.5 MG TAB PO SCH (22:00)
[2019-03-20] MEDS ORDERED: ATROPINE 0.1% (1 MG/10 ML) CARDIAC SYRINGE ONE (23:50)
[2019-03-21] MEDS: NORepinephrine/NS 4 MG-250 ML 4 MG/250 ML BAG IV SCH ×2 (00:44→05:30)
[2019-03-21] MEDS: INSULIN LISPRO 100 UNIT/ML SUB-Q SCH ×5 (02:40→22:33)
[2019-03-21] MEDS: cefTRIAXone/NS 2 GM/100 ML 2 GM/100 ML BAG IV SCH (04:56)
[2019-03-21 05:31] LABS: Basophils % (Auto) 0.5 % (0.0-1.8); Eosinophils # (Auto) 0.1 K/mm3 (0.0-0.4); Hemoglobin 10.9 gm/dl (11.8-15.2); Lymphocytes # (Auto) 1.2 K/mm3 (1.2-5.4); Lymphocytes % (Auto) 16.9 % (13.4-35.0); Mean Corpuscular HGB Conc 33 % (32-34); Mean Corpuscular Volume 89 fl (84-94); Monocytes # (Auto) 0.6 K/mm3 (0.0-0.8); Monocytes % (Auto) 8.6 % (0.0-7.3); Platelet Count 381 K/mm3 (140-440); Red Cell Distribution Width 14.7 % (13.2-15.2)
[2019-03-21 05:44] LABS: Albumin 2.9 g/dL (3.9-5); BUN/Creatinine Ratio 10; Blood Urea Nitrogen 71 mg/dL (9-20); Calcium 7.5 mg/dL (8.4-10.2); Hemolysis Index 3
[2019-03-21 06:02] LABS: Alanine Aminotransferase < 5 units/L (7-56)
[2019-03-21] MEDS ORDERED: AMIODARONE 200 MG TAB PO SCH (10:00)
--- NOTE | 2019-03-21 10:02 | Consultation ---
History of Present Illness - Reason for Consult end stage renal disease - History of Present Illness 69-year-old with medical history significant for end-stage renal disease on hemodialysis at the [facility] via right IJ PermCath, also history of hypertension diabetes admitted with complaint of shortness of breath weakness and lethargy denies any fevers chills denies any sick contacts denies that he denies any lower extremity edema he reports he has been in compliance with dialysis. Denies any nausea vomiting diarrhea denies any abdominal pain Past History Past Medical History: atrial fib, diabetes, renal failure, other (See HPI) Past Surgical History: Other (Dialysis access) Social history: . denies: smoking, alcohol abuse, prescription drug abuse Family history: hypertension Medications and Allergies Allergies Allergy/AdvReac Type Severity Reaction Status Date / Time No Known Allergies Allergy Verified 05/23/16 22:42 Home Medications Medication Instructions Recorded Confirmed Last Taken Type Insulin Lispro Protamin/Lispro 20 units SQ QAM 08/24/16 03/20/19 03/20/19 Histor y [HumaLOG Mix 75-25 Kwikpen] Insulin Lispro Protamin/Lispro 20 units SQ QPM 08/24/16 03/20/19 03/19/19 History [HumaLOG Mix 75-25 Kwikpen] Allopurinol [Zyloprim] 100 mg PO QDAY #30 tablet 09/01/16 03/20/19 03/20/19 Rx AtorvaSTATin [Lipitor] 20 mg PO QHS #30 tablet 09/01/16 03/20/19 03/18/19 Rx Nebivolol HCl [Bystolic] 10 mg PO QDAY 09/07/16 03/20/19 03/20/19 History amLODIPine 10 mg PO BID 09/07/16 03/20/19 03/20/19 History Amiodarone [Cordarone 200 MG TAB] 200 mg PO QDAY #30 tablet 03/17/19 03/20/19 03/20/19 Rx Apixaban [Eliquis] 5 mg PO Q12HR 03/20/19 03/20/19 03/20/19 History Active Meds: Active Medications Albuterol (Proventil) 2.5 mg IH Q3HRT PRN PRN Reason: Shortness Of Breath Allopurinol (Zyloprim) 100 mg PO QDAY RASHEEDA Atorvastatin Calcium (Lipitor) 20 mg PO QHS REPLACED BY [facility] Last Admin: 03/20/19 21:24 Dose: 20 mg Documented by: Dextrose (D50w (25gm) Syringe) 50 ml IV Q30MIN PRN; Protocol PRN Reason: Hypoglycemia Ceftriaxone Sodium (Rocephin/Ns 2 Gm/100 Ml) 2 gm in 100 mls @ 200 mls/hr IV Q12H REPLACED BY [facility]; Protocol Last Admin: 03/21/19 04:56 Dose: 200 mls/hr Documented by: Norepinephrine (Levophed Drip 4 Mg/Ns 250 Ml) 4 mg in 250 mls @ 7.5 mls/hr IV TITR REPLACED BY [facility]; Protocol Last Titration: 03/21/19 09:13 Dose: 6 mcg/min, 22.5 mls/hr Documented by: Insulin Human Lispro (Humalog) 0 unit SUB-Q Q6HR REPLACED BY [facility]; Protocol Last Admin: 03/21/19 06:16 Dose: 3 unit Documented by: Sodium Chloride (Sodium Chloride Flush Syringe 10 Ml) 10 ml IV BID REPLACED BY [facility] Last Admin: 03/20/19 21:25 Dose: 10 ml Documented by: Sodium Chloride (Sodium Chloride Flush Syringe 10 Ml) 10 ml IV PRN PRN PRN Reason: LINE FLUSH Review of Systems Constitutional: weight loss, poor appetite Ears, nose, mouth and throat: deferred, ear pain, ear discharge Cardiovascular: no chest pain, no orthopnea, no palpitations Respiratory: no cough, no cough with sputum Gastrointestinal: no abdominal pain, no nausea, no vomiting, no diarrhea Genitourinary Male: no dysuria, no hematuria, no flank pain Musculoskeletal: no neck stiffness, no neck pain Integumentary: no deferred, no rash, no pruritis Neurological: no head injury, no transient paralysis Psychiatric: no anxiety, no memory loss, no change in sleep habits Endocrine: no cold intolerance, no heat intolerance Hematologic/Lymphatic: no easy bruising, no easy bleeding Exam - Vital Signs Vital signs: Vital Signs Temp Pulse Resp BP Pulse Ox 97.3 F L 134 H 18 142/61 100 03/20/19 11:31 03/20/19 11:31 03/20/19 11:31 03/20/19 11:31 03/20/19 11:31 - General Appearance General appearance: well-developed, well-nourished EENT: ATNC, PERRL Neck: Present: neck supple Respiratory: Decreased Breath Sounds Heart: regular, S1S2 Gastrointestinal: Present: normal, normoactive bowel sounds Integumentary: no rash Neurologic: alert and oriented x3, CN 3-12 intact Musculoskeletal: Present: deferred Psychiatric: mood/affect appropriate Results - Lab Results 03/21/19 04:44 03/21/19 04:44 Most recent lab results Calcium 7.5 mg/dL (8.4-10.2) L 03/21/19 04:44 - Image Kidney/bladder ultrasound: other ( I reviewed chest x-ray is without overt edema) Assessment and Plan - Patient Problems (1) ESRD (end stage renal disease) on dialysis Current Visit: Yes Status: Chronic Plan to address problem: End-stage renal disease We'll initiate dialysis continue dialysis Wednesday We'll initiate dialysis today (2) Sepsis Current Visit: Yes Status: Acute Qualifiers: Severe sepsis shock status: with septic shock Plan to address problem: Sepsis Was hypotensive on arrival, was started on norepinephrine Follow cultures Continue antibiotics (3) Diabetes Current Visit: No Status: Acute Qualifiers: Diabetes mellitus type: type 1 Diabetes mellitus complication status: with hyperglycemia Qualified Code(s): E10.65 - Type 1 diabetes mellitus with hyperglycemia Plan to address problem: Diabetes mellitus Continue medications Monitor fingersticks (4) HTN (hypertension) Current Visit: No Status: Chronic Qualifiers: Hypertension type: essential hypertension Qualified Code(s): I10 - Essential (primary) hypertension Plan to address problem: History of hypertension Was hypotensive on arrival and will hold blood pressure medications
[2019-03-21] MEDS: allopurinoL 100 MG TAB PO SCH (10:58)
--- NOTE | 2019-03-21 11:03 | Progress Note ---
Assessment and Plan Near syncope Suspected sepsis End-stage renal disease on hemodialysis Paroxysmal atrial fibrillation on oral anticoagulation with [place] as an outpatient; currently on hold amiodarone discontinued due to marked bradycardia on presentation Hypertension but hypotensive on presentation Diabetes An echocardiogram done just last week, reports an ejection fraction 50-55%. Recommend: We will have EP evaluation, Dr Lares, for pacemaker once his suspected sepsis is adequately treated. Subjective Date of service: 03/21/19 Interval history: Patient is resting in bed comfortably. He has no complaints. IV norepinephrine continues. Objective Vital Signs Temp Temp Temp Pulse Pulse Pulse Pulse 03/21/19 08:15 71 03/21/19 08:01 71 03/21/19 08:00 98.5 F 03/21/19 07:45 68 03/21/19 07:31 67 03/21/19 07:15 66 03/21/19 07:01 66 03/21/19 06:45 76 03/21/19 06:31 70 03/21/19 06:15 74 03/21/19 06:01 71 03/21/19 05:45 66 03/21/19 05:31 77 03/21/19 05:15 67 03/21/19 05:00 66 03/21/19 04:45 71 03/21/19 04:31 67 03/21/19 04:15 67 03/21/19 04:01 03/21/19 03:45 68 03/21/19 03:30 73 03/21/19 03:15 67 03/21/19 03:11 98.4 F 03/21/19 03:01 71 03/21/19 02:45 70 03/21/19 02:30 76 03/21/19 02:16 75 03/21/19 02:00 71 03/21/19 01:46 67 03/21/19 01:30 74 03/21/19 01:15 73 03/21/19 01:00 73 03/21/19 00:45 72 03/21/19 00:30 71 03/21/19 00:16 80 03/21/19 00:00 63 03/20/19 23:46 66 03/20/19 23:30 64 03/20/19 23:15 71 03/20/19 23:12 98.9 F 03/20/19 23:00 75 03/20/19 22:46 69 03/20/19 22:30 71 03/20/19 22:16 69 03/20/19 22:00 79 03/20/19 21:45 69 03/20/19 21:30 67 03/20/19 21:16 68 03/20/19 21:10 65 03/20/19 21:00 67 03/20/19 20:50 68 03/20/19 20:40 77 03/20/19 20:30 67 03/20/19 20:20 68 03/20/19 20:10 70 03/20/19 20:00 74 03/20/19 19:51 97.4 F L 03/20/19 19:50 71 03/20/19 19:40 70 03/20/19 19:30 74 03/20/19 19:20 63 03/20/19 19:10 72 03/20/19 19:00 76 03/20/19 18:51 66 03/20/19 18:42 79 03/20/19 18:32 73 03/20/19 18:16 67 03/20/19 17:15 82 03/20/19 17:00 97.5 F L 72 03/20/19 16:45 68 03/20/19 16:30 82 03/20/19 16:15 88 03/20/19 16:00 85 03/20/19 15:46 97 H 03/20/19 15:30 103 H 03/20/19 15:15 97 H 03/20/19 15:00 88 03/20/19 14:48 97.7 F 84 94 H 03/20/19 14:45 95 H 03/20/19 14:38 97.6 F 92 H 03/20/19 14:30 89 03/20/19 14:16 92 H 03/20/19 14:00 87 03/20/19 13:45 92 H 03/20/19 13:30 90 03/20/19 13:16 98 H 03/20/19 13:15 03/20/19 13:00 91 H 03/20/19 12:46 94 H 03/20/19 12:30 105 H 03/20/19 12:22 102 H 03/20/19 12:18 03/20/19 11:31 97.3 F L 134 H Resp Resp Resp Resp BP BP BP 03/21/19 08:15 125/59 03/21/19 08:01 139/60 03/21/19 08:00 03/21/19 07:45 112/62 03/21/19 07:31 112/62 03/21/19 07:15 112/62 03/21/19 07:01 16 106/49 03/21/19 06:45 13 134/74 03/21/19 06:31 17 134/74 03/21/19 06:15 13 134/57 03/21/19 06:01 16 134/57 03/21/19 05:45 15 124/58 03/21/19 05:31 9 L 121/59 03/21/19 05:15 12 132/60 03/21/19 05:00 16 122/56 03/21/19 04:45 21 111/34 03/21/19 04:31 29 H 111/34 03/21/19 04:15 26 H 101/35 03/21/19 04:01 25 H 97/41 03/21/19 03:45 24 109/40 03/21/19 03:30 16 114/49 03/21/19 03:15 18 104/30 03/21/19 03:11 03/21/19 03:01 34 H 108/40 03/21/19 02:45 26 H 126/37 03/21/19 02:30 20 117/41 03/21/19 02:16 19 117/41 03/21/19 02:00 15 94/52 03/21/19 01:46 16 94/52 03/21/19 01:30 11 L 84/42 03/21/19 01:15 12 84/42 03/21/19 01:00 13 99/39 03/21/19 00:45 16 99/39 03/21/19 00:30 17 136/55 03/21/19 00:16 15 136/55 03/21/19 00:00 19 122/55 03/20/19 23:46 11 L 122/55 03/20/19 23:30 11 L 126/56 03/20/19 23:15 14 142/62 03/20/19 23:12 03/20/19 23:00 17 127/55 03/20/19 22:46 9 L 127/55 03/20/19 22:30 19 76/47 03/20/19 22:16 14 117/59 03/20/19 22:00 16 101/38 03/20/19 21:45 11 L 101/38 18/19 21:30 15 126/52 19 21:16 12 126/52 03/20/19 21:10 16 123/43 03/20/19 21:00 12 85/36 03/20/19 20:50 13 113/47 03/20/19 20:40 14 85/36 03/20/19 20:30 15 91/29 03/20/19 20:20 15 84/32 03/20/19 20:10 13 91/29 03/20/19 20:00 13 91/38 03/20/19 19:51 03/20/19 19:50 14 91/38 03/20/19 19:40 11 L 78/33 03/20/19 19:30 18 81/35 03/20/19 19:20 15 97/25 03/20/19 19:10 13 81/35 03/20/19 19:00 16 95/38 03/20/19 18:51 14 03/20/19 18:42 13 95/38 03/20/19 18:32 15 95/38 03/20/19 18:16 20 03/20/19 17:15 19 103/54 03/20/19 17:00 11 L 91/49 03/20/19 16:45 14 100/47 18/19 16:30 12 100/53 18/19 16:15 10 L 100/53 18/19 16:00 14 91/46 03/20/19 15:46 15 95/47 03/20/19 15:30 12 82/42 18/19 15:15 12 82/42 18/19 15:00 11 L 95/53 18/19 14:48 16 13 74/50 18/19 14:45 15 76/49 18/ 14:38 18 1819 14:30 17 74/50 18/19 14:16 11 L 90/51 1819 14:00 15 85/52 03/20/19 13:45 14 83/43 03/20/19 13:30 10 L 87/45 03/20/19 13:16 17 78/39 03/20/19 13:15 18 03/20/19 13:00 14 84/47 03/20/19 12:46 20 03/20/19 12:30 19 77/38 03/20/19 12:22 22 77/38 03/20/19 12:18 03/20/19 11:31 18 142/61 BP BP Pulse Ox Pulse Ox Pulse Ox Pulse Ox 03/21/19 08:15 97 03/21/19 08:01 100 03/21/19 08:00 03/21/19 07:45 100 03/21/19 07:31 100 03/21/19 07:15 99 03/21/19 07:01 98 03/21/19 06:45 99 03/21/19 06:31 90 03/21/19 06:15 100 03/21/19 06:01 96 03/21/19 05:45 98 03/21/19 05:31 99 03/21/19 05:15 100 03/21/19 05:00 99 03/21/19 04:45 99 03/21/19 04:31 96 03/21/19 04:15 97 03/21/19 04:01 99 03/21/19 03:45 97 03/21/19 03:30 97 03/21/19 03:15 97 03/21/19 03:11 03/21/19 03:01 98 03/21/19 02:45 98 03/21/19 02:30 99 03/21/19 02:16 95 03/21/19 02:00 94 03/21/19 01:46 98 03/21/19 01:30 96 03/21/19 01:15 99 03/21/19 01:00 94 03/21/19 00:45 99 03/21/19 00:30 97 03/21/19 00:16 99 03/21/19 00:00 94 03/20/19 23:46 100 03/20/19 23:30 97 03/20/19 23:15 100 03/20/19 23:12 03/20/19 23:00 99 03/20/19 22:46 99 11/18/19 22:30 100 11/18/19 22:16 98 1819 22:00 95 1819 21:45 97 1819 21:30 99 1819 21:16 100 1819 21:10 95 19 21:00 98 19 20:50 98 18/19 20:40 100 18/19 20:30 98 1819 20:20 96 1819 20:10 100 1819 20:00 98 18/19 19:51 19 19:50 98 03/20/19 19:40 97 03/20/ 19:30 100 03/20/19 19:20 98 03/20/19 19:10 97 03/20/19 19:00 98 03/20/19 18:51 96 03/20/19 18:42 93 03/20/19 18:32 99 03/20/19 18:16 98 03/20/19 17:15 100 19 17:00 99 19 16:45 98 03/20/19 16:30 100 19 16:15 100 19 16:00 99 19 15:46 100 19 15:30 99 19 15:15 95 19 15:00 100 03/20/19 14:48 79/49 100 100 18/19 14:45 100 19 14:38 74/50 100 1819 14:30 100 1819 14:16 100 1819 14:00 100 18/19 13:45 99 1819 13:30 100 18/19 13:16 100 19 13:15 03/20/19 13:00 100 03/20/19 12:46 97 03/20/19 12:30 03/20/ 12:22 03/20/19 12:18 100 03/20/19 11:31 100 - Physical Examination General: No Apparent Distress HEENT: Positive: PERRL Neck: Positive: neck supple Cardiac: Positive: Reg Rate and Rhythm Lungs: Positive: Decreased Breath Sounds Neuro: Positive: Grossly Intact Abdomen: Positive: Soft Skin: Positive: Clear Extremities: Absent: edema - Labs and Meds Cardiac Enzymes 03/21/19 Range/Units 04:44 AST 14 (5-40) units/L Coagulation 03/20/19 Range/Units 12:42 PT 16.7 H (12.2-14.9) Sec. INR 1.37 H (0.87-1.13) APTT 31.6 (24.2-36.6) Sec. Lipids 03/20/19 Range/Units 11:42 Triglycerides 147 (2-149) mg/dL Cholesterol 147 (50-199) mg/dL HDL Cholesterol 43 (40-59) mg/dL Cholesterol/HDL Ratio 3.41 % CBC 03/20/19 03/21/19 Range/Units 11:42 04:44 WBC 8.9 7.4 (4.5-11.0) K/mm3 RBC 4.39 3.70 (3.65-5.03) M/mm3 Hgb 12.9 10.9 L (11.8-15.2) gm/dl Hct 39.7 33.0 L D (35.5-45.6) % Plt Count 387 381 (140-440) K/mm3 Lymph # 0.9 L 1.2 (1.2-5.4) K/mm3 [place] # 0.5 0.6 (0.0-0.8) K/mm3 Eos # 0.0 0.1 (0.0-0.4) K/mm3 Baso # 0.0 0.0 (0.0-0.1) K/mm3 Comprehensive Metabolic Panel 03/20/19 03/21/19 Range/Units 11:42 04:44 Sodium 134 L 138 (137-145) mmol/L Potassium 3.7 D 3.6 (3.6-5.0) mmol/L Chloride 93.5 L 103.5 (98-107) mmol/L Carbon Dioxide 18 L 20 L (22-30) mmol/L BUN 76 H 71 H (9-20) mg/dL Creatinine 7.2 H 7.4 H (0.8-1.5) mg/dL Glucose 397 H 219 H (75-100) mg/dL Calcium 8.6 7.5 L (8.4-10.2) mg/dL AST 14 (5-40) units/L ALT < 5 L (7-56) units/L Alkaline Phosphatase 60 (35-129) units/L Total Protein 6.0 L (6.3-8.2) g/dL Albumin 2.9 L (3.9-5) g/dL
--- NOTE | 2019-03-21 16:11 | Progress Note ---
Assessment and Plan Assessment and plan: Patient is a 69 yo AA man with a history of DM type 2, ESRD on HD(M,W,F), last dialyzed on Wednesday, HTN, pAfib on eli who presents to [facility] ED with generalized weakness, near syncope, malaise and shortness of breath. He was found to have hypotension with Systolic blood pressure in the 70's. He was diag nosis with Sepsis but there have been no identified infection so far, so unable to diagnosis Sepsis. CXR was clear and he doesn't make enough urine for UA. He did not have elevated WBC. He did not have fevers. He was here about 2 weeks ago with AGE. During his course in the hospital, he developed a recurrence of rapid atrial fibrillation. There was spontaneous return to sinus rhythm, on amiodaron e. He was discharged on amiodarone 200 mg daily. He is currently in ICU on 6 mcg of Levophed. He also developed transient, near syncope associated with marked bradycardia, which prompted Cardiology consultation. Prior cardiac workup includes an echocardiogram done on his admission just last week, a ejection fraction 50-55%. Symptomatic bradycardia with Near syncope; on Levophed, Enternal pacer pads in place, atropine at bedside We will have EP evaluation, Dr Lares, for pacemaker once his suspected sepsis is adequately treated. Shock: try to wean off Levophed No Sepsis so far pAtrial fibrillation with rapid ventricular response contiue therapeutic anticoatulation, cardiology consulted, supportive care ESRD (end stage renal disease) on dialysis Nephrology consulted in ED, dialysis as per renal team when medically stable. Diabetes type 2, uncontrolled, add ssi, ADA diet, insulin, accu check, hypoglycemia protocol HTN (hypertension) DVT prophylaxis SCD to BLE while in bed, supportive care, continue therapeutic anticoagulation History Interval history: Patient was seen and examined. Follow-up on current diagnosis of hypotension. No overnight events reported to me. Patient denies any chest pain, shortness breath, nausea/vomiting or severe headaches. Imaging, nursing note, chart, labs and old chart reviewed. Discussed with patient. Hospitalist Physical - Physical exam Narrative exam: Gen: WDWN, NAD, Awake, Alert, Orientated HEENT: NCAT, EOMI, PERRL, OP Clear Neck: supple, no adenopathy, no thyromegaly, no JVD CVS/Heart: RRR, normal S1S2, pulses present bilaterally Chest/Lungs: CTA B, Symmetrical chest expansion, good air entry bilaterally GI/Abdomen: soft, NTND, good bowel sounds, no guarding or rebound /Bladder: no suprapubic tenderness, no CVA or paraspinal tenderness Extermity/Skin: no c/c/e, no obvious rash MSK: FROM x 4 Neuro: CN 2-12 grossly intact, no new focal deficits Psych: calm - Constitutional Vitals: Temp Pulse Resp BP Pulse Ox 98.1 F 113 H 14 196/97 100 03/21/19 15:00 03/21/19 15:31 03/21/19 15:31 03/21/19 15:31 03/21/19 15:31 General appearance: Absent: mild distress Results - Labs CBC & Chem 7: 03/21/19 04:44 03/21/19 04:44 Labs: Laboratory Last Values WBC 7.4 K/mm3 (4.5-11.0) 03/21/19 04:44 RBC 3.70 M/mm3 (3.65-5.03) 03/21/19 04:44 Hgb 10.9 gm/dl (11.8-15.2) L 03/21/19 04:44 Hct 33.0 % (35.5-45.6) L D 03/21/19 04:44 MCV 89 fl (84-94) 03/21/19 04:44 MCH 29 pg (28-32) 03/21/19 04:44 MCHC 33 % (32-34) 03/21/19 04:44 RDW 14.7 % (13.2-15.2) 03/21/19 04:44 Plt Count 381 K/mm3 (140-440) 03/21/19 04:44 Lymph % (Auto) 16.9 % (13.4-35.0) 03/21/19 04:44 [place] % (Auto) 8.6 % (0.0-7.3) H 03/21/19 04:44 Eos % (Auto) 2.0 % (0.0-4.3) 03/21/19 04:44 Baso % (Auto) 0.5 % (0.0-1.8) 03/21/19 04:44 Lymph # 1.2 K/mm3 (1.2-5.4) 03/21/19 04:44 [place] # 0.6 K/mm3 (0.0-0.8) 03/21/19 04:44 Eos # 0.1 K/mm3 (0.0-0.4) 03/21/19 04:44 Baso # 0.0 K/mm3 (0.0-0.1) 03/21/19 04:44 Seg Neutrophils % 72.0 % (40.0-70.0) H 03/21/19 04:44 Seg Neutrophils # 5.3 K/mm3 (1.8-7.7) 03/21/19 04:44 PT 16.7 Sec. (12.2-14.9) H 03/20/19 12:42 INR 1.37 (0.87-1.13) H 03/20/19 12:42 APTT 31.6 Sec. (24.2-36.6) 03/20/19 12:42 POC ABG pH 7.511 (7.35-7.45) H 03/20/19 14:11 POC ABG pCO2 23.8 (35-45) L 03/20/19 14:11 POC ABG pO2 122 (80-105) H 03/20/19 14:11 POC ABG HCO3 19.0 (22-26 mml/L) 03/20/19 14:11 POC ABG Total CO2 20 (23-27mmol/L) 03/20/19 14:11 POC ABG O2 Sat 99 03/20/19 14:11 POC ABG Base Excess -4 ((-2) - (+3)mmol/L) 03/20/19 14:11 FiO2 21 % 03/20/19 14:11 Sodium 138 mmol/L (137-145) 03/21/19 04:44 Potassium 3.6 mmol/L (3.6-5.0) 03/21/19 04:44 Chloride 103.5 mmol/L (98-107) 03/21/19 04:44 Carbon Dioxide 20 mmol/L (22-30) L 03/21/19 04:44 Anion Gap 18 mmol/L 03/21/19 04:44 BUN 71 mg/dL (9-20) H 03/21/19 04:44 Creatinine 7.4 mg/dL (0.8-1.5) H 03/21/19 04:44 Estimated GFR 9 ml/min 03/21/19 04:44 BUN/Creatinine Ratio 10 % 03/21/19 04:44 Glucose 219 mg/dL (75-100) H 03/21/19 04:44 POC Glucose 198 (70-105) H 03/21/19 11:48 Calcium 7.5 mg/dL (8.4-10.2) L 03/21/19 04:44 Total Bilirubin 0.30 mg/dL (0.1-1.2) 03/21/19 04:44 AST 14 units/L (5-40) 03/21/19 04:44 ALT < 5 units/L (7-56) L 03/21/19 04:44 Alkaline Phosphatase 60 units/L (35-129) 03/21/19 04:44 Troponin T 0.041 ng/mL (0.00-0.029) H 03/20/19 17:03 Total Protein 6.0 g/dL (6.3-8.2) L 03/21/19 04:44 Albumin 2.9 g/dL (3.9-5) L 03/21/19 04:44 Albumin/Globulin Ratio 0.9 % 03/21/19 04:44 Triglycerides 147 mg/dL (2-149) 03/20/19 11:42 Cholesterol 147 mg/dL (50-199) 03/20/19 11:42 LDL Cholesterol Direct 93 mg/dL (50-130) 03/20/19 11:42 HDL Cholesterol 43 mg/dL (40-59) 03/20/19 11:42 Cholesterol/HDL Ratio 3.41 % 03/20/19 11:42 TSH 0.961 mlU/mL (0.270-4.200) 03/20/19 12:42 Free T4 1.93 ng/dL (0.76-1.46) H 03/20/19 12:42 Blood Type O POSITIVE 03/20/19 12:42 Antibody Screen Negative 03/20/19 12:42 Active Medications - Current Medications Current Medications: Generic Name Dose Route Start Last Admin Trade Name Freq PRN Reason Stop Dose Admin Albuterol 2.5 mg 03/20/19 15:30 Proventil IH Q3HRT PRN Shortness Of Breath Allopurinol 100 mg 03/21/19 10:00 03/21/19 10:58 Zyloprim PO 100 mg QDAY RASHEEDA Administration Atorvastatin Calcium 20 mg 03/20/19 22:00 03/20/19 21:24 Lipitor PO 20 mg QHS RASHEEDA Administration Dextrose 50 ml 03/20/19 15:36 D50w (25gm) Syringe IV Q30MIN PRN Hypoglycemia Protocol Norepinephrine 4 mg in 250 mls @ 7.5 mls/hr 03/21/19 01:00 03/21/19 09:13 Levophed Drip 4 Mg/Ns 250 Ml IV 6 mcg/min TITR RASHEEDA 22.5 mls/hr Titration Protocol 2 MCG/MIN Insulin Human Isoph/Insulin Regular 20 unit 03/21/19 17:00 Humulin 70/30 SUB-Q BIDDIAB RASHEEDA Insulin Human Lispro 0 unit 03/21/19 11:30 03/21/19 13:02 Humalog SUB-Q 2 unit ACHS RASHEEDA Administration Protocol Pantoprazole Sodium 40 mg 03/21/19 16:00 Protonix PO QDAY RASHEEDA Sodium Chloride 10 ml 03/20/19 22:00 03/21/19 10:58 Sodium Chloride Flush Syringe 10 Ml IV 10 ml BID RASHEEDA Administration Sodium Chloride 10 ml 03/20/19 15:30 Sodium Chloride Flush Syringe 10 Ml IV PRN PRN LINE FLUSH
[2019-03-21] MEDS: PANTOPRAZOLE 40 MG TAB PO SCH (16:30)
[2019-03-21] MEDS ORDERED: ONDANSETRON 4 MG/2 ML INJ IV STA (18:37)
[2019-03-21] MEDS ORDERED: ONDANSETRON 4 MG/2 ML INJ ONE (18:41)
[2019-03-21] MEDS: INSULIN NPH/REGULAR 70/30 INJ SUB-Q SCH (18:46)
[2019-03-21] MEDS: amLODIPine 10 MG TAB PO SCH ×2 (18:52→22:34)
[2019-03-21] MEDS: METOPROLOL SUCCINATE XL 100 MG TAB PO SCH (18:52)
[2019-03-21] MEDS ORDERED: SODIUM CHLORIDE*PRIMING MACHINE ONLY FOR DIALYSIS MC ONE (19:28)
[2019-03-21] MEDS ORDERED: ONDANSETRON 4 MG/2 ML INJ IV ONE (23:41)
[2019-03-22] MEDS: INSULIN LISPRO 100 UNIT/ML SUB-Q SCH ×4 (08:19→22:11)
--- NOTE | 2019-03-22 11:45 | Consultation ---
History of Present Illness - Reason for Consult Consult date: 03/22/19 Hypotension Requesting physician: HERNAN WATT - History of Present Illness 69 y/o male with ESRD on HD, admitted with weakness and fatigue. Found to be hypotensive. 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 Was sent to the ED and found to be in Afib with RVR and hypotensive. Started on rate control therapy and levophed for hypotension. Patient remains awake and alert w ith no complaints. Going to have HD. Past History Past Medical History: atrial fib, diabetes, renal failure, other (See HPI) Past Surgical History: Other (Dialysis access) Social history: . denies: smoking, alcohol abuse, prescription drug abuse Family history: hypertension Medications and Allergies Allergies Allergy/AdvReac Type Severity Reaction Status Date / Time No Known Allergies Allergy Verified 05/23/16 22:42 Home Medications Medication Instructions Recorded Confirmed Last Taken Type Insulin Lispro Protamin/Lispro 20 units SQ QAM 08/24/16 03/20/19 03/20/19 History [HumaLOG Mix 75-25 Kwikpen] Insulin Lispro Protamin/Lispro 20 units SQ QPM 08/24/16 03/20/19 03/19/19 History [HumaLOG Mix 75-25 Kwikpen] Allopurinol [Zyloprim] 100 mg PO QDAY #30 tablet 09/01/16 03/20/19 03/20/19 Rx AtorvaSTATin [Lipitor] 20 mg PO QHS #30 tablet 09/01/16 03/20/19 03/18/19 Rx Nebivolol HCl [Bystolic] 10 mg PO QDAY 09/07/16 03/20/19 03/20/19 History amLODIPine 10 mg PO BID 09/07/16 03/20/19 03/20/19 History Amiodarone [Cordarone 200 MG TAB] 200 mg PO QDAY #30 tablet 03/17/19 03/20/19 03/20/19 Rx Apixaban [Eliquis] 5 mg PO Q12HR 03/20/19 03/20/19 03/20/19 History Active Meds: Active Medications Albuterol (Proventil) 2.5 mg IH Q3HRT PRN PRN Reason: Shortness Of Breath Allopurinol (Zyloprim) 100 mg PO QDAY RASHEEDA Last Admin: 03/21/19 10:58 Dose: 100 mg Documented by: Amlodipine Besylate (Amlodipine) 10 mg PO DAILY [facility] Atorvastatin Calcium (Lipitor) 20 mg PO QHS [facility] Last Admin: 03/21/19 22:34 Dose: 20 mg Documented by: Dextrose (D50w (25gm) Syringe) 50 ml IV Q30MIN PRN; Protocol PRN Reason: Hypoglycemia Insulin Human Isoph/Insulin Regular (Humulin 70/30) 20 unit SUB-Q BIDDIAB [facility] Last Admin: 03/21/19 18:46 Dose: 20 unit Documented by: Insulin Human Lispro (Humalog) 0 unit SUB-Q ACHS [facility]; Protocol Last Admin: 03/22/19 08:19 Dose: Not Given Documented by: Pantoprazole Sodium (Protonix) 40 mg PO QDAY [facility] Last Admin: 03/21/19 16:30 Dose: 40 mg Documented by: Sodium Chloride (Sodium Chloride Flush Syringe 10 Ml) 10 ml IV BID [facility] Last Admin: 03/21/19 22:34 Dose: 10 ml Documented by: Sodium Chloride (Sodium Chloride Flush Syringe 10 Ml) 10 ml IV PRN PRN PRN Reason: LINE FLUSH Review of Systems All systems: negative Exam - Constitutional Vitals: Temp Pulse Resp BP Pulse Ox 98.0 F 116 H 14 172/101 99 03/22/19 08:15 03/22/19 11:30 03/22/19 10:00 03/22/19 11:30 03/22/19 10:00 General appearance: Present: no acute distress, well-nourished - EENT Eyes: Present: PERRL, EOM intact ENT: hearing intact - Neck Neck: Present: supple - Respiratory Respiratory: bilateral: CTA - Cardiovascular Rhythm: irregularly irregular (but rate controlled) - Abdominal General gastrointestinal: Present: soft Results - Labs CBC & Chem 7: 03/21/19 04:44 03/21/19 04:44 Labs: Abnormal lab results 03/21/19 03/21/19 03/21/19 Range/Units 11:48 18:54 21:33 POC Glucose 198 H 280 H 191 H (70-105) - Imaging and Cardiology Chest x-ray: image reviewed (clear) Assessment and Plan 69 y/o male with ESRD on HD, with hypotension of unknown etiology 1. BP actually improved on HD and patient became hypertensive, levophed was weaned off. Restarted oral home medications. DID go back into rapid afib but now controlled again. HD will be per renal. Suggest asking their help with BP as well. 2. Stable from a critical care standpoint for transfer. Spoke to IMS already. CCT 31 minutes.
[2019-03-22] MEDS: PANTOPRAZOLE 40 MG TAB PO SCH (12:45)
[2019-03-22] MEDS: allopurinoL 100 MG TAB PO SCH (12:45)
[2019-03-22] MEDS: amLODIPine 10 MG TAB PO SCH (12:45)
[2019-03-22] MEDS: INSULIN NPH/REGULAR 70/30 INJ SUB-Q SCH ×2 (12:48→17:27)
--- NOTE | 2019-03-22 14:55 | Progress Note ---
Assessment and Plan Assessment and plan: Patient is a 69 yo AA man with a history of DM type 2, ESRD on HD(M,W,F), last dialyzed on Wednesday, HTN, pAfib on eliqu who presents to [facility] ED with generalized weakness, near syncope, malaise and shortness of breath. He was found to have hypotension with Systolic blood pressure in the 70's. He was diag nosis with Sepsis but there have been no identified infection so far, so unable to diagnosis Sepsis. CXR was clear and he doesn't make enough urine for UA. He did not have elevated WBC. He did not have fevers. He was here about 2 weeks ago with AGE. During his course in the hospital, he developed a recurrence of rapid atrial fibrillation. There was spontaneous return to sinus rhythm, on amiodaron e. He was discharged on amiodarone 200 mg daily. He is currently in ICU on 6 mcg of Levophed. He also developed transient, near syncope associated with marked bradycardia, which prompted Cardiology consultation. Prior cardiac workup includes an echocardiogram done on his admission just last week, a ejection fraction 50-55%. Symptomatic bradycardia with Near syncope; on Levophed, Enternal pacer pads in place, atropine at bedside We will have EP evaluation, Dr Lares, for pacemaker once his suspected sepsis is adequately treated. Shock: wean off Levophed No Sepsis so far pAtrial fibrillation with rapid ventricular response contiue therapeutic anticoatulation, cardiology consulted, supportive care ESRD (end stage renal disease) on dialysis Nephrology consulted in ED, dialysis as per renal team when medically stable. Diabetes type 2, uncontrolled, add ssi, ADA diet, insulin, accu check, hypoglycemia protocol HTN (hypertension) DVT prophylaxis SCD to BLE while in bed, supportive care, continue therapeutic anticoagulation History Interval history: Patient was seen and examined. Follow-up on current diagnosis of hypotension. No overnight events reported to me. Patient denies any chest pain, shortness breath, nausea/vomiting or severe headaches. Imaging, nursing note, chart, labs and old chart reviewed. Discussed with patient. Hospitalist Physical - Physical exam Narrative exam: Gen: WDWN, NAD, Awake, Alert, Orientated x 3 HEENT: NCAT, EOMI, PERRL, OP Clear Neck: supple, no adenopathy, no thyromegaly, no JVD CVS/Heart: irreg irreg, normal S1S2, pulses present bilaterally Chest/Lungs: CTA B, Symmetrical chest expansion, good air entry bilaterally GI/Abdomen: soft, NTND, good bowel sounds, no guarding or rebound /Bladder: no suprapubic tenderness, no CVA or paraspinal tenderness Extermity/Skin: no c/c/e, no obvious rash MSK: FROM x 4 Neuro: CN 2-12 grossly intact, no new focal deficits Psych: calm - Constitutional Vitals: Temp Pulse Resp BP Pulse Ox 97.6 F 136 H 19 122/103 99 03/22/19 12:00 03/22/19 13:30 03/22/19 13:30 03/22/19 13:30 03/22/19 13:30 General appearance: Present: no acute distress, well-nourished Results - Labs CBC & Chem 7: 03/21/19 04:44 03/21/19 04:44 Labs: Laboratory Last Values WBC 7.4 K/mm3 (4.5-11.0) 03/21/19 04:44 RBC 3.70 M/mm3 (3.65-5.03) 03/21/19 04:44 Hgb 10.9 gm/dl (11.8-15.2) L 03/21/19 04:44 Hct 33.0 % (35.5-45.6) L D 03/21/19 04:44 MCV 89 fl (84-94) 03/21/19 04:44 MCH 29 pg (28-32) 03/21/19 04:44 MCHC 33 % (32-34) 03/21/19 04:44 RDW 14.7 % (13.2-15.2) 03/21/19 04:44 Plt Count 381 K/mm3 (140-440) 03/21/19 04:44 Lymph % (Auto) 16.9 % (13.4-35.0) 03/21/19 04:44 [place] % (Auto) 8.6 % (0.0-7.3) H 03/21/19 04:44 Eos % (Auto) 2.0 % (0.0-4.3) 03/21/19 04:44 Baso % (Auto) 0.5 % (0.0-1.8) 03/21/19 04:44 Lymph # 1.2 K/mm3 (1.2-5.4) 03/21/19 04:44 [place] # 0.6 K/mm3 (0.0-0.8) 03/21/19 04:44 Eos # 0.1 K/mm3 (0.0-0.4) 03/21/19 04:44 Baso # 0.0 K/mm3 (0.0-0.1) 03/21/19 04:44 Seg Neutrophils % 72.0 % (40.0-70.0) H 03/21/19 04:44 Seg Neutrophils # 5.3 K/mm3 (1.8-7.7) 03/21/19 04:44 PT 16.7 Sec. (12.2-14.9) H 03/20/19 12:42 INR 1.37 (0.87-1.13) H 03/20/19 12:42 APTT 31.6 Sec. (24.2-36.6) 03/20/19 12:42 POC ABG pH 7.511 (7.35-7.45) H 03/20/19 14:11 POC ABG pCO2 23.8 (35-45) L 03/20/19 14:11 POC ABG pO2 122 (80-105) H 03/20/19 14:11 POC ABG HCO3 19.0 (22-26 mml/L) 03/20/19 14:11 POC ABG Total CO2 20 (23-27mmol/L) 03/20/19 14:11 POC ABG O2 Sat 99 03/20/19 14:11 POC ABG Base Excess -4 ((-2) - (+3)mmol/L) 03/20/19 14:11 FiO2 21 % 03/20/19 14:11 Sodium 138 mmol/L (137-145) 03/21/19 04:44 Potassium 3.6 mmol/L (3.6-5.0) 03/21/19 04:44 Chloride 103.5 mmol/L (98-107) 03/21/19 04:44 Carbon Dioxide 20 mmol/L (22-30) L 03/21/19 04:44 Anion Gap 18 mmol/L 03/21/19 04:44 BUN 71 mg/dL (9-20) H 03/21/19 04:44 Creatinine 7.4 mg/dL (0.8-1.5) H 03/21/19 04:44 Estimated GFR 9 ml/min 03/21/19 04:44 BUN/Creatinine Ratio 10 % 03/21/19 04:44 Glucose 219 mg/dL (75-100) H 03/21/19 04:44 POC Glucose 195 (70-105) H 03/22/19 11:54 Calcium 7.5 mg/dL (8.4-10.2) L 03/21/19 04:44 Total Bilirubin 0.30 mg/dL (0.1-1.2) 03/21/19 04:44 AST 14 units/L (5-40) 03/21/19 04:44 ALT < 5 units/L (7-56) L 03/21/19 04:44 Alkaline Phosphatase 60 units/L (35-129) 03/21/19 04:44 Troponin T 0.041 ng/mL (0.00-0.029) H 03/20/19 17:03 Total Protein 6.0 g/dL (6.3-8.2) L 03/21/19 04:44 Albumin 2.9 g/dL (3.9-5) L 03/21/19 04:44 Albumin/Globulin Ratio 0.9 % 03/21/19 04:44 Triglycerides 147 mg/dL (2-149) 03/20/19 11:42 Cholesterol 147 mg/dL (50-199) 03/20/19 11:42 LDL Cholesterol Direct 93 mg/dL (50-130) 03/20/19 11:42 HDL Cholesterol 43 mg/dL (40-59) 03/20/19 11:42 Cholesterol/HDL Ratio 3.41 % 03/20/19 11:42 TSH 0.961 mlU/mL (0.270-4.200) 03/20/19 12:42 Free T4 1.93 ng/dL (0.76-1.46) H 03/20/19 12:42 Blood Type O POSITIVE 03/20/19 12:42 Antibody Screen Negative 03/20/19 12:42 Active Medications - Current Medications Current Medications: Generic Name Dose Route Start Last Admin Trade Name Freq PRN Reason Stop Dose Admin Albuterol 2.5 mg 03/20/19 15:30 Proventil IH Q3HRT PRN Shortness Of Breath Allopurinol 100 mg 03/21/19 10:00 03/22/19 12:45 Zyloprim PO 100 mg QDAY RASHEEDA Administration Amlodipine Besylate 10 mg 03/22/19 10:00 03/22/19 12:45 Amlodipine PO 10 mg DAILY RASHEEDA Administration Atorvastatin Calcium 20 mg 03/20/19 22:00 03/21/19 22:34 Lipitor PO 20 mg QHS RASHEEDA Administration Dextrose 50 ml 03/20/19 15:36 D50w (25gm) Syringe IV Q30MIN PRN Hypoglycemia Protocol Insulin Human Isoph/Insulin Regular 20 unit 03/21/19 17:00 03/22/19 12:48 Humulin 70/30 SUB-Q 20 unit BIDDIAB RASHEEDA Administration Insulin Human Lispro 0 unit 03/21/19 11:30 03/22/19 12:48 Humalog SUB-Q 2 unit ACHS RASHEEDA Administration Protocol Pantoprazole Sodium 40 mg 03/21/19 16:00 03/22/19 12:45 Protonix PO 40 mg QDAY RASHEEDA Administration Sodium Chloride 10 ml 03/20/19 22:00 03/22/19 12:49 Sodium Chloride Flush Syringe 10 Ml IV 10 ml BID RASHEEDA Administration Sodium Chloride 10 ml 03/20/19 15:30 Sodium Chloride Flush Syringe 10 Ml IV PRN PRN LINE FLUSH Nutrition/Malnutrition Assess - Dietary Evaluation Nutrition/Malnutrition Findings: Nutrition Notes Start: 03/22/19 11:40 Freq: Status: Active Protocol: Document 03/22/19 11:40 CC (Rec: 03/22/19 11:48 CC [id number]) Co-Sign 03/22/19 11:40 LP Nutrition Notes Initial or Follow up Assessment Current Diagnosis CKD (stage V CKD),Diabetes Other Pertinent Diagnosis HD (M,W,F), a fibb. Current Diet renal Labs/Tests 03/21/19 BUN 71 Creat 7.4 Pertinent Medications reviewed Height 6 ft 1 in Weight 97.069 kg [place] Body Weight (kg) 83.63 BMI 28.2 Subjective/Other Information Per RN pt had N/V and was not sure if pt had been eating. Pt reported his appetite has been okay and yesterday after he ate his stomach was upset. Observed food left on tray from breakfast. Pt had ate about 75% of meal. Pt stated he would like to try an ONS. Burn Absent Trauma Absent Current % PO Good (75-100%) Minimum of two criteria No physical signs of malnutrition #1 Nutrition Diagnosis Predicted suboptimal energy intake Etiology changes in appetite As Evidenced by Signs and Symptoms 75% of breakfast consumed, pt reported he would like an ONS Is patient on ventilator? No Is Patient Ambulatory and/or Out of Bed Yes REE-([facility]-ambulatory/OOB) [ [id number] [id number]] Calculation Used for Recommendations [facility] Additional Notes PRO: 116-135g/day (1.2-1.4g/kg ) Fluid: 1ml/kcal Nutrition Intervention Change Diet Order: continue renal diet Add Supplement/Snack (indicate name/kcal Nepro Vanilla once daily /protein ) Provides kCal: 425 Provides Protein (gm) 19 Goal #1 Meet at leat 75% of energy and protein needs via PO and ONS intakes Anticipated Discharge Needs: renal diet Follow-Up By: 03/24/19 Additional Comments F/U for PO and ONS intakes
--- NOTE | 2019-03-22 15:48 | Progress Note ---
Assessment and Plan - Patient Problems (1) ESRD (end stage renal disease) on dialysis Current Visit: Yes Status: Chronic Plan to address problem: End-stage renal disease We'll initiate dialysis continue dialysis Wednesday We'll initiate dialysis today (2) Sepsis Current Visit: Yes Status: Acute Qualifiers: Severe sepsis shock status: with septic shock Plan to address problem: Sepsis Was hypotensive on arrival, was started on norepinephrine Follow cultures Continue antibiotics (3) Diabetes Current Visit: No Status: Acute Qualifiers: Diabetes mellitus type: type 1 Diabetes mellitus complication status: with hyperglycemia Qualified Code(s): E10.65 - Type 1 diabetes mellitus with hyperglycemia Plan to address problem: Diabetes mellitus Continue medications Monitor fingersticks (4) HTN (hypertension) Current Visit: No Status: Chronic Qualifiers: Hypertension type: essential hypertension Qualified Code(s): I10 - Essential (primary) hypertension Plan to address problem: History of hypertension Was hypotensive on arrival and will hold blood pressure medications Subjective Interval history: 69-year-old with medical history significant for end-stage renal disease on hemodialysis at the [facility] via right IJ PermCath, also history of hypertension diabetes admitted with complaint of shortness of breath weakness and lethargy denies any fevers chills denies any sick contacts denies that he denies any lower extremity edema he reports he has been in compliance with dialysis. Denies any nausea vomiting diarrhea denies any abdominal pain Patient's seen today no chest pain with dialysis today Objective - Vital Signs Vital signs: Vital Signs - 12hr 03/22/19 03/22/19 03/22/19 04:00 04:15 04:30 Temperature 98.2 F Pulse Rate 103 H 102 H 96 H Respiratory 11 L 16 22 Rate Blood Pressure 124/66 95/65 130/63 O2 Sat by Pulse 98 96 98 Oximetry 03/22/19 03/22/19 03/22/19 04:45 05:00 05:16 Temperature Pulse Rate 98 H 97 H 94 H Respiratory 15 15 15 Rate Blood Pressure 114/56 114/56 128/58 O2 Sat by Pulse 99 96 98 Oximetry 03/22/19 03/22/19 03/22/19 05:30 05:45 06:00 Temperature Pulse Rate 107 H 105 H 94 H Respiratory 14 14 14 Rate Blood Pressure 122/72 137/83 137/83 O2 Sat by Pulse 97 100 99 Oximetry 03/22/19 03/22/19 03/22/19 06:15 06:30 06:45 Temperature Pulse Rate 85 87 109 H Respiratory 14 15 13 Rate Blood Pressure 132/71 132/71 156/84 O2 Sat by Pulse 100 98 99 Oximetry 03/22/19 03/22/19 03/22/19 07:00 07:16 07:30 Temperature Pulse Rate 99 H 98 H 112 H Respiratory 13 14 19 Rate Blood Pressure 156/84 138/73 147/73 O2 Sat by Pulse 100 99 97 Oximetry 03/22/19 03/22/19 03/22/19 07:45 08:00 08:15 Temperature 98.0 F 98.0 F Pulse Rate 104 H 90 103 H Respiratory 17 14 14 Rate Blood Pressure 145/82 145/82 146/71 O2 Sat by Pulse 99 100 97 Oximetry 03/22/19 03/22/19 03/22/19 08:25 08:30 08:45 Temperature Pulse Rate 107 H 115 H 110 H Respiratory 16 Rate Blood Pressure 137/65 143/63 143/63 O2 Sat by Pulse 96 Oximetry 03/22/19 03/22/19 03/22/19 08:46 09:00 09:16 Temperature Pulse Rate 110 H 120 H 120 H Respiratory 17 16 14 Rate Blood Pressure 143/63 143/63 165/89 O2 Sat by Pulse 96 99 98 Oximetry 03/22/19 03/22/19 03/22/19 09:17 09:30 09:45 Temperature Pulse Rate 107 H 111 H 128 H Respiratory 17 Rate Blood Pressure 165/93 165/89 142/103 O2 Sat by Pulse 99 Oximetry 03/22/19 03/22/19 03/22/19 09:46 10:00 10:15 Temperature Pulse Rate 128 H 114 H 127 H Respiratory 13 14 Rate Blood Pressure 142/103 142/103 156/97 O2 Sat by Pulse 98 99 Oximetry 03/22/19 03/22/19 03/22/19 10:16 10:30 10:44 Temperature Pulse Rate 122 H 115 H 125 H Respiratory 15 11 L Rate Blood Pressure 132/96 156/97 154/97 O2 Sat by Pulse 98 99 Oximetry 03/22/19 03/22/19 03/22/19 10:46 11:00 11:15 Temperature Pulse Rate 131 H 135 H 140 H Respiratory 14 12 14 Rate Blood Pressure 154/97 154/97 152/97 O2 Sat by Pulse 100 99 100 Oximetry 03/22/19 03/22/19 03/22/19 11:30 11:45 11:46 Temperature Pulse Rate 132 H 131 H 109 H Respiratory 16 22 Rate Blood Pressure 152/97 153/115 153/115 O2 Sat by Pulse 99 99 Oximetry 03/22/19 03/22/19 03/22/19 12:00 12:16 12:30 Temperature 97.6 F Pulse Rate 115 H 119 H 115 H Respiratory 16 14 16 Rate Blood Pressure 153/115 138/71 138/71 O2 Sat by Pulse 99 99 97 Oximetry 03/22/19 03/22/19 03/22/19 12:45 12:46 13:00 Temperature Pulse Rate 141 H 126 H 128 H Respiratory 18 18 Rate Blood Pressure 138/68 138/68 138/68 O2 Sat by Pulse 100 96 Oximetry 03/22/19 03/22/19 03/22/19 13:16 13:30 13:46 Temperature Pulse Rate 130 H 136 H Respiratory 16 19 Rate Blood Pressure 122/103 122/103 109/82 O2 Sat by Pulse 99 99 96 Oximetry 03/22/19 03/22/19 03/22/19 13:48 13:50 13:52 Temperature Pulse Rate Respiratory Rate Blood Pressure 109/82 109/82 109/82 O2 Sat by Pulse 99 99 96 Oximetry 03/22/19 03/22/19 03/22/19 13:54 13:56 13:58 Temperature Pulse Rate 138 H 137 H 136 H Respiratory 19 17 16 Rate Blood Pressure 109/82 109/82 109/82 O2 Sat by Pulse 100 99 95 Oximetry 03/22/19 03/22/19 03/22/19 14:00 14:01 14:02 Temperature Pulse Rate 133 H 107 H 105 H Respiratory 17 16 17 Rate Blood Pressure 109/82 113/77 113/77 O2 Sat by Pulse 93 95 95 Oximetry 03/22/19 03/22/19 03/22/19 14:04 14:06 14:08 Temperature Pulse Rate 130 H 92 H 121 H Respiratory 13 17 15 Rate Blood Pressure 113/77 124/77 124/77 O2 Sat by Pulse 100 96 98 Oximetry 03/22/19 03/22/19 03/22/19 14:10 14:12 14:14 Temperature Pulse Rate 107 H 113 H 109 H Respiratory 15 16 32 H Rate Blood Pressure 124/77 124/77 124/77 O2 Sat by Pulse 100 100 100 Oximetry 03/22/19 03/22/19 03/22/19 14:16 14:18 14:19 Temperature Pulse Rate 114 H 112 H 108 H Respiratory 15 12 17 Rate Blood Pressure 124/77 124/77 124/70 O2 Sat by Pulse 100 100 100 Oximetry 03/22/19 03/22/19 03/22/19 14:20 14:22 14:24 Temperature Pulse Rate 117 H 112 H 124 H Respiratory 18 24 19 Rate Blood Pressure 124/70 124/70 124/70 O2 Sat by Pulse 100 99 100 Oximetry 03/22/19 03/22/19 03/22/19 14:26 14:28 14:30 Temperature Pulse Rate 113 H 137 H 126 H Respiratory 15 20 19 Rate Blood Pressure 124/70 124/70 124/70 O2 Sat by Pulse 99 99 99 Oximetry 03/22/19 03/22/19 03/22/19 14:32 14:34 14:36 Temperature Pulse Rate 117 H 123 H 116 H Respiratory 15 12 18 Rate Blood Pressure 119/93 119/93 119/93 O2 Sat by Pulse 100 99 100 Oximetry 03/22/19 03/22/19 03/22/19 14:38 14:40 14:42 Temperature Pulse Rate 117 H 132 H 108 H Respiratory 13 33 H 38 H Rate Blood Pressure 119/93 119/93 119/93 O2 Sat by Pulse 100 99 99 Oximetry 03/22/19 03/22/19 03/22/19 14:44 14:46 14:48 Temperature Pulse Rate 123 H 108 H 133 H Respiratory 19 13 21 Rate Blood Pressure 119/93 145/93 145/93 O2 Sat by Pulse 100 99 99 Oximetry 03/22/19 03/22/19 03/22/19 14:50 14:52 14:54 Temperature Pulse Rate 138 H 117 H 121 H Respiratory 26 H 36 H 29 H Rate Blood Pressure 145/93 145/93 145/93 O2 Sat by Pulse 99 100 100 Oximetry 03/22/19 03/22/19 03/22/19 14:56 14:58 15:00 Temperature Pulse Rate 129 H 136 H 116 H Respiratory 21 32 H 25 H Rate Blood Pressure 145/93 145/93 145/93 O2 Sat by Pulse 98 99 98 Oximetry 03/22/19 03/22/19 03/22/19 15:01 15:02 15:04 Temperature Pulse Rate 131 H 123 H 136 H Respiratory 23 33 H 34 H Rate Blood Pressure 154/106 154/106 154/106 O2 Sat by Pulse 97 99 99 Oximetry 03/22/19 03/22/19 03/22/19 15:06 15:08 15:10 Temperature Pulse Rate 130 H 131 H 115 H Respiratory 20 21 22 Rate Blood Pressure 154/106 154/106 154/106 O2 Sat by Pulse 100 100 99 Oximetry 03/22/19 03/22/19 03/22/19 15:12 15:13 15:14 Temperature Pulse Rate 112 H 126 H 125 H Respiratory 13 13 12 Rate Blood Pressure 154/106 148/96 148/96 O2 Sat by Pulse 98 99 98 Oximetry 03/22/19 15:16 Temperature Pulse Rate 118 H Respiratory 24 Rate Blood Pressure 148/96 O2 Sat by Pulse 99 Oximetry - General Appearance General appearance: well-developed, well-nourished EENT: ATNC, PERRL Neck: no JVD Respiratory: Present: Clear to Ascultation Cardiology: regular, S1S2 Gastrointestinal: normal, normoactive bowel sounds Integumentary: no rash Neurologic: no focal deficit, alert and oriented x3, CN 3-12 intact Psychiatric: mood/affect appropriate - Lab 03/21/19 04:44 03/21/19 04:44 Most recent lab results Calcium 7.5 mg/dL (8.4-10.2) L 03/21/19 04:44 - Imaging Chest x-ray: image reviewed (reviewed cxr without edema. ) Medications & Allergies - Medications Allergies/Adverse Reactions: Allergies No Known Allergies Allergy (Verified 05/23/16 22:42) Home Medications: Home Medications Medication Instructions Recorded Confirmed Last Taken Type Insulin Lispro Protamin/Lispro 20 units SQ QAM 08/24/16 03/20/19 03/20/19 History [HumaLOG Mix 75-25 Kwikpen] Insulin Lispro Protamin/Lispro 20 units SQ QPM 08/24/16 03/20/19 03/19/19 History [HumaLOG Mix 75-25 Kwikpen] Allopurinol [Zyloprim] 100 mg PO QDAY #30 tablet 09/01/16 03/20/19 03/20/19 Rx AtorvaSTATin [Lipitor] 20 mg PO QHS #30 tablet 09/01/16 03/20/19 03/18/19 Rx Nebivolol HCl [Bystolic] 10 mg PO QDAY 09/07/16 03/20/19 03/20/19 History amLODIPine 10 mg PO BID 09/07/16 03/20/19 03/20/19 History Amiodarone [Cordarone 200 MG TAB] 200 mg PO QDAY #30 tablet 03/17/19 03/20/19 03/20/19 Rx Apixaban [Eliquis] 5 mg PO Q12HR 03/20/19 03/20/19 03/20/19 History Active Medications: Generic Name Dose Route Start Last Admin Trade Name Freq PRN Reason Stop Dose Admin Albuterol 2.5 mg 03/20/19 15:30 Proventil IH Q3HRT PRN Shortness Of Breath Allopurinol 100 mg 03/21/19 10:00 03/22/19 12:45 Zyloprim PO 100 mg QDAY RASHEEDA Administration Amlodipine Besylate 10 mg 03/22/19 10:00 03/22/19 12:45 Amlodipine PO 10 mg DAILY RASHEEDA Administration Atorvastatin Calcium 20 mg 03/20/19 22:00 03/21/19 22:34 Lipitor PO 20 mg QHS RASHEEDA Administration Dextrose 50 ml 03/20/19 15:36 D50w (25gm) Syringe IV Q30MIN PRN Hypoglycemia Protocol Insulin Human Isoph/Insulin Regular 20 unit 03/21/19 17:00 03/22/19 12:48 Humulin 70/30 SUB-Q 20 unit BIDDIAB RASHEEDA Administration Insulin Human Lispro 0 unit 03/21/19 11:30 03/22/19 12:48 Humalog SUB-Q 2 unit ACHS RASHEEDA Administration Protocol Pantoprazole Sodium 40 mg 03/21/19 16:00 03/22/19 12:45 Protonix PO 40 mg QDAY RASHEEDA Administration Sodium Chloride 10 ml 03/20/19 22:00 03/22/19 12:49 Sodium Chloride Flush Syringe 10 Ml IV 10 ml BID RASHEEDA Administration Sodium Chloride 10 ml 03/20/19 15:30 Sodium Chloride Flush Syringe 10 Ml IV PRN PRN LINE FLUSH
[2019-03-22] MEDS: METOPROLOL SUCCINATE XL 100 MG TAB PO SCH (15:55)
[2019-03-22] MEDS: ONDANSETRON 4 MG/2 ML INJ IV PRN (17:17)
--- NOTE | 2019-03-22 18:03 | XRay Report ---
ABDOMEN 1 VIEW(S) INDICATION / CLINICAL INFORMATION: n/v. COMPARISON: None available. FINDINGS: TUBES / LINES: None. BOWEL GAS PATTERN: No significant abnormality. FREE AIR / EXTRALUMINAL GAS: None seen. ADDITIONAL FINDINGS: No significant additional findings. IMPRESSION: 1. No significant abnormality. Signer Name: Howie Francois MD Signed: 03/22/2019 5:58 PM Workstation Name: [id number]
--- NOTE | 2019-03-22 18:20 | Consultation ---
History of Present Illness Consult date: 03/22/19 Consult reason: atrial fibrillation History of present illness: 69 YO man with h/o ESRD on HD and long standing paroxysmal atrial fibrillation. He presented to ED after he missed dialysis due to profound weakness and worsening dyspnea. He was noted to have hypotension and AF with RVR in ED and subsequently had transient caren-arrhythmia. I am unable to find rhythm strips documenting his caren-arrhythmia. Of note he was recently hospitalized due to gastro-entereritis and was noted to have AF with RVR during recent hospitalization. He was started on amiodarone during recent hospitalization. Patient currently remains in atrial fibrillation with mild RVR but reports he has no symptoms related to ongoing AF. He recently had echocardiogram done on 03/14/19 which revealed normal EF of 50- 55% and biatrial enlargement. I have thoroughly reviewed all available telemetry monitoring and ECGs. I am unable to find any documentation of caren-arrhythmias. He did have periods of RVR with underlying atrial fibrillation. Past History Past Medical History: atrial fib, diabetes, renal failure, other (See HPI) Past Surgical History: Other (Dialysis access) Social history: . denies: smoking, alcohol abuse, prescription drug abuse Family history: hypertension Medications and Allergies Allergies Allergy/AdvReac Type Severity Reaction Status Date / Time No Known Allergies Allergy Verified 05/23/16 22:42 Home Medications Medication Instructions Recorded Confirmed Last Taken Type Insulin Lispro Protamin/Lispro 20 units SQ QAM 08/24/16 03/20/19 03/20/19 History [HumaLOG Mix 75-25 Kwikpen] Insulin Lispro Protamin/Lispro 20 units SQ QPM 08/24/16 03/20/19 03/19/19 History [HumaLOG Mix 75-25 Kwikpen] Allopurinol [Zyloprim] 100 mg PO QDAY #30 tablet 09/01/16 03/20/19 03/20/19 Rx AtorvaSTATin [Lipitor] 20 mg PO QHS #30 tablet 09/01/16 03/20/19 03/18/19 Rx Nebivolol HCl [Bystolic] 10 mg PO QDAY 09/07/16 03/20/19 03/20/19 History amLODIPine 10 mg PO BID 09/07/16 03/20/19 03/20/19 History Amiodarone [Cordarone 200 MG TAB] 200 mg PO QDAY #30 tablet 03/17/19 03/20/19 03/20/19 Rx Apixaban [Eliquis] 5 mg PO Q12HR 03/20/19 03/20/19 03/20/19 History Active Meds: Active Medications Albuterol (Proventil) 2.5 mg IH Q3HRT PRN PRN Reason: Shortness Of Breath Allopurinol (Zyloprim) 100 mg PO QDAY [facility] Last Admin: 03/22/19 12:45 Dose: 100 mg Documented by: Amlodipine Besylate (Amlodipine) 10 mg PO DAILY [facility] Last Admin: 03/22/19 12:45 Dose: 10 mg Documented by: Atorvastatin Calcium (Lipitor) 20 mg PO QHS [facility] Last Admin: 03/21/19 22:34 Dose: 20 mg Documented by: Dextrose (D50w (25gm) Syringe) 50 ml IV Q30MIN PRN; Protocol PRN Reason: Hypoglycemia Insulin Human Isoph/Insulin Regular (Humulin 70/30) 20 unit SUB-Q BIDDIAB [facility] Last Admin: 03/22/19 17:27 Dose: Not Given Documented by: Insulin Human Lispro (Humalog) 0 unit SUB-Q ACHS [facility]; Protocol Last Admin: 03/22/19 16:34 Dose: Not Given Documented by: Ondansetron HCl (Zofran) 4 mg IV Q4H PRN PRN Reason: Nausea And Vomiting Last Admin: 03/22/19 17:17 Dose: 4 mg Documented by: Pantoprazole Sodium (Protonix) 40 mg PO QDAY [facility] Last Admin: 03/22/19 12:45 Dose: 40 mg Documented by: Sodium Chloride (Sodium Chloride Flush Syringe 10 Ml) 10 ml IV BID [facility] Last Admin: 03/22/19 12:49 Dose: 10 ml Documented by: Sodium Chloride (Sodium Chloride Flush Syringe 10 Ml) 10 ml IV PRN PRN PRN Reason: LINE FLUSH Physical Examination Vital Signs Temp Pulse Resp BP Pulse Ox 97.3 F L 134 H 18 142/61 100 03/20/19 11:31 03/20/19 11:31 03/20/19 11:31 03/20/19 11:31 03/20/19 11:31 General appearance: no acute distress HEENT: Positive: PERRL, EOMI Neck: Positive: neck supple Cardiac: Positive: irregularly irregular. Negative: Audible Murmur Lungs: Positive: Normal Exam, clear to auscultation Abdomen: Positive: Soft, Active Bowel Sounds Extremities: Absent: edema Results 03/21/19 04:44 03/21/19 04:44 Assessment and Plan 1. Paroxysmal atrial fibrillation. Ongoing episode of AF with intermittent RVR. Recently placed on amiodarone. Normally anticoagulated with eliquis. 2. Caren-arrhythmia in ED - unable to find documentation of extent of caren- arrhythmia but none noted since admission. 3. ESRD 4. Htn 5. DM Recommend: 1. Do not restart amiodarone for now. 2. Will pursue rate control strategy for now - will start low dose metoprolol and please titrate as tolerated. 3. Restart eliquis prior to discharge. 4. No current urgent indication for PPM. Will pursue outpatient event monitoring to further assess. Ultimately if he needs PPM, he may benefit from leadless PPM vs. standard endovascular PPM in setting of ESRD. Uriel Lares MD
[2019-03-22] MEDS: METOPROLOL TARTRATE 50 MG TAB PO SCH (22:10)
[2019-03-23] MEDS: allopurinoL 100 MG TAB PO SCH (09:25)
[2019-03-23] MEDS: PANTOPRAZOLE 40 MG TAB PO SCH (09:25)
[2019-03-23] MEDS: INSULIN NPH/REGULAR 70/30 INJ SUB-Q SCH ×2 (09:26→17:32)
[2019-03-23] MEDS: INSULIN LISPRO 100 UNIT/ML SUB-Q SCH ×4 (09:34→22:11)
[2019-03-23] MEDS: METOPROLOL TARTRATE 50 MG TAB PO SCH ×2 (09:57→22:12)
[2019-03-23] MEDS: amLODIPine 10 MG TAB PO SCH ×2 (10:00→14:04)
[2019-03-23] MEDS: ONDANSETRON 4 MG/2 ML INJ IV PRN (10:02)
--- NOTE | 2019-03-23 10:12 | Progress Note ---
Assessment and Plan Near syncope Suspected sepsis End-stage renal disease on hemodialysis Paroxysmal atrial fibrillation on oral anticoagulation with Eliquis as an outpatient; amiodarone discontinued due to marked bradycardia on presentation on low dose metoprolol for suppression Hypertension but hypotensive on presentation Diabetes An echocardiogram done just last week, reports an ejection fraction 50-55%. Subjective Date of service: 03/23/19 Interval history: Patient complains of nausea. Sinus rhythm with PACs on telemetry monitoring. Objective Vital Signs Temp Pulse Pulse Resp BP Pulse Ox 03/23/19 09:57 92 H 113/41 03/23/19 08:26 98.8 F 57 L 18 113/41 96 03/23/19 04:00 89 03/23/19 03:08 99.2 F 64 16 114/47 96 03/23/19 00:00 76 03/22/19 23:24 98.2 F 118 H 18 120/59 95 03/22/19 20:00 118 H 18 95 03/22/19 19:29 98.5 F 131 H 16 164/95 99 03/22/19 18:00 120 H 11 L 140/77 99 03/22/19 17:46 130 H 13 166/90 100 03/22/19 17:30 118 H 17 166/90 99 03/22/19 17:16 130 H 22 166/90 100 03/22/19 17:12 125 H 14 161/80 99 03/22/19 17:10 117 H 20 161/80 99 03/22/19 17:08 124 H 21 156/124 99 03/22/19 17:06 115 H 18 156/124 94 03/22/19 17:04 128 H 14 156/124 95 03/22/19 17:02 121 H 16 156/124 100 03/22/19 17:00 131 H 15 161/80 99 03/22/19 16:58 127 H 17 161/80 98 03/22/19 16:56 135 H 16 161/80 99 03/22/19 16:54 132 H 18 161/80 99 03/22/19 16:52 137 H 19 161/80 100 03/22/19 16:50 112 H 21 161/80 100 03/22/19 16:49 114 H 14 161/80 100 03/22/19 16:48 131 H 12 161/80 100 03/22/19 16:46 132 H 21 161/80 100 03/22/19 16:45 133 H 19 161/80 100 03/22/19 16:44 126 H 16 134/78 99 03/22/19 16:42 126 H 23 134/78 100 03/22/19 16:40 125 H 16 134/78 100 03/22/19 16:38 133 H 15 134/78 99 03/22/19 16:36 120 H 19 134/78 98 03/22/19 16:34 113 H 28 H 134/78 99 03/22/19 16:32 129 H 24 134/78 99 03/22/19 16:30 140 H 18 135/73 99 03/22/19 16:28 122 H 13 135/73 100 03/22/19 16:26 125 H 19 135/73 99 03/22/19 16:24 128 H 12 135/73 98 03/22/19 16:22 110 H 13 135/73 98 03/22/19 16:20 106 H 13 135/73 99 03/22/19 16:18 117 H 16 135/73 99 03/22/19 16:16 115 H 19 135/73 99 03/22/19 16:15 121 H 18 135/73 99 03/22/19 16:14 103 H 13 166/93 98 03/22/19 16:12 112 H 14 166/93 98 03/22/19 16:10 120 H 21 166/93 99 03/22/19 16:08 131 H 13 166/93 97 03/22/19 16:06 109 H 19 166/93 97 03/22/19 16:04 129 H 17 166/93 98 03/22/19 16:02 133 H 15 166/93 96 03/22/19 16:01 128 H 15 166/93 95 03/22/19 16:00 133 H 14 161/98 99 03/22/19 15:58 106 H 17 161/98 96 03/22/19 15:56 100 H 18 161/98 98 03/22/19 15:54 114 H 17 161/98 96 03/22/19 15:52 113 H 14 161/98 98 03/22/19 15:50 115 H 19 161/98 96 03/22/19 15:48 123 H 18 161/98 97 03/22/19 15:46 126 H 17 149/101 96 03/22/19 15:44 111 H 17 149/101 95 03/22/19 15:42 115 H 18 149/101 97 03/22/19 15:40 111 H 17 149/101 96 03/22/19 15:38 112 H 16 149/101 92 03/22/19 15:36 115 H 20 149/101 95 03/22/19 15:34 106 H 17 149/101 96 03/22/19 15:32 128 H 20 149/101 89 03/22/19 15:31 123 H 18 149/101 96 03/22/19 15:30 129 H 18 145/98 99 03/22/19 15:28 119 H 17 145/98 100 03/22/19 15:26 121 H 14 145/98 100 03/22/19 15:24 114 H 15 145/98 100 03/22/19 15:22 118 H 15 145/98 98 03/22/19 15:20 120 H 12 145/98 100 03/22/19 15:18 117 H 15 145/98 99 03/22/19 15:17 132 H 14 145/98 99 03/22/19 15:16 118 H 24 148/96 99 03/22/19 15:14 125 H 12 148/96 98 03/22/19 15:13 126 H 13 148/96 99 03/22/19 15:12 112 H 13 154/106 98 03/22/19 15:10 115 H 22 154/106 99 03/22/19 15:08 131 H 21 154/106 100 03/22/19 15:06 130 H 20 154/106 100 03/22/19 15:04 136 H 34 H 154/106 99 03/22/19 15:02 123 H 33 H 154/106 99 03/22/19 15:01 131 H 23 154/106 97 03/22/19 15:00 116 H 25 H 145/93 98 03/22/19 14:58 136 H 32 H 145/93 99 03/22/19 14:56 129 H 21 145/93 98 03/22/19 14:54 121 H 29 H 145/93 100 03/22/19 14:52 117 H 36 H 145/93 100 03/22/19 14:50 138 H 26 H 145/93 99 03/22/19 14:48 133 H 21 145/93 99 03/22/19 14:46 108 H 13 145/93 99 03/22/19 14:44 123 H 19 119/93 100 03/22/19 14:42 108 H 38 H 119/93 99 03/22/19 14:40 132 H 33 H 119/93 99 03/22/19 14:38 117 H 13 119/93 100 03/22/19 14:36 116 H 18 119/93 100 03/22/19 14:34 123 H 12 119/93 99 03/22/19 14:32 117 H 15 119/93 100 03/22/19 14:30 126 H 19 124/70 99 03/22/19 14:28 137 H 20 124/70 99 03/22/19 14:26 113 H 15 124/70 99 03/22/19 14:24 124 H 19 124/70 100 03/22/19 14:22 112 H 24 124/70 99 03/22/19 14:20 117 H 18 124/70 100 03/22/19 14:19 108 H 17 124/70 100 03/22/19 14:18 112 H 12 124/77 100 03/22/19 14:16 114 H 15 124/77 100 03/22/19 14:14 109 H 32 H 124/77 100 03/22/19 14:12 113 H 16 124/77 100 03/22/19 14:10 107 H 15 124/77 100 03/22/19 14:08 121 H 15 124/77 98 03/22/19 14:06 92 H 17 124/77 96 03/22/19 14:04 130 H 13 113/77 100 03/22/19 14:02 105 H 17 113/77 95 03/22/19 14:01 107 H 16 113/77 95 03/22/19 14:00 133 H 17 109/82 93 03/22/19 13:58 136 H 16 109/82 95 03/22/19 13:56 137 H 17 109/82 99 03/22/19 13:54 138 H 19 109/82 100 03/22/19 13:52 109/82 96 03/22/19 13:50 109/82 99 03/22/19 13:48 109/82 99 03/22/19 13:46 109/82 96 03/22/19 13:30 136 H 19 122/103 99 03/22/19 13:16 130 H 16 122/103 99 03/22/19 13:00 128 H 18 138/68 96 03/22/19 12:46 126 H 18 138/68 100 03/22/19 12:45 141 H 138/68 03/22/19 12:30 115 H 16 138/71 97 03/22/19 12:16 119 H 14 138/71 99 03/22/19 12:00 97.6 F 115 H 16 153/115 99 03/22/19 11:46 109 H 153/115 03/22/19 11:45 131 H 22 153/115 99 03/22/19 11:30 132 H 16 152/97 99 03/22/19 11:15 140 H 14 152/97 100 03/22/19 11:00 135 H 12 154/97 99 03/22/19 10:46 131 H 14 154/97 100 03/22/19 10:44 125 H 154/97 03/22/19 10:30 115 H 11 L 156/97 99 03/22/19 10:16 122 H 15 132/96 98 03/22/19 10:15 127 H 156/97 - Physical Examination General: No Apparent Distress HEENT: Positive: PERRL Neck: Positive: neck supple Cardiac: Positive: Irregularly Regular Lungs: Positive: Decreased Breath Sounds Neuro: Positive: Grossly Intact Extremities: Absent: edema
--- NOTE | 2019-03-23 14:53 | Progress Note ---
Assessment and Plan - Patient Problems (1) ESRD (end stage renal disease) on dialysis Current Visit: Yes Status: Chronic Plan to address problem: End-stage renal disease We'll initiate dialysis continue dialysis Wednesday (2) Sepsis Current Visit: Yes Status: Acute Qualifiers: Severe sepsis shock status: with septic shock Plan to address problem: Sepsis Was hypotensive on arrival, was started on norepinephrine Follow cultures Continue antibiotics (3) Diabetes Current Visit: No Status: Acute Qualifiers: Diabetes mellitus type: type 1 Diabetes mellitus complication status: with hyperglycemia Qualified Code(s): E10.65 - Type 1 diabetes mellitus with hyperglycemia Plan to address problem: Diabetes mellitus Continue medications Monitor fingersticks (4) HTN (hypertension) Current Visit: No Status: Chronic Qualifiers: Hypertension type: essential hypertension Qualified Code(s): I10 - [facility] (primary) hypertension Plan to address problem: Hypertension uncontrolled blood pressure medications have been resumed Subjective Interval history: 69-year-old with medical history significant for end-stage renal disease on hemodialysis at the [facility] via right IJ PermCath, also history of hypertension diabetes admitted with complaint of shortness of breath weakness and lethargy denies any fevers chills denies any sick contacts denies that he denies any lower extremity edema he reports he has been in compliance with dialysis. Denies any nausea vomiting diarrhea denies any abdominal pain Patient's seen today no chest pain Still has nausea. No shortness of breath Objective - Vital Signs Vital signs: Vital Signs - 12hr 03/23/19 03/23/19 03/23/19 03:08 04:00 08:00 Temperature 99.2 F Pulse Rate 64 89 82 Respiratory 16 Rate Blood Pressure 114/47 O2 Sat by Pulse 96 Oximetry 03/23/19 03/23/19 03/23/19 08:26 09:57 10:00 Temperature 98.8 F Pulse Rate 57 L 92 H 92 H Respiratory 18 18 Rate Blood Pressure 113/41 113/41 113/41 O2 Sat by Pulse 96 98 Oximetry 03/23/19 03/23/19 11:21 14:04 Temperature 98.2 F Pulse Rate 91 H 73 Respiratory 18 Rate Blood Pressure 172/88 158/72 O2 Sat by Pulse 98 Oximetry - General Appearance General appearance: well-developed, well-nourished EENT: ATNC, PERRL, mucous membranes moist Neck: no JVD Respiratory: Present: Clear to Ascultation Cardiology: regular, S1S2 Gastrointestinal: normal (sleep), normoactive bowel sounds Integumentary: no rash Neurologic: no focal deficit, alert and oriented x3 Psychiatric: mood/affect appropriate - Lab 03/21/19 04:44 03/21/19 04:44 Most recent lab results Calcium 7.5 mg/dL (8.4-10.2) L 03/21/19 04:44 - Imaging Chest x-ray: image reviewed (chest x-ray reviewed without any edema) Medications & Allergies - Medications Allergies/Adverse Reactions: Allergies No Known Allergies Allergy (Verified 05/23/16 22:42) Home Medications: Home Medications Medication Instructions Recorded Confirmed Last Taken Type Insulin Lispro Protamin/Lispro 20 units SQ QAM 08/24/16 03/20/19 03/20/19 History [HumaLOG Mix 75-25 Kwikpen] Insulin Lispro Protamin/Lispro 20 units SQ QPM 08/24/16 03/20/19 03/19/19 History [HumaLOG Mix 75-25 Kwikpen] Allopurinol [Zyloprim] 100 mg PO QDAY #30 tablet 09/01/16 03/20/19 03/20/19 Rx AtorvaSTATin [Lipitor] 20 mg PO QHS #30 tablet 09/01/16 03/20/19 03/18/19 Rx Nebivolol HCl [Bystolic] 10 mg PO QDAY 09/07/16 03/20/19 03/20/19 History amLODIPine 10 mg PO BID 09/07/16 03/20/19 03/20/19 History Amiodarone [Cordarone 200 MG TAB] 200 mg PO QDAY #30 tablet 03/17/19 03/20/19 03/20/19 Rx Apixaban [Eliquis] 5 mg PO Q12HR 03/20/19 03/20/19 03/20/19 History Active Medications: Generic Name Dose Route Start Last Admin Trade Name Freq PRN Reason Stop Dose Admin Albuterol 2.5 mg 03/20/19 15:30 Proventil IH Q3HRT PRN Shortness Of Breath Allopurinol 100 mg 03/21/19 10:00 03/23/19 09:25 Zyloprim PO 100 mg QDAY RASHEEDA Administration Amlodipine Besylate 10 mg 03/22/19 10:00 03/23/19 14:04 Amlodipine PO 10 mg DAILY RASHEEDA Administration Apixaban 2.5 mg 03/23/19 22:00 Eliquis PO Q12HR RASHEEDA Protocol Atorvastatin Calcium 20 mg 03/20/19 22:00 03/22/19 22:10 Lipitor PO 20 mg QHS RASHEEDA Administration Bisacodyl 10 mg 03/23/19 15:30 Dulcolax [place] 03/23/19 15:31 ONCE ONE Dextrose 50 ml 03/20/19 15:36 D50w (25gm) Syringe IV Q30MIN PRN Hypoglycemia Protocol Insulin Human Isoph/Insulin Regular 20 unit 03/21/19 17:00 03/23/19 09:26 Humulin 70/30 SUB-Q 20 unit BIDDIAB RASHEEDA Administration Insulin Human Lispro 0 unit 03/21/19 11:30 03/23/19 12:57 Humalog SUB-Q 3 unit ACHS RASHEEDA Administration Protocol Metoprolol Tartrate 25 mg 03/22/19 22:00 03/23/19 09:57 Metoprolol PO 25 mg BID RASHEEDA Administration Ondansetron HCl 4 mg 03/22/19 16:56 03/23/19 10:02 Zofran IV 4 mg Q4H PRN Administration Nausea And Vomiting Pantoprazole Sodium 40 mg 03/21/19 16:00 03/23/19 09:25 Protonix PO 40 mg QDAY RASHEEDA Administration Sodium Chloride 10 ml 03/20/19 22:00 03/23/19 09:26 Sodium Chloride Flush Syringe 10 Ml IV 10 ml BID RASHEEDA Administration Sodium Chloride 10 ml 03/20/19 15:30 Sodium Chloride Flush Syringe 10 Ml IV PRN PRN LINE FLUSH
--- NOTE | 2019-03-23 17:07 | Progress Note ---
Assessment and Plan Assessment and plan: Patient is a 69 yo AA man with a history of DM type 2, ESRD on HD(M,W,F), last dialyzed on Wednesday, HTN, pAfib on eliquis who presents to [facility] ED with generalized weakness, near syncope, malaise and shortness of breath. He was found to have hypotension with Systolic blood pressure in the 70's. He was diag nosis with Sepsis but there have been no identified infection so far, so unable to diagnosis Sepsis. CXR was clear and he doesn't make enough urine for UA. He did not have elevated WBC. He did not have fevers. He was here about 2 weeks ago with AGE. During his course in the hospital, he developed a recurrence of rapid atrial fibrillation. There was spontaneous return to sinus rhythm, on amiodaron e. He was discharged on amiodarone 200 mg daily. He is currently in ICU on 6 mcg of Levophed. He also developed transient, near syncope associated with marked bradycardia, which prompted Cardiology consultation. Prior cardiac workup includes an echocardiogram done on his admission just last week, a ejection fraction 50-55%. Last visit, PD catheter was removed in 2 pieces on 03/17/19. 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 Diabetes type 2, uncontrolled, add ssi, ADA diet, insulin, accu check, hypoglycemia protocol HTN (hypertension): continue antihypertensives DVT prophylaxis SCD to BLE while in bed, supportive care, continue therapeutic anticoagulation Severe malnutrition, poa: consult GI, may need EGD stat CT abd/pelvis consult GI for intractable n/v, give dulcolax for the constipation Disposition; continue inpatient care, History Interval history: Patient was seen and examined. Follow-up on current diagnosis of N/V. No overnight events reported to me. Patient denies any chest pain, shortness breath, or severe headaches. Imaging, nursing note, chart, labs and old chart reviewed. Discussed with patient. Girlfriend, Jocy with gregory eye contacts and matching lipstick, at bedside (hippa done) concerned about repeatedly n/v, abdominal pains and infection in his belly not cleared up from last visit. So, I looked back at the old chart and it appears he had peritonitis from PD catheter which was removed on 03/17/19 Hospitalist Physical - Physical exam Narrative exam: Gen: WDWN, NAD, Awake, Alert, Orientated x 3 HEENT: NCAT, EOMI, PERRL, OP Clear Neck: supple, no adenopathy, no thyromegaly, no JVD CVS/Heart: irreg irreg, normal S1S2, pulses present bilaterally Chest/Lungs: CTA B, Symmetrical chest expansion, good air entry bilaterally GI/Abdomen: soft, NTND, good bowel sounds, no guarding or rebound /Bladder: no suprapubic tenderness, no CVA or paraspinal tenderness Extermity/Skin: no c/c/e, no obvious rash MSK: FROM x 4 Neuro: CN 2-12 grossly intact, no new focal deficits Psych: calm - Constitutional Vitals: Temp Pulse Resp BP Pulse Ox 98.2 F 73 18 158/72 98 03/23/19 11:21 03/23/19 14:04 03/23/19 11:21 03/23/19 14:04 03/23/19 11:21 General appearance: Present: no acute distress Results - Labs CBC & Chem 7: 03/21/19 04:44 03/21/19 04:44 Labs: Laboratory Last Values WBC 7.4 K/mm3 (4.5-11.0) 03/21/19 04:44 RBC 3.70 M/mm3 (3.65-5.03) 03/21/19 04:44 Hgb 10.9 gm/dl (11.8-15.2) L 03/21/19 04:44 Hct 33.0 % (35.5-45.6) L D 03/21/19 04:44 MCV 89 fl (84-94) 03/21/19 04:44 MCH 29 pg (28-32) 03/21/19 04:44 MCHC 33 % (32-34) 03/21/19 04:44 RDW 14.7 % (13.2-15.2) 03/21/19 04:44 Plt Count 381 K/mm3 (140-440) 03/21/19 04:44 Lymph % (Auto) 16.9 % (13.4-35.0) 03/21/19 04:44 [place] % (Auto) 8.6 % (0.0-7.3) H 03/21/19 04:44 Eos % (Auto) 2.0 % (0.0-4.3) 03/21/19 04:44 Baso % (Auto) 0.5 % (0.0-1.8) 03/21/19 04:44 Lymph # 1.2 K/mm3 (1.2-5.4) 03/21/19 04:44 [place] # 0.6 K/mm3 (0.0-0.8) 03/21/19 04:44 Eos # 0.1 K/mm3 (0.0-0.4) 03/21/19 04:44 Baso # 0.0 K/mm3 (0.0-0.1) 03/21/19 04:44 Seg Neutrophils % 72.0 % (40.0-70.0) H 03/21/19 04:44 Seg Neutrophils # 5.3 K/mm3 (1.8-7.7) 03/21/19 04:44 PT 16.7 Sec. (12.2-14.9) H 03/20/19 12:42 INR 1.37 (0.87-1.13) H 03/20/19 12:42 APTT 31.6 Sec. (24.2-36.6) 03/20/19 12:42 POC ABG pH 7.511 (7.35-7.45) H 03/20/19 14:11 POC ABG pCO2 23.8 (35-45) L 03/20/19 14:11 POC ABG pO2 122 (80-105) H 03/20/19 14:11 POC ABG HCO3 19.0 (22-26 mml/L) 03/20/19 14:11 POC ABG Total CO2 20 (23-27mmol/L) 03/20/19 14:11 POC ABG O2 Sat 99 03/20/19 14:11 POC ABG Base Excess -4 ((-2) - (+3)mmol/L) 03/20/19 14:11 FiO2 21 % 03/20/19 14:11 Sodium 138 mmol/L (137-145) 03/21/19 04:44 Potassium 3.6 mmol/L (3.6-5.0) 03/21/19 04:44 Chloride 103.5 mmol/L (98-107) 03/21/19 04:44 Carbon Dioxide 20 mmol/L (22-30) L 03/21/19 04:44 Anion Gap 18 mmol/L 03/21/19 04:44 BUN 71 mg/dL (9-20) H 03/21/19 04:44 Creatinine 7.4 mg/dL (0.8-1.5) H 03/21/19 04:44 Estimated GFR 9 ml/min 03/21/19 04:44 BUN/Creatinine Ratio 10 % 03/21/19 04:44 Glucose 219 mg/dL (75-100) H 03/21/19 04:44 POC Glucose 241 (70-105) H 03/23/19 11:38 Calcium 7.5 mg/dL (8.4-10.2) L 03/21/19 04:44 Total Bilirubin 0.30 mg/dL (0.1-1.2) 03/21/19 04:44 AST 14 units/L (5-40) 03/21/19 04:44 ALT < 5 units/L (7-56) L 03/21/19 04:44 Alkaline Phosphatase 60 units/L (35-129) 03/21/19 04:44 Troponin T 0.041 ng/mL (0.00-0.029) H 03/20/19 17:03 Total Protein 6.0 g/dL (6.3-8.2) L 03/21/19 04:44 Albumin 2.9 g/dL (3.9-5) L 03/21/19 04:44 Albumin/Globulin Ratio 0.9 % 03/21/19 04:44 Triglycerides 147 mg/dL (2-149) 03/20/19 11:42 Cholesterol 147 mg/dL (50-199) 03/20/19 11:42 LDL Cholesterol Direct 93 mg/dL (50-130) 03/20/19 11:42 HDL Cholesterol 43 mg/dL (40-59) 03/20/19 11:42 Cholesterol/HDL Ratio 3.41 % 03/20/19 11:42 TSH 0.961 mlU/mL (0.270-4.200) 03/20/19 12:42 Free T4 1.93 ng/dL (0.76-1.46) H 03/20/19 12:42 Blood Type O POSITIVE 03/20/19 12:42 Antibody Screen Negative 03/20/19 12:42 Active Medications - Current Medications Current Medications: Generic Name Dose Route Start Last Admin Trade Name Freq PRN Reason Stop Dose Admin Albuterol 2.5 mg 03/20/19 15:30 Proventil IH Q3HRT PRN Shortness Of Breath Allopurinol 100 mg 03/21/19 10:00 03/23/19 09:25 Zyloprim PO 100 mg QDAY RASHEEDA Administration Amlodipine Besylate 10 mg 03/22/19 10:00 03/23/19 14:04 Amlodipine PO 10 mg DAILY RASHEEDA Administration Apixaban 2.5 mg 03/23/19 22:00 Eliquis PO Q12HR RASHEEDA Protocol Atorvastatin Calcium 20 mg 03/20/19 22:00 03/22/19 22:10 Lipitor PO 20 mg QHS RASHEEDA Administration Dextrose 50 ml 03/20/19 15:36 D50w (25gm) Syringe IV Q30MIN PRN Hypoglycemia Protocol Insulin Human Isoph/Insulin Regular 20 unit 03/21/19 17:00 03/23/19 09:26 Humulin 70/30 SUB-Q 20 unit BIDDIAB RASHEEDA Administration Insulin Human Lispro 0 unit 03/21/19 11:30 03/23/19 12:57 Humalog SUB-Q 3 unit ACHS RASHEEDA Administration Protocol Metoprolol Tartrate 25 mg 03/22/19 22:00 03/23/19 09:57 Metoprolol PO 25 mg BID RASHEEDA Administration Ondansetron HCl 4 mg 03/22/19 16:56 03/23/19 10:02 Zofran IV 4 mg Q4H PRN Administration Nausea And Vomiting Pantoprazole Sodium 40 mg 03/21/19 16:00 03/23/19 09:25 Protonix PO 40 mg QDAY RASHEEDA Administration Sodium Chloride 10 ml 03/20/19 22:00 03/23/19 09:26 Sodium Chloride Flush Syringe 10 Ml IV 10 ml BID RASHEEDA Administration Sodium Chloride 10 ml 03/20/19 15:30 Sodium Chloride Flush Syringe 10 Ml IV PRN PRN LINE FLUSH Nutrition/Malnutrition Assess - Dietary Evaluation Nutrition/Malnutrition Findings: Nutrition Notes Start: 03/22/19 11:40 Freq: Status: Active Protocol: Document 03/22/19 11:40 CC (Rec: 03/22/19 11:48 CC [email or web address]) Co-Sign 03/22/19 11:40 LP Nutrition Notes Initial or Follow up Assessment Current Diagnosis CKD (stage V CKD),Diabetes Other Pertinent Diagnosis HD (M,W,F), a fibb. Current Diet renal Labs/Tests 03/21/19 BUN 71 Creat 7.4 Pertinent Medications reviewed Height 6 ft 1 in Weight 97.069 kg [place] Body Weight (kg) 83.63 BMI 28.2 Subjective/Other Information Per RN pt had N/V and was not sure if pt had been eating. Pt reported his appetite has been okay and yesterday after he ate his stomach was upset. Observed food left on tray from breakfast. Pt had ate about 75% of meal. Pt stated he would like to try an ONS. Burn Absent Trauma Absent Current % PO Good (75-100%) Minimum of two criteria No physical signs of malnutrition #1 Nutrition Diagnosis Predicted suboptimal energy intake Etiology changes in appetite As Evidenced by Signs and Symptoms 75% of breakfast consumed, pt reported he would like an ONS Is patient on ventilator? No Is Patient Ambulatory and/or Out of Bed Yes REE-([facility]-ambulatory/OOB) [ 2313.441 NUTR.MSJOOB] Calculation Used for Recommendations [facility] Additional Notes PRO: 116-135g/day (1.2-1.4g/kg ) Fluid: 1ml/kcal Nutrition Intervention Change Diet Order: continue renal diet Add Supplement/Snack (indicate name/kcal Nepro Vanilla once daily /protein ) Provides kCal: 425 Provides Protein (gm) 19 Goal #1 Meet at leat 75% of energy and protein needs via PO and ONS intakes Anticipated Discharge Needs: renal diet Follow-Up By: 03/24/19 Additional Comments F/U for PO and ONS intakes
[2019-03-23] MEDS: APIXABAN 2.5 MG TAB PO SCH (22:12)
--- NOTE | 2019-03-23 22:55 | Cat Scan Report ---
CT ABDOMEN AND PELVIS WITHOUT IV CONTRAST INDICATION: recurrent N/V. COMPARISON: None available. TECHNIQUE: All CT scans at this facility use dose modulation, automated exposure control, iterative reconstructi on or weight based dosing, when appropriate, to reduce radiation dose to as low as reasonably achieva ble. FINDINGS: Lung Bases: No significant abnormality. Skeletal System: No acute abnormality. ABDOMEN: Liver: No significant abnormality. Gallbladder: No significant abnormality. Bile Ducts: No significant abnormality. Pancreas: No significant abnormality. Spleen: No significant abnormality. Adrenals: No significant abnormality. Right Kidney: No significant abnormality. Left Kidney: No acute findings. Lower pole cyst is noted. Upper GI tract: There is a moderate hiatal hernia. Distal esophagus is mildly patulous. No dilated lo ops of small bowel. Lymph Nodes: No significant adenopathy. Aorta: No significant abnormality. Additional Findings: Soft tissue changes in the anterior abdominal wall left of midline may be relate d to recent injections. PELVIS: Colon: No acute abnormality. Urinary Bladder and Distal Ureters: There is mild bladder wall thickening. Appendix: No significant abnormality. Lymph Nodes: No significant adenopathy. Additional Findings: None. IMPRESSION: 1. Within the limitations of non contrast technique, no acute process in the abdomen or pelvis. 2. Moderate hiatal hernia. There is mild thickening of the visualized distal esophagus. Correlate cl inically. 3. Additional incidental findings as above. Signer Name: Booker Smith MD Signed: 03/23/2019 10:50 PM Workstation Name: [id number]
--- NOTE | 2019-03-24 06:25 | Progress Note ---
Assessment and Plan Assessment and plan: Patient is a 69 yo AA man with a history of DM type 2, ESRD on HD(M,W,F), last dialyzed on Wednesday, HTN, pAfib on eliquis who presents to [facility] ED with generalized weakness, near syncope, malaise and shortness of breath. He was found to have hypotension with Systolic blood pressure in the 70's. He was diag nosis with Sepsis but there have been no identified infection so far, so unable to diagnosis Sepsis. CXR was clear and he doesn't make enough urine for UA. He did not have elevated WBC. He did not have fevers. He was here about 2 weeks ago with AGE. During his course in the hospital, he developed a recurrence of rapid atrial fibrillation. There was spontaneous return to sinus rhythm, on amiodaron e. He was discharged on amiodarone 200 mg daily. He is currently in ICU on 6 mcg of Levophed. He also developed transient, near syncope associated with marked bradycardia, which prompted Cardiology consultation. Prior cardiac workup includes an echocardiogram done on his admission just last week, a ejection fraction 50-55%. Last visit, PD catheter was removed in 2 pieces on 03/17/19. \ * pCXR on admission: No acute findings * stat CT abd/pelvis without contrast==>IMPRESSION: 1. Within the limitations of non contrast technique, no acute process in the abdomen or pelvis. 2. Moderate hiatal hernia. There is mild thickening of the visualized distal esophagus. Correlate clinically. 3. Additional incidental findings as above (Soft tissue changes in the anterior abdominal wall left of midline may be related to recent injections and Urinary Bladder and Distal Ureters: There is mild bladder wall thickening.) Intractable n/v, ?Esophagitis: on PPI, consulted GI Constipation, give dulcolax Symptomatic bradycardia with Near syncope; off Levophed, no need for PPM per EP Product Line Manager Shock, suspected distributive: weaned off Levophed No source for Sepsis so far but CT mentions bladder wall thickening (?cystitis), will try to obtain UA (difficult with ESRD, pt makes little urine) SIRS with organ dysfunction, poa pAtrial fibrillation with rapid ventricular response: continue therapeutic anticoagulation with Eliquis, cardiology consulted, supportive care ESRD (end stage renal disease) on dialysis Nephrology consulted in ED, dialysis as per renal team when medically stable. Diabetes type 2, uncontrolled, add ssi, ADA diet, insulin, accu check, hypoglycemia protocol HTN (hypertension): continue antihypertensives DVT prophylaxis SCD to BLE while in bed, supportive care, continue therapeutic anticoagulation Severe malnutrition, poa: consult GI, may need EGD Disposition; continue inpatient care, History Interval history: Patient was seen and examined. Follow-up on current diagnosis of N/V. No overnight events reported to me. Patient denies any chest pain, shortness breath, or severe headaches. Imaging, nursing note, chart, labs and old chart reviewed. Discussed with patient. Girlfriend, Jocy with turquoise eye contacts and matching lipstick, at bedside (hippa done) concerned about repeatedly n/v, abdominal pains and infection in his belly not cleared up from last visit. So, I looked back at the old chart and it appears he had peritonitis from PD catheter which was removed on 03/17/19 Hospitalist Physical - Physical exam Narrative exam: Gen: WDWN, NAD, Awake, Alert, Orientated x 3 HEENT: NCAT, EOMI, PERRL, OP Clear Neck: supple, no adenopathy, no thyromegaly, no JVD CVS/Heart: irreg irreg, normal S1S2, pulses present bilaterally Chest/Lungs: CTA B, Symmetrical chest expansion, good air entry bilaterally GI/Abdomen: soft, NTND, good bowel sounds, no guarding or rebound /Bladder: no suprapubic tenderness, no CVA or paraspinal tenderness Extermity/Skin: no c/c/e, no obvious rash MSK: FROM x 4 Neuro: CN 2-12 grossly intact, no new focal deficits Psych: calm - Constitutional Vitals: Temp Pulse Resp BP Pulse Ox 98.0 F 136 H 18 114/58 95 03/24/19 03:50 03/24/19 03:50 03/24/19 03:50 03/24/19 03:50 03/24/19 03:50 General appearance: Present: no acute distress Results - Labs CBC & Chem 7: 03/21/19 04:44 03/21/19 04:44 Labs: Laboratory Last Values WBC 7.4 K/mm3 (4.5-11.0) 03/21/19 04:44 RBC 3.70 M/mm3 (3.65-5.03) 03/21/19 04:44 Hgb 10.9 gm/dl (11.8-15.2) L 03/21/19 04:44 Hct 33.0 % (35.5-45.6) L D 03/21/19 04:44 MCV 89 fl (84-94) 03/21/19 04:44 MCH 29 pg (28-32) 03/21/19 04:44 MCHC 33 % (32-34) 03/21/19 04:44 RDW 14.7 % (13.2-15.2) 03/21/19 04:44 Plt Count 381 K/mm3 (140-440) 03/21/19 04:44 Lymph % (Auto) 16.9 % (13.4-35.0) 03/21/19 04:44 [place] % (Auto) 8.6 % (0.0-7.3) H 03/21/19 04:44 Eos % (Auto) 2.0 % (0.0-4.3) 03/21/19 04:44 Baso % (Auto) 0.5 % (0.0-1.8) 03/21/19 04:44 Lymph # 1.2 K/mm3 (1.2-5.4) 03/21/19 04:44 [place] # 0.6 K/mm3 (0.0-0.8) 03/21/19 04:44 Eos # 0.1 K/mm3 (0.0-0.4) 03/21/19 04:44 Baso # 0.0 K/mm3 (0.0-0.1) 03/21/19 04:44 Seg Neutrophils % 72.0 % (40.0-70.0) H 03/21/19 04:44 Seg Neutrophils # 5.3 K/mm3 (1.8-7.7) 03/21/19 04:44 PT 16.7 Sec. (12.2-14.9) H 03/20/19 12:42 INR 1.37 (0.87-1.13) H 03/20/19 12:42 APTT 31.6 Sec. (24.2-36.6) 03/20/19 12:42 POC ABG pH 7.511 (7.35-7.45) H 03/20/19 14:11 POC ABG pCO2 23.8 (35-45) L 03/20/19 14:11 POC ABG pO2 122 (80-105) H 03/20/19 14:11 POC ABG HCO3 19.0 (22-26 mml/L) 03/20/19 14:11 POC ABG Total CO2 20 (23-27mmol/L) 03/20/19 14:11 POC ABG O2 Sat 99 03/20/19 14:11 POC ABG Base Excess -4 ((-2) - (+3)mmol/L) 03/20/19 14:11 FiO2 21 % 03/20/19 14:11 Sodium 138 mmol/L (137-145) 03/21/19 04:44 Potassium 3.6 mmol/L (3.6-5.0) 03/21/19 04:44 Chloride 103.5 mmol/L (98-107) 03/21/19 04:44 Carbon Dioxide 20 mmol/L (22-30) L 03/21/19 04:44 Anion Gap 18 mmol/L 03/21/19 04:44 BUN 71 mg/dL (9-20) H 03/21/19 04:44 Creatinine 7.4 mg/dL (0.8-1.5) H 03/21/19 04:44 Estimated GFR 9 ml/min 03/21/19 04:44 BUN/Creatinine Ratio 10 % 03/21/19 04:44 Glucose 219 mg/dL (75-100) H 03/21/19 04:44 POC Glucose 119 (70-105) H 03/23/19 21:30 Calcium 7.5 mg/dL (8.4-10.2) L 03/21/19 04:44 Total Bilirubin 0.30 mg/dL (0.1-1.2) 03/21/19 04:44 AST 14 units/L (5-40) 03/21/19 04:44 ALT < 5 units/L (7-56) L 03/21/19 04:44 Alkaline Phosphatase 60 units/L (35-129) 03/21/19 04:44 Troponin T 0.041 ng/mL (0.00-0.029) H 03/20/19 17:03 Total Protein 6.0 g/dL (6.3-8.2) L 03/21/19 04:44 Albumin 2.9 g/dL (3.9-5) L 03/21/19 04:44 Albumin/Globulin Ratio 0.9 % 03/21/19 04:44 Triglycerides 147 mg/dL (2-149) 03/20/19 11:42 Cholesterol 147 mg/dL (50-199) 03/20/19 11:42 LDL Cholesterol Direct 93 mg/dL (50-130) 03/20/19 11:42 HDL Cholesterol 43 mg/dL (40-59) 03/20/19 11:42 Cholesterol/HDL Ratio 3.41 % 03/20/19 11:42 TSH 0.961 mlU/mL (0.270-4.200) 03/20/19 12:42 Free T4 1.93 ng/dL (0.76-1.46) H 03/20/19 12:42 Blood Type O POSITIVE 03/20/19 12:42 Antibody Screen Negative 03/20/19 12:42 Active Medications - Current Medications Current Medications: Generic Name Dose Route Start Last Admin Trade Name Freq PRN Reason Stop Dose Admin Albuterol 2.5 mg 03/20/19 15:30 Proventil IH Q3HRT PRN Shortness Of Breath Allopurinol 100 mg 03/21/19 10:00 03/23/19 09:25 Zyloprim PO 100 mg QDAY RASHEEDA Administration Amlodipine Besylate 10 mg 03/22/19 10:00 03/23/19 14:04 Amlodipine PO 10 mg DAILY RASHEEDA Administration Apixaban 2.5 mg 03/23/19 22:00 03/23/19 22:12 Eliquis PO 2.5 mg Q12HR RASHEEDA Administration Protocol Atorvastatin Calcium 20 mg 03/20/19 22:00 03/23/19 22:12 Lipitor PO 20 mg QHS RASHEEDA Administration Dextrose 50 ml 03/20/19 15:36 D50w (25gm) Syringe IV Q30MIN PRN Hypoglycemia Protocol Insulin Human Isoph/Insulin Regular 20 unit 03/21/19 17:00 03/23/19 17:32 Humulin 70/30 SUB-Q 20 unit BIDDIAB RASHEEDA Administration Insulin Human Lispro 0 unit 03/21/19 11:30 03/23/19 22:11 Humalog SUB-Q Not Given ACHS RASHEEDA Protocol Metoprolol Tartrate 25 mg 03/22/19 22:00 03/23/19 22:12 Metoprolol PO 25 mg BID RASHEEDA Administration Ondansetron HCl 4 mg 03/22/19 16:56 03/23/19 10:02 Zofran IV 4 mg Q4H PRN Administration Nausea And Vomiting Pantoprazole Sodium 40 mg 03/21/19 16:00 03/23/19 09:25 Protonix PO 40 mg QDAY RASHEEDA Administration Sodium Chloride 10 ml 03/20/19 22:00 03/23/19 22:13 Sodium Chloride Flush Syringe 10 Ml IV 10 ml BID RASHEEDA Administration Sodium Chloride 10 ml 03/20/19 15:30 Sodium Chloride Flush Syringe 10 Ml IV PRN PRN LINE FLUSH Nutrition/Malnutrition Assess - Dietary Evaluation Nutrition/Malnutrition Findings: Nutrition Notes Start: 03/22/19 11:40 Freq: Status: Active Protocol: Document 03/22/19 11:40 CC (Rec: 03/22/19 11:48 CC [id number]) Co-Sign 03/22/19 11:40 LP Nutrition Notes Initial or Follow up Assessment Current Diagnosis CKD (stage V CKD),Diabetes Other Pertinent Diagnosis HD (M,W,F), a fibb. Current Diet renal Labs/Tests 03/21/19 BUN 71 Creat 7.4 Pertinent Medications reviewed Height 6 ft 1 in Weight 97.069 kg [place] Body Weight (kg) 83.63 BMI 28.2 Subjective/Other Information Per RN pt had N/V and was not sure if pt had been eating. Pt reported his appetite has been okay and yesterday after he ate his stomach was upset. Observed food left on tray from breakfast. Pt had ate about 75% of meal. Pt stated he would like to try an ONS. Burn Absent Trauma Absent Current % PO Good (75-100%) Minimum of two criteria No physical signs of malnutrition #1 Nutrition Diagnosis Predicted suboptimal energy intake Etiology changes in appetite As Evidenced by Signs and Symptoms 75% of breakfast consumed, pt reported he would like an ONS Is patient on ventilator? No Is Patient Ambulatory and/or Out of Bed Yes REE-([place]-ambulatory/OOB) [ 2313.441 NUTR.MSJOOB] Calculation Used for Recommendations [place] Additional Notes PRO: 116-135g/day (1.2-1.4g/kg ) Fluid: 1ml/kcal Nutrition Intervention Change Diet Order: continue renal diet Add Supplement/Snack (indicate name/kcal Nepro Vanilla once daily /protein ) Provides kCal: 425 Provides Protein (gm) 19 Goal #1 Meet at leat 75% of energy and protein needs via PO and ONS intakes Anticipated Discharge Needs: renal diet Follow-Up By: 03/24/19 Additional Comments F/U for PO and ONS intakes
[2019-03-24 06:27] LABS: Hematocrit 34.1 % (35.5-45.6); Hemoglobin 11.2 gm/dl (11.8-15.2); Mean Corpuscular HGB Conc 33 % (32-34); Mean Corpuscular Volume 90 fl (84-94); Platelet Count 294 K/mm3 (140-440); Red Cell Distribution Width 13.9 % (13.2-15.2)
[2019-03-24 06:49] LABS: Calcium 7.5 mg/dL (8.4-10.2)
[2019-03-24] MEDS: INSULIN NPH/REGULAR 70/30 INJ SUB-Q SCH ×2 (08:51→17:04)
[2019-03-24] MEDS: INSULIN LISPRO 100 UNIT/ML SUB-Q SCH ×3 (08:54→18:24)
--- NOTE | 2019-03-24 09:26 | Progress Note ---
Assessment and Plan Near syncope End-stage renal disease on hemodialysis Paroxysmal atrial fibrillation on oral anticoagulation with [place] as an outpatient; on low dose metoprolol for suppression amiodarone discontinued due to marked bradycardia on presentation. Electrophysiologic consult determines that the patient has no immediate indication for pacemaker therapy. Hypertension but hypotensive on presentation Diabetes An echocardiogram done just last week, reports an ejection fraction 50-55%. Continue low dose beta geovany therapy for atrial fibrillation prophylaxis. Once discharged, patient will follow up with [facility] as scheduled April 04. Subjective Date of service: 03/24/19 Interval history: Patient denies chest pain, shortness of breath and palpitations. Objective Vital Signs Temp Pulse Resp BP Pulse Ox 03/24/19 08:22 98.0 F 92 H 18 121/84 99 03/24/19 03:50 98.0 F 136 H 18 114/58 95 03/23/19 23:24 98.0 F 94 H 18 123/64 97 03/23/19 22:12 126 H 138/70 03/23/19 22:00 98 H 03/23/19 19:34 99.3 F 126 H 20 138/70 97 03/23/19 16:44 99.1 F 86 18 161/86 99 03/23/19 14:04 73 158/72 03/23/19 14:00 105 H 18 158/72 99 03/23/19 11:21 98.2 F 91 H 18 172/88 98 03/23/19 10:00 92 H 18 113/41 98 03/23/19 09:57 92 H 113/41 - Physical Examination General: No Apparent Distress HEENT: Positive: PERRL Neck: Positive: trachea midline Cardiac: Positive: irregularly irregular Lungs: Positive: Decreased Breath Sounds Neuro: Positive: Grossly Intact Extremities: Absent: edema - Labs and Meds CBC 03/24/19 Range/Units 06:01 WBC 7.3 (4.5-11.0) K/mm3 RBC 3.80 (3.65-5.03) M/mm3 Hgb 11.2 L (11.8-15.2) gm/dl Hct 34.1 L (35.5-45.6) % Plt Count 294 (140-440) K/mm3 Comprehensive Metabolic Panel 03/24/19 Range/Units 06:01 Sodium 137 (137-145) mmol/L Potassium 3.2 L (3.6-5.0) mmol/L Chloride 99.0 (98-107) mmol/L Carbon Dioxide 25 (22-30) mmol/L BUN 30 H (9-20) mg/dL Creatinine 5.2 H (0.8-1.5) mg/dL Glucose 204 H (75-100) mg/dL Calcium 7.5 L (8.4-10.2) mg/dL
[2019-03-24] MEDS: METOPROLOL TARTRATE 50 MG TAB PO SCH ×2 (13:53→13:54)
[2019-03-24] MEDS: amLODIPine 10 MG TAB PO SCH (13:55)
[2019-03-24] MEDS: allopurinoL 100 MG TAB PO SCH (13:56)
[2019-03-24] MEDS: APIXABAN 2.5 MG TAB PO SCH (13:56)
[2019-03-24] MEDS: PANTOPRAZOLE 40 MG TAB PO SCH (13:56)
--- NOTE | 2019-03-24 14:02 | Gastroenterology Consultation ---
History of Present Illness - Reason for Consult Consult date: 03/24/19 nausea/vomiting Requesting physician: NEVIN COVARRUBIAS - History of Present Illness The patient is a 69 yo aam with h/o ESRD, afib, diabetes presenting with hypotension/?syncopal episode. Pt has had episodes of n/v last week and following admission. CT of abd without acute findings. Pt seen in dialysis today and reports improved gi symptoms. Denies abd pain, dysphagia, gi bleeding; tolerating po now. Past History Past Medical History: atrial fib, diabetes, renal failure, other (See HPI) Past Surgical History: Other (Dialysis access) Social history: . denies: smoking, alcohol abuse, prescription drug abuse Family history: hypertension Medications and Allergies Allergies Allergy/AdvReac Type Severity Reaction Status Date / Time No Known Allergies Allergy Verified 05/23/16 22:42 Home Medications Medication Instructions Recorded Confirmed Last Taken Type Insulin Lispro Protamin/Lispro 20 units SQ QAM 08/24/16 03/20/19 03/20/19 History [HumaLOG Mix 75-25 Kwikpen] Insulin Lispro Protamin/Lispro 20 units SQ QPM 08/24/16 03/20/19 03/19/19 History [HumaLOG Mix 75-25 Kwikpen] Allopurinol [Zyloprim] 100 mg PO QDAY #30 tablet 09/01/16 03/20/19 03/20/19 Rx AtorvaSTATin [Lipitor] 20 mg PO QHS #30 tablet 09/01/16 03/20/19 03/18/19 Rx Nebivolol HCl [Bystolic] 10 mg PO QDAY 09/07/16 03/20/19 03/20/19 History amLODIPine 10 mg PO BID 09/07/16 03/20/19 03/20/19 History Amiodarone [Cordarone 200 MG TAB] 200 mg PO QDAY #30 tablet 03/17/19 03/20/19 03/20/19 Rx Apixaban [Eliquis] 5 mg PO Q12HR 03/20/19 03/20/19 03/20/19 History Active Meds: Active Medications Albuterol (Proventil) 2.5 mg IH Q3HRT PRN PRN Reason: Shortness Of Breath Allopurinol (Zyloprim) 100 mg PO QDAY RASHEEDA Last Admin: 03/24/19 13:56 Dose: 100 mg Documented by: Amlodipine Besylate (Amlodipine) 10 mg PO DAILY [facility] Last Admin: 03/24/19 13:55 Dose: 10 mg Documented by: Apixaban (Eliquis) 2.5 mg PO Q12HR [facility]; Protocol Last Admin: 03/24/19 13:56 Dose: 2.5 mg Documented by: Atorvastatin Calcium (Lipitor) 20 mg PO QHS [facility] Last Admin: 03/23/19 22:12 Dose: 20 mg Documented by: Dextrose (D50w (25gm) Syringe) 50 ml IV Q30MIN PRN; Protocol PRN Reason: Hypoglycemia Insulin Human Isoph/Insulin Regular (Humulin 70/30) 20 unit SUB-Q BIDDIAB [facility] Last Admin: 03/24/19 08:51 Dose: 20 unit Documented by: Insulin Human Lispro (Humalog) 0 unit SUB-Q ACHS [facility]; Protocol Last Admin: 03/24/19 13:30 Dose: Not Given Documented by: Metoprolol Tartrate (Metoprolol) 25 mg PO BID [facility] Last Admin: 03/24/19 13:54 Dose: 25 mg Documented by: Ondansetron HCl (Zofran) 4 mg IV Q4H PRN PRN Reason: Nausea And Vomiting Last Admin: 03/23/19 10:02 Dose: 4 mg Documented by: Pantoprazole Sodium (Protonix) 40 mg PO QDAY [facility] Last Admin: 03/24/19 13:56 Dose: 40 mg Documented by: Sodium Chloride (Sodium Chloride Flush Syringe 10 Ml) 10 ml IV BID [facility] Last Admin: 03/24/19 13:30 Dose: Not Given Documented by: Sodium Chloride (Sodium Chloride Flush Syringe 10 Ml) 10 ml IV PRN PRN PRN Reason: LINE FLUSH Reviewed/updated patient's home and current medications Review of Systems - Review of Systems All systems: negative (per HPI) Exam - Constitutional Vital Signs: Temp Pulse Resp BP Pulse Ox 97.8 F 86 18 191/114 98 03/24/19 09:35 03/24/19 13:55 03/24/19 10:00 03/24/19 13:55 03/24/19 10:00 General appearance: no acute distress - EENT Eyes: PERRL, EOM intact - Respiratory Respiratory effort: normal Respiratory: bilateral: CTA - Cardiovascular Rhythm: regular Heart Sounds: Present: S1 & S2 - Gastrointestinal General gastrointestinal: Present: soft, non-tender, non-distended - Neurologic Neurological: alert and oriented x3 - Psychiatric Psychiatric: appropriate mood/affect - Labs CBC & Chem 7: 03/24/19 06:01 03/24/19 06:01 Lab Results: Laboratory Results - last 24 hr 03/23/19 03/23/19 03/24/19 16:55 21:30 06:01 WBC 7.3 RBC 3.80 Hgb 11.2 L Hct 34.1 L MCV 90 MCH 29 MCHC 33 RDW 13.9 Plt Count 294 Sodium Potassium Chloride Carbon Dioxide Anion Gap BUN Creatinine Estimated GFR BUN/Creatinine Ratio Glucose POC Glucose 122 H 119 H Calcium 03/24/19 03/24/19 06:01 08:32 WBC RBC Hgb Hct MCV MCH MCHC RDW Plt Count Sodium 137 Potassium 3.2 L Chloride 99.0 Carbon Dioxide 25 Anion Gap 16 BUN 30 H Creatinine 5.2 H Estimated GFR 13 BUN/Creatinine Ratio 6 Glucose 204 H POC Glucose 179 H Calcium 7.5 L - Imaging CT Scan: report reviewed Assessment and Plan 1. Nausea/vomiting 2. ESRD 3. Diabetes -improved gi symptoms now, denies abd pain and tolerating po. symptoms may be due to poorly controlled dm/high glucose on admission vs gastroenteritis episodes or 2/2 other chronic medical issues. given improved symptoms, manage conservatively from gi stand point will sign off, please call as needed or with questions
[2019-03-24 14:49] LABS: Bacteria,Urine 3+ /HPF (Negative); Bilirubin,Urine NEG (Negative); Blood,Urine NEG (Negative); Color,Urine Yellow (Yellow); Mucus,Urine FEW /HPF; Protein,Urine >2000 mg dL mg/dL (Negative); Sperm,Urine 2+ /HPF (NP)
--- NOTE | 2019-03-24 15:40 | Progress Note ---
Assessment and Plan Assessment and plan: Patient is a 69 yo AA man with a history of DM type 2, ESRD on HD(M,W,F), last dialyzed on Wednesday, HTN, pAfib on eliquis who presents to [facility] ED with generalized weakness, near syncope, malaise and shortness of breath. He was found to have hypotension with Systolic blood pressure in the 70's. He was diag nosis with Sepsis but there have been no identified infection so far, so unable to diagnosis Sepsis. CXR was clear and he doesn't make enough urine for UA. He did not have elevated WBC. He did not have fevers. He was here about 2 weeks ago with AGE. During his course in the hospital, he developed a recurrence of rapid atrial fibrillation. There was spontaneous return to sinus rhythm, on amiodaron e. He was discharged on amiodarone 200 mg daily. He is currently in ICU on 6 mcg of Levophed. He also developed transient, near syncope associated with marked bradycardia, which prompted Cardiology consultation. Prior cardiac workup includes an echocardiogram done on his admission just last week, a ejection fraction 50-55%. Last visit, PD catheter was removed in 2 pieces on 03/17/19. \ * pCXR on admission: No acute findings * stat CT abd/pelvis without contrast==>IMPRESSION: 1. Within the limitations of non contrast technique, no acute process in the abdomen or pelvis. 2. Moderate hiatal hernia. There is mild thickening of the visualized distal esophagus. Correlate clinically. 3. 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 Diabetes type 2, uncontrolled, add ssi, ADA diet, insulin, accu check, hypoglycemia protocol HTN (hypertension): continue antihypertensives DVT prophylaxis SCD to BLE while in bed, supportive care, continue therapeutic anticoagulation Severe malnutrition, poa: consult GI, may need EGD Disposition; continue inpatient care, History Interval history: Patient was seen and examined. Follow-up on current diagnosis of N/V. No overnight events reported to me. Patient denies any chest pain, shortness breath, or severe headaches. Imaging, nursing note, chart, labs and old chart reviewed. Discussed with patient. Girlfriend, Jocy with turquoise eye contacts and matching lipstick, at bedside (hippa done) concerned about repeatedly n/v, abdominal pains and infection in his belly not cleared up from last visit. So, I looked back at the old chart and it appears he had peritonitis from PD catheter which was removed on 03/17/19 Hospitalist Physical - Physical exam Narrative exam: Gen: WDWN, NAD, Awake, Alert, Orientated x 3 HEENT: NCAT, EOMI, PERRL, OP Clear Neck: supple, no adenopathy, no thyromegaly, no JVD CVS/Heart: irreg irreg, normal S1S2, pulses present bilaterally Chest/Lungs: CTA B, Symmetrical chest expansion, good air entry bilaterally GI/Abdomen: soft, NTND, good bowel sounds, no guarding or rebound /Bladder: no suprapubic tenderness, no CVA or paraspinal tenderness Extermity/Skin: no c/c/e, no obvious rash MSK: FROM x 4 Neuro: CN 2-12 grossly intact, no new focal deficits Psych: calm - Constitutional Vitals: Temp Pulse Resp BP Pulse Ox 98.2 F 86 20 191/114 98 03/24/19 13:30 03/24/19 13:55 03/24/19 13:30 03/24/19 13:55 03/24/19 10:00 General appearance: Present: no acute distress Results - Labs CBC & Chem 7: 03/24/19 06:01 03/24/19 06:01 Labs: Laboratory Last Values WBC 7.3 K/mm3 (4.5-11.0) 03/24/19 06:01 RBC 3.80 M/mm3 (3.65-5.03) 03/24/19 06:01 Hgb 11.2 gm/dl (11.8-15.2) L 03/24/19 06:01 Hct 34.1 % (35.5-45.6) L 03/24/19 06:01 MCV 90 fl (84-94) 03/24/19 06:01 MCH 29 pg (28-32) 03/24/19 06:01 MCHC 33 % (32-34) 03/24/19 06:01 RDW 13.9 % (13.2-15.2) 03/24/19 06:01 Plt Count 294 K/mm3 (140-440) 03/24/19 06:01 Lymph % (Auto) 16.9 % (13.4-35.0) 03/21/19 04:44 [place] % (Auto) 8.6 % (0.0-7.3) H 03/21/19 04:44 Eos % (Auto) 2.0 % (0.0-4.3) 03/21/19 04:44 Baso % (Auto) 0.5 % (0.0-1.8) 03/21/19 04:44 Lymph # 1.2 K/mm3 (1.2-5.4) 03/21/19 04:44 [place] # 0.6 K/mm3 (0.0-0.8) 03/21/19 04:44 Eos # 0.1 K/mm3 (0.0-0.4) 03/21/19 04:44 Baso # 0.0 K/mm3 (0.0-0.1) 03/21/19 04:44 Seg Neutrophils % 72.0 % (40.0-70.0) H 03/21/19 04:44 Seg Neutrophils # 5.3 K/mm3 (1.8-7.7) 03/21/19 04:44 PT 16.7 Sec. (12.2-14.9) H 03/20/19 12:42 INR 1.37 (0.87-1.13) H 03/20/19 12:42 APTT 31.6 Sec. (24.2-36.6) 03/20/19 12:42 POC ABG pH 7.511 (7.35-7.45) H 03/20/19 14:11 POC ABG pCO2 23.8 (35-45) L 03/20/19 14:11 POC ABG pO2 122 (80-105) H 03/20/19 14:11 POC ABG HCO3 19.0 (22-26 mml/L) 03/20/19 14:11 POC ABG Total CO2 20 (23-27mmol/L) 03/20/19 14:11 POC ABG O2 Sat 99 03/20/19 14:11 POC ABG Base Excess -4 ((-2) - (+3)mmol/L) 03/20/19 14:11 FiO2 21 % 03/20/19 14:11 Sodium 137 mmol/L (137-145) 03/24/19 06:01 Potassium 3.2 mmol/L (3.6-5.0) L 03/24/19 06:01 Chloride 99.0 mmol/L (98-107) 03/24/19 06:01 Carbon Dioxide 25 mmol/L (22-30) 03/24/19 06:01 Anion Gap 16 mmol/L 03/24/19 06:01 BUN 30 mg/dL (9-20) H 03/24/19 06:01 Creatinine 5.2 mg/dL (0.8-1.5) H 03/24/19 06:01 Estimated GFR 13 ml/min 03/24/19 06:01 BUN/Creatinine Ratio 6 % 03/24/19 06:01 Glucose 204 mg/dL (75-100) H 03/24/19 06:01 POC Glucose 179 (70-105) H 03/24/19 08:32 Calcium 7.5 mg/dL (8.4-10.2) L 03/24/19 06:01 Total Bilirubin 0.30 mg/dL (0.1-1.2) 03/21/19 04:44 AST 14 units/L (5-40) 03/21/19 04:44 ALT < 5 units/L (7-56) L 03/21/19 04:44 Alkaline Phosphatase 60 units/L (35-129) 03/21/19 04:44 Troponin T 0.041 ng/mL (0.00-0.029) H 03/20/19 17:03 Total Protein 6.0 g/dL (6.3-8.2) L 03/21/19 04:44 Albumin 2.9 g/dL (3.9-5) L 03/21/19 04:44 Albumin/Globulin Ratio 0.9 % 03/21/19 04:44 Triglycerides 147 mg/dL (2-149) 03/20/19 11:42 Cholesterol 147 mg/dL (50-199) 03/20/19 11:42 LDL Cholesterol Direct 93 mg/dL (50-130) 03/20/19 11:42 HDL Cholesterol 43 mg/dL (40-59) 03/20/19 11:42 Cholesterol/HDL Ratio 3.41 % 03/20/19 11:42 TSH 0.961 mlU/mL (0.270-4.200) 03/20/19 12:42 Free T4 1.93 ng/dL (0.76-1.46) H 03/20/19 12:42 Urine Color Yellow (Yellow) 03/24/19 14:25 Urine Turbidity Clear (Clear) 03/24/19 14:25 Urine pH 6.0 (5.0-7.0) 03/24/19 14:25 Ur Specific [place] 1.015 (1.003-1.030) 03/24/19 14:25 Urine Protein >2000 mg dl mg/dL (Negative) 03/24/19 14:25 Urine Glucose (UA) 150 mg/dL (Negative) 03/24/19 14:25 Urine Ketones Neg mg/dL (Negative) 03/24/19 14:25 Urine Blood Neg (Negative) 03/24/19 14:25 Urine Nitrite Neg (Negative) 03/24/19 14:25 Urine Bilirubin Neg (Negative) 03/24/19 14:25 Urine Urobilinogen 2.0 mg/dL (<2.0) 03/24/19 14:25 Ur Leukocyte Esterase Neg (Negative) 03/24/19 14:25 Urine WBC (Auto) 3.0 /HPF (0.0-6.0) 03/24/19 14:25 Urine RBC (Auto) 6.0 /HPF (0.0-6.0) 03/24/19 14:25 Urine Bacteria (Auto) 3+ /HPF (Negative) 03/24/19 14:25 Urine Mucus Few /HPF 03/24/19 14:25 Urine Sperm 2+ /HPF (SERVICES HOST) 03/24/19 14:25 Blood Type O POSITIVE 03/20/19 12:42 Antibody Screen Negative 03/20/19 12:42 Active Medications - Current Medications Current Medications: Generic Name Dose Route Start Last Admin Trade Name Freq PRN Reason Stop Dose Admin Albuterol 2.5 mg 03/20/19 15:30 Proventil IH Q3HRT PRN Shortness Of Breath Allopurinol 100 mg 03/21/19 10:00 03/24/19 13:56 Zyloprim PO 100 mg QDAY RASHEEDA Administration Amlodipine Besylate 10 mg 03/22/19 10:00 03/24/19 13:55 Amlodipine PO 10 mg DAILY RASHEEDA Administration Apixaban 2.5 mg 03/23/19 22:00 03/24/19 13:56 Eliquis PO 2.5 mg Q12HR RASHEEDA Administration Protocol Atorvastatin Calcium 20 mg 03/20/19 22:00 03/23/19 22:12 Lipitor PO 20 mg QHS RASHEEDA Administration Dextrose 50 ml 03/20/19 15:36 D50w (25gm) Syringe IV Q30MIN PRN Hypoglycemia Protocol Insulin Human Isoph/Insulin Regular 20 unit 03/21/19 17:00 03/24/19 08:51 Humulin 70/30 SUB-Q 20 unit BIDDIAB RASHEEDA Administration Insulin Human Lispro 0 unit 03/21/19 11:30 03/24/19 13:30 Humalog SUB-Q Not Given ACHS [facility] Protocol Metoprolol Tartrate 25 mg 03/22/19 22:00 03/24/19 13:54 Metoprolol PO 25 mg BID RASHEEDA Administration Ondansetron HCl 4 mg 03/22/19 16:56 03/23/19 10:02 Zofran IV 4 mg Q4H PRN Administration Nausea And Vomiting Pantoprazole Sodium 40 mg 03/21/19 16:00 03/24/19 13:56 Protonix PO 40 mg QDAY RASHEEDA Administration Sodium Chloride 10 ml 03/20/19 22:00 03/24/19 13:30 Sodium Chloride Flush Syringe 10 Ml IV Not Given BID RASHEEDA Sodium Chloride 10 ml 03/20/19 15:30 Sodium Chloride Flush Syringe 10 Ml IV PRN PRN LINE FLUSH Nutrition/Malnutrition Assess - Dietary Evaluation Nutrition/Malnutrition Findings: Nutrition Notes Start: 03/22/19 11:4 0 Freq: Status: Active Protocol: Document 03/24/19 09:57 AP (Rec: 03/24/19 10:41 AP [id number]) Co-Sign 03/24/19 09:57 LM Nutrition Notes Initial or Follow up Reassessment Current Diagnosis CKD (stage V CKD),Diabetes Other Pertinent Diagnosis HD (M,W,F), a fibb. Current Diet renal Labs/Tests BUN 30 Cr 5.2 BG 204 Pertinent Medications Humalog, Humulin, Zofran Height 6 ft 1 in Weight 97.6 kg [place] Body Weight (kg) 83.63 BMI 28.3 Subjective/Other Information F/U for PO/ONS intakes. Observed 100% of bfast tray consumed. Nepro in room (two full containers untouched) will d/c. Pt on his way to dialysis upon entering room so unable to ask pt about appetite and N/V. Percent of energy/protein needs met: 91%kcal/65% PRO needs Burn Absent Trauma Absent Current % PO Good (75-100%) Minimum of two criteria No physical signs of malnutrition #1 Nutrition Diagnosis Predicted suboptimal energy intake Diagnosis Progress(for reassessment Continues documentation) Is patient on ventilator? No Is Patient Ambulatory and/or Out of Bed Yes REE-([place]-ambulatory/OOB) [ [id number] [id number]] Calculation Used for Recommendations [facility] Additional Notes PRO: 116-135g/day (1.2-1.4g/kg ) Fluid: 1ml/kcal Nutrition Intervention Change Diet Order: continue renal diet Add Supplement/Snack (indicate name/kcal d/c Nepro /protein ) Goal #1 Meet at leat 75% of energy and protein needs via PO. Anticipated Discharge Needs: renal diet Follow-Up By: 03/29/19 Additional Comments F/U for PO intakes. ONS needs.
--- NOTE | 2019-03-24 15:45 | Discharge Summary ---
Providers - Providers Date of Admission: 03/20/19 15:30 Date of discharge: 03/24/19 Attending physician: NEVIN COVARRUBIAS 03/20/19 15:55 Consult to Physician [CONS] Routine Comment: Consulting Provider: RADHA OLIVER Physician Instructions: Reason For Exam: bradycardia 03/20/19 18:56 Consult to Physician [CONS] Routine Comment: Consulting Provider: GANGA COLEMAN Physician Instructions: Reason For Exam: esrd 03/23/19 16:55 Consult to Physician [CONS] Routine Comment: Consulting Provider: SANJEEV RAMIREZ Physician Instructions: Reason For Exam: intractable N/V, postprandial nausea/epigastric Hospitalization Condition: Stable Hospital course: Patient is a 69 yo AA man with a history of DM type 2, ESRD on HD(M,W,F), last dialyzed on Wednesday, HTN, pAfib on who presents to [facility] ED with generalized weakness, near syncope, malaise and shortness of breath. He was found to have hypotension with Systolic blood pressure in the 70's. He was diagnosis with Sepsis but there have been no identified infection so far, so unable to diagnosis Sepsis. CXR was clear and he doesn't make enough urine for UA. He did not have elevated WBC. He did not have fevers. He was here about 2 weeks ago with AGE. During his course in the hospital, he developed a recurrence of rapid atrial fibrillation. There was spontaneous return to sinus rhythm, on amiodarone. He was discharged on amiodarone 200 mg daily. He is currently in ICU on 6 mcg of Levophed. He also developed transient, near syncope associated with marked bradycardia, which prompted Cardiology consultation. Prior cardiac workup includes an echocardiogram done on his admission just last week, a ejection fraction 50-55%. Last visit, PD catheter was removed in 2 pieces on 03/17/19. * pCXR on admission: No acute findings * stat CT abd/pelvis without contrast==>IMPRESSION: 1. Within the limitations of non contrast technique, no acute process in the abdomen or pelvis. 2. Moderate hiatal hernia. There is mild thickening of the visualized distal esophagus. Correlate clinically. 3. 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 Diabetes type 2, uncontrolled, add ssi, ADA diet, insulin, accu check, hypoglycemia protocol HTN (hypertension): continue antihypertensives Severe malnutrition, poa Disposition: DC- TO HOME OR SELFCARE Time spent for discharge: 35 minutes Core Measure Documentation - Palliative Care Palliative Care/ Comfort Measures: Not Applicable - Core Measures Any of the following diagnoses?: none - VTE Discharge Requirements Deep Vein Thrombosis/Pulmonary Embolism Present on Admission: No Has pt received <5 days of overlap therapy or INR<2.0: No Anticoagulant overlap therapy prescribed at discharge: No Contraindication No Overlap Therapy order at DC: Not Indicated Exam - Physical Exam Narrative exam: Gen: WDWN, NAD, Awake, Alert, Orientated x 3 HEENT: NCAT, EOMI, PERRL, OP Clear Neck: supple, no adenopathy, no thyromegaly, no JVD CVS/Heart: irreg irreg, normal S1S2, pulses present bilaterally Chest/Lungs: CTA B, Symmetrical chest expansion, good air entry bilaterally GI/Abdomen: soft, NTND, good bowel sounds, no guarding or rebound /Bladder: no suprapubic tenderness, no CVA or paraspinal tenderness Extermity/Skin: no c/c/e, no obvious rash MSK: FROM x 4 Neuro: CN 2-12 grossly intact, no new focal deficits Psych: calm - Constitutional Vitals: Temp Pulse Resp BP Pulse Ox 98.2 F 86 20 191/114 98 03/24/19 13:30 03/24/19 13:55 03/24/19 13:30 03/24/19 13:55 03/24/19 10:00 Plan Activity: other (no strenous activity until cleared by PCP) Diet: advance as tolerated Follow up with: AMEED,DR [Other] - 3-5 Days ERICA MACHADO MD [Staff Physician] - 7 Days SANJEEV RAMIREZ MD [Staff Physician] - 7 Days RADHA OLIVER MD [Staff Physician] - 7 Days Prescriptions: amLODIPine 10 mg PO DAILY #30 tablet Apixaban [Eliquis] 2.5 mg PO Q12HR #60 tablet Metoprolol [Lopressor] 25 mg PO BID #60 tablet Insulin NPH/Regular [NovoLIN 70/30] 20 unit SUB-Q BIDDIAB #60 units Allopurinol [Zyloprim] 100 mg PO QDAY #30 tablet
[2019-03-24 16:41] VITALS: BP 154/82
--- NOTE | 2019-03-24 16:47 | Progress Note ---
Assessment and Plan - Patient Problems (1) ESRD (end stage renal disease) on dialysis Current Visit: Yes Status: Chronic Plan to address problem: End-stage renal disease We'll initiate dialysis continue dialysis Wednesday (2) Diabetes Current Visit: No Status: Acute Qualifiers: Diabetes mellitus type: type 1 Diabetes mellitus complication status: with hyperglycemia Qualified Code(s): E10.65 - Type 1 diabetes mellitus with hyperglycemia Plan to address problem: Diabetes mellitus Continue medications Monitor fingersticks (3) HTN (hypertension) Current Visit: No Status: Chronic Qualifiers: Hypertension type: essential hypertension Qualified Code(s): I10 - Essential (primary) hypertension Plan to address problem: Hypertension uncontrolled blood pressure medications have been resumed (4) Nausea & vomiting Current Visit: Yes Status: Acute Plan to address problem: Nausea /vomitting much improved Appreciate GI recommendations Subjective Interval history: 69-year-old with medical history significant for end-stage renal disease on hemodialysis at the [facility] via right IJ PermCath, also history of hypertension diabetes admitted with complaint of shortness of breath weakness and lethargy denies any fevers chills denies any sick contacts denies that he denies any lower extremity edema he reports he has been in compliance with dialysis. Denies any nausea vomiting diarrhea denies any abdominal pain Patient's seen today completed dialysis today Still has nausea. No shortness of breath Objective - Vital Signs Vital signs: Vital Signs - 12hr 03/24/19 03/24/19 03/24/19 08:22 09:35 09:40 Temperature 98.0 F 97.8 F Pulse Rate 92 H 76 102 H Respiratory 18 18 Rate Blood Pressure 121/84 144/71 152/78 O2 Sat by Pulse 99 Oximetry 03/24/19 03/24/19 03/24/19 09:45 10:00 10:15 Temperature Pulse Rate 96 H 85 99 H Respiratory 18 Rate Blood Pressure 159/77 142/88 157/87 O2 Sat by Pulse 98 Oximetry 03/24/19 03/24/19 03/24/19 10:30 10:45 11:00 Temperature Pulse Rate 94 H 94 H 103 H Respiratory Rate Blood Pressure 182/82 176/95 188/78 O2 Sat by Pulse Oximetry 03/24/19 03/24/19 03/24/19 11:15 11:30 11:45 Temperature Pulse Rate 96 H 73 90 Respiratory Rate Blood Pressure 189/87 171/87 180/96 O2 Sat by Pulse Oximetry 03/24/19 03/24/19 03/24/19 12:00 12:15 12:30 Temperature Pulse Rate 101 H 81 79 Respiratory Rate Blood Pressure 169/82 181/102 193/101 O2 Sat by Pulse Oximetry 03/24/19 03/24/19 03/24/19 12:45 13:00 13:15 Temperature Pulse Rate 104 H 98 H 109 H Respiratory Rate Blood Pressure 179/97 166/88 175/96 O2 Sat by Pulse Oximetry 03/24/19 03/24/19 03/24/19 13:30 13:53 13:54 Temperature 98.2 F Pulse Rate 98 H 92 H 92 H Respiratory 20 Rate Blood Pressure 180/97 142/76 191/114 O2 Sat by Pulse Oximetry 03/24/19 03/24/19 03/24/19 13:55 16:35 16:37 Temperature 98.9 F 98.6 F Pulse Rate 86 77 Respiratory 18 18 Rate Blood Pressure 191/114 154/82 O2 Sat by Pulse 99 Oximetry - General Appearance General appearance: well-developed, well-nourished EENT: ATNC, PERRL Neck: no JVD Respiratory: Present: Clear to Ascultation Cardiology: regular, S1S2 Gastrointestinal: normal, normoactive bowel sounds Integumentary: no rash Neurologic: alert and oriented x3, CN 3-12 intact Psychiatric: mood/affect appropriate - Lab 03/24/19 06:01 03/24/19 06:01 Most recent lab results Calcium 7.5 mg/dL (8.4-10.2) L 03/24/19 06:01 - Imaging Chest x-ray: image reviewed Medications & Allergies - Medications Allergies/Adverse Reactions: Allergies No Known Allergies Allergy (Verified 05/23/16 22:42) Home Medications: Home Medications Medication Instructions Recorded Confirmed Last Taken Type AtorvaSTATin [Lipitor] 20 mg PO QHS #30 tablet 09/01/16 03/20/19 03/18/19 Rx ALBUTEROL NEB's [Proventil 0.083% 2.5 mg IH Q3HRT PRN #30 nebu 03/24/19 Unknown Rx NEBS] Allopurinol [Zyloprim] 100 mg PO QDAY #30 tablet 03/24/19 Unknown Rx Apixaban [Eliquis] 2.5 mg PO Q12HR #60 tablet 03/24/19 Unknown Rx Insulin NPH/Regular [NovoLIN 70/30] 20 unit SUB-Q BIDDIAB #60 units 03/24/19 Unknown Rx Lispro Insulin [HumaLOG] 1 dose SUB-Q ACHS #100 units 03/24/19 Unknown Rx Metoprolol [Lopressor TAB] 25 mg PO BID tablet 03/24/19 Unknown Rx Pantoprazole [Protonix TAB] 40 mg PO QDAY #30 tablet 03/24/19 Unknown Rx amLODIPine 10 mg PO DAILY #30 tablet 03/24/19 Unknown Rx Active Medications: Generic Name Dose Route Start Last Admin Trade Name Freq PRN Reason Stop Dose Admin Albuterol 2.5 mg 03/20/19 15:30 Proventil IH Q3HRT PRN Shortness Of Breath Allopurinol 100 mg 03/21/19 10:00 03/24/19 13:56 Zyloprim PO 100 mg QDAY RASHEEDA Administration Amlodipine Besylate 10 mg 03/22/19 10:00 03/24/19 13:55 Amlodipine PO 10 mg DAILY RASHEEDA Administration Apixaban 2.5 mg 03/23/19 22:00 03/24/19 13:56 Eliquis PO 2.5 mg Q12HR RASHEEDA Administration Protocol Atorvastatin Calcium 20 mg 03/20/19 22:00 03/23/19 22:12 Lipitor PO 20 mg QHS RASHEEDA Administration Dextrose 50 ml 03/20/19 15:36 D50w (25gm) Syringe IV Q30MIN PRN Hypoglycemia Protocol Insulin Human Isoph/Insulin Regular 20 unit 03/21/19 17:00 03/24/19 08:51 Humulin 70/30 SUB-Q 20 unit BIDDIAB RASHEEDA Administration Insulin Human Lispro 0 unit 03/21/19 11:30 03/24/19 13:30 Humalog SUB-Q Not Given ACHS RASHEEDA Protocol Metoprolol Tartrate 25 mg 03/22/19 22:00 03/24/19 13:54 Metoprolol PO 25 mg BID RASHEEDA Administration Ondansetron HCl 4 mg 03/22/19 16:56 03/23/19 10:02 Zofran IV 4 mg Q4H PRN Administration Nausea And Vomiting Pantoprazole Sodium 40 mg 03/21/19 16:00 03/24/19 13:56 Protonix PO 40 mg QDAY RASHEEDA Administration Sodium Chloride 10 ml 03/20/19 22:00 03/24/19 13:30 Sodium Chloride Flush Syringe 10 Ml IV Not Given BID RASHEEDA Sodium Chloride 10 ml 03/20/19 15:30 Sodium Chloride Flush Syringe 10 Ml IV PRN PRN LINE FLUSH
== END 2019-03-24 18:57 | disposition home or self-care (01) | DRG 308 ==
LOC: ED 11:09 → CC1 15:30 → 4A 03-22 20:16
PROVIDERS: ADMIT Internal Medicine; ATTEND Internal Medicine
PROC: 4A033R1 Measurement of Arterial Saturation, Peripheral, Percutaneous Approach (ICD-10-PCS; principal; 2019-03-20)
PROC: 06HY33Z Insertion of Infusion Device into Lower Vein, Percutaneous Approach (ICD-10-PCS; 2019-03-20)
PROC: 5A1D70Z Performance of Urinary Filtration, Intermittent, Less than 6 Hours Per Day (ICD-10-PCS; 2019-03-21)
PROC: 5A1D70Z Performance of Urinary Filtration, Intermittent, Less than 6 Hours Per Day (ICD-10-PCS; 2019-03-22)
PROC: 5A1D70Z Performance of Urinary Filtration, Intermittent, Less than 6 Hours Per Day (ICD-10-PCS; 2019-03-24)
DX: I48.0 Paroxysmal atrial fibrillation (principal); N18.6 End stage renal disease; E43 Unspecified severe protein-calorie malnutrition; A41.9 Sepsis, unspecified organism; R65.21 Severe sepsis with septic shock; I12.0 Hypertensive chronic kidney disease with stage 5 chronic kidney disease or end stage renal disease; R00.1 Bradycardia, unspecified; E11.22 Type 2 diabetes mellitus with diabetic chronic kidney disease; K21.9 Gastro-esophageal reflux disease without esophagitis; K59.00 Constipation, unspecified; R55 Syncope and collapse; I95.9 Hypotension, unspecified; E11.65 Type 2 diabetes mellitus with hyperglycemia; Z68.28 Body mass index [BMI] 28.0-28.9, adult; Z99.2 Dependence on renal dialysis; Z79.899 Other long term (current) drug therapy; Z79.4 Long term (current) use of insulin; Z79.01 Long term (current) use of anticoagulants; Z82.49 Family history of ischemic heart disease and other diseases of the circulatory system
CPT/HCPCS: 36415; 71045; 74018; 74176; 80048; 80053; 80061; 81001; 82803; 82962; 84439; 84443; 84484; 85025; 85027; 85610; 85730; 86850; 86900; 86901; 87040; 87116; 93005; 93010; 94640; G0378; A9270-GY; J0461; J0696; J1815; J2405; J3370; J7030; J7040